=== PATIENT | male | born 1945 | race Caucasian/White ===

== ENCOUNTER 2017-03-28 08:47 | Observation (INO) | payer BC ==
[~2017-03-28] VITALS: Ht 167.6 cm; Wt 106.7 kg
[~2017-03-28 08:47] MED LIST: BUSP5TAB59 PO; CYAN3INJ IM; FURO-85 PO; IRBE-39 PO; METO25TA3 PO; PROP225T PO; WARF1TAB6 PO; WARF6TAB5 PO
--- NOTE | 2017-03-28 09:30 | EMERGENCY ROOM VISIT NOTE ---
History First contact with patient: 08:51 Chief Complaint: ILLNESS Stated Complaint: SHORTNESS OF BREATH/HEADACHE History of Present Illness The patient is a 71 year old male who presents to the Emergency Room with complaints of sudden onset of nausea, shortness of breath, and sharp headache that occurred around 6am today. Symptoms lasted for about 30 minutes and are currently resolved. Patient states he had gotten up and ate breakfast around 5: 30, shortly after that he felt the sudden nausea and headache. He did not vomit. He went to lie down and began to feel suddenly short of breath, which was only relieved by sitting straight up. He denies any chest pain, palpitations, back pain, dizziness or passing out, leg pain or swelling, abdominal pain, urinary symptoms, rash. Past medical history significant for coronary artery disease with previous stent placement, he is on Coumadin for atrial fibrillation, and had a pacemaker placed for bradycardia. Review of Systems A complete 10 point review of systems was reviewed with the patient with pertinent positives and negatives as per history of present illness. All else were negative. 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 Social History Smoking Status: Former Smoker Drug Use: none Marital Status: Housing Status: lives with significant other Occupation Status: retired Current/Historical Medications Scheduled Amlodipine (Norvasc), 5 MG PO DAILY Aspirin (Aspirin Ec), 81 MG PO DAILY Buspirone Hcl (Buspirone Hcl), 5 MG PO DAILY Cyanocobalamin (Cyanocobalamin), 1,000 MCG INJ MONTHLY Furosemide (Furosemide), 20 MG PO DAILY Irbesartan (Avapro), 300 MG PO DAILY Metoprolol Succinate (Toprol Xl), 12.5 MG PO DAILY Propafenone Hcl (Propafenone Hcl), 225 MG PO BID Tamsulosin HCl (Tamsulosin HCl), 0.4 MG PO BID Warfarin Sod (Jantoven), 7 MG PO DAILY [clonidine], 0 IT UD [hydromorphone], 0 IT UD Physical Exam Vital Signs Date Time Temp Pulse Resp B/P (MAP) Pulse Ox O2 Delivery O2 Flow Rate FiO2 03/28/17 13:02 61 147/70 100 Room Air 03/28/17 12:31 60 03/28/17 11:17 60 17 97 03/28/17 11:01 153/77 03/28/17 10:47 55 15 99 03/28/17 10:31 164/73 03/28/17 10:18 143/73 03/28/17 10:17 57 157/77 98 Room Air 03/28/17 10:17 56 4 157/77 97 03/28/17 09:17 58 14 03/28/17 08:57 36.5 69 20 178/97 97 Room Air 03/28/17 08:56 59 03/28/17 08:51 178/97 Physical Exam CONSTITUTIONAL: No acute distress. Nontoxic appearing. Well hydrated, well appearing and well nourished. Alert and oriented X 4 with normal affect. HEENT: Normocephalic, atraumatic. Pupils equal, round and reactive to light, EOMI. TMs normal. Pharynx normal. Moist membranes. NECK: Supple, full active range of motion without discomfort. RESPIRATORY: Clear to auscultation bilaterally with no wheezing, crackles, rhonchi or stridor. Diminished bases bilaterally. Equal expansion bilaterally. CARDIOVASCULAR: Regular rate and rhythm with no murmurs, rubs or gallops. Normal peripheral perfusion. No edema. GASTROINTESTINAL: Soft, nontender, nondistended. Bowel sounds present in all quadrants. MUSCULOSKELETAL: Full range of motion of all joints without discomfort. INTEGUMENTARY: No rash or other significant dermatologic conditions noted. NEUROLOGIC: Cranial nerves II-XII grossly intact. No focal neurologic deficits noted. Medical Decision & Procedures ER Provider Diagnostic Interpretation: SINGLE VIEW CHEST CLINICAL HISTORY: Dyspnea. Headache. FINDINGS: An AP, portable, upright chest radiograph is compared to study dated 01/25/2016. The examination is degraded by portable technique and patient rotation. A 2-lead cardiac pacemaker is unchanged in position. The patient is status post midline sternotomy. The heart is enlarged and there is atherosclerotic calcification of the thoracic aorta. The pulmonary vasculature is noncongested. Chronic interstitial thickening is unchanged. The lungs and pleural spaces are clear. No pneumothorax is seen. The skeletal structures are osteopenic. The bony thorax is grossly intact. IMPRESSION: 1. Cardiomegaly and cardiac pacemaker. There is no radiographic evidence of congestive failure. 2. No airspace consolidation or pleural effusion is seen. ----- HEAD CT NONCONTRAST CT DOSE: 638.56 mGycm HISTORY: Headache. TECHNIQUE: Multiaxial CT images of the head were performed without the use of intravenous contrast. Automated exposure control was utilized for this study. A dose lowering technique was utilized adhering to the principles of ALARA. Comparison: None. Findings: The paranasal sinuses and mastoid air cells are clear. The calvarium and skull base are intact. The ventricles and sulci are within normal limits. There is no mass, hematoma, midline shift, or acute infarct. Impression: No acute intracranial abnormality. Laboratory Results 03/28/17 09:30 Red Blood Count 5.13, Mean Corpuscular Volume 79.7, Mean Corpuscular Hemoglobin 25.1, Mean Corpuscular Hemoglobin Concent 31.5, Mean Platelet Volume 9.8, Neutrophils (%) (Auto) 69.6, Lymphocytes (%) (Auto) 20.2, Monocytes (%) (Auto) 8.5, Eosinophils (%) (Auto) 1.5, Basophils (%) (Auto) 0.1, Neutrophils # (Auto) 4.98, Lymphocytes # (Auto) 1.45, Monocytes # (Auto) 0.61, Eosinophils # (Auto) 0.11, Basophils # (Auto) 0.01 03/28/17 09:30 Test 03/28/17 09:30 03/28/17 11:39 White Blood Count 7.17 K/uL (4.8-10.8) Red Blood Count 5.13 M/uL (4.7-6.1) Hemoglobin 12.9 g/dL (14.0-18.0) Hematocrit 40.9 % (42-52) Mean Corpuscular Volume 79.7 fL (80-100) Mean Corpuscular Hemoglobin 25.1 pg (25-34) Mean Corpuscular Hemoglobin Concent 31.5 g/dl (32-36) Platelet Count 222 K/uL (130-400) Mean Platelet Volume 9.8 fL (7.4-10.4) Neutrophils (%) (Auto) 69.6 % Lymphocytes (%) (Auto) 20.2 % Monocytes (%) (Auto) 8.5 % Eosinophils (%) (Auto) 1.5 % Basophils (%) (Auto) 0.1 % Neutrophils # (Auto) 4.98 K/uL (1.4-6.5) Lymphocytes # (Auto) 1.45 K/uL (1.2-3.4) Monocytes # (Auto) 0.61 K/uL (0.11-0.59) Eosinophils # (Auto) 0.11 K/uL (0-0.5) Basophils # (Auto) 0.01 K/uL (0-0.2) RDW Standard Deviation 52.3 fL (36.4-46.3) RDW Coefficient of Variation 17.7 % (11.5-14.5) Immature Granulocyte % (Auto) 0.1 % Immature Granulocyte # (Auto) 0.01 K/uL (0.00-0.02) Prothrombin Time 46.8 SECONDS (9.0-12.0) Prothromb Time International Ratio 4.1 (0.9-1.1) Anion Gap 4.0 mmol/L (3-11) Est Creatinine Clear Calc Drug Dose 105.2 ml/min Estimated GFR () 106.4 Estimated GFR (Non- 91.8 BUN/Creatinine Ratio 20.6 (10-20) Calcium Level 8.1 mg/dl (8.5-10.1) Total Bilirubin 0.4 mg/dl (0.2-1) Aspartate Amino Transf (AST/SGOT) 16 U/L (15-37) Alanine Aminotransferase (ALT/SGPT) 20 U/L (12-78) Alkaline Phosphatase 62 U/L (45-117) Total Protein 7.0 gm/dl (6.4-8.2) Albumin 3.4 gm/dl (3.4-5.0) Globulin 3.6 gm/dl (2.5-4.0) Albumin/Globulin Ratio 0.9 (0.9-2) Troponin I 0.029 ng/ml (0-0.045) Pro-B-Type Natriuretic Peptide 440 pg/ml (0-900) ECG Indication: SOB/dyspnea Rate (beats per minute): 61 Rhythm: other (Ventricular-paced ) Findings: no acute ischemic change, no ectopy Change: no significant change (01/25/2016) Medical Decision CC: Patient presenting with complaint of shortness of breath with nausea Interpretation of Labs: No leukocytosis, mild anemia (at baseline), no significant electrolyte abnormalities, normal renal function, normal liver enzymes. INR supratherapeutic. UA negative. Differential Diagnosis: Includes, but not limited to ACS, CHF exacerbation, dysrhythmia, pacemaker malfunction, pneumonia, PE, among others. Medication Reconciliation: I attest that I have personally reviewed the patient' s current medication list. Vital signs review: I reviewed the patient's vital signs and interpret them as follows: T: Afebrile; BP: Hypertensive; HR: Within normal limits; RR: Normal limits; Pulse Ox: Within normal limits on room air. Summary: Patient was evaluated at bedside, history of physical exam performed. Patient is alert and oriented, in no acute distress, resting calmly in the stretcher. Patient currently denies any other symptoms which brought him to the ED. EKG reviewed at bedside, shows a ventricular paced rhythm Orders were placed at bedside for labs, UA, troponin, chest x-ray to evaluate for CHF, ACS, pneumonia. Patient discussed with Dr. Knapp, who agrees with my assessment and plan. Labs reviewed as above, unremarkable. Serial troponins are negative. Chest x-ray is clear, no signs of congestive heart failure or pneumonia. Patient reassessed multiple times throughout ED stay, he reports having another episode of feeling short of breath while lying flat here in the ED. Given his risk factors and heart score of >4, recommending admission for additional cardiac workup. I did speak, phone with Dr. Foote, patient's process design engineer, who agreed with our plans for admitting the patient. Spoke with Dr. Davila, hospitalist, who agrees to admit the patient. Patient and family updated on plan for admission, they verbalized understanding of were agreeable. Patient stable at time of admission. Head Trauma GCS Score: 15 Medication Reconcilliation Current Medication List: was personally reviewed by me Blood Pressure Screening Patient's blood pressure: Elevated blood pressure Impression Primary Impression: Orthopnea Departure Information Dispostion Admitted as an inpatient Condition FAIR Referrals Sachs,Adonay Dread D.O. (PCP) Patient Instructions [facility]
[2017-03-28 09:40] LABS: BASO % 0.1 %; BASO ABS # 0.01 K/uL (0-0.2); COMPLETE YES; EOS % 1.5 %; HEMATOCRIT 40.9 % (42-52); IG% 0.1 %; LYMPH % 20.2 %; LYMPH ABS # 1.45 K/uL (1.2-3.4); MEAN CELL VOLUME 79.7 fL (80-100); MEAN CORPUSCULAR HEMOGLOBIN 25.1 pg (25-34); MEAN CORPUSCULAR HGB CONC 31.5 g/dl (32-36); MEAN PLATELET VOLUME 9.8 fL (7.4-10.4); MONO % 8.5 %; NEUT % 69.6 %; PLATELET COUNT 222 K/uL (130-400); RED BLOOD COUNT 5.13 M/uL (4.7-6.1); WHITE BLOOD COUNT 7.17 K/uL (4.8-10.8)
--- NOTE | 2017-03-28 09:42 | EMERGENCY ROOM VISIT NOTE ---
ED Visit Note First contact with patient: 08:51 HPI: h/o afib, bradycardia, s/p ppm on coumadin c/o nausea after breakfast with JANG today. SOB when he lay down after feeling improved. Now asymptomatic. PE: AFVSS, fatigued appearing, NAD NC/AT, dry mm RRR, no murmurs Diminished at bases otherwise CTAB Abd soft NT/ND Ext: no edema, erythema Neuro: grossly intact Plan: CT head negative, EKG paced. Trop negative x 2, PPM interrogation. Patient re-evaluated and having orthopnea and persistent fatigue in ED. Given patient's episode this AM and recurrent sx in setting of Heart score 4-5, moderate risk, will admit for further cardiac r/o with likely formal echo and possible provocative testing. I reviewed the patient's past medical history, medications, and visit nursing notes. I discussed the case with the physician physician office assistant, examined the patient, and agree with the findings and plan as documented in the physician assistants note.
--- NOTE | 2017-03-28 09:44 | DIAGNOSTIC IMAGING REPORT ---
SINGLE VIEW CHEST CLINICAL HISTORY: Dyspnea. Headache. FINDINGS: An AP, portable, upright chest radiograph is compared to study dated 01/25/2016. The examination is degraded by portable technique and patient rotation. A 2-lead cardiac pacemaker is unchanged in position. The patient is status post midline sternotomy. The heart is enlarged and there is atherosclerotic calcification of the thoracic aorta. The pulmonary vasculature is noncongested. Chronic interstitial thickening is unchanged. The lungs and pleural spaces are clear. No pneumothorax is seen. The skeletal structures are osteopenic. The bony thorax is grossly intact. IMPRESSION: 1. Cardiomegaly and cardiac pacemaker. There is no radiographic evidence of congestive failure. 2. No airspace consolidation or pleural effusion is seen. Electronically signed by: Juan Dean M.D. 03/28/2017 9:43 AM Dictated Date/Time: 03/28/2017 9:42 AM
[2017-03-28 09:53] LABS: INR 4.1 (0.9-1.1); PROTHROMBIN TIME (PATIENT) 46.8 SECONDS (9.0-12.0)
[2017-03-28 10:00] LABS: BUN/CREATININE RATIO 20.6 (10-20); CALCIUM 8.1 mg/dl (8.5-10.1); CREATININE 0.76 mg/dl (0.60-1.40); POTASSIUM 4.1 mmol/L (3.5-5.1)
[2017-03-28 10:05] LABS: ALB/GLOB RATIO 0.9 (0.9-2)
--- NOTE | 2017-03-28 10:23 | DIAGNOSTIC IMAGING REPORT ---
HEAD CT NONCONTRAST CT DOSE: 638.56 mGycm HISTORY: Headache. TECHNIQUE: Multiaxial CT images of the head were performed without the use of intravenous contrast. Automated exposure control was utilized for this study. A dose lowering technique was utilized adhering to the principles of ALARA. Comparison: None. Findings: The paranasal sinuses and mastoid air cells are clear. The calvarium and skull base are intact. The ventricles and sulci are within normal limits. There is no mass, hematoma, midline shift, or acute infarct. Impression: No acute intracranial abnormality. Electronically signed by: Alf Lockwood M.D. 03/28/2017 10:22 AM Dictated Date/Time: 03/28/2017 10:02 AM
[2017-03-28] MEDS ORDERED: ACETAMINOPHEN 325 MG TAB PO PRN (14:15)
[2017-03-28] MEDS ORDERED: IV FLUIDS COMPLETED PRN (14:15)
[2017-03-28] MEDS ORDERED: NITROGLYCERIN 0.4 MG SL PER TAB CHARGE SL PRN (14:15)
--- NOTE | 2017-03-28 14:45 | History and Physical ---
History & Physical Date & Time of Service: Mar 28, 2017 at 14:45 . Chief Complaint: Shortness Of Breath/Headache . Primary Care Physician: Shoaib Foote M.D. . History of Present Illness Source: patient, family, clinic records, hospital records 71 YO male followed by Dr. Hines ([facility]) for primary care and Dr. Foote for Cardiology. History of ischemic heart disease, atrial fibrillation, diet-controlled DM, and other problems noted below. This morning he experienced a frontal headache and nausea after eating breakfast around 05:30. Symptoms only lasted for a short time. Subsequently developed dyspnea while lying in supine position. No associated chest pain, palpitations, cough. Dyspnea resolved when he sat up. Came to ED for evaluation. Had another episode of dyspnea while lying in bed in ED. Echocardiograms in past have shown normal LV systolic function. No lower extremity edema. No weight gain. . 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 Family History FATHER Heart disease Lung disease MOTHER Colon cancer Diabetes mellitus Hypertension Social History Smoking Status: Former Smoker Alcohol Use: occasionally Drug Use: none Marital Status: Housing status: lives with family Occupational Status: retired Immunizations History of Influenza Vaccine: Yes History of Tetanus Vaccine?: Yes History of Pneumococcal: No History of Hepatitis B Vaccine: No Multi-Drug Resistant Organisms History of MDRO: No Allergies Coded Allergies: Bee Venom (Verified Allergy, Severe, ANAPHYLAXIS, 03/28/17) Penicillins (Verified Allergy, Intermediate, HIVES, 03/28/17) Sulfa Antibiotics (Verified Allergy, Intermediate, HIVES, 03/28/17) Gentamicin (Verified Allergy, Unknown, UNKNOWN, 03/28/17) Home Medications Scheduled Amlodipine (Norvasc), 5 MG PO DAILY Aspirin (Aspirin Ec), 81 MG PO DAILY Buspirone Hcl (Buspirone Hcl), 5 MG PO DAILY Cyanocobalamin (Cyanocobalamin), 1,000 MCG INJ MONTHLY Furosemide (Furosemide), 20 MG PO DAILY Irbesartan (Avapro), 300 MG PO DAILY Metoprolol Succinate (Toprol Xl), 12.5 MG PO DAILY Propafenone Hcl (Propafenone Hcl), 225 MG PO BID Tamsulosin HCl (Tamsulosin HCl), 0.4 MG PO BID Warfarin Sod (Jantoven), 7 MG PO DAILY [clonidine], 0 IT UD [hydromorphone], 0 IT UD Review of Systems Constitutional: No fever, No weight loss ENT: No nasal symptoms, No sore throat Respiratory: + shortness of breath, No cough Cardiovascular: No chest pain, No edema, No palpitations Abdomen: + nausea, No pain, No vomiting, No diarrhea, No constipation, No GI bleeding Musculoskeletal: + joint pain Genitourinary - Male: No hematuria, No dysuria Neurologic: + problem reported (frontal headache) Endocrine: No excessive thirst, No excessive urination Hematologic / Lymphatic: + abnormal bleeding/bruising, No swollen lymph nodes Integumentary: No rash, No itch, No new/changing skin lesions Physical Exam Vital Signs Date Time Temp Pulse Resp B/P (MAP) Pulse Ox O2 Delivery O2 Flow Rate FiO2 03/28/17 13:02 61 147/70 100 Room Air 03/28/17 12:31 60 03/28/17 11:17 60 17 97 03/28/17 11:01 153/77 03/28/17 10:47 55 15 99 03/28/17 10:31 164/73 03/28/17 10:18 143/73 03/28/17 10:17 57 157/77 98 Room Air 03/28/17 10:17 56 4 157/77 97 03/28/17 09:17 58 14 03/28/17 08:57 36.5 69 20 178/97 97 Room Air 03/28/17 08:56 59 03/28/17 08:51 178/97 General Appearance: WD/WN, no apparent distress Head: normocephalic, atraumatic Eyes: normal inspection, PERRL, EOMI, sclerae normal (conjunctivae pink) ENT: hearing grossly normal, pharynx normal, + pertinent finding (upper dentures) Neck: supple, no adenopathy, thyroid normal, no JVD, trachea midline Respiratory/Chest: lungs clear, no respiratory distress, no accessory muscle use Cardiovascular: regular rate, rhythm, no gallop, no JVD, + systolic murmur (I/ sys murmur at base), + abnormal peripheral pulses (decreased pedal pulses) Abdomen/GI: normal bowel sounds, non tender, soft, no organomegaly, no pulsatile mass Extremities/Musculoskelatal: no calf tenderness, normal capillary refill, no pedal edema Neurologic/Psych: icing mixer II-XII nml as tested (PERRL, EOMI, no facial palsy, no dysarthria), no motor/sensory deficits (grossly intact), alert, normal mood/ affect, oriented x 3 Skin: warm/dry, no rash, + pertinent finding (mild erythema left medial distal thigh) Lymphatic: no adenopathy (cervical, axillary) Diagnostics Laboratory Results Results Past 24 Hours Test 03/28/17 09:30 03/28/17 11:39 Range/Units White Blood Count 7.17 4.8-10.8 K/uL Red Blood Count 5.13 4.7-6.1 M/uL Hemoglobin 12.9 14.0-18.0 g/dL Hematocrit 40.9 42-52 % Mean Corpuscular Volume 79.7 80-100 fL Mean Corpuscular Hemoglobin 25.1 25-34 pg Mean Corpuscular Hemoglobin Concent 31.5 32-36 g/dl Platelet Count 222 130-400 K/uL Mean Platelet Volume 9.8 7.4-10.4 fL Neutrophils (%) (Auto) 69.6 % Lymphocytes (%) (Auto) 20.2 % Monocytes (%) (Auto) 8.5 % Eosinophils (%) (Auto) 1.5 % Basophils (%) (Auto) 0.1 % Neutrophils # (Auto) 4.98 1.4-6.5 K/uL Lymphocytes # (Auto) 1.45 1.2-3.4 K/uL Monocytes # (Auto) 0.61 0.11-0.59 K/uL Eosinophils # (Auto) 0.11 0-0.5 K/uL Basophils # (Auto) 0.01 0-0.2 K/uL RDW Standard Deviation 52.3 36.4-46.3 fL RDW Coefficient of Variation 17.7 11.5-14.5 % Immature Granulocyte % (Auto) 0.1 % Immature Granulocyte # (Auto) 0.01 0.00-0.02 K/uL Prothrombin Time 46.8 9.0-12.0 SECONDS Prothromb Time International Ratio 4.1 0.9-1.1 Sodium Level 141 136-145 mmol/L Potassium Level 4.1 3.5-5.1 mmol/L Chloride Level 110 98-107 mmol/L Carbon Dioxide Level 27 21-32 mmol/L Anion Gap 4.0 3-11 mmol/L Blood Urea Nitrogen 16 7-18 mg/dl Creatinine 0.76 0.60-1.40 mg/dl Est Creatinine Clear Calc Drug Dose 105.2 ml/min Estimated GFR () 106.4 Estimated GFR (Non- 91.8 BUN/Creatinine Ratio 20.6 10-20 Random Glucose 95 70-99 mg/dl Calcium Level 8.1 8.5-10.1 mg/dl Total Bilirubin 0.4 0.2-1 mg/dl Aspartate Amino Transf (AST/SGOT) 16 15-37 U/L Alanine Aminotransferase (ALT/SGPT) 20 12-78 U/L Alkaline Phosphatase 62 45-117 U/L Troponin I 0.029 0.029 0-0.045 ng/ml Total Protein 7.0 6.4-8.2 gm/dl Albumin 3.4 3.4-5.0 gm/dl Globulin 3.6 2.5-4.0 gm/dl Albumin/Globulin Ratio 0.9 0.9-2 Pro-B-Type Natriuretic Peptide 440 0-900 pg/ml Diagnostic Radiology SINGLE VIEW CHEST IMPRESSION: 1. Cardiomegaly and cardiac pacemaker. There is no radiographic evidence of congestive failure. 2. No airspace consolidation or pleural effusion is seen. Electronically signed by: Juan Dean M.D. 03/28/2017 9:[address] NONCONTRAST Findings: The paranasal sinuses and mastoid air cells are clear. The calvarium and skull base are intact. The ventricles and sulci are within normal limits. There is no mass, hematoma, midline shift, or acute infarct. Impression: No acute intracranial abnormality. Electronically signed by: Alf Lockwood M.D. 03/28/2017 10:22 AM . EKG EKG performed at 08:53 reviewed and demonstrated ventricular paced rhythm at 60 / minute, repolarization abnormalities. . Impression Assessment and Plan DYSPNEA Dyspnea in supine position x 2 today. Etiology uncertain. Oxygenation well on room air. No apparent CHF per exam, chest x-ray, BNP. Pulmonary embolism very unlikely in light of warfarin therapy and INR of 4.1. No apparent pulmonary infection. Pacemaker interrogation in ED reportedly unremarkable. Check serial cardiac markers. Consult Cardiology. CORONARY ARTERY DISEASE No anginal symptoms. Etiology of dyspnea uncertain as discussed above. Continue aspirin, metoprolol. Check cardiac markers, lipid profile. Consult Cardiology. ATRIAL FIBRILLATION Continue metoprolol, warfarin. Propafenone to be stopped per discussion with Cardiology. SLEEP APNEA Intolerant of CPAP or BiPAP. DM TYPE 2 Diet controlled. Random blood sugar in ED 95. Check Hgb A1C. Follow. CHRONIC PAIN Well-controlled with hydromorphone / clonidine intrathecal pump. ERYTHEMA LEFT LOWER EXTREMITY Mild erythema left medial distal thigh noted. No fever or leukocytosis. Monitor for possible developing cellulitis. VTE PROPHYLAXIS Continue warfarin. RESUSCITATION STATUS Discussed with patient and his . He has a living will. He would like resuscitation attempted in the event of a cardiopulmonary arrest if there is a reasonable chance of a meaningful recovery, but does not want prolonged extraordinary measures if prognosis is poor. Therefore, code status = "Level 1" (full resuscitation). DISPOSITION Observation status on Telemetry Unit. Expected discharge to home. Medical follow-up with Dr. Hines. Cardiology follow-up with Dr. Foote. . VTE Prophylaxis VTE Risk Assessment Done? Y/N: Yes Risk Level: Moderate Given or contraindicated: Warfarin (Coumadin) Additional Copies To Adonay Hines D.O.
[2017-03-28] MEDS ORDERED: PROPAFENONE HCL 150 MG TAB PO ONE (14:58)
[2017-03-28 15:23] VITALS: BP 174/91; PULSE 62; TEMP 36.6; O2SAT 99; Ht 167.6 cm; Wt 106.7 kg
[2017-03-28] MEDS ORDERED: CLONIDINE IT SCH (16:15)
[2017-03-28] MEDS ORDERED: HYDROMORPHONE FOR PAIN PUMP ITR SCH (16:15)
[2017-03-28] MEDS ORDERED: IRBESARTAN 150 MG TAB PO ONE (16:30)
[2017-03-28] MEDS ORDERED: FUROSEMIDE 40 MG TAB PO ONE (16:30)
[2017-03-28] MEDS ORDERED: METOPROLOL SUCC 25MG EXT REL TAB PO ONE (16:30)
[2017-03-28] MEDS ORDERED: TAMSULOSIN HCL 0.4 MG CAP PO ONE (16:30)
[2017-03-28] MEDS ORDERED: ASPIRIN 81 MG ECTAB PO ONE (16:30)
[2017-03-28] MEDS ORDERED: AMLODIPINE BESYLATE 5 MG TAB PO ONE (16:30)
[2017-03-28 19:37] VITALS: BP 160/87; PULSE 56; TEMP 36.6; O2SAT 99
[2017-03-28] MEDS: TAMSULOSIN HCL 0.4 MG CAP PO SCH (20:54)
[2017-03-28] MEDS ORDERED: PROPAFENONE HCL 150 MG TAB PO SCH (22:00)
--- NOTE | 2017-03-28 23:21 | CARDIOLOGY CONSULTATION ---
DATE OF CONSULTATION: 03/28/2017 REFERRING: Dr. Davila. PRIMARY CARE PHYSICIAN: Dr. Adonay Hines. INDICATIONS: Acute dyspnea. HISTORY OF PRESENT ILLNESS: The patient is a complex 71-year-old male whose history is notable for: 1. Atherosclerotic coronary artery disease, status post coronary artery bypass grafting x4 in 2000, presenting with sign of ischemia. 2. Paroxysmal, now persistent/chronic atrial fibrillation. 3. History of tachybrady syndrome, status post dual-chamber pacemaker insertion initially in 2008 with device generator exchange in 2014. 4. History of obstructive sleep apnea. 5. History of hypertension. 6. History of hyperlipidemia. 7. History of past prior gastric bypass surgery. 8. History of chronic back pain with indwelling infusion pump. The patient presents today noting he was sitting quietly this morning with and suddenly developed a sensation of acute dyspnea and breathlessness. It was not associated with chest pain or diaphoresis. It was associated with nausea and sudden onset of acute frontal headache. Symptoms lasted nearly an hour before spontaneously resolving. He notes no sense of tachypalpitations, dizziness, lightheadedness. Notes no racing heart or palpitations. Denies orthopnea or worsening peripheral edema. Feels weight has been generally stable, slightly upward trending, but no acute fluctuations. Notes no rash or arthritic complaint. Notes no bleeding difficulties. Currently is without pain or discomfort. REVIEW OF SYSTEMS: Otherwise negative. ALLERGIES: BEE VENOM, GENTAMICIN, PENICILLIN, SULFA. MEDICATIONS: Prior to hospitalization were amlodipine 5 mg per day, aspirin 81 mg per day, buspirone 5 mg daily, vitamin B12 1000 mcg injection monthly, furosemide 20 mg per day, Avapro 300 mg p.o. daily, Toprol-XL 12.5 mg p.o. daily, propafenone 225 mg p.o. b.i.d., tamsulosin 0.4 mg p.o. b.i.d., warfarin 7 mg daily, intrathecal clonidine-hydromorphone pump. PAST SURGICAL HISTORY: Notable for as described coronary artery bypass grafting x4 in 2000, prior pacemaker insertion in 2008 with generator exchange 05/2015, past gastric bypass surgery. SOCIAL HISTORY: The patient is a nonsmoker, nondrinker. He is accompanied by his today. PHYSICAL EXAMINATION: VITAL SIGNS: Heart rate 62, blood pressure today is 174/91. HEENT: Normocephalic, atraumatic. Nares without discharge. Throat is clear. NECK: Supple without thyromegaly or lymphadenopathy. There is no jugular venous distention. There are no carotid bruits. LUNGS: Clear with mildly diminished breath sounds. CARDIOVASCULAR: Regular with distant heart sounds with less than grade 1/6 systolic murmur. No diastolic murmur. ABDOMEN: Soft, obese, nontender. No palpable hepatosplenomegaly, no hepatojugular reflux. EXTREMITIES: Reveal trivial pedal edema with intact distal pulses. DATA: White cell count 7.1, hemoglobin is 12.9. Sodium is 141, potassium is 4.1, chloride is 110, bicarbonate is 27, BUN is 16, creatinine is 0.76. Troponin I x2 is 0.029 and 0.029. BNP is 440. Chest x-ray reveals no infiltrate or edema. Head CT revealed no acute abnormalities. EKG reveals chronic atrial fibrillation with ventricular paced rhythm. Rate 61. Pacer interrogation per report revealed no abnormalities. IMPRESSION: Complex 71-year-old male with prior history of coronary artery bypass grafting remotely in 2000, history of chronic atrial fibrillation with tachybrady syndrome, pacemaker in place. The patient presents now with symptoms of acute dyspnea which was transient in nature without recurrence. Only notable finding on examination initially has been elevated blood pressures but not substantially so above usual baseline. Initial cardiac enzymes reveal no acute injury. EKG is nondiagnostic given ventricular paced rhythm. PLAN: Will be to follow serial enzymes. Check echocardiogram to assess LV function and valvular structures. Consider stress testing, the patient having undergone prior dobutamine stress testing in 07/2015, that will be tentatively scheduled for a.m. Coumadin will be held today given elevated INR of 4.0 and concerns were regarding potential need for further investigation of procedures. The patient understands the plan and recommendations, will report any symptoms in hospital. Propafenone stopped. No other adjustments in medications made initially. MTDD
[2017-03-28 23:23] VITALS: BP 138/73; PULSE 58; TEMP 37; O2SAT 96
[2017-03-29 03:51] VITALS: BP 126/69; PULSE 58; TEMP 36.6; O2SAT 97
[2017-03-29 07:13] LABS: HEMATOCRIT 41.1 % (42-52); MEAN CELL VOLUME 79.2 fL (80-100); MEAN CORPUSCULAR HEMOGLOBIN 25.4 pg (25-34); MEAN CORPUSCULAR HGB CONC 32.1 g/dl (32-36); PLATELET COUNT 214 K/uL (130-400); RED BLOOD COUNT 5.19 M/uL (4.7-6.1); WHITE BLOOD COUNT 6.48 K/uL (4.8-10.8)
[2017-03-29 07:20] LABS: PROTHROMBIN TIME (PATIENT) 33.1 SECONDS (9.0-12.0)
[2017-03-29 07:36] LABS: BUN/CREATININE RATIO 14.2 (10-20); CALCIUM 8.6 mg/dl (8.5-10.1); CREATININE 0.81 mg/dl (0.60-1.40); POTASSIUM 4.3 mmol/L (3.5-5.1)
[2017-03-29 07:38] VITALS: BP 156/82; PULSE 56; TEMP 36.5; O2SAT 97
[2017-03-29 07:42] LABS: CHOLESTEROL/HDL RATIO 3.8
[2017-03-29] MEDS ORDERED: WARFARIN SOD 1 MG TAB PO SCH (09:00)
[2017-03-29] MEDS ORDERED: METOPROLOL SUCC 25MG EXT REL TAB PO SCH ×2 (09:00)
[2017-03-29] MEDS: FUROSEMIDE 40 MG TAB PO SCH (09:00)
[2017-03-29] MEDS: ASPIRIN 81 MG ECTAB PO SCH (09:00)
[2017-03-29] MEDS: IRBESARTAN 150 MG TAB PO SCH (09:07)
[2017-03-29] MEDS: AMLODIPINE BESYLATE 5 MG TAB PO SCH (09:08)
[2017-03-29] MEDS: TAMSULOSIN HCL 0.4 MG CAP PO SCH ×2 (09:09→20:34)
--- NOTE | 2017-03-29 10:14 | Cardiology Follow-Up ---
Subjective General Date of Service: Mar 29, 2017. Chief Complaint: SOB Pt evaluation today including: conversation w/ patient, physical exam, chart review, lab review, review of studies, review of inpatient medication list History of Present Illness Patient seen and examined. Patient describes waking up ~4:30 hungry. He drank coffee and ate 1/2 of a bologna sandwich. He went back to bed and awoke around 5:45. He was sitting talking to his , watching the new. He notes having to lean against his , "seemed like all my air left." Notes sitting up straight, having to take five deep breaths, and experiencing pain between the eyes that lasted 5 minutes as well as nausea that lasted approximately 30 minutes. No vomiting. No chest pain or discomfort. No palpitations. No diaphoresis. No fevers or chills. No unilateral complaints. No speech difficulty. No dizziness, near syncope, or syncope. No recent medication changes. No recent illnesses. No rash. No tick bites. Telemetry: Atrial fibrillation. Intermittent ventricular pacing. Lower rate on pacemaker set at 55 bpm. Device interrogation on 03/28/2017 demonstrated appropriate function with adequate battery reserve. Estimated remaining longevity: 8.5 years. Mode VVIR. Lower rate 55 bpm. One ventricular high rate observed since 06/13/2015 lasting 3 seconds and occurring nearly one year ago (04/01/2016). [employer] 64.3%. Ventricular lead capture test sent to occur "daily at rest." Allergies Coded Allergies: Bee Venom (Verified Allergy, Severe, ANAPHYLAXIS, 03/28/17) Penicillins (Verified Allergy, Intermediate, HIVES, 03/28/17) Sulfa Antibiotics (Verified Allergy, Intermediate, HIVES, 03/28/17) Gentamicin (Verified Allergy, Unknown, UNKNOWN, 03/28/17) Social History Smoking Status: Former Smoker Hx Tobacco Use In Past Year?: No Hx Alcohol Use - Type And Amou: No Hx Substance Use - Type And Am: No Problem List Medical Problems: (1) Orthopnea Status: Acute (2) SBO (small bowel obstruction) Status: Acute (3) Upper abdominal pain Status: Acute Physical Exam Vital Signs Last Vital Signs Documentation Date Time Temp Pulse Resp B/P (MAP) Pulse Ox O2 Delivery O2 Flow Rate FiO2 03/29/17 07:38 36.5 56 18 156/82 (106) 97 Room Air Physical Exam Constitutional: Level of Distress: NAD Ambulation: ambulation with cane Psychiatric: Mental Status: active & alert Orientation: to time, to place, to person Memory: recent memory normal, remote memory normal Head: normocephalic, atraumatic Eyes: Pupils: PERRLA Neck: pertinent finding (Normal JVP) Lungs: Respiratory effort: no dyspnea Auscultation: no wheezing, no rales/crackles, no rhonchi, deminished air movement Cardiovascular: Heart Auscultation: no rubs, II/ EMILIO, irregular rate rhythm (56 bpm) Peripheral Pulses: Dorsalis Pedis Pulse: decreased on the left, decreased on the right Musculoskeletal: normal Extremities: no cyanosis, no clubbing, edema Neurologic: Cranial Nerves: grossly intact Assessment and Plan Assessment and Plan Complex 71-year-old male admitted with symptoms of acute dyspnea as described above. EKG ventricular paced. Cardiac enzymes negative. Dvk-T-Ooekzvppwwp peptide normal, 440 pg/mL. Chest x-ray without acute process. Head CT without acute intracranial abnormality. Dobutamine stress echocardiography ordered. [employer] contacted to assess ventricular lead settings. Further recommendations pending the above, evaluation by Dr. Foote, and the patient's ongoing hospitalization. Laboratory Results Last 24 Hours Test 03/28/17 11:39 03/29/17 06:43 Troponin I 0.029 ng/ml 0.019 ng/ml Pro-B-Type Natriuretic Peptide 440 pg/ml White Blood Count 6.48 K/uL Red Blood Count 5.19 M/uL Hemoglobin 13.2 g/dL Hematocrit 41.1 % Mean Corpuscular Volume 79.2 fL Mean Corpuscular Hemoglobin 25.4 pg Mean Corpuscular Hemoglobin Concent 32.1 g/dl RDW Standard Deviation 51.2 fL RDW Coefficient of Variation 17.6 % Platelet Count 214 K/uL Mean Platelet Volume 10.0 fL Prothrombin Time 33.1 SECONDS Prothromb Time International Ratio 3.0 Sodium Level 141 mmol/L Potassium Level 4.3 mmol/L Chloride Level 108 mmol/L Carbon Dioxide Level 26 mmol/L Anion Gap 7.0 mmol/L Blood Urea Nitrogen 12 mg/dl Creatinine 0.81 mg/dl Est Creatinine Clear Calc Drug Dose 95.9 ml/min Estimated GFR () 103.6 Estimated GFR (Non- 89.4 BUN/Creatinine Ratio 14.2 Random Glucose 110 mg/dl Estimated Average Glucose 146 mg/dl Hemoglobin A1c 6.7 % Calcium Level 8.6 mg/dl Triglycerides Level 112 mg/dl Cholesterol Level 119 mg/dl HDL Cholesterol 31 mg/dl LDL Cholesterol, Calculated 66 mg/dl VLDL Cholesterol, Calculated 22 mg/dl Cholesterol/HDL Ratio 3.8 Hepatitis C Antibody Screen NEG
[2017-03-29 12:01] VITALS: BP 125/73; PULSE 55; TEMP 36.8; O2SAT 95
--- NOTE | 2017-03-29 12:57 | Progress Note ---
Internal Med Progress Note Date of Service: Mar 29, 2017. Provider Documentation: SUBJECTIVE: The patient was seen and examined Denies any CP,Palpitation, No more SOB since admission OBJECTIVE: Vital Signs-as noted below Exam: General-No distress at rest Eyes-normal ENT-normal Neck-supple Lungs-Clear to ausucltate bilaterally Heart-Regular,no murmur appreciated Abdomen-Benign,no masses,bowel sound present Extremities-No edema Neuro-AAOx3 Lab data as noted below. ASSESSMENT & PLAN: Shortness of Breath Dyspnea in supine position x 2 today. Oxygenation well on room air. No apparent CHF per exam, chest x-ray, BNP. Pulmonary embolism very unlikely in light of warfarin therapy and INR of 4.1. Pacemaker interrogation in ED reportedly unremarkable. Check serial cardiac markers-Negative for any ACS . Consult Cardiology-appreciate Input DSE today CORONARY ARTERY DISEASE No anginal symptoms. Etiology of dyspnea uncertain as discussed above. Continue aspirin, metoprolol. Check cardiac markers-negative for any ACS ATRIAL FIBRILLATION-Rate controlled Continue metoprolol, warfarin. Propafenone to be stopped per discussion with Cardiology. INR therapeutic SLEEP APNEA Intolerant of CPAP or BiPAP. May be the cause of supine SOB DM TYPE 2 Diet controlled. Random blood sugar in ED 95. Check Hgb A1C.-6.7 Monitor BS CHRONIC PAIN Well-controlled with hydromorphone / clonidine intrathecal pump. ERYTHEMA LEFT LOWER EXTREMITY-No Cellulitis Mild erythema left medial distal thigh noted. No fever or leukocytosis. Doubt any cellulitis VTE PROPHYLAXIS Continue warfarin. RESUSCITATION STATUS:Level 1 Discussed with patient and his . He has a living will. He would like resuscitation attempted in the event of a cardiopulmonary arrest if there is a reasonable chance of a meaningful recovery, but does not want prolonged extraordinary measures if prognosis is poor. DISPOSITION Observation status on Telemetry Unit. Expected discharge to home. Medical follow-up with Dr. Hines. Cardiology follow-up with Dr. Foote. .Likely discharge in a day or two Vital Signs: Date Time Temp Pulse Resp B/P (MAP) Pulse Ox O2 Delivery O2 Flow Rate FiO2 03/29/17 12:01 36.8 55 20 125/73 (90) 95 Room Air 03/29/17 08:00 Room Air 03/29/17 07:38 36.5 56 18 156/82 (106) 97 Room Air 03/29/17 04:00 Room Air 03/29/17 03:51 36.6 58 18 126/69 (88) 97 Room Air 03/29/17 00:01 Room Air 03/28/17 23:23 37.0 58 18 138/73 (94) 96 Room Air 03/28/17 20:00 Room Air 03/28/17 19:37 36.6 56 18 160/87 (111) 99 Room Air 03/28/17 16:00 Room Air 03/28/17 15:23 36.6 62 20 174/91 99 Room Air 03/28/17 15:16 61 153/79 97 03/28/17 13:02 61 147/70 100 Room Air Lab Results: Results Past 24 Hours Test 03/29/17 06:43 Range/Units White Blood Count 6.48 4.8-10.8 K/uL Red Blood Count 5.19 4.7-6.1 M/uL Hemoglobin 13.2 14.0-18.0 g/dL Hematocrit 41.1 42-52 % Mean Corpuscular Volume 79.2 80-100 fL Mean Corpuscular Hemoglobin 25.4 25-34 pg Mean Corpuscular Hemoglobin Concent 32.1 32-36 g/dl RDW Standard Deviation 51.2 36.4-46.3 fL RDW Coefficient of Variation 17.6 11.5-14.5 % Platelet Count 214 130-400 K/uL Mean Platelet Volume 10.0 7.4-10.4 fL Prothrombin Time 33.1 9.0-12.0 SECONDS Prothromb Time International Ratio 3.0 0.9-1.1 Sodium Level 141 136-145 mmol/L Potassium Level 4.3 3.5-5.1 mmol/L Chloride Level 108 98-107 mmol/L Carbon Dioxide Level 26 21-32 mmol/L Anion Gap 7.0 3-11 mmol/L Blood Urea Nitrogen 12 7-18 mg/dl Creatinine 0.81 0.60-1.40 mg/dl Est Creatinine Clear Calc Drug Dose 95.9 ml/min Estimated GFR () 103.6 Estimated GFR (Non- 89.4 BUN/Creatinine Ratio 14.2 10-20 Random Glucose 110 70-99 mg/dl Estimated Average Glucose 146 mg/dl Hemoglobin A1c 6.7 4.5-5.6 % Calcium Level 8.6 8.5-10.1 mg/dl Troponin I 0.019 0-0.045 ng/ml Triglycerides Level 112 0-150 mg/dl Cholesterol Level 119 0-200 mg/dl HDL Cholesterol 31 mg/dl LDL Cholesterol, Calculated 66 mg/dl VLDL Cholesterol, Calculated 22 mg/dl Cholesterol/HDL Ratio 3.8 Hepatitis C Antibody Screen NEG NEG
[2017-03-29] MEDS ORDERED: ATROPINE SULFATE 0.1 MG/ML 5ML SYR ONE (13:00)
[2017-03-29] MEDS ORDERED: METOPROLOL TARTRATE 1 MG/ML VIAL ONE (13:00)
[2017-03-29] MEDS ORDERED: DOBUTamine 500MG / 250ML D5W ONE (13:01)
[2017-03-29] MEDS ORDERED: PERFLUTREN LIPID MICROSPHERE (DEFINITY) IV ONE (14:06)
[2017-03-29 15:46] VITALS: BP 102/54; PULSE 76; TEMP 36.9; O2SAT 98
[2017-03-29] MEDS ORDERED: WARFARIN TAB 5 MG, WARFARIN TAB 2 MG PO SCH ×2 (16:00)
--- NOTE | 2017-03-29 16:41 | DOBUTAMINE ECHO ---
*NOTICE TO RECEIVING CONSTITUTION PARTY AGENCY This information is strictly Confidential and protected under [place] law. [place] law prohibits you from making any further disclosure of this information unless further disclosure is expressly permitted by the written consent of the person to whom it pertains or is authorized by law. A general authorization for the release of medical or other information is not sufficient for this purpose. Hospital accepts no responsibility if the information is made available to any other person, INCLUDING THE PATIENT. Interpretation Summary * Name: KUSUM DUNCAN Study Date: 03/29/2017 12:50 PM BP: 151/86 mmHg * Patient Location: 2T\S\S239\S\1 HR: 54 * : 1945 (M/d/yyy) Gender: Male Height: 66 in * Age: 71 yrs Ethnicity: [place] Weight: 236 lb * Ordering Physician: Shoaib Foote * Referring Physician: Self, Referred * Performed By: Heaven Amor RDCS * * Reason For Study: Dyspnea * BSA: 2.1 m2 * STRESS STUDY: Normal pharmacologic stress echocardiogram. No echocardiographic or ECG evidence of myocardial ischemia having achieved heart rate adequate for diagnostic purposes. * -- Conclusions -- * Aortic valve sclerosis moderate, without significant aortic valvular stenosis. Procedure Details * DOBUTAMINE ECHO, CPT#[id number] * ECHO DOPPLER, CPT #[id number] * ECHO COLOR FLOW, CPT #[id number] * A contrast injection of Definity was performed to improve assessment of LV function. * Contrast was injected into an intravenous site in the right arm. * One vial of Definity ultrasound contrast was diluted in normal saline to a total volume of 10 ml. A total of '4' ml of solution was administered during imaging. * Lot # [id number] of Definity utilized for procedure. * Expiration date APR 13. * The attending nurse who injected the contrast agent was Colleen Sorto RN. Left Ventricle * The basal septum is thickened and angulated consistent with sigmoid septum. * There is moderate concentric left ventricular hypertrophy. * Ejection Fraction = 50-55%. * Septal motion is consistent with conduction abnormality. Right Ventricle * The right ventricular cavity size is normal (basal dimension <4.2 cm in right ventricular apical 4-chamber view). Atria * The left atrium is moderately dilated. Mitral Valve * There is mild mitral annular calcification. * There is no mitral valve stenosis. * There is trace mitral regurgitation. Aortic Valve * The aortic valve is tricuspid. The leaflet thickness if normal. There is no aortic stenosis, and no significant insufficiency. * Aortic valve sclerosis moderate, without significant aortic valvular stenosis. Pulmonic Valve * The pulmonic valve is not well visualized. Pericardium * There is no pericardial effusion. Stress Parameters * Baseline EKG Atrila fibrillation with ventricular paced rhythm. * Stress EKG was non diagnostic due to conduction changes. RBBB * The stress portion of this study was personally supervised by the undersigned interpreting physician. * Rest heart rate was '54' BPM. * Rest blood pressure was '151/86' * Maximum heart rate achieved was 144 bpm. * Maximum heart rate was 96 % of maximum age-predicted heart rate. * Maximum blood pressure was '180/62' * Maximum Dobutamine infusion rate was '30' mcg/kg/min. * A total of 0.5 mg of intravenous Atropine was used to supplement Dobutamine for heart rate response. * Dobutamine infusion was terminated due to achieving target heart rate * A total of 2.5 mg of IV Metoprolol was administered to reverse Dobutamine-induced tachycardia. * The patient did not exhibit any symptoms during drug infusion. MMode 2D Measurements and Calculations IVSd 1.1 cm LVIDd 4.3 cm LVIDs 3.2 cm LVPWd 1.3 cm IVS/LVPW 0.88 FS 24.9 % EDV(Teich) 81.2 ml ESV(Teich) 40.9 ml EF(Teich) 49.7 % EDV(cubed) 77.3 ml ESV(cubed) 32.7 ml EF(cubed) 57.7 % LV mass(C)d 187.4 grams LV mass(C)dI 87.3 grams/m\S\2 SV(Teich) 40.4 ml SI(Teich) 18.8 ml/m\S\2 SV(cubed) 44.6 ml SI(cubed) 20.8 ml/m\S\2 Ao root diam 3.1 cm Ao root area 7.5 cm\S\2 ACS 2.1 cm LA dimension 4.1 cm asc Aorta Diam 2.4 cm LA/Ao 1.3 LVOT diam 2.0 cm LVOT area 3.2 cm\S\2 LVAd ap4 32.8 cm\S\2 LVLd ap4 7.5 cm EDV(MOD-sp4) 119.3 ml EDV(sp4-el) 122.3 ml LVAs ap4 20.9 cm\S\2 LVLs ap4 6.9 cm ESV(MOD-sp4) 55.9 ml ESV(sp4-el) 54.2 ml EF(MOD-sp4) 53.2 % EF(sp4-el) 55.7 % LVAd ap2 22.0 cm\S\2 LVLd ap2 6.8 cm EDV(MOD-sp2) 59.1 ml EDV(sp2-el) 61.0 ml LVAs ap2 13.5 cm\S\2 LVLs ap2 5.8 cm ESV(MOD-sp2) 28.2 ml ESV(sp2-el) 26.7 ml EF(MOD-sp2) 52.4 % EF(sp2-el) 56.2 % LVLd %diff -10.66 % EDV(MOD-bp) 84.9 ml LVLs %diff -19.04 % ESV(MOD-bp) 42.7 ml EF(MOD-bp) 49.7 % SV(MOD-sp4) 63.4 ml SI(MOD-sp4) 29.5 ml/m\S\2 SV(MOD-sp2) 31.0 ml SI(MOD-sp2) 14.4 ml/m\S\2 SV(MOD-bp) 42.2 ml SI(MOD-bp) 19.6 ml/m\S\2 SV(sp4-el) 68.2 ml SI(sp4-el) 31.8 ml/m\S\2 SV(sp2-el) 34.3 ml SI(sp2-el) 16.0 ml/m\S\2 Doppler Measurements and Calculations MV E max gwyn 78.1 cm/sec MV dec time 0.19 sec Ao V2 max 149.7 cm/sec Ao max PG 9.0 mmHg Ao max PG (full) 7.2 mmHg NABIL(V,A) 1.4 cm\S\2 NABIL(V,D) 1.4 cm\S\2 LV V1 max PG 1.8 mmHg LV V1 max 66.9 cm/sec PA V2 max 97.7 cm/sec PA max PG 3.8 mmHg PA acc slope 422.8 cm/sec\S\2 PA acc time 0.10 sec TR max gwyn 243.2 cm/sec PA pr(Accel) 33.1 mmHg
--- NOTE | 2017-03-29 17:37 | CARDIOLOGY PROGRESS NOTE ---
DATE: 03/29/2017 The patient was seen and examined and evaluated at the time of dobutamine stress echocardiography. SUBJECTIVE: The patient feels well today. Pacemaker reprogrammed to get out of threshold timing during nonwaking hours. Symptoms were reproduced with out of threshold testing. Dobutamine stress testing today revealed no stress induced ischemia, though with moderate left ventricular hypertrophy, sigmoid septum with contraction pattern consistent with paced rhythm. RECOMMENDATIONS: The patient's medications have been adjusted, specifically antiarrhythmic therapies and discontinue propafenone. I will titrate Toprol to 25 mg twice per day. Keep on monitor overnight. Assess for further arrhythmias. Stable overnight, discharge to home in a.m. MTDD
[2017-03-29 19:34] VITALS: BP 160/72; PULSE 66; TEMP 36.8; O2SAT 98
[2017-03-29] MEDS: METOPROLOL SUCC 25MG EXT REL TAB PO SCH (20:34)
[2017-03-30] VITALS (9 sets, daily range): BP systolic 107–166; BP diastolic 62–91; PULSE 55–78; TEMP 36.5–36.9; O2SAT 96–99
[2017-03-30 07:33] LABS: HEMATOCRIT 40.7 % (42-52); MEAN CELL VOLUME 78.9 fL (80-100); MEAN CORPUSCULAR HEMOGLOBIN 25.6 pg (25-34); MEAN CORPUSCULAR HGB CONC 32.4 g/dl (32-36); MEAN PLATELET VOLUME 9.6 fL (7.4-10.4); PLATELET COUNT 209 K/uL (130-400); RED BLOOD COUNT 5.16 M/uL (4.7-6.1)
[2017-03-30 07:43] LABS: INR 1.7 (0.9-1.1); PROTHROMBIN TIME (PATIENT) 18.4 SECONDS (9.0-12.0)
[2017-03-30 08:00] LABS: BUN/CREATININE RATIO 18.6 (10-20); CALCIUM 8.8 mg/dl (8.5-10.1); CREATININE 0.78 mg/dl (0.60-1.40); POTASSIUM 4.1 mmol/L (3.5-5.1)
[2017-03-30] MEDS: FUROSEMIDE 40 MG TAB PO SCH (08:18)
[2017-03-30] MEDS: AMLODIPINE BESYLATE 5 MG TAB PO SCH (08:19)
[2017-03-30] MEDS: IRBESARTAN 150 MG TAB PO SCH (08:19)
[2017-03-30] MEDS: METOPROLOL SUCC 25MG EXT REL TAB PO SCH (08:20)
[2017-03-30] MEDS: ASPIRIN 81 MG ECTAB PO SCH (08:20)
[2017-03-30] MEDS: TAMSULOSIN HCL 0.4 MG CAP PO SCH (08:20)
--- NOTE | 2017-03-30 10:23 | Cardiology Follow-Up ---
Subjective General Date of Service: Mar 30, 2017. Chief Complaint: SOB Pt evaluation today including: conversation w/ patient, physical exam, chart review, lab review, review of studies, review of inpatient medication list History of Present Illness Patient seen and examined. No complaints. Denies chest pain, palpitations, dyspnea, or nausea. Telemetry: Atrial fibrillation with a controlled ventricular response, currently around 60 bpm. Intermittent ventricular pacing. March 29, 2017 DSE Interpretation Summary ([facility], Dr. Foote): Normal pharmacologic stress echocardiogram. No echocardiographic or ECG evidence of myocardial ischemia having achieved heart rate adequate for diagnostic purposes (96% age predicted maximum heart rate). Aortic valve sclerosis moderate, without significant aortic valvular stenosis. Allergies Coded Allergies: Bee Venom (Verified Allergy, Severe, ANAPHYLAXIS, 03/28/17) Penicillins (Verified Allergy, Intermediate, HIVES, 03/28/17) Sulfa Antibiotics (Verified Allergy, Intermediate, HIVES, 03/28/17) Gentamicin (Verified Allergy, Unknown, UNKNOWN, 03/28/17) Social History Smoking Status: Former Smoker Hx Tobacco Use In Past Year?: No Hx Alcohol Use - Type And Amou: No Hx Substance Use - Type And Am: No Problem List Medical Problems: (1) Orthopnea Status: Acute (2) SBO (small bowel obstruction) Status: Acute (3) Upper abdominal pain Status: Acute Physical Exam Vital Signs Last Vital Signs Documentation Date Time Temp Pulse Resp B/P (MAP) Pulse Ox O2 Delivery O2 Flow Rate FiO2 03/30/17 08:00 99 Room Air 03/30/17 07:58 36.5 55 22 152/82 (105) Physical Exam Constitutional: Level of Distress: NAD Ambulation: ambulation with cane Psychiatric: Mental Status: active & alert Orientation: to time, to place, to person Memory: recent memory normal, remote memory normal Head: normocephalic, atraumatic Eyes: Pupils: PERRLA Neck: pertinent finding (Normal JVP) Lungs: Respiratory effort: no dyspnea Auscultation: no wheezing, no rales/crackles, no rhonchi, deminished air movement Cardiovascular: Heart Auscultation: no rubs, II/ EMILIO, irregular rate rhythm (56 bpm) Peripheral Pulses: Dorsalis Pedis Pulse: decreased on the left, decreased on the right Musculoskeletal: normal Extremities: no cyanosis, no edema, no clubbing Neurologic: Cranial Nerves: grossly intact Assessment and Plan Assessment and Plan Complex 71-year-old male admitted with symptoms of acute dyspnea associated with nausea. Device interrogation on 03/29/2017 reproduced his presenting symptoms there were associated with automatic ventricular lead capture testing for which his device was reprogrammed by the [employer] (01:00 AM instead of 'day at rest.'). Dobutamine stress echocardiography was negative for ischemia at 96% age predicted maximum heart rate. Medication changes made this admission included discontinuation of propafenone and titration of Toprol XL. Cardiology office contacted to make arrangements for hospital follow-up; they will contact the patient post discharge. Patient personally rounded on , chart reviewed, assessment and plan as above. Shoaib Foote MD Laboratory Results Last 24 Hours Test 03/30/17 06:46 White Blood Count 6.60 K/uL Red Blood Count 5.16 M/uL Hemoglobin 13.2 g/dL Hematocrit 40.7 % Mean Corpuscular Volume 78.9 fL Mean Corpuscular Hemoglobin 25.6 pg Mean Corpuscular Hemoglobin Concent 32.4 g/dl RDW Standard Deviation 51.4 fL RDW Coefficient of Variation 17.6 % Platelet Count 209 K/uL Mean Platelet Volume 9.6 fL Prothrombin Time 18.4 SECONDS Prothromb Time International Ratio 1.7 Sodium Level 140 mmol/L Potassium Level 4.1 mmol/L Chloride Level 107 mmol/L Carbon Dioxide Level 27 mmol/L Anion Gap 6.0 mmol/L Blood Urea Nitrogen 15 mg/dl Creatinine 0.78 mg/dl Est Creatinine Clear Calc Drug Dose 99.4 ml/min Estimated GFR () 105.3 Estimated GFR (Non- 90.8 BUN/Creatinine Ratio 18.6 Random Glucose 110 mg/dl Calcium Level 8.8 mg/dl
--- NOTE | 2017-03-30 11:46 | Progress Note ---
Internal Med Progress Note Date of Service: Mar 30, 2017. Provider Documentation: SUBJECTIVE: The patient was seen and examined Denies any CP,Palpitation, No more SOB since admission Negative DSE on 03/29/17 No more symptoms PPM interrogated OBJECTIVE: Vital Signs-as noted below Exam: General-No distress at rest Eyes-normal ENT-normal Neck-supple Lungs-Clear to ausucltate bilaterally Heart-Regular,no murmur appreciated Abdomen-Benign,no masses,bowel sound present Extremities-No edema Neuro-AAOx3 Lab data as noted below. ASSESSMENT & PLAN: Shortness of Breath Dyspnea in supine position x 2 today. Oxygenation well on room air. No apparent CHF per exam, chest x-ray, BNP. Pulmonary embolism very unlikely in light of warfarin therapy and INR of 4.1. Pacemaker interrogation in ED reportedly unremarkable. Check serial cardiac markers-Negative for any ACS . Consult Cardiology-appreciate Input DSE -Negative for any ischemia 03/29/17 Denies any more symptoms PPM Interrogated CORONARY ARTERY DISEASE No anginal symptoms. Etiology of dyspnea uncertain as discussed above. Continue aspirin, metoprolol. Check cardiac markers-negative for any ACS NO more symptoms ATRIAL FIBRILLATION-Rate controlled Continue metoprolol, warfarin. Propafenone to be stopped per discussion with Cardiology. INR therapeutic BB dose adjusted Discharge home today SLEEP APNEA Intolerant of CPAP or BiPAP. May be the cause of supine SOB DM TYPE 2 Diet controlled. Random blood sugar in ED 95. Check Hgb A1C.-6.7 Monitor BS CHRONIC PAIN Well-controlled with hydromorphone / clonidine intrathecal pump. ERYTHEMA LEFT LOWER EXTREMITY-No Cellulitis Mild erythema left medial distal thigh noted. No fever or leukocytosis. Doubt any cellulitis VTE PROPHYLAXIS Continue warfarin. RESUSCITATION STATUS:Level 1 Discussed with patient and his . He has a living will. He would like resuscitation attempted in the event of a cardiopulmonary arrest if there is a reasonable chance of a meaningful recovery, but does not want prolonged extraordinary measures if prognosis is poor. DISPOSITION Observation status on Telemetry Unit. Expected discharge to home. Medical follow-up with Dr. Hines. Cardiology follow-up with Dr. Foote. Likely discharge in a day or two Discharge today -Advised to have PCP appointment in 1 week and regular Cardiology follow up Vital Signs: Date Time Temp Pulse Resp B/P (MAP) Pulse Ox O2 Delivery O2 Flow Rate FiO2 03/30/17 08:00 99 Room Air 10/4/17 07:58 36.5 55 22 152/82 (105) 99 Room Air 03/30/17 04:12 36.7 61 18 107/62 (77) 96 Room Air 03/30/17 04:00 Room Air 03/30/17 00:14 36.7 55 16 119/66 (83) 97 Room Air 03/30/17 00:00 Room Air 03/29/17 20:00 Room Air 03/29/17 19:34 36.8 66 18 160/72 (101) 98 03/29/17 16:00 Room Air 03/29/17 15:46 36.9 76 16 102/54 (70) 98 03/29/17 12:01 36.8 55 20 125/73 (90) 95 Room Air 03/29/17 12:00 Room Air Lab Results: Results Past 24 Hours Test 03/30/17 06:46 Range/Units White Blood Count 6.60 4.8-10.8 K/uL Red Blood Count 5.16 4.7-6.1 M/uL Hemoglobin 13.2 14.0-18.0 g/dL Hematocrit 40.7 42-52 % Mean Corpuscular Volume 78.9 80-100 fL Mean Corpuscular Hemoglobin 25.6 25-34 pg Mean Corpuscular Hemoglobin Concent 32.4 32-36 g/dl RDW Standard Deviation 51.4 36.4-46.3 fL RDW Coefficient of Variation 17.6 11.5-14.5 % Platelet Count 209 130-400 K/uL Mean Platelet Volume 9.6 7.4-10.4 fL Prothrombin Time 18.4 9.0-12.0 SECONDS Prothromb Time International Ratio 1.7 0.9-1.1 Sodium Level 140 136-145 mmol/L Potassium Level 4.1 3.5-5.1 mmol/L Chloride Level 107 98-107 mmol/L Carbon Dioxide Level 27 21-32 mmol/L Anion Gap 6.0 3-11 mmol/L Blood Urea Nitrogen 15 7-18 mg/dl Creatinine 0.78 0.60-1.40 mg/dl Est Creatinine Clear Calc Drug Dose 99.4 ml/min Estimated GFR () 105.3 Estimated GFR (Non- 90.8 BUN/Creatinine Ratio 18.6 10-20 Random Glucose 110 70-99 mg/dl Calcium Level 8.8 8.5-10.1 mg/dl
[2017-03-30] MEDS ORDERED: METO25TA3 PO (12:49)
--- NOTE | 2017-03-30 12:52 | Discharge Instructions ---
Discharge Instructions Date of Service Mar 30, 2017. Admission Reason for Admission: Dyspnea Discharge Discharge Diagnosis / Problem: SOB,Possibly secondary to Pacemaker issue-fixed Discharge Goals Goal(s): Prevent Disease Progression Activity Recommendations Activity Limitations: resume your previous activity . Instructions / Follow-Up Instructions / Follow-Up Please make an appointment with your PCP in 1 week.Cardiology will call for appointment Current Hospital Diet Patient's current hospital diet: AHA Diet (Heart Healthy) Discharge Diet Recommended Diet: AHA Diet (Heart Healthy) Pending Studies Studies pending at discharge: no Laboratory Results Hemoglobin A1c Test 03/29/17 06:43 Range/Units Estimated Average Glucose 146 mg/dl Hemoglobin A1c 6.7 H 4.5-5.6 % Lipid Panel Test 03/29/17 06:43 Range/Units Triglycerides Level 112 0-150 mg/dl Cholesterol Level 119 0-200 mg/dl HDL Cholesterol 31 mg/dl Cholesterol/HDL Ratio 3.8 LDL Cholesterol, Calculated 66 mg/dl Medical Emergencies . Who to Call and When: Medical Emergencies: If at any time you feel your situation is an emergency, please call 911 immediately. . Non-Emergent Contact Non-Emergency issues call your: Primary Care Provider . Past History Medical & Surgical History: (1) CAD (coronary artery disease) (2) Atrial fibrillation (3) RICHY (obstructive sleep apnea) (4) Tachy-richard syndrome (5) Pacemaker (6) Diabetes mellitus type 2, controlled (7) S/P insertion of intrathecal pump (8) S/P CABG x 4 (9) S/P cholecystectomy (10) History of appendectomy (11) History of tonsillectomy and adenoidectomy . "Provider Documentation" section prepared by Elisabeth Perez. . VTE Core Measure Inpt VTE Proph given/why not?: Warfarin (Coumadin)
--- NOTE | 2017-03-31 07:37 | Discharge Summary ---
Discharge Summary Date of Service Mar 31, 2017. Discharge Summary Admission Date: Mar 28, 2017 at 14:04 Discharge Date: Mar 30, 2017 Discharge Disposition: Home Principal Diagnosis: SOB,Possibly secondary to Pacemaker issue-fixed Consultations: Cardiology Medication Reconciliation Changed Medications: Metoprolol Succinate (Toprol Xl) 25 Mg Tabcr 25 MG PO BID, #60 TAB (Changed from: 12.5 MG; DAILY; 30) Continued Medications: Amlodipine (Norvasc) 5 Mg Tab 5 MG PO DAILY Aspirin (Aspirin Ec) 81 Mg Tab 81 MG PO DAILY Buspirone Hcl (Buspirone Hcl) 5 Mg Tab 5 MG PO DAILY, #30 Cyanocobalamin (Cyanocobalamin) 1,000 Mcg/Ml Inj 1000 MCG INJ MONTHLY Furosemide (Furosemide) 40 Mg Tab 20 MG PO DAILY Take 1/2 pill (20 mg) daily. Irbesartan (Avapro) 300 Mg Tab 300 MG PO DAILY, #30 Tamsulosin HCl (Tamsulosin HCl) 0.4 Mg Cap 0.4 MG PO BID Warfarin Sod (Jantoven) 1 Mg Tab 7 MG PO DAILY [clonidine] () 0 IT UD via intrathecal pump [hydromorphone] () 0 IT UD via intrathecal pump Discontinued Medications: Propafenone Hcl (Propafenone Hcl) 225 Mg Tab 225 MG PO BID Admission Information HPI (per Admitting provider): 71 YO male followed by Dr. Hines ([facility]) for primary care and Dr. Foote for Cardiology. History of ischemic heart disease, atrial fibrillation, diet-controlled DM, and other problems noted below. This morning he experienced a frontal headache and nausea after eating breakfast around 05:30. Symptoms only lasted for a short time. Subsequently developed dyspnea while lying in supine position. No associated chest pain, palpitations, cough. Dyspnea resolved when he sat up. Came to ED for evaluation. Had another episode of dyspnea while lying in bed in ED. Echocardiograms in past have shown normal LV systolic function. No lower extremity edema. No weight gain. . 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 Family History FATHER Heart disease Lung disease MOTHER Colon cancer Diabetes mellitus Hypertension Social History Smoking Status: Former Smoker Alcohol Use: occasionally Drug Use: none Marital Status: Housing status: lives with family Occupational Status: retired Immunizations History of Influenza Vaccine: Yes History of Tetanus Vaccine?: Yes History of Pneumococcal: No History of Hepatitis B Vaccine: No Multi-Drug Resistant Organisms History of MDRO: No Allergies Coded Allergies: Bee Venom (Verified Allergy, Severe, ANAPHYLAXIS, 03/28/17) Penicillins (Verified Allergy, Intermediate, HIVES, 03/28/17) Sulfa Antibiotics (Verified Allergy, Intermediate, HIVES, 03/28/17) Gentamicin (Verified Allergy, Unknown, UNKNOWN, 03/28/17) Home Medications Scheduled Amlodipine (Norvasc), 5 MG PO DAILY Aspirin (Aspirin Ec), 81 MG PO DAILY Buspirone Hcl (Buspirone Hcl), 5 MG PO DAILY Cyanocobalamin (Cyanocobalamin), 1,000 MCG INJ MONTHLY Furosemide (Furosemide), 20 MG PO DAILY Irbesartan (Avapro), 300 MG PO DAILY Metoprolol Succinate (Toprol Xl), 12.5 MG PO DAILY Propafenone Hcl (Propafenone Hcl), 225 MG PO BID Tamsulosin HCl (Tamsulosin HCl), 0.4 MG PO BID Warfarin Sod (Jantoven), 7 MG PO DAILY [clonidine], 0 IT UD [hydromorphone], 0 IT UD Review of Systems Constitutional: No fever, No weight loss ENT: No nasal symptoms, No sore throat Respiratory: + shortness of breath, No cough Cardiovascular: No chest pain, No edema, No palpitations Abdomen: + nausea, No pain, No vomiting, No diarrhea, No constipation, No GI bleeding Musculoskeletal: + joint pain Genitourinary - Male: No hematuria, No dysuria Neurologic: + problem reported (frontal headache) Endocrine: No excessive thirst, No excessive urination Hematologic / Lymphatic: + abnormal bleeding/bruising, No swollen lymph nodes Integumentary: No rash, No itch, No new/changing skin lesions Physical Ex - H&P Physical Exam Vital Signs Date Time Temp Pulse Resp B/P (MAP) Pulse Ox O2 Delivery O2 Flow Rate FiO2 03/28/17 13:02 61 147/70 100 Room Air 03/28/17 12:31 60 03/28/17 11:17 60 17 97 03/28/17 11:01 153/77 03/28/17 10:47 55 15 99 03/28/17 10:31 164/73 03/28/17 10:18 143/73 03/28/17 10:17 57 157/77 98 Room Air 03/28/17 10:17 56 4 157/77 97 03/28/17 09:17 58 14 03/28/17 08:57 36.5 69 20 178/97 97 Room Air 03/28/17 08:56 59 03/28/17 08:51 178/97 General Appearance: WD/WN, no apparent distress Head: normocephalic, atraumatic Eyes: normal inspection, PERRL, EOMI, sclerae normal (conjunctivae pink) ENT: hearing grossly normal, pharynx normal, + pertinent finding (upper dentures) Neck: supple, no adenopathy, thyroid normal, no JVD, trachea midline Respiratory/Chest: lungs clear, no respiratory distress, no accessory muscle use Cardiovascular: regular rate, rhythm, no gallop, no JVD, + systolic murmur (I/ sys murmur at base), + abnormal peripheral pulses (decreased pedal pulses) Abdomen/GI: normal bowel sounds, non tender, soft, no organomegaly, no pulsatile mass Extremities/Musculoskelatal: no calf tenderness, normal capillary refill, no pedal edema Neurologic/Psych: pyridine recovery operator II-XII nml as tested (PERRL, EOMI, no facial palsy, no dysarthria), no motor/sensory deficits (grossly intact), alert, normal mood/ affect, oriented x 3 Skin: warm/dry, no rash, + pertinent finding (mild erythema left medial distal thigh) Lymphatic: no adenopathy (cervical, axillary) Diagnostics - H&P Diagnostics Laboratory Results Results Past 24 Hours Test 03/28/17 09:30 03/28/17 11:39 Range/Units White Blood Count 7.17 4.8-10.8 K/uL Red Blood Count 5.13 4.7-6.1 M/uL Hemoglobin 12.9 14.0-18.0 g/dL Hematocrit 40.9 42-52 % Mean Corpuscular Volume 79.7 80-100 fL Mean Corpuscular Hemoglobin 25.1 25-34 pg Mean Corpuscular Hemoglobin Concent 31.5 32-36 g/dl Platelet Count 222 130-400 K/uL Mean Platelet Volume 9.8 7.4-10.4 fL Neutrophils (%) (Auto) 69.6 % Lymphocytes (%) (Auto) 20.2 % Monocytes (%) (Auto) 8.5 % Eosinophils (%) (Auto) 1.5 % Basophils (%) (Auto) 0.1 % Neutrophils # (Auto) 4.98 1.4-6.5 K/uL Lymphocytes # (Auto) 1.45 1.2-3.4 K/uL Monocytes # (Auto) 0.61 0.11-0.59 K/uL Eosinophils # (Auto) 0.11 0-0.5 K/uL Basophils # (Auto) 0.01 0-0.2 K/uL RDW Standard Deviation 52.3 36.4-46.3 fL RDW Coefficient of Variation 17.7 11.5-14.5 % Immature Granulocyte % (Auto) 0.1 % Immature Granulocyte # (Auto) 0.01 0.00-0.02 K/uL Prothrombin Time 46.8 9.0-12.0 SECONDS Prothromb Time International Ratio 4.1 0.9-1.1 Sodium Level 141 136-145 mmol/L Potassium Level 4.1 3.5-5.1 mmol/L Chloride Level 110 98-107 mmol/L Carbon Dioxide Level 27 21-32 mmol/L Anion Gap 4.0 3-11 mmol/L Blood Urea Nitrogen 16 7-18 mg/dl Creatinine 0.76 0.60-1.40 mg/dl Est Creatinine Clear Calc Drug Dose 105.2 ml/min Estimated GFR () 106.4 Estimated GFR (Non- 91.8 BUN/Creatinine Ratio 20.6 10-20 Random Glucose 95 70-99 mg/dl Calcium Level 8.1 8.5-10.1 mg/dl Total Bilirubin 0.4 0.2-1 mg/dl Aspartate Amino Transf (AST/SGOT) 16 15-37 U/L Alanine Aminotransferase (ALT/SGPT) 20 12-78 U/L Alkaline Phosphatase 62 45-117 U/L Troponin I 0.029 0.029 0-0.045 ng/ml Total Protein 7.0 6.4-8.2 gm/dl Albumin 3.4 3.4-5.0 gm/dl Globulin 3.6 2.5-4.0 gm/dl Albumin/Globulin Ratio 0.9 0.9-2 Pro-B-Type Natriuretic Peptide 440 0-900 pg/ml Diagnostic Radiology SINGLE VIEW CHEST IMPRESSION: 1. Cardiomegaly and cardiac pacemaker. There is no radiographic evidence of congestive failure. 2. No airspace consolidation or pleural effusion is seen. Electronically signed by: Juan Dean M.D. 03/28/2017 9:[address] NONCONTRAST Findings: The paranasal sinuses and mastoid air cells are clear. The calvarium and skull base are intact. The ventricles and sulci are within normal limits. There is no mass, hematoma, midline shift, or acute infarct. Impression: No acute intracranial abnormality. Electronically signed by: Alf Lockwood M.D. 03/28/2017 10:22 AM . EKG EKG performed at 08:53 reviewed and demonstrated ventricular paced rhythm at 60 / minute, repolarization abnormalities. . Impression - H&P Impression Assessment and Plan DYSPNEA Dyspnea in supine position x 2 today. Etiology uncertain. Oxygenation well on room air. No apparent CHF per exam, chest x-ray, BNP. Pulmonary embolism very unlikely in light of warfarin therapy and INR of 4.1. No apparent pulmonary infection. Pacemaker interrogation in ED reportedly unremarkable. Check serial cardiac markers. Consult Cardiology. CORONARY ARTERY DISEASE No anginal symptoms. Etiology of dyspnea uncertain as discussed above. Continue aspirin, metoprolol. Check cardiac markers, lipid profile. Consult Cardiology. ATRIAL FIBRILLATION Continue metoprolol, warfarin. Propafenone to be stopped per discussion with Cardiology. SLEEP APNEA Intolerant of CPAP or BiPAP. DM TYPE 2 Diet controlled. Random blood sugar in ED 95. Check Hgb A1C. Follow. CHRONIC PAIN Well-controlled with hydromorphone / clonidine intrathecal pump. ERYTHEMA LEFT LOWER EXTREMITY Mild erythema left medial distal thigh noted. No fever or leukocytosis. Monitor for possible developing cellulitis. VTE PROPHYLAXIS Continue warfarin. RESUSCITATION STATUS Discussed with patient and his . He has a living will. He would like resuscitation attempted in the event of a cardiopulmonary arrest if there is a reasonable chance of a meaningful recovery, but does not want prolonged extraordinary measures if prognosis is poor. Therefore, code status = "Level 1" (full resuscitation). DISPOSITION Observation status on Telemetry Unit. Expected discharge to home. Medical follow-up with Dr. Hines. Cardiology follow-up with Dr. Foote. . VTE Prophylaxis VTE Risk Assessment Done? Y/N: Yes Risk Level: Moderate Given or contraindicated: Warfarin (Coumadin) Additional Copies To Adonay Hines D.O. Physical Exam (per Admitting): General Appearance: WD/WN, no apparent distress Head: normocephalic, atraumatic Eyes: normal inspection, PERRL, EOMI, sclerae normal (conjunctivae pink) ENT: hearing grossly normal, pharynx normal, + pertinent finding (upper dentures) Neck: supple, no adenopathy, thyroid normal, no JVD, trachea midline Respiratory/Chest: lungs clear, no respiratory distress, no accessory muscle use Cardiovascular: regular rate, rhythm, no gallop, no JVD, + systolic murmur ( I/ sys murmur at base), + abnormal peripheral pulses (decreased pedal pulses) Abdomen/GI: normal bowel sounds, non tender, soft, no organomegaly, no pulsatile mass Extremities/Musculoskelatal: no calf tenderness, normal capillary refill, no pedal edema Neurologic/Psych: pyridine recovery operator II-XII nml as tested (PERRL, EOMI, no facial palsy, no dysarthria), no motor/sensory deficits (grossly intact), alert, normal mood/ affect, oriented x 3 Skin: warm/dry, no rash, + pertinent finding (mild erythema left medial distal thigh) Lymphatic: no adenopathy (cervical, axillary) Hospital Course Shortness of Breath Dyspnea in supine position x 2 today. Oxygenation well on room air. No apparent CHF per exam, chest x-ray, BNP. Pulmonary embolism very unlikely in light of warfarin therapy and INR of 4.1. Pacemaker interrogation in ED reportedly unremarkable. Check serial cardiac markers-Negative for any ACS . Consult Cardiology-appreciate Input DSE -Negative for any ischemia 03/29/17 Denies any more symptoms PPM Interrogated CORONARY ARTERY DISEASE No anginal symptoms. Etiology of dyspnea uncertain as discussed above. Continue aspirin, metoprolol. Check cardiac markers-negative for any ACS NO more symptoms ATRIAL FIBRILLATION-Rate controlled Continue metoprolol, warfarin. Propafenone to be stopped per discussion with Cardiology. INR therapeutic BB dose adjusted Discharge home today SLEEP APNEA Intolerant of CPAP or BiPAP. May be the cause of supine SOB DM TYPE 2 Diet controlled. Random blood sugar in ED 95. Check Hgb A1C.-6.7 Monitor BS CHRONIC PAIN Well-controlled with hydromorphone / clonidine intrathecal pump. ERYTHEMA LEFT LOWER EXTREMITY-No Cellulitis Mild erythema left medial distal thigh noted. No fever or leukocytosis. Doubt any cellulitis VTE PROPHYLAXIS Continue warfarin. RESUSCITATION STATUS:Level 1 Discussed with patient and his . He has a living will. He would like resuscitation attempted in the event of a cardiopulmonary arrest if there is a reasonable chance of a meaningful recovery, but does not want prolonged extraordinary measures if prognosis is poor. DISPOSITION Observation status on Telemetry Unit. Expected discharge to home. Medical follow-up with Dr. Hines. Cardiology follow-up with Dr. Foote. Likely discharge in a day or two Discharge today -Advised to have PCP appointment in 1 week and regular Cardiology follow up Total time spent on discharge = 35 minutes This includes examination of the patient, discharge planning, medication reconciliation, and communication with other providers. Discharge Instructions Date of Service Mar 30, 2017. Admission Reason for Admission: Dyspnea Discharge Discharge Diagnosis / Problem: SOB,Possibly secondary to Pacemaker issue-fixed Discharge Goals Goal(s): Prevent Disease Progression Activity Recommendations Activity Limitations: resume your previous activity . Instructions / Follow-Up Instructions / Follow-Up Please make an appointment with your PCP in 1 week.Cardiology will call for appointment Current Hospital Diet Patient's current hospital diet: AHA Diet (Heart Healthy) Discharge Diet Recommended Diet: AHA Diet (Heart Healthy) Pending Studies Studies pending at discharge: no Laboratory Results Hemoglobin A1c Test 03/29/17 06:43 Range/Units Estimated Average Glucose 146 mg/dl Hemoglobin A1c 6.7 H 4.5-5.6 % Lipid Panel Test 03/29/17 06:43 Range/Units Triglycerides Level 112 0-150 mg/dl Cholesterol Level 119 0-200 mg/dl HDL Cholesterol 31 mg/dl Cholesterol/HDL Ratio 3.8 LDL Cholesterol, Calculated 66 mg/dl Medical Emergencies . Who to Call and When: Medical Emergencies: If at any time you feel your situation is an emergency, please call 911 immediately. . Non-Emergent Contact Non-Emergency issues call your: Primary Care Provider . Past History Medical & Surgical History: (1) CAD (coronary artery disease) (2) Atrial fibrillation (3) RICHY (obstructive sleep apnea) (4) Tachy-richard syndrome (5) Pacemaker (6) Diabetes mellitus type 2, controlled (7) S/P insertion of intrathecal pump (8) S/P CABG x 4 (9) S/P cholecystectomy (10) History of appendectomy (11) History of tonsillectomy and adenoidectomy . "Provider Documentation" section prepared by Elisabeth Perez. . VTE Core Measure Inpt VTE Proph given/why not?: Warfarin (Coumadin) <Electronically signed by Elisabeth Perez M.D.> Signed: 03/30/17 1276 Additional Copies To Adonay Hines D.O.
[2017-04-04] MEDS ORDERED: AMLO-110 PO (06:56)
[2017-04-04] MEDS ORDERED: CYNI1000 INJ (10:05)
[2017-04-04] MEDS ORDERED: ASPI81TA28 PO (11:21)
== END 2017-03-30 17:14 | disposition home or self-care (01) ==
LOC: EDBD 08:47 → C.EDA 08:48 → C.2T 14:04 → ENRESERV 14:19
PROVIDERS: ADMIT Hospitalist; ATTEND Internal Medicine
DX: R06.02 Shortness of breath (principal); R51 Headache; I48.91 Unspecified atrial fibrillation; E11.9 Type 2 diabetes mellitus without complications; E78.5 Hyperlipidemia, unspecified; I25.10 Atherosclerotic heart disease of native coronary artery without angina pectoris; I10 Essential (primary) hypertension; Z95.0 Presence of cardiac pacemaker; Z95.1 Presence of aortocoronary bypass graft; Z90.89 Acquired absence of other organs; Z90.49 Acquired absence of other specified parts of digestive tract; Z87.891 Personal history of nicotine dependence; Z98.84 Bariatric surgery status; Z79.82 Long term (current) use of aspirin; Z79.01 Long term (current) use of anticoagulants; Z88.2 Allergy status to sulfonamides; Z88.1 Allergy status to other antibiotic agents; Z88.0 Allergy status to penicillin; Z82.49 Family history of ischemic heart disease and other diseases of the circulatory system; Z83.3 Family history of diabetes mellitus; Z80.0 Family history of malignant neoplasm of digestive organs

== ENCOUNTER 2017-04-04 11:46 | Inpatient (IN) | payer BC, OTHER ==
[2017-04-04] VITALS (7 sets, daily range): BP systolic 154–173; BP diastolic 76–96; PULSE 55–61; TEMP 36.4; O2SAT 91–97; Ht 167.6 cm; Wt 106.3 kg
[~2017-04-04] VITALS: Ht 167.6 cm; Wt 106.3 kg
[~2017-04-04 11:46] MED LIST changes: +AMLO-110 PO; +ASPI81TA28 PO; -CYAN3INJ IM; +CYNI1000 INJ; -FURO-85 PO; -PROP225T PO; -WARF6TAB5 PO
[2017-04-04] MEDS ORDERED: NITROGLYCERIN/D5W 100 MCG/ML IV PRN (12:00)
[2017-04-04 12:16] LABS: BASO % 0.4 %; BASO ABS # 0.03 K/uL (0-0.2); COMPLETE YES; EOS % 1.6 %; HEMATOCRIT 37.7 % (42-52); IG% 0.3 %; LYMPH % 18.5 %; LYMPH ABS # 1.26 K/uL (1.2-3.4); MEAN CELL VOLUME 78.7 fL (80-100); MEAN CORPUSCULAR HEMOGLOBIN 25.9 pg (25-34); MEAN CORPUSCULAR HGB CONC 32.9 g/dl (32-36); MEAN PLATELET VOLUME 9.4 fL (7.4-10.4); MONO % 5.4 %; NEUT % 73.8 %; PLATELET COUNT 212 K/uL (130-400); RED BLOOD COUNT 4.79 M/uL (4.7-6.1); WHITE BLOOD COUNT 6.81 K/uL (4.8-10.8)
--- NOTE | 2017-04-04 12:19 | DIAGNOSTIC IMAGING REPORT ---
CHEST ONE VIEW PORTABLE CLINICAL HISTORY: Fever, sepsis, atypical chest pain COMPARISON STUDY: 04-12 FINDINGS: The heart remains enlarged. There are postsurgical changes of a midline sternotomy. There is a left subclavian dual-chamber central venous pacemaker present. There is no focal pulmonary consolidation. There are no pleural effusions. There is mild central vascular prominence without evidence for overt failure.[ IMPRESSION: 1. Stable cardiomegaly 2. No evidence of acute parenchymal consolidation 3. Central vascular prominence without evidence for overt failure Electronically signed by: Thomas Padilla M.D. 04/04/2017 12:18 PM Dictated Date/Time: 04/04/2017 12:17 PM
[2017-04-04 12:25] LABS: INR 2.1 (0.9-1.1); PARTIAL THROMBOPLASTIN RATIO 1.3; PROTHROMBIN TIME (PATIENT) 23.2 SECONDS (9.0-12.0)
[2017-04-04 12:44] LABS: BUN/CREATININE RATIO 18.8 (10-20); CALCIUM 8.2 mg/dl (8.5-10.1); CREATININE 0.81 mg/dl (0.60-1.40); POTASSIUM 3.7 mmol/L (3.5-5.1)
[2017-04-04 12:49] LABS: CKMB/CK RATIO 1.7 (0-3.0)
[2017-04-04] MEDS ORDERED: ONDANSETRON INJ 2 MG/ML 2 ML VIAL IV PRN (13:00)
[2017-04-04] MEDS ORDERED: NITROGLYCERIN 0.4 MG SL PER TAB CHARGE SL PRN (13:00)
[2017-04-04] MEDS ORDERED: ACETAMINOPHEN 325 MG TAB PO PRN (13:00)
[2017-04-04] MEDS ORDERED: WARF2TAB8 PO (13:43)
[2017-04-04] MEDS ORDERED: WARF5TAB7 PO (13:43)
[2017-04-04] MEDS ORDERED: TEST1INJ2 IM (13:45)
--- NOTE | 2017-04-04 13:49 | History and Physical ---
History & Physical Date & Time of Service: Apr 04, 2017 at 13:00 . Chief Complaint: chest pain . Primary Care Physician: Shoaib Foote M.D. History of Present Illness Source: patient, family, clinic records, hospital records 71 YO male followed by Dr. Hines ([facility]) for primary care and Dr. Foote for Cardiology. History of ischemic heart disease (s/p CABG), atrial fibrillation, diet- controlled DM, and other problems noted below. Hospitalized at [facility] last week with orthopnea. No overt CHF. Acute PA ruled out. Rest echo showed moderate LVH, LVEF 50-55%. No stress-induced ischemia on dobutamine stress echo. Propafenone was discontinued and metoprolol succinate dose was increased to 25 mg BID. Discharged to home. Did well until this morning. Had coffee and a piece of toast around 05:30. Developed chest pain around 07:15 while [address] his car. Chest pain described as severe midsternal chest pressure that radiated to his left neck. It was associated with dyspnea and diaphoresis, no N/V. Did not feel any palpitations at that time (although he did later in the ED). He did not have any nitroglycerin to take. Drove to a family member's home. EMS summoned and he was transported to ED at [facility]. Aspirin 81 mg x 4 administered by EMS. Initially received SL NTG and IV morphine with only modest relief of his pain. Subsequently received IV heparin, IV NTG. Pain persisted. EKG demonstrated ventricular paced rhythm. Patient appeared to be having an acute coronary syndrome, so decision was made to give TNKase which was administered at 10:18. Chest pain began to improve about 10 minutes after TNKase administered. Arrangements made for transfer to [facility] for further cardiac evaluation and management. Chest pain essentially resolved by the time he arrived at [facility]'s ED. . 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 Family History FATHER Heart disease Lung disease MOTHER Colon cancer Diabetes mellitus Hypertension Social History Smoking Status: Former Smoker Smokeless Tobacco Use: Yes Alcohol Use: occasionally Drug Use: none Marital Status: Housing status: lives with family Occupational Status: retired Immunizations History of Influenza Vaccine: Yes History of Tetanus Vaccine?: Yes History of Pneumococcal: No History of Hepatitis B Vaccine: No Multi-Drug Resistant Organisms History of MDRO: No Allergies Coded Allergies: Bee Venom (Verified Allergy, Severe, ANAPHYLAXIS, 04/04/17) Penicillins (Verified Allergy, Intermediate, HIVES, 04/04/17) Sulfa Antibiotics (Verified Allergy, Intermediate, HIVES, 04/04/17) Gentamicin (Verified Allergy, Unknown, UNKNOWN, 04/04/17) Home Medications Scheduled Amlodipine (Norvasc), 5 MG PO DAILY Aspirin (Aspirin Ec), 81 MG PO DAILY Buspirone Hcl (Buspirone Hcl), 5 MG PO DAILY Cyanocobalamin (Cyanocobalamin), 1,000 MCG INJ every 3 months Furosemide (Furosemide), 20 MG PO DAILY Irbesartan (Avapro), 300 MG PO DAILY Metoprolol Succinate (Toprol Xl), 25 MG PO BID Tamsulosin HCl (Tamsulosin HCl), 0.4 MG PO BID Testosterone Cypionate (Testosterone Cypionate), 200 MG IM every 2 weeks Warfarin Sod (Jantoven), 5 MG PO DAILY Warfarin Sod (Jantoven), 2 MG PO DAILY [clonidine], 0 IT UD [hydromorphone], 0 IT UD Review of Systems Constitutional: No fever, No weight loss Eyes: No worsening of vision, No diplopia ENT: No nasal symptoms, No sore throat Respiratory: + shortness of breath, No cough Cardiovascular: + problem reported (as noted above in HPI) Abdomen: No pain, No nausea, No vomiting, No GI bleeding Musculoskeletal: + problem reported (chronic back pain) Genitourinary - Male: No hematuria, No dysuria Neurologic: + problem reported (no headache) Endocrine: No fatigue Hematologic / Lymphatic: + abnormal bleeding/bruising, No swollen lymph nodes Physical Exam Vital Signs Date Time Temp Pulse Resp B/P (MAP) Pulse Ox O2 Delivery O2 Flow Rate FiO2 04/04/17 13:00 55 16 122/55 98 04/04/17 12:45 54 14 123/52 97 04/04/17 12:30 62 14 106/74 04/04/17 12:27 55 04/04/17 12:15 58 14 116/62 97 04/04/17 12:00 58 14 118/64 97 04/04/17 11:55 98 Room Air 04/04/17 11:55 36.7 64 16 115/58 98 Room Air 04/04/17 11:46 98 Nasal Cannula 2.0 General Appearance: WD/WN, no apparent distress Head: normocephalic, atraumatic Eyes: normal inspection, PERRL, EOMI, sclerae normal (lids and conjunctivae normal) ENT: hearing grossly normal, pharynx normal, + pertinent finding (upper dentures) Neck: supple, no adenopathy, thyroid normal, no JVD, trachea midline Respiratory/Chest: lungs clear, no respiratory distress, no accessory muscle use Cardiovascular: regular rate, rhythm, no edema, no gallop, no JVD, no murmur, + abnormal peripheral pulses (right DP pulse diminished) Abdomen/GI: normal bowel sounds, non tender, soft, no organomegaly, no pulsatile mass Extremities/Musculoskelatal: normal inspection, no calf tenderness, normal capillary refill, no pedal edema 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 as tested (PERRL, EOMI, no facial palsy, no dysarthria), no motor/sensory deficits (grossly intact), alert, normal mood/ affect, normal reflexes (patellar DTR's 2/2), oriented x 3 Skin: normal color, warm/dry Lymphatic: no adenopathy (cervical) Diagnostics Laboratory Results Results Past 24 Hours Test 04/04/17 12:00 04/04/17 12:12 Range/Units White Blood Count 6.81 4.8-10.8 K/uL Red Blood Count 4.79 4.7-6.1 M/uL Hemoglobin 12.4 14.0-18.0 g/dL Hematocrit 37.7 42-52 % Mean Corpuscular Volume 78.7 80-100 fL Mean Corpuscular Hemoglobin 25.9 25-34 pg Mean Corpuscular Hemoglobin Concent 32.9 32-36 g/dl Platelet Count 212 130-400 K/uL Mean Platelet Volume 9.4 7.4-10.4 fL Neutrophils (%) (Auto) 73.8 % Lymphocytes (%) (Auto) 18.5 % Monocytes (%) (Auto) 5.4 % Eosinophils (%) (Auto) 1.6 % Basophils (%) (Auto) 0.4 % Neutrophils # (Auto) 5.02 1.4-6.5 K/uL Lymphocytes # (Auto) 1.26 1.2-3.4 K/uL Monocytes # (Auto) 0.37 0.11-0.59 K/uL Eosinophils # (Auto) 0.11 0-0.5 K/uL Basophils # (Auto) 0.03 0-0.2 K/uL RDW Standard Deviation 49.4 36.4-46.3 fL RDW Coefficient of Variation 17.1 11.5-14.5 % Immature Granulocyte % (Auto) 0.3 % Immature Granulocyte # (Auto) 0.02 0.00-0.02 K/uL Prothrombin Time 23.2 9.0-12.0 SECONDS Prothromb Time International Ratio 2.1 0.9-1.1 Activated Partial Thromboplast Time 34.7 21.0-31.0 SECONDS Partial Thromboplastin Ratio 1.3 Sodium Level 139 136-145 mmol/L Potassium Level 3.7 3.5-5.1 mmol/L Chloride Level 107 98-107 mmol/L Carbon Dioxide Level 26 21-32 mmol/L Anion Gap 7.0 3-11 mmol/L Blood Urea Nitrogen 15 7-18 mg/dl Creatinine 0.81 0.60-1.40 mg/dl Est Creatinine Clear Calc Drug Dose 96.4 ml/min Estimated GFR () 103.6 Estimated GFR (Non- 89.4 BUN/Creatinine Ratio 18.8 10-20 Random Glucose 116 70-99 mg/dl Calcium Level 8.2 8.5-10.1 mg/dl Total Creatine Kinase 83 39-308 U/L Creatine Kinase MB 1.4 0.5-3.6 ng/ml Creatine Kinase MB Ratio 1.7 0-3.0 Troponin I 0.019 0-0.045 ng/ml Bedside Troponin I < 0.030 0-0.045 ng/ml Diagnostic Radiology CHEST ONE VIEW PORTABLE FINDINGS: The heart remains enlarged. There are postsurgical changes of a midline sternotomy. There is a left subclavian dual-chamber central venous pacemaker present. There is no focal pulmonary consolidation. There are no pleural effusions. There is mild central vascular prominence without evidence for overt failure.[ IMPRESSION: 1. Stable cardiomegaly 2. No evidence of acute parenchymal consolidation 3. Central vascular prominence without evidence for overt failure Electronically signed by: Thomas Padilla M.D. 04/04/2017 12:18 PM Dictated Date/Time: 04/04/2017 12:17 PM EKG EKG performed at 11:55 reviewed and demonstrated ventricular paced rhythm at 76 / minute, repolarization abnormalities. . Impression Assessment and Plan CHEST PAIN / CORONARY ARTERY DISEASE History of ischemic heart disease, s/p PCI and subsequent CABG years ago. No clinical history of PA. Echo last week showed moderate LVH, LVEF 50-55%, no segmental wall motion abnormalities. Dobutamine stress echo last week did not show any evidence of stress-induced ischemia. Severe chest pain and dyspnea this morning as summarized in HPI. EKG showed ventricular paced rhythm. Patient appeared to be having an acute myocardial infarction, so TNKase was administered. Transferred to [facility]. Now hemodynamically stable and essentially pain-free. Continue aspirin, metoprolol. Anticoagulation per Cardiology (may be best to hold warfarin for anticipated cardiac cath). Check cardiac markers. Check lipid profile. Empiric statin pending results of cardiac cath. Pacemaker interrogation will be requested to rule out tachyarrhythmia as precipitating etiology of symptoms. Cardiology consulted and evaluated patient in ED. ATRIAL FIBRILLATION Rate controlled. Continue metoprolol, warfarin. SLEEP APNEA Intolerant of CPAP or BiPAP. DM TYPE 2 Diet controlled. Hgb A1C 6.7 03/29/17. Follow. CHRONIC PAIN Well-controlled with hydromorphone / clonidine intrathecal pump. VTE PROPHYLAXIS On warfarin with INR of 2.1. Warfarin may be held for cardiac cath. Add SCD's. Ambulate as able. RESUSCITATION STATUS Discussed with patient and his last week. He has a living will. He would like resuscitation attempted in the event of a cardiopulmonary arrest if there is a reasonable chance of a meaningful recovery, but does not want prolonged extraordinary measures if prognosis is poor. Therefore, code status = "Level 1" (full resuscitation). DISPOSITION Admit to ICU. Expected discharge to home. Medical follow-up with Dr. Hines. Cardiology follow-up with Dr. Foote. . VTE Prophylaxis VTE Risk Assessment Done? Y/N: Yes Risk Level: Moderate Given or contraindicated: SCD's
--- NOTE | 2017-04-04 13:54 | EMERGENCY ROOM VISIT NOTE ---
History Report prepared by Elicia: Ken Miranda Under the Supervision of: Dr. Meño Alves D.O. First contact with patient: 11:44 Chief Complaint: CHEST PAIN Stated Complaint: CHEST PAIN History of Present Illness The patient is a 71 year old male who presents to the Emergency Room with complaints of improving chest pain beginning four hours ago. The patient describes his pain as a feeling of "heaviness". He was transferred from [facility] with concerns of ND. He has a pacemaker in place. The patient states that he previously had jaw pain, but this has improved. He was previously short of breath as well. His symptoms were improved after receiving thrombolytics. EMS notes that the patient was placed on a nitroglycerin drip. Source of History: patient Onset: Four hours ago Position: chest Quality: other ("heaviness") Timing: other (improving) Modifying Factors (Relieving): other (Thrombolytics) Associated Symptoms: + SOB Note: Additional symptoms: jaw pain. Review of Systems See HPI for pertinent positives & negatives. A total of 10 systems reviewed and were otherwise negative. Past Medical & Surgical Medical Problems: (1) Atrial fibrillation (2) CAD (coronary artery disease) (3) Chest pain (4) Chronic pain (5) Diabetes mellitus type 2, controlled (6) Dyspnea (7) RICHY (obstructive sleep apnea) (8) Pacemaker (9) Seizure (10) Tachy-richard syndrome Surgical Problems: (1) History of appendectomy (2) History of tonsillectomy and adenoidectomy (3) S/P CABG x 4 (4) S/P cholecystectomy (5) S/P insertion of intrathecal pump Family History Colon cancer MOTHER Diabetes mellitus MOTHER Heart disease FATHER Hypertension MOTHER Lung disease FATHER Social History Smoking Status: Former Smoker Drug Use: none Marital Status: Housing Status: lives with significant other Occupation Status: retired Current/Historical Medications Scheduled Amlodipine (Norvasc), 5 MG PO DAILY Aspirin (Aspirin Ec), 81 MG PO DAILY Buspirone Hcl (Buspirone Hcl), 5 MG PO DAILY Cyanocobalamin (Cyanocobalamin), 1,000 MCG INJ MONTHLY Furosemide (Furosemide), 20 MG PO DAILY Irbesartan (Avapro), 300 MG PO DAILY Metoprolol Succinate (Toprol Xl), 25 MG PO BID Tamsulosin HCl (Tamsulosin HCl), 0.4 MG PO BID Warfarin Sod (Jantoven), 7 MG PO DAILY [clonidine], 0 IT UD [hydromorphone], 0 IT UD Allergies Coded Allergies: Bee Venom (Verified Allergy, Severe, ANAPHYLAXIS, 03/28/17) Penicillins (Verified Allergy, Intermediate, HIVES, 03/28/17) Sulfa Antibiotics (Verified Allergy, Intermediate, HIVES, 03/28/17) Gentamicin (Verified Allergy, Unknown, UNKNOWN, 03/28/17) Physical Exam Vital Signs Date Time Temp Pulse Resp B/P (MAP) Pulse Ox O2 Delivery O2 Flow Rate FiO2 04/04/17 13:00 55 16 122/55 98 04/04/17 12:45 54 14 123/52 97 04/04/17 12:30 62 14 106/74 04/04/17 12:27 55 04/04/17 12:15 58 14 116/62 97 04/04/17 12:00 58 14 118/64 97 04/04/17 11:55 98 Room Air 04/04/17 11:55 36.7 64 16 115/58 98 Room Air 04/04/17 11:46 98 Nasal Cannula 2.0 Physical Exam CONSTITUTIONAL/VITAL SIGNS: Reviewed / noted above. GENERAL: Non-toxic in appearance. INTEGUMENTARY: Warm, dry, and [place]. HEAD: Normocephalic. EYES: without scleral icterus or trauma. ENT/OROPHARYNX: clear and moist. LYMPHADENOPATHY/NECK: Is supple without lymphadenopathy or meningismus. RESPIRATORY: Lungs clear and equal. CARDIOVASCULAR: Regular rate and rhythm. GI/ABDOMEN: Soft and nontender. No organomegaly or pulsatile mass. No rebound or guarding. Normal bowel sounds. EXTREMITIES: Warm and well perfused. BACK: No CVA tenderness. NEUROLOGICAL: Intact without focal deficits. PSYCHIATRIC: normal affect. MUSCULOSKELETAL: Normally developed with good muscle tone. Medical Decision & Procedures ER Provider Diagnostic Interpretation: X ray results and stated below per my interpretation and radiology interpretation. CHEST ONE VIEW PORTABLE FINDINGS: The heart remains enlarged. There are postsurgical changes of a midline sternotomy. There is a left subclavian dual-chamber central venous pacemaker present. There is no focal pulmonary consolidation. There are no pleural effusions. There is mild central vascular prominence without evidence for overt failure.[ IMPRESSION: 1. Stable cardiomegaly 2. No evidence of acute parenchymal consolidation 3. Central vascular prominence without evidence for overt failure Electronically signed by: Thomas Padilla M.D. 04/04/2017 12:18 PM Laboratory Results 04/04/17 12:00 Red Blood Count 4.79, Mean Corpuscular Volume 78.7, Mean Corpuscular Hemoglobin 25.9, Mean Corpuscular Hemoglobin Concent 32.9, Mean Platelet Volume 9.4, Neutrophils (%) (Auto) 73.8, Lymphocytes (%) (Auto) 18.5, Monocytes (%) (Auto) 5.4, Eosinophils (%) (Auto) 1.6, Basophils (%) (Auto) 0.4, Neutrophils # (Auto) 5.02, Lymphocytes # (Auto) 1.26, Monocytes # (Auto) 0.37, Eosinophils # (Auto) 0.11, Basophils # (Auto) 0.03 04/04/17 12:00 Test 04/04/17 12:00 04/04/17 12:12 White Blood Count 6.81 K/uL (4.8-10.8) Red Blood Count 4.79 M/uL (4.7-6.1) Hemoglobin 12.4 g/dL (14.0-18.0) Hematocrit 37.7 % (42-52) Mean Corpuscular Volume 78.7 fL (80-100) Mean Corpuscular Hemoglobin 25.9 pg (25-34) Mean Corpuscular Hemoglobin Concent 32.9 g/dl (32-36) Platelet Count 212 K/uL (130-400) Mean Platelet Volume 9.4 fL (7.4-10.4) Neutrophils (%) (Auto) 73.8 % Lymphocytes (%) (Auto) 18.5 % Monocytes (%) (Auto) 5.4 % Eosinophils (%) (Auto) 1.6 % Basophils (%) (Auto) 0.4 % Neutrophils # (Auto) 5.02 K/uL (1.4-6.5) Lymphocytes # (Auto) 1.26 K/uL (1.2-3.4) Monocytes # (Auto) 0.37 K/uL (0.11-0.59) Eosinophils # (Auto) 0.11 K/uL (0-0.5) Basophils # (Auto) 0.03 K/uL (0-0.2) RDW Standard Deviation 49.4 fL (36.4-46.3) RDW Coefficient of Variation 17.1 % (11.5-14.5) Immature Granulocyte % (Auto) 0.3 % Immature Granulocyte # (Auto) 0.02 K/uL (0.00-0.02) Prothrombin Time 23.2 SECONDS (9.0-12.0) Prothromb Time International Ratio 2.1 (0.9-1.1) Activated Partial Thromboplast Time 34.7 SECONDS (21.0-31.0) Partial Thromboplastin Ratio 1.3 Anion Gap 7.0 mmol/L (3-11) Est Creatinine Clear Calc Drug Dose 96.4 ml/min Estimated GFR () 103.6 Estimated GFR (Non- 89.4 BUN/Creatinine Ratio 18.8 (10-20) Calcium Level 8.2 mg/dl (8.5-10.1) Total Creatine Kinase 83 U/L (39-308) Creatine Kinase MB 1.4 ng/ml (0.5-3.6) Creatine Kinase MB Ratio 1.7 (0-3.0) Troponin I 0.019 ng/ml (0-0.045) Bedside Troponin I < 0.030 ng/ml (0-0.045) Laboratory results as stated above per my review. ECG Indication: chest pain Rate (beats per minute): 76 Rhythm: other (ventricular paced rhythm) Findings: no acute ischemic change, no ectopy ED Course 1149: Previous medical records were reviewed. The patient was evaluated in room B1. A complete history and physical examination was performed. 1200: Ordered Nitroglycerin/Dextrose 250 mL IV. 1247: On reevaluation, the patient is resting. I discussed the results and findings with him. He verbalized agreement of the treatment plan. [facility] The patient will be evaluated for further management and care. Medical Decision The differential was considered includes acute myocardial infarction, acute coronary syndrome, myocarditis, pericarditis, pericardial effusions/tamponade, esophageal perforation, thoracic aortic dissection, pulmonary embolism, pneumonia, pneumothorax, pancreatitis, shingles, acute cholecystitis, perforated abdominal viscus. This is a 71-year-old male who presents to the ED with a chief complaint of concerns for acute ND. The patient was at [facility]. The patient presented there around 8 AM after onset of chest discomfort at 7 AM. The patient received IV thrombolytics as well as on IV heparin bolus and was sent here for further evaluation. The emergency doctor, Dr. Cardenas, spoke with Dr. Foote and then spoke to me prior to transfer. The patient arrived on a nitroglycerin drip by EMS. The patient is chronically on Coumadin for atrial fibrillation. The patient states that his symptoms did improve after receiving thrombolytics and he is currently asymptomatic. Nitroglycerin drip was discontinued here. The patient did not have any recurrence of pain. He is hemodynamically stable. His exam was unremarkable. Twelve-lead EKG reveals a paced ventricular rhythm with a normal rate. Chest x-ray did not show acute disease. The patient is not anemic. INR is 2.1. Cardiac enzymes are normal. The patient was seen by Dr. Vaughn here in the emergency department elevated [facility] service. Medication Reconcilliation Current Medication List: was personally reviewed by me Blood Pressure Screening Patient's blood pressure: Normal blood pressure Blood pressure disposition: Did not require urgent referral Consults Time Called: 1203 Consulting Physician: Dr. Vaughn -Cardiology Returned Call: [phone] Discussed the patient's case. Dr. Vaughn will come evaluate the patient. 1242: I spoke with Dr. Vaughn again. He plans to catheterize the patient tomorrow. Additional Consults: Time Called: 1244 Consulted Physician: Dr. Lola Cat Returned Call: [phone] Additional Comments: Discussed the patient's case. The patient will be evaluated for further treatment and disposition. Impression Primary Impression: Precordial chest pain Scribe Attestation The scribe's documentation has been prepared under my direction and personally reviewed by me in its entirety. I confirm that the note above accurately reflects all work, treatment, procedures, and medical decision making performed by me. Departure Information Dispostion Being Evaluated By Hospitalist Referrals Shoaib Foote M.D. (PCP) Patient Instructions My [facility]
[2017-04-04] MEDS ORDERED: CLONIDINE IT SCH (14:15)
[2017-04-04] MEDS ORDERED: HYDROMORPHONE IT SCH (14:15)
[2017-04-04] MEDS ORDERED: PERFLUTREN LIPID MICROSPHERE (DEFINITY) IV ONE (14:50)
[2017-04-04] MEDS ORDERED: clonidine IT (14:53)
[2017-04-04] MEDS ORDERED: hydromorphone IT (14:53)
[2017-04-04] MEDS ORDERED: LSX40 PO (14:57)
--- NOTE | 2017-04-04 15:07 | ECHOCARDIOGRAM REPORT ---
*NOTICE TO RECEIVING DEMOCRAT AGENCY This information is strictly Confidential and protected under [place] law. [place] law prohibits you from making any further disclosure of this information unless further disclosure is expressly permitted by the written consent of the person to whom it pertains or is authorized by law. A general authorization for the release of medical or other information is not sufficient for this purpose. Hospital accepts no responsibility if the information is made available to any other person, INCLUDING THE PATIENT. Interpretation Summary * Name: KUSUM DUNCAN Study Date: 04/04/2017 02:09 PM BP: 123/62 mmHg * Patient Location: HR: 64 * : 1945 (M/d/yyyy) Gender: Male Height: 66 in * Age: 71 yrs Ethnicity: CA Weight: 238 lb * Ordering Physician: Jatinder Vaughn DO * Performed By: Gale Castillo * * Reason For Study: WALL MOTION ANALYSIS, S/P LYTIC THERAPY * BSA: 2.2 m2 * -- Conclusions -- * Compared to previous study of 03/29/17: LV chamber slightly smaller to suggest volume depletion, otherwise, no new wall motion abnormalities. * Small LV chamber size with moderate concentric LVH. * Normal LV systolic function with abnormal septal wall motion consistent with RV pacing, otherwise, normal wall motion, EF 55-60%. Procedure Details * A contrast injection of Definity was performed to improve assessment of LV function. * Contrast was injected into an intravenous site in the left arm. * One vial of Definity ultrasound contrast was diluted in normal saline to a total volume of 10 ml. A total of '3.5' ml of solution was administered during imaging. * Lot # [id number] of Definity utilized for procedure. * Expiration date 04/13. * The attending nurse who injected the contrast agent was LAVELL NEWELL RN. Left Ventricle * The left ventricular cavity is small. * There is moderate concentric left ventricular hypertrophy. * Ejection Fraction = 55-60%. * Left ventricular systolic function is normal. * Septal motion is consistent with post-operative state. MMode 2D Measurements and Calculations IVSd 1.9 cm IVSs 2.3 cm LVIDd 4.9 cm LVIDs 3.3 cm LVPWd 1.6 cm LVPWs 1.9 cm IVS/LVPW 1.2 FS 32.2 % EDV(Teich) 110.3 ml ESV(Teich) 43.9 ml EF(Teich) 60.2 % EDV(cubed) 114.3 ml ESV(cubed) 35.7 ml EF(cubed) 68.8 % % IVS thick 18.8 % % LVPW thick 19.6 % LV mass(C)d 395.4 grams LV mass(C)dI 183.6 grams/m\S\2 LV mass(C)s 321.6 grams LV mass(C)sI 149.3 grams/m\S\2 SV(Teich) 66.4 ml SI(Teich) 30.8 ml/m\S\2 SV(cubed) 78.6 ml SI(cubed) 36.5 ml/m\S\2 LVAd ap4 34.3 cm\S\2 LVLd ap4 8.2 cm EDV(MOD-sp4) 115.8 ml EDV(sp4-el) 122.7 ml LVAs ap4 19.8 cm\S\2 LVLs ap4 6.6 cm ESV(MOD-sp4) 48.3 ml ESV(sp4-el) 50.4 ml EF(MOD-sp4) 58.3 % EF(sp4-el) 58.9 % LVAd ap2 39.2 cm\S\2 LVLd ap2 8.3 cm EDV(MOD-sp2) 143.3 ml EDV(sp2-el) 156.3 ml LVAs ap2 22.7 cm\S\2 LVLs ap2 7.2 cm ESV(MOD-sp2) 57.3 ml ESV(sp2-el) 60.9 ml EF(MOD-sp2) 60.0 % EF(sp2-el) 61.0 % LVLd %diff 2.2 % EDV(MOD-bp) 133.0 ml LVLs %diff 8.2 % ESV(MOD-bp) 54.8 ml EF(MOD-bp) 58.8 % SV(MOD-sp4) 67.5 ml SI(MOD-sp4) 31.3 ml/m\S\2 SV(MOD-sp2) 86.0 ml SI(MOD-sp2) 40.0 ml/m\S\2 SV(MOD-bp) 78.2 ml SI(MOD-bp) 36.3 ml/m\S\2 SV(sp4-el) 72.3 ml SI(sp4-el) 33.6 ml/m\S\2 SV(sp2-el) 95.4 ml SI(sp2-el) 44.3 ml/m\S\2
--- NOTE | 2017-04-04 16:43 | Progress Note ---
Progress Note Date of Service Apr 04, 2017. Progress Note Addendum to H/P: CABG grafts as follows: STOKES - LAD SVG - PDA Radial artery - Ramus then sequentially to OM
[2017-04-04] MEDS: NITROGLYCERIN OINT 2% 1GM PACKET EXT SCH ×2 (16:44→21:40)
--- NOTE | 2017-04-04 18:04 | CARDIOLOGY CONSULTATION ---
DATE OF CONSULTATION: 04/04/2017 CONSULTATION REQUESTED BY: Meño Alves MD REASON FOR CONSULTATION: Chest pain status post lytic therapy. HISTORY OF PRESENT ILLNESS: Mr. Malhotra is a very pleasant 71-year-old gentleman who was only just discharged from [facility] on March 30. He presented to on transfer from [facility] Emergency Department with report of chest pain. The patient was seen and examined in the [facility] Emergency Department and states that earlier this morning while driving his grandchildren at work, he suddenly developed chest discomfort. He states it started as a dull pressure sensation in his chest, but by the time he got to his daughter's house, it was rather severe and was associated with significant diaphoresis, nausea, shortness of breath and radiation of the discomfort to his jaw. At that time, the patient became very concerned and his family even more so, so he was taken to the Emergency Department. Reportedly, in the [place] ER, his EKG shows a ventricularly paced rhythm and his troponin was negative; however, the decision to give lytic therapy was made despite having an INR of 2.1. The patient states that shortly after lytic being administered his symptoms resolved and he was transferred to [facility]. Currently, he is without complaint at rest and states he feels okay. He states he does not really have any discomfort in his chest at this point and he denies any shortness of breath, diaphoresis, nausea, palpitations, lightheadedness, dizziness or syncope. The patient was recently admitted to [facility] for atypical chest discomfort and underwent a dobutamine stress echocardiogram that was unremarkable. He was also taken off his chronic Rythmol and started on a higher dose of metoprolol and he was continued on his Coumadin. He states that since discharge he has been taking all of his medications without issue and otherwise feeling well. He actually was doing significant yard work a few days ago and felt great with it. PAST SURGICAL HISTORY: 1. Coronary bypass grafting surgery x4 in 2000. 2. Gastric bypass surgery. 3. Chronic intrathecal pump placement. 4. Cholecystectomy. 5. Upper endoscopy. 6. Appendectomy. 7. Tonsillectomy. 8. Multiple back surgeries. PAST MEDICAL HISTORY: 1. Persistent atrial fibrillation on chronic Coumadin therapy. 2. Tachybrady syndrome, status post permanent pacemaker placement. 3. Coronary artery disease status post coronary bypass grafting surgery. 4. Diabetes. 5. Chronic back pain. 6. Obstructive sleep apnea. 7. History of seizure disorder. FAMILY HISTORY: Noncontributory. SOCIAL HISTORY: Denies any cigarette use; however, he does use smokeless tobacco. Denies any alcohol or recreational drug use. He is and lives at home with his . REVIEW OF SYSTEMS: As per HPI, all other review of systems reviewed and negative at this time. ALLERGIES: 1. SULFA. 2. AMINOGLYCOSIDES. 3. PENICILLIN. MEDICATIONS AN OUTPATIENT: 1. Toprol-XL 25 mg b.i.d. 2. Amlodipine 5 mg daily. 3. Aspirin 81 mg daily. 4. Lasix 20 mg daily. 5. Avapro 300 mg daily. 6. Tamsulosin b.i.d. 7. Coumadin as directed by the Coumadin clinic. 8. Intrathecal pump as directed. PHYSICAL EXAMINATION: VITAL SIGNS: Temperature 36.7, pulse 58, respiratory rate 12, blood pressure 116/62. GENERAL: Awake, alert, oriented x3, in no acute distress. HEENT: Normocephalic, atraumatic. Pupils equal, round, and reactive to light and accommodation. Extraocular muscles intact. Anicteric sclerae. Moist mucous membranes. NECK: No JVD, no bruit. CARDIOVASCULAR: Regular but distant. Unable to appreciate murmurs, rubs or gallops. PULMONARY: Clear to auscultation bilaterally. No rales, rhonchi, or wheezing. ABDOMEN: Bowel sounds x4, soft. No rebound, guarding, tenderness. No organomegaly. EXTREMITIES: No clubbing, cyanosis or edema. +2 pedal pulses bilaterally. SKIN: Warm and dry. TEST RESULTS: A 12-lead EKG upon presentation independently reviewed at this time shows a ventricularly paced rhythm at 76 beats per minute. LABORATORY STUDIES OF SIGNIFICANCE: Sodium 139, potassium 3.7, BUN 15, creatinine 0.8. Troponin of less than 0.03. CPK of 83. CK-MB of 1.4. IMPRESSION: 1. Chest pain status lytic therapy, now resolved. 2. Persistent atrial fibrillation, rate controlled on chronic Coumadin therapy. 3. History of coronary artery disease status post coronary artery bypass grafting x4 in 2000 with unknown grafts. 4. Chronic back pain with an intrathecal pump. RECOMMENDATIONS: It was my pleasure to see Mr. Malhotra in consultation today. Given the fact we are unable to interpret his EKG given his ventricularly paced rhythm, I am not quite sure what to make of the events of this morning at [place] [facility], but the fact remains that he is now symptom free, so we will admit him to the intensive care unit. Given the fact that his INR is elevated at 2.1, we will not initiate heparin drip at this point. He has already received aspirin therapy today and we will also hold off on any Plavix until after his catheterization and we will tentatively plan on cathing him in the a.m. should he remain symptom free. Otherwise, he will be admitted to the intensive care unit and will be maintained on his outpatient beta lloyd dose of Toprol-XL 25 mg b.i.d. as well as his Norvasc. He will be made n.p.o. after midnight and we will tentatively plan for cardiac catheterization in the a.m. which will be less than 24 hours since receiving lytic therapy. However, should his symptoms reoccur, then emergent catheterization may be required. Otherwise, a 2D echocardiogram will be performed at this time to evaluate for any structural abnormalities. Thank you very much for allowing me to participate in the care of your patient.
[2017-04-04 19:05] LABS: CKMB/CK RATIO 1.8 (0-3.0)
[2017-04-04] MEDS ORDERED: FLM4 PO (19:54)
--- NOTE | 2017-04-04 20:31 | Critical Care Consultation ---
Critical Care Consultation Date of Consultation: Apr 04, 2017. Attending Physician: Zahraa Duong M.D. Reason for Consultation: Chest Pain, s/p TPA History of Present Illness Michael Malhotra is a 71-year-old male who began experiencing chest tightness around 7:15 this morning while driving his car. He was able to drive approximately 2 additional Miles to his son's home where his daughter noted that he was "breathing strangely" and he states he could not feel his pulse when he checked it on his wrist. He notes the chest pain at its worst was a 5/ 10. It was associated with left side face and jaw pain. He states he was sweating hot and his daughter stated he was "ashen" colored. It is my understanding that EMS was called and pt was taken to [facility]. He received (4) 81mg ASA in route. At [facility], pt received SL NTG and IV Morphine which reduced his pain to 3/10. Per [facility] ED records, pt's first troponin was negative. Due to pacemaker, ST segments were not visible. ED there did speak with Dr. Foote. pts repairer switchgear, who suggested transfer to [facility] or [place] for cardiac surgery options. Pt preferred transfer to [facility]. Due to low ceiling, pt could not be flown here. Prior to transfer, [facility] verified with [facility] ED prior to administration of TPA for ACS. Upon arrival at [facility], patient was pain free and admitted to the ICU for close observation s/p 50mg TPA and ACS. Pt has known 4 vessel CABG as STOKES - LAD, SVG - PDA, Radial Artery - Ramus then sequentially to OM. Pt recently admission to [facility] for Orthopnea. During which he underwent dobutamine stress test without signs of ischemia. He follows with Dr. Foote for Cardiology. I did attempt to review his outpt records, but his [facility] chart is locked. Last ECHO demonstrated LVH and LVEF of 50-55%; ECHO today notated in plan. Upon visiting with the patient this evening, he states he continues to experience intermittent 2/10 chest pressure in the same location as this morning. He states if last for less than 20 seconds and comes about every 30 minutes. He denies change of vision, headache, trouble breathing, cough or dyspnea. He denies pain radiating to any other location. Denies nausea, upset stomach or recent change in bowel or bladder habits. Denies numbness or tingling. He complains of chronic back pain, which is currently under control while laying on his left side. Past Medical/Surgical History Medical Problems: Atrial fibrillation CAD (coronary artery disease) Chest pain Chronic pain Diabetes mellitus type 2, controlled Dyspnea RICHY (obstructive sleep apnea) Seizure Tachy-richard syndrome Surgical Problems: History of appendectomy History of tonsillectomy and adenoidectomy S/P CABG x 4 S/P cholecystectomy S/P insertion of intrathecal pump Hx of Gastric Bypass S/p Pacemaker Family History Colon cancer MOTHER Diabetes mellitus MOTHER Heart disease FATHER Hypertension MOTHER Lung disease FATHER Social History Smoking Status: Former Smoker Smokeless Tobacco Use: Yes Alcohol Use: occasionally Drug Use: none Marital Status: Housing Status: lives with significant other Occupation Status: retired Allergies Coded Allergies: Bee Venom (Verified Allergy, Severe, ANAPHYLAXIS, 04/04/17) Penicillins (Verified Allergy, Intermediate, HIVES, 04/04/17) Sulfa Antibiotics (Verified Allergy, Intermediate, HIVES, 04/04/17) Gentamicin (Verified Allergy, Unknown, UNKNOWN, 04/04/17) Home Medications Scheduled Amlodipine (Norvasc), 5 MG PO DAILY Aspirin (Aspirin Ec), 81 MG PO DAILY Buspirone Hcl (Buspirone Hcl), 5 MG PO DAILY Cyanocobalamin (Cyanocobalamin), 1,000 MCG INJ every 3 months Furosemide (Furosemide), 20 MG PO DAILY Irbesartan (Avapro), 300 MG PO DAILY Metoprolol Succinate (Toprol Xl), 25 MG PO BID Tamsulosin HCl (Tamsulosin HCl), 0.4 MG PO BID Testosterone Cypionate (Testosterone Cypionate), 200 MG IM every 2 weeks Warfarin Sod (Jantoven), 5 MG PO DAILY Warfarin Sod (Jantoven), 2 MG PO DAILY [clonidine], 0 IT UD [hydromorphone], 0 IT UD Current Inpatient Medications Current Inpatient Medications Medications (Trade) Dose Ordered Sig/Herson Route Start Time Stop Time Status Last Admin Dose Admin Acetaminophen (Tylenol Tab) 650 mg Q4H PRN PO 04/04/17 13:00 05/04/17 12:59 Nitroglycerin (Nitrostat Tab) 0.4 mg UD PRN SL 04/04/17 13:00 05/04/17 12:59 Aspirin (Ecotrin Tab) 81 mg QAM PO 04/05/17 09:00 05/05/17 08:59 Ondansetron HCl (Zofran Inj) 4 mg Q6H PRN IV 04/04/17 13:00 05/04/17 12:59 Morphine Sulfate (MoRPHine SULFATE INJ) 2 mg Q1H PRN IV 04/04/17 13:00 04/18/17 12:59 Amlodipine Besylate (Norvasc Tab) 5 mg DAILY PO 04/05/17 09:00 05/05/17 08:59 Buspirone HCl (Buspar Tab) 5 mg DAILY PO 04/05/17 09:00 05/05/17 08:59 Metoprolol Succinate (Toprol Xl Tab) 25 mg BID PO 04/04/17 21:00 05/04/17 20:59 Tamsulosin HCl (Flomax Cap) 0.4 mg BID PO 04/04/17 21:00 05/04/17 20:59 Irbesartan (Avapro Tab) 300 mg QAM PO 04/05/17 09:00 05/05/17 08:59 Non-Formulary Medication (Non-Formulary Patient'S Own Med) CONT. PER PUMP SETTINGS UD IT 04/04/17 14:15 05/04/17 14:14 Non-Formulary Medication (Patient'S Own Controlled Med) CONT. PER PUMP SETTINGS UD IT 04/04/17 14:15 05/04/17 14:14 Nitroglycerin (Nitroglycerin 2% Oint) 1 inch Q6H EXT 04/04/17 16:00 05/04/17 15:59 04/04/17 16:44 1 INCH Review of Systems 12 systems reviewed and negative other than previously mentioned in the HPI. Physical Exam Date Time Temp Pulse Resp B/P (MAP) Pulse Ox O2 Delivery O2 Flow Rate FiO2 04/04/17 18:00 57 16 166/82 (110) 91 Room Air 04/04/17 16:00 56 16 154/86 (108) 92 Room Air 04/04/17 16:00 Room Air 04/04/17 14:10 36.4 61 19 159/96 97 Nasal Cannula 2.0 04/04/17 14:02 124/52 04/04/17 14:00 55 14 97 04/04/17 13:46 116/54 04/04/17 13:45 56 14 98 04/04/17 13:31 123/62 04/04/17 13:30 64 16 123/62 98 04/04/17 13:30 62 11 97 04/04/17 13:16 122/58 04/04/17 13:15 58 122/55 98 04/04/17 13:15 54 18 98 04/04/17 13:03 122/55 04/04/17 13:01 92/75 04/04/17 13:00 55 16 98 04/04/17 13:00 55 16 122/55 98 04/04/17 12:45 54 14 123/52 97 04/04/17 12:30 62 14 106/74 04/04/17 12:27 55 04/04/17 12:15 58 14 116/62 97 04/04/17 12:00 58 14 118/64 97 04/04/17 11:55 98 Room Air 04/04/17 11:55 36.7 64 16 115/58 98 Room Air 04/04/17 11:46 98 Nasal Cannula 2.0 Vital Signs - as noted Laboratory Data - as noted Physical Exam: General - NAD, Resting in bed watching television Eyes - PERRL, EOMI No icterus, gaze conjugate ENT - Mucosa moist, no lesions or candidiasis Neck - Supple, trachea midline, no masses or lymphadenopathy, no JVD or bruits Lungs - No paradoxical chest wall movement, clear to auscultation bilaterally, no wheezes, rales, or rhonchi Heart - Sinus bradycardia noted at 51bpm, No murmur, rubs, clicks, or gallops appreciated Abdomen - BS present, no bruits noted, tympanic to percussion, soft, nontender, nondistended, no organomegaly Extremities - No edema, pedal pulses intact Neuro - A&O X 4 Strength extremities equal and appropriate bilaterally Reflexes: Bicep, brachioradialis, patellar, and plantar normal and equal CN:PERRL, EOMI, no facial asymmetry, uvula/tongue midline Laboratory Results Last 24 Hours Test 04/04/17 12:00 04/04/17 12:12 04/04/17 18:14 White Blood Count 6.81 K/uL Red Blood Count 4.79 M/uL Hemoglobin 12.4 g/dL Hematocrit 37.7 % Mean Corpuscular Volume 78.7 fL Mean Corpuscular Hemoglobin 25.9 pg Mean Corpuscular Hemoglobin Concent 32.9 g/dl Platelet Count 212 K/uL Mean Platelet Volume 9.4 fL Neutrophils (%) (Auto) 73.8 % Lymphocytes (%) (Auto) 18.5 % Monocytes (%) (Auto) 5.4 % Eosinophils (%) (Auto) 1.6 % Basophils (%) (Auto) 0.4 % Neutrophils # (Auto) 5.02 K/uL Lymphocytes # (Auto) 1.26 K/uL Monocytes # (Auto) 0.37 K/uL Eosinophils # (Auto) 0.11 K/uL Basophils # (Auto) 0.03 K/uL RDW Standard Deviation 49.4 fL RDW Coefficient of Variation 17.1 % Immature Granulocyte % (Auto) 0.3 % Immature Granulocyte # (Auto) 0.02 K/uL Prothrombin Time 23.2 SECONDS Prothromb Time International Ratio 2.1 Activated Partial Thromboplast Time 34.7 SECONDS Partial Thromboplastin Ratio 1.3 Sodium Level 139 mmol/L Potassium Level 3.7 mmol/L Chloride Level 107 mmol/L Carbon Dioxide Level 26 mmol/L Anion Gap 7.0 mmol/L Blood Urea Nitrogen 15 mg/dl Creatinine 0.81 mg/dl Est Creatinine Clear Calc Drug Dose 96.4 ml/min Estimated GFR () 103.6 Estimated GFR (Non- 89.4 BUN/Creatinine Ratio 18.8 Random Glucose 116 mg/dl Calcium Level 8.2 mg/dl Total Creatine Kinase 83 U/L 77 U/L Creatine Kinase MB 1.4 ng/ml 1.4 ng/ml Creatine Kinase MB Ratio 1.7 1.8 Troponin I 0.019 ng/ml 0.021 ng/ml Bedside Troponin I < 0.030 ng/ml Diagnostic Results CHEST ONE VIEW PORTABLE CLINICAL HISTORY: Fever, sepsis, atypical chest pain COMPARISON STUDY: 04-12 FINDINGS: The heart remains enlarged. There are postsurgical changes of a midline sternotomy. There is a left subclavian dual-chamber central venous pacemaker present. There is no focal pulmonary consolidation. There are no pleural effusions. There is mild central vascular prominence without evidence for overt failure.[ IMPRESSION: 1. Stable cardiomegaly 2. No evidence of acute parenchymal consolidation 3. Central vascular prominence without evidence for overt failure Electronically signed by: Thomas Padilla M.D. 04/04/2017 12:18 PM Dictated Date/Time: 04/04/2017 12:17 PM Assessment & Plan (1) Chest pain (2) CAD (coronary artery disease) (3) Diabetes mellitus type 2, controlled Reason Critically Ill: Patient is an 71-year-old male who is admitted to the ICU for Chest Pain resolved after TPA. PLAN: Neuro: * Alert & Oriented; Monitor for neurologic change * Pain currently well controlled, alert provider if pain level increases Resp: * Adequate saturations on room air; Supplemental oxygen as required * Monitor on telemetry CV: * Cardiology Following: Appreciate Dr. Vaughn input * ECHO today (Note in Draft): Compared to previous study of 03/29/17: LV chamber slightly smaller to suggest volume depletion, otherwise, no new wall motion abnormalities. Small LV chamber size with moderate concentric LVH. Normal LV systolic function with abnormal septal wall motion consistent with RV pacing, otherwise, normal wall motion, EF 55-60%. * Plan for Cardiac Cath in AM * Trend Troponin: Elevated 0.021 * EKG with repeat chest pain * INR 2.1, no current reason for treatment with heparin * Monitor on telemetry; Currently ventricularly paced with regular rhythm of 51 * Continue home cardiac meds Fluids/Renal: * Oral intake in place; no IV Fluids at this time * Positive 460mL * Using Urinal with out issue * Trend daily labs ID: * WBC: 6.81; Afebrile * No indication for infection * Monitor fever curve GI/Nutrition: * NPO after midnight for cath on 04/05 Heme: * Pt on Coumadin for persistent A. fib. * INR: 2.1 * Monitor Coags Endocrine: * Accu-Checks per protocol, started insulin infusion for 2 blood sugars greater than 180 * A1C 6.7 on 03/29/2017, No insulin use per outpt med rec * Last TSH per hospital records 01/25/16 as 0.728 CCT: 0 Minutes; Level 3 inpatient billing. This time is exclusive of all separately billable procedures. Thank you for involving us in the care of this patient. Please refer to Dr. Brent Chu's addendum for further recommendations. I have personally evaluated and examined this patient. I agree with assessment and plan of Yun Salgado PA-C. Patient transferred to [facility] for possible cardiac cath. Received TNKase at outside facility 30 mg 1. ICU observation given lytic administration. Patient was offered nitroglycerin by the time he arrived and [facility] emergency department.
[2017-04-04] MEDS: TAMSULOSIN HCL 0.4 MG CAP PO SCH (21:40)
[2017-04-04] MEDS: METOPROLOL SUCC 25MG EXT REL TAB PO SCH (21:40)
[2017-04-05] VITALS (13 sets, daily range): BP systolic 106–157; BP diastolic 46–80; PULSE 55–79; TEMP 36.5–37.5; O2SAT 92–97
[2017-04-05] MEDS: NITROGLYCERIN OINT 2% 1GM PACKET EXT SCH ×4 (04:28→21:35)
[2017-04-05 06:42] LABS: HEMATOCRIT 39.3 % (42-52); MEAN CELL VOLUME 79.1 fL (80-100); MEAN CORPUSCULAR HEMOGLOBIN 25.6 pg (25-34); MEAN CORPUSCULAR HGB CONC 32.3 g/dl (32-36); MEAN PLATELET VOLUME 9.9 fL (7.4-10.4); PLATELET COUNT 206 K/uL (130-400); RED BLOOD COUNT 4.97 M/uL (4.7-6.1); WHITE BLOOD COUNT 5.11 K/uL (4.8-10.8)
[2017-04-05 06:54] LABS: PARTIAL THROMBOPLASTIN RATIO 1.3; PROTHROMBIN TIME (PATIENT) 22.2 SECONDS (9.0-12.0)
[2017-04-05 07:54] LABS: BUN/CREATININE RATIO 15.4 (10-20); CREATININE 0.74 mg/dl (0.60-1.40); POTASSIUM 4.3 mmol/L (3.5-5.1)
[2017-04-05 07:58] LABS: CHOLESTEROL/HDL RATIO 3.5; CKMB/CK RATIO 1.8 (0-3.0)
[2017-04-05] MEDS ORDERED: ASPIRIN 81 MG ECTAB PO SCH (09:00)
[2017-04-05] MEDS: ASPIRIN 81 MG ECTAB PO SCH (10:01)
[2017-04-05] MEDS: IRBESARTAN 150 MG TAB PO SCH (10:02)
[2017-04-05] MEDS: AMLODIPINE BESYLATE 5 MG TAB PO SCH (10:02)
[2017-04-05] MEDS: TAMSULOSIN HCL 0.4 MG CAP PO SCH ×2 (10:02→21:05)
[2017-04-05] MEDS: METOPROLOL SUCC 25MG EXT REL TAB PO SCH ×2 (10:02→21:04)
--- NOTE | 2017-04-05 11:04 | Critical Care Progress Note ---
Critical Care Progress Note Date of Service Apr 05, 2017. ICU Day ICU Day Number: [address] Chu Subjective The patient was seen and examined at bedside. No acute overnight events. Tele showed paced rhythm. Pt is resting comfortably in bed. States that he is still having occasional chest pain that he rates as 1/10. Nothing precipitates the pain (not movement, not deep breaths, not eating, not coughing). The pain is in the center of his chest and feels like someone is pinching him. Pt is NPO for possible cardiology procedure today. Plan of care was described to the patient and all questions were answered. ROS: No SOB, no dyspnea on exertion, no palpitations, no fevers, no chills, no nausea, no vomiting, no diarrhea, no dysuria, no rash. Objective Gen: No acute distress. Well nourished, well developed. HEENT: Head - normocephalic and atraumatic. Pupils are equal, round, and reactive to light. Extraocular eye muscles are intact and sclera are anicteric. Ears - bilaterally patent canals with noninjected tympanic membranes and no evidence of hemotympanum. Nose - moist nasal mucosa without discharge. Mouth - moist buccal mucosa. Oropharynx is nonerythematous and there is no tonsillar exudate or edema noted. Neck: Supple; no JVD, nuchal rigidity, cervical lymphadenopathy, or auscultated bruits. Heart: Regular rate and rhythm. There is a normal S1 and S2 with no murmurs, clicks, or gallops appreciated. Lungs: Clear to auscultation bilaterally with no wheezes, rales, or rhonchi. Abdomen: Soft, completely nontender, nondistended, with good bowel sounds. There are no palpable pulsatile masses or hepatosplenomegaly. There is no guarding, rigidity, or rebound noted. Extremities: No evidence of cyanosis, clubbing, or edema. There are easily palpable peripheral pulses. Neuro:The patient is awake and alert, oriented to day, time, and place. Muscle strength is 5/5 in all 4 extremities. The patient has equal lighthouse keeper strength and equal pedal push and pull. There are no cerebellar signs. Current SOFA Score SOFA Score Response (Comments) Value Platelets (x10) > 150 0 Bilirubin (mg/dL) < 1.2 0 Harriett Coma Score 15 0 Level of Hypotension No Hypotension 0 Creatinine (mg/dL) < 1.2 0 Total 0 Assessment & Plan Reason Critically Ill: Patient is an 71-year-old male who is admitted to the ICU for Chest Pain resolved after TNKase administration at 10:18AM on 04/04/2017. Neuro: * Alert & Oriented; Monitor for neurologic change * Pt has intrathecal pain pump, his pain is currently well controlled with hydromorphone / clonidine intrathecally. * Mood: c/w Buspirone 5 MG daily Resp: * Adequate saturations on room air; Supplemental oxygen as required * Monitor on telemetry. CV: * Cardiology Following: Appreciate Dr. Vaughn input * ECHO today (Draft): Compared to previous study of 03/29/17: LV chamber slightly smaller to suggest volume depletion, otherwise, no new wall motion abnormalities. Small LV chamber size with moderate concentric LVH. Normal LV systolic function with abnormal septal wall motion consistent with RV pacing, otherwise, normal wall motion, EF 55-60%. * Defer to Cardiology regarding plans to Cath. * Trops peaked at 0.026. * EKG with repeat chest pain * INR 2.0, on home Coumadin dose, will continue. * Monitor on telemetry; Currently ventricularly paced with regular rhythm of 51 * CAD: Continue ASA 81mg daily, Metoprolol 25mg BID, holding home Lasix 20mg daily dose. * HTN: c/w Amlodipine 5mg daily and Irbesartan 300mg QAM, Renal/ : * Oral intake in place; no IV Fluids at this time * Using Urinal with out issue * Trend daily labs * c/w home med Flomax 0.4mg daily ID: * WBC 5.1; Afebrile * No indication for infection * Monitor fever curve GI/Nutrition: * Resume regular diet (per Dr. Hernández), unlikely procedure today. Heme: * Pt on Coumadin for persistent A. fib. * INR: 2.1 * Monitor Coags * Continue home Coumadin dose (5mg vs 2.5mg) Endocrine: * Accu-Checks per protocol, started insulin infusion for 2 blood sugars greater than 180 * A1C 6.7 on 03/29/2017, No insulin use per outpt med rec * Last TSH per hospital records 01/25/16 as 0.728 Dispo: Tele Code Status: FULL, although does not want long-term [facility] vent (per Dr. Davila note) .Resident Physician Supervision Note: Dr. Powell was resident physician during care of patient. I separately evaluated patient and did history and exam. I discussed the case with the resident and generally agree with the findings and plan. Stable for downgraded out of ICU to telemetry status. Documented By: Brent Chu DO Consults & Procedures Consultants: Cardiology - 04/04/2017 Short Piece Handler - 04/04/2017 Procedures: None. Data Medications: Current Inpatient Medications Medications (Trade) Dose Ordered Sig/Herson Route Start Time Stop Time Status Last Admin Dose Admin Acetaminophen (Tylenol Tab) 650 mg Q4H PRN PO 04/04/17 13:00 05/04/17 12:59 Nitroglycerin (Nitrostat Tab) 0.4 mg UD PRN SL 04/04/17 13:00 05/04/17 12:59 Aspirin (Ecotrin Tab) 81 mg QAM PO 04/05/17 09:00 05/05/17 08:59 04/05/17 10:01 81 MG Ondansetron HCl (Zofran Inj) 4 mg Q6H PRN IV 04/04/17 13:00 05/04/17 12:59 Morphine Sulfate (MoRPHine SULFATE INJ) 2 mg Q1H PRN IV 04/04/17 13:00 04/18/17 12:59 Amlodipine Besylate (Norvasc Tab) 5 mg DAILY PO 04/05/17 09:00 05/05/17 08:59 04/05/17 10:02 5 MG Buspirone HCl (Buspar Tab) 5 mg DAILY PO 04/05/17 09:00 05/05/17 08:59 04/05/17 10:02 5 MG Metoprolol Succinate (Toprol Xl Tab) 25 mg BID PO 04/04/17 21:00 05/04/17 20:59 04/05/17 10:02 25 MG Tamsulosin HCl (Flomax Cap) 0.4 mg BID PO 04/04/17 21:00 05/04/17 20:59 04/05/17 10:02 0.4 MG Irbesartan (Avapro Tab) 300 mg QAM PO 04/05/17 09:00 05/05/17 08:59 04/05/17 10:02 300 MG Non-Formulary Medication (Non-Formulary Patient'S Own Med) CONT. PER PUMP SETTINGS UD IT 04/04/17 14:15 05/04/17 14:14 Non-Formulary Medication (Patient'S Own Controlled Med) CONT. PER PUMP SETTINGS UD IT 04/04/17 14:15 05/04/17 14:14 Nitroglycerin (Nitroglycerin 2% Oint) 1 inch Q6H EXT 04/04/17 16:00 05/04/17 15:59 04/05/17 10:03 1 INCH Vital Signs: Date Time Temp Pulse Resp B/P (MAP) Pulse Ox O2 Delivery O2 Flow Rate FiO2 04/05/17 10:00 58 14 114/46 (68) 95 Room Air 04/05/17 08:00 36.8 57 14 124/65 (84) 96 Room Air 04/05/17 08:00 Room Air 04/05/17 06:02 58 15 123/60 (81) 94 Room Air 04/05/17 05:01 55 18 118/48 (71) 93 Room Air 04/05/17 04:01 37.0 55 19 113/50 (71) 93 04/05/17 04:00 Room Air 04/05/17 03:01 59 19 117/66 (83) 94 04/05/17 02:01 55 19 106/47 (66) 92 04/05/17 01:01 55 18 112/50 (70) 92 Room Air 04/05/17 00:01 37.0 55 16 118/60 (79) 96 Room Air 04/05/17 00:00 Room Air 04/04/17 22:01 55 18 166/84 (111) 96 Room Air 04/04/17 21:01 55 17 173/76 (108) 97 Room Air 04/04/17 20:01 55 18 159/90 (113) 92 Room Air 04/04/17 20:00 Room Air 04/04/17 20:00 36.4 55 19 94 Room Air 04/04/17 18:00 57 16 166/82 (110) 91 Room Air 04/04/17 16:00 56 16 154/86 (108) 92 Room Air 04/04/17 16:00 Room Air 04/04/17 14:10 36.4 61 19 159/96 97 Nasal Cannula 2.0 04/04/17 14:02 124/52 04/04/17 14:00 55 14 97 04/04/17 13:46 116/54 04/04/17 13:45 56 14 98 04/04/17 13:31 123/62 04/04/17 13:30 64 16 123/62 98 04/04/17 13:30 62 11 97 04/04/17 13:16 122/58 04/04/17 13:15 58 122/55 98 04/04/17 13:15 54 18 98 04/04/17 13:03 122/55 04/04/17 13:01 92/75 04/04/17 13:00 55 16 98 04/04/17 13:00 55 16 122/55 98 04/04/17 12:45 54 14 123/52 97 04/04/17 12:30 62 14 106/74 04/04/17 12:27 55 04/04/17 12:15 58 14 116/62 97 04/04/17 12:00 58 14 118/64 97 04/04/17 11:55 98 Room Air 04/04/17 11:55 36.7 64 16 115/58 98 Room Air 04/04/17 11:46 98 Nasal Cannula 2.0 Laboratory Results: Last 24 Hours Test 04/04/17 12:00 04/04/17 12:12 04/04/17 18:14 04/05/17 00:03 White Blood Count 6.81 K/uL Red Blood Count 4.79 M/uL Hemoglobin 12.4 g/dL Hematocrit 37.7 % Mean Corpuscular Volume 78.7 fL Mean Corpuscular Hemoglobin 25.9 pg Mean Corpuscular Hemoglobin Concent 32.9 g/dl Platelet Count 212 K/uL Mean Platelet Volume 9.4 fL Neutrophils (%) (Auto) 73.8 % Lymphocytes (%) (Auto) 18.5 % Monocytes (%) (Auto) 5.4 % Eosinophils (%) (Auto) 1.6 % Basophils (%) (Auto) 0.4 % Neutrophils # (Auto) 5.02 K/uL Lymphocytes # (Auto) 1.26 K/uL Monocytes # (Auto) 0.37 K/uL Eosinophils # (Auto) 0.11 K/uL Basophils # (Auto) 0.03 K/uL RDW Standard Deviation 49.4 fL RDW Coefficient of Variation 17.1 % Immature Granulocyte % (Auto) 0.3 % Immature Granulocyte # (Auto) 0.02 K/uL Prothrombin Time 23.2 SECONDS Prothromb Time International Ratio 2.1 Activated Partial Thromboplast Time 34.7 SECONDS Partial Thromboplastin Ratio 1.3 Sodium Level 139 mmol/L Potassium Level 3.7 mmol/L Chloride Level 107 mmol/L Carbon Dioxide Level 26 mmol/L Anion Gap 7.0 mmol/L Blood Urea Nitrogen 15 mg/dl Creatinine 0.81 mg/dl Est Creatinine Clear Calc Drug Dose 96.4 ml/min Estimated GFR () 103.6 Estimated GFR (Non- 89.4 BUN/Creatinine Ratio 18.8 Random Glucose 116 mg/dl Calcium Level 8.2 mg/dl Total Creatine Kinase 83 U/L 77 U/L 75 U/L Creatine Kinase MB 1.4 ng/ml 1.4 ng/ml 1.5 ng/ml Creatine Kinase MB Ratio 1.7 1.8 2.0 Troponin I 0.019 ng/ml 0.021 ng/ml 0.026 ng/ml Bedside Troponin I < 0.030 ng/ml Chemistry Specimen Hemolysis Test 04/05/17 05:55 04/05/17 06:01 White Blood Count 5.11 K/uL Red Blood Count 4.97 M/uL Hemoglobin 12.7 g/dL Hematocrit 39.3 % Mean Corpuscular Volume 79.1 fL Mean Corpuscular Hemoglobin 25.6 pg Mean Corpuscular Hemoglobin Concent 32.3 g/dl RDW Standard Deviation 49.7 fL RDW Coefficient of Variation 17.2 % Platelet Count 206 K/uL Mean Platelet Volume 9.9 fL Prothrombin Time 22.2 SECONDS Prothromb Time International Ratio 2.0 Activated Partial Thromboplast Time 33.4 SECONDS Partial Thromboplastin Ratio 1.3 Sodium Level 140 mmol/L Potassium Level 4.3 mmol/L Chloride Level 107 mmol/L Carbon Dioxide Level 24 mmol/L Anion Gap 9.0 mmol/L Blood Urea Nitrogen 11 mg/dl Creatinine 0.74 mg/dl Est Creatinine Clear Calc Drug Dose 104.5 ml/min Estimated GFR () 107.6 Estimated GFR (Non- 92.8 BUN/Creatinine Ratio 15.4 Random Glucose 95 mg/dl Calcium Level 8.0 mg/dl Total Creatine Kinase 61 U/L Creatine Kinase MB 1.1 ng/ml Creatine Kinase MB Ratio 1.8 Troponin I 0.019 ng/ml Triglycerides Level 131 mg/dl Cholesterol Level 118 mg/dl HDL Cholesterol 34 mg/dl LDL Cholesterol, Calculated 58 mg/dl VLDL Cholesterol, Calculated 26 mg/dl Cholesterol/HDL Ratio 3.5 Bedside Glucose 94 mg/dl Resident Involvement: Resident Care Provided Care Provided: Adult [facility] Medicine
--- NOTE | 2017-04-05 14:35 | Cardiology Follow-Up ---
Subjective Subjective Date of Service: Apr 05, 2017. Pt evaluation today including: conversation w/ patient, physical exam, chart review, lab review, review of studies, review of inpatient medication list Additional Details: Pt seen and examined, states that he feels well. Gets occasional "twing" of chest discomfort but not severe, not similar to yesterday's pain. Denies sob, palpitations, lightheadedness or dizziness. Tele reviewed: V-paced Problem List Medical Problems: (1) Precordial chest pain Status: Acute (2) SBO (small bowel obstruction) Status: Acute (3) Upper abdominal pain Status: Acute Review of Systems Respiratory: No see HPI, No cough, No sputum, No wheezing, No shortness of breath, No dyspnea on exertion, No dyspnea at rest, No hemoptysis, No problem reported Cardiac: No see HPI, No chest pain, No orthopnea, No PND, No edema, No claudication, No palpitations, No problem reported Objective Vital Signs Last Vital Signs Documentation Date Time Temp Pulse Resp B/P (MAP) Pulse Ox O2 Delivery O2 Flow Rate FiO2 04/05/17 12:00 Room Air 04/05/17 12:00 36.6 79 17 143/72 (95) 97 04/04/17 14:10 2.0 Physical Exam: General Appearance: WD/WN, no apparent distress Eyes: bilateral eyes normal inspection, bilateral eyes PERRL, bilateral eyes EOMI ENT: normal ENT inspection, pharynx normal, + pertinent finding (hard of hearing) Neck: supple, no adenopathy, thyroid normal, no JVD Respiratory/Chest: chest non-tender, lungs clear, normal breath sounds, no respiratory distress, no accessory muscle use Cardiovascular: regular rate, rhythm, no edema, no JVD, + systolic murmur, + gallop/S4 Abdomen: normal bowel sounds, non tender, soft, no organomegaly Extremities: normal range of motion, non-tender, normal inspection, no pedal edema, no calf tenderness Neurologic/Psychiatric: section weaver II-XII nml as tested, no motor/sensory deficits, alert, normal mood/affect, oriented x 3 Skin: normal color, warm/dry, no rash Lymphatic: no adenopathy Assessment and Plan 1. Chest pain s/p lytic therapy at outside ER V-paced rhythm on ekg troponin negative, CPK negative unclear of etiology causing chest pain event on 04/04 would have expected atleast minimal troponin elevation echocardiogram unchanged remains pain free now will ultimately need cath but no objective ischemic changes and symptom free no urgent need at this point will wait for INR to drift into acceptable range (hold coumadin) 2. persistent a-fib rate controlled may start heparin once INR <2 and cath completed cont metoprolol 3. hx of CAD cont aspirin 4. HTN cont avapro and amlodipine ok to transfer to tele from cardiac standpoint npo after midnight for cath once INR acceptable
--- NOTE | 2017-04-05 19:41 | Progress Note ---
Medicine Progress Note Date & Time of Visit: Apr 05, 2017 at 10:24. Subjective Pt was seen and examined Lying in bed with no distress Pt said that he feels fine he said that he is chest pain free now denies any palpitation, dizziness and sob Objective Last 8 Hrs Date Time Temp Pulse Resp B/P (MAP) Pulse Ox O2 Delivery O2 Flow Rate FiO2 04/05/17 16:00 Room Air 04/05/17 15:44 37.0 71 18 121/70 (87) 93 Room Air 04/05/17 12:00 Room Air 04/05/17 12:00 36.6 79 17 143/72 (95) 97 Room Air Physical Exam: General- No acute distress Head- atraumatic Eyes- PERRL, EOMI ENT- oropharynx clear Neck- supple, no JVD, trachea midline Lungs- clear to auscultation Heart- regular rhythm, +systolic murmur Abdomen- normal bowel sounds, soft Extremities- no calf tenderness Neuro- alert, oriented x 3; PERRL, EOMI Skin- warm & dry Laboratory Results: Last 24 Hours Test 04/05/17 00:03 04/05/17 05:55 04/05/17 06:01 Total Creatine Kinase 75 U/L 61 U/L Creatine Kinase MB 1.5 ng/ml 1.1 ng/ml Creatine Kinase MB Ratio 2.0 1.8 Troponin I 0.026 ng/ml 0.019 ng/ml Chemistry Specimen Hemolysis White Blood Count 5.11 K/uL Red Blood Count 4.97 M/uL Hemoglobin 12.7 g/dL Hematocrit 39.3 % Mean Corpuscular Volume 79.1 fL Mean Corpuscular Hemoglobin 25.6 pg Mean Corpuscular Hemoglobin Concent 32.3 g/dl RDW Standard Deviation 49.7 fL RDW Coefficient of Variation 17.2 % Platelet Count 206 K/uL Mean Platelet Volume 9.9 fL Prothrombin Time 22.2 SECONDS Prothromb Time International Ratio 2.0 Activated Partial Thromboplast Time 33.4 SECONDS Partial Thromboplastin Ratio 1.3 Sodium Level 140 mmol/L Potassium Level 4.3 mmol/L Chloride Level 107 mmol/L Carbon Dioxide Level 24 mmol/L Anion Gap 9.0 mmol/L Blood Urea Nitrogen 11 mg/dl Creatinine 0.74 mg/dl Est Creatinine Clear Calc Drug Dose 104.5 ml/min Estimated GFR () 107.6 Estimated GFR (Non- 92.8 BUN/Creatinine Ratio 15.4 Random Glucose 95 mg/dl Calcium Level 8.0 mg/dl Triglycerides Level 131 mg/dl Cholesterol Level 118 mg/dl HDL Cholesterol 34 mg/dl LDL Cholesterol, Calculated 58 mg/dl VLDL Cholesterol, Calculated 26 mg/dl Cholesterol/HDL Ratio 3.5 Bedside Glucose 94 mg/dl Assessment & Plan CHEST PAIN / CORONARY ARTERY DISEASE History of ischemic heart disease, s/p PCI and subsequent CABG years ago. No clinical history of DC. Echo last week showed moderate LVH, LVEF 50-55%, no segmental wall motion abnormalities. Dobutamine stress echo last week did not show any evidence of stress-induced ischemia. EKG showed ventricular paced rhythm on admission TNKase was administered @ [facility] Denied any chest pain Continue aspirin, metoprolol. Cholesterol at goal Plan for cardiac cath tomorrow if INR drops Will keep NPO after midnight Consider heparin drip if INR drop below 2 Cardiology on board Will transfer to telemetry Repeat echo showed * Compared to previous study of 03/29/17: LV chamber slightly smaller to suggest volume depletion, otherwise, no new wall motion abnormalities. * Small LV chamber size with moderate concentric LVH. * Normal LV systolic function with abnormal septal wall motion consistent with RV pacing, otherwise, normal wall motion, EF 55-60%. ATRIAL FIBRILLATION Rate controlled. Continue metoprolol Warfarin on hold for the cardiac cath INR 2 today Consider heparin drip once INR less than 2 SLEEP APNEA Intolerant of CPAP or BiPAP. DM TYPE 2 Diet controlled. Hgb A1C 6.7 03/29/17. continue monitor CHRONIC PAIN Well-controlled with hydromorphone / clonidine intrathecal pump. VTE PROPHYLAXIS INR 2 Warfarin may on hold for cardiac cath. SCD's. Ambulate as able. RESUSCITATION STATUS FULL CODE DISPOSITION Transfer to telemetry Medical follow-up with Dr. Hines. Cardiology follow-up with Dr. Foote. Possible cardiac cath in am . Consultants: Cardiology Critical care Current Inpatient Medications: Current Inpatient Medications Medications (Trade) Dose Ordered Sig/Herson Route Start Time Stop Time Status Last Admin Dose Admin Acetaminophen (Tylenol Tab) 650 mg Q4H PRN PO 04/04/17 13:00 05/04/17 12:59 Nitroglycerin (Nitrostat Tab) 0.4 mg UD PRN SL 04/04/17 13:00 05/04/17 12:59 Aspirin (Ecotrin Tab) 81 mg QAM PO 04/05/17 09:00 05/05/17 08:59 04/05/17 10:01 81 MG Ondansetron HCl (Zofran Inj) 4 mg Q6H PRN IV 04/04/17 13:00 05/04/17 12:59 Morphine Sulfate (MoRPHine SULFATE INJ) 2 mg Q1H PRN IV 04/04/17 13:00 04/18/17 12:59 Amlodipine Besylate (Norvasc Tab) 5 mg DAILY PO 04/05/17 09:00 05/05/17 08:59 04/05/17 10:02 5 MG Buspirone HCl (Buspar Tab) 5 mg DAILY PO 04/05/17 09:00 05/05/17 08:59 04/05/17 10:02 5 MG Metoprolol Succinate (Toprol Xl Tab) 25 mg BID PO 04/04/17 21:00 05/04/17 20:59 04/05/17 10:02 25 MG Tamsulosin HCl (Flomax Cap) 0.4 mg BID PO 04/04/17 21:00 05/04/17 20:59 04/05/17 10:02 0.4 MG Irbesartan (Avapro Tab) 300 mg QAM PO 04/05/17 09:00 05/05/17 08:59 04/05/17 10:02 300 MG Non-Formulary Medication (Non-Formulary Patient'S Own Med) CONT. PER PUMP SETTINGS UD IT 04/04/17 14:15 05/04/17 14:14 Non-Formulary Medication (Patient'S Own Controlled Med) CONT. PER PUMP SETTINGS UD IT 04/04/17 14:15 05/04/17 14:14 Nitroglycerin (Nitroglycerin 2% Oint) 1 inch Q6H EXT 04/04/17 16:00 05/04/17 15:59 04/05/17 16:33 1 INCH
[2017-04-06] VITALS (22 sets, daily range): BP systolic 101–178; BP diastolic 48–84; PULSE 55–62; TEMP 36.5–36.9; O2SAT 95–100
[2017-04-06] MEDS: NITROGLYCERIN OINT 2% 1GM PACKET EXT SCH ×4 (04:02→21:31)
[2017-04-06 07:54] LABS: HEMATOCRIT 39.4 % (42-52); MEAN CELL VOLUME 78.8 fL (80-100); MEAN CORPUSCULAR HEMOGLOBIN 25.2 pg (25-34); MEAN PLATELET VOLUME 9.5 fL (7.4-10.4); PLATELET COUNT 194 K/uL (130-400); WHITE BLOOD COUNT 4.57 K/uL (4.8-10.8)
[2017-04-06 08:00] LABS: INR 1.7 (0.9-1.1); PROTHROMBIN TIME (PATIENT) 18.7 SECONDS (9.0-12.0)
[2017-04-06 08:23] LABS: BUN/CREATININE RATIO 23.1 (10-20); CALCIUM 8.1 mg/dl (8.5-10.1); CREATININE 0.77 mg/dl (0.60-1.40); POTASSIUM 4.1 mmol/L (3.5-5.1)
[2017-04-06] MEDS: ASPIRIN 81 MG ECTAB PO SCH (09:00)
[2017-04-06] MEDS: TAMSULOSIN HCL 0.4 MG CAP PO SCH ×2 (09:00→20:34)
[2017-04-06] MEDS: IRBESARTAN 150 MG TAB PO SCH (09:00)
[2017-04-06] MEDS: AMLODIPINE BESYLATE 5 MG TAB PO SCH (09:00)
[2017-04-06] MEDS: METOPROLOL SUCC 25MG EXT REL TAB PO SCH ×2 (10:15→20:35)
--- NOTE | 2017-04-06 10:56 | PROGRESS NOTE ---
DATE: 04/06/2017 FOLLOWUP VISIT SUBJECTIVE: This is a 71-year-old male patient, who in 2000, had coronary artery bypass surgery. He also has a history of atrial fibrillation and diabetes. He also has a history of a permanent pacemaker. The patient was transferred from [facility] after developing chest pain. The patient was given thrombolytics prior to transfer. Following admission, his cardiac markers have been negative. He has a paced rhythm on EKG. This is the second hospital admission for chest pain in a few weeks. He was here at [facility] 2 weeks ago with chest pain and underwent a dobutamine stress echocardiogram that was low probability. His metoprolol was increased and he was discharged home. He then had another recurrence of chest pain, which he describes as far more severe as his previous. At this point, I do not believe an additional stress test would provide any additional information. I think, a cardiac catheterization is warranted on the need to know basis. The patient is agreeable to proceed. OBJECTIVE: VITAL SIGNS: Blood pressure is 121/67 and pulse is regular at 55 beats per minute. He is afebrile. HEENT: He is normocephalic. Pupils are equal and reactive to light. Extraocular muscles are intact bilaterally. NECK: The neck veins are flat. Carotids have good upstrokes bilaterally without bruits. Thyroid is nonpalpable. RESPIRATORY: Breath sounds equal bilaterally and clear to auscultation. CARDIOVASCULAR: Heart has a regular rhythm. Normal S1 and S2. No S3 or S4. No cardiac rubs or murmurs. GASTROINTESTINAL: Abdomen is soft and nontender without organomegaly. EXTREMITIES: Free of edema, digit clubbing, or cyanosis. NEUROLOGIC: Grossly intact. SKIN: Warm to touch. LYMPH NODES: Negative to palpation. LABORATORY DATA: INR today is 1.7. IMPRESSION: 1. Chest pain. 2. Known history of coronary artery bypass. 3. Atrial fibrillation. 4. Diabetes mellitus. 5. Chronic pain with an intrathecal pump. RECOMMENDATIONS: As outlined above, I discussed with the patient the option of proceeding with cardiac catheterization. I do not believe that a repeat stress test would be of value in this patient and we need to know would his chest pain due to. He understands the risks, benefits and intent of the procedure including the potential for catheter based intervention such as balloon angioplasty or intercoronary stenting if necessary. The patient does have chronic low back pain, which may be a problem as he will have difficulty lying flat on the x-ray table during the heart catheterization. We will provide additional medications and sedation to try and help, but the patient also understands that we will only be giving conscious sedation. I will have further recommendations following the above.
[2017-04-06] MEDS ORDERED: FENTANYL CITRATE INJ 50 MCG/1 ML 2 ML VIAL ONE (11:33)
[2017-04-06] MEDS ORDERED: MIDAZOLAM HCL 1 MG/ML 2ML VIAL ONE ×2 (11:33→12:51)
[2017-04-06] MEDS ORDERED: NiCARDipine HCL INJ 2.5 MG/ML 10 ML AMP ONE (11:33)
[2017-04-06] MEDS ORDERED: HEPARIN SOD (PORCINE) 1000 UNIT/ML 10 ML VIAL ONE (11:33)
[2017-04-06] MEDS ORDERED: NITROGLYCERIN/D5W 100MCG/ML 20ML SYR ONE (11:34)
--- NOTE | 2017-04-06 11:48 | Progress Note ---
Medicine Progress Note Date & Time of Visit: Apr 06, 2017 at 11:42. Subjective Pt was seen and examined Lying in bed with no distress Pt said that he feels fine He said that early in the morning he developed chest painx2 that last a few minutes currently is pain free denies any palpitation, dizziness and SOB Objective Last 8 Hrs Date Time Temp Pulse Resp B/P (MAP) Pulse Ox O2 Delivery O2 Flow Rate FiO2 04/06/17 08:00 Room Air 04/06/17 07:49 36.8 55 16 121/67 (85) 95 Room Air 04/06/17 06:33 36.5 58 16 141/83 (102) 99 Room Air 04/06/17 04:01 36.8 57 16 116/65 (82) 97 Room Air 04/06/17 04:00 Room Air Physical Exam: General- No acute distress Head- atraumatic Eyes- PERRL, EOMI ENT- oropharynx clear Neck- supple, no JVD, trachea midline Lungs- clear to auscultation Heart- regular rhythm, +systolic murmur Abdomen- normal bowel sounds, soft Extremities- no calf tenderness Neuro- alert, oriented x 3; PERRL, EOMI Skin- warm & dry Laboratory Results: Last 24 Hours Test 04/06/17 07:27 04/06/17 07:34 White Blood Count 4.57 K/uL Red Blood Count 5.00 M/uL Hemoglobin 12.6 g/dL Hematocrit 39.4 % Mean Corpuscular Volume 78.8 fL Mean Corpuscular Hemoglobin 25.2 pg Mean Corpuscular Hemoglobin Concent 32.0 g/dl RDW Standard Deviation 49.8 fL RDW Coefficient of Variation 17.2 % Platelet Count 194 K/uL Mean Platelet Volume 9.5 fL Prothrombin Time 18.7 SECONDS Prothromb Time International Ratio 1.7 Sodium Level 140 mmol/L Potassium Level 4.1 mmol/L Chloride Level 109 mmol/L Carbon Dioxide Level 27 mmol/L Anion Gap 4.0 mmol/L Blood Urea Nitrogen 18 mg/dl Creatinine 0.77 mg/dl Est Creatinine Clear Calc Drug Dose 100.4 ml/min Estimated GFR () 105.8 Estimated GFR (Non- 91.3 BUN/Creatinine Ratio 23.1 Random Glucose 99 mg/dl Calcium Level 8.1 mg/dl Bedside Glucose 87 mg/dl Assessment & Plan CHEST PAIN / CORONARY ARTERY DISEASE History of ischemic heart disease, s/p PCI and subsequent CABG years ago. No clinical history of MA. Echo last week showed moderate LVH, LVEF 50-55%, no segmental wall motion abnormalities. Dobutamine stress echo last week did not show any evidence of stress-induced ischemia. EKG showed ventricular paced rhythm on admission TNKase was administered @ [facility] Denied any chest pain Continue aspirin, metoprolol. Cholesterol at goal Plan for cardiac cath tomorrow if INR drops Will keep NPO after midnight Consider heparin drip if INR drop below 2 Cardiology on board Will transfer to telemetry 04/06 Keep NPO INR 1.7 case discussed with Cardio, will plan for cardiac cath today continue metoprolol continue monitor in tele Repeat echo showed * Compared to previous study of 03/29/17: LV chamber slightly smaller to suggest volume depletion, otherwise, no new wall motion abnormalities. * Small LV chamber size with moderate concentric LVH. * Normal LV systolic function with abnormal septal wall motion consistent with RV pacing, otherwise, normal wall motion, EF 55-60%. ATRIAL FIBRILLATION Rate controlled. Continue metoprolol Warfarin on hold for the cardiac cath INR 1.7 today will consider heparin drip since INR 1.7 after cardiac cath, will defer to cardiology SLEEP APNEA Intolerant of CPAP or BiPAP. DM TYPE 2 Diet controlled. Hgb A1C 6.7 03/29/17. continue monitor CHRONIC PAIN Well-controlled with hydromorphone / clonidine intrathecal pump. VTE PROPHYLAXIS INR 1.7 Warfarin on hold for cardiac cath. SCD's. Ambulate as able. RESUSCITATION STATUS FULL CODE DISPOSITION Transfer to telemetry Medical follow-up with Dr. Hines. Cardiology follow-up with Dr. Foote. . Consultants: Cardiology Critical care Current Inpatient Medications: Current Inpatient Medications Medications (Trade) Dose Ordered Sig/Herson Route Start Time Stop Time Status Last Admin Dose Admin Acetaminophen (Tylenol Tab) 650 mg Q4H PRN PO 04/04/17 13:00 05/04/17 12:59 Nitroglycerin (Nitrostat Tab) 0.4 mg UD PRN SL 04/04/17 13:00 05/04/17 12:59 Aspirin (Ecotrin Tab) 81 mg QAM PO 04/05/17 09:00 05/05/17 08:59 04/05/17 10:01 81 MG Ondansetron HCl (Zofran Inj) 4 mg Q6H PRN IV 04/04/17 13:00 05/04/17 12:59 Morphine Sulfate (MoRPHine SULFATE INJ) 2 mg Q1H PRN IV 04/04/17 13:00 04/18/17 12:59 Amlodipine Besylate (Norvasc Tab) 5 mg DAILY PO 04/05/17 09:00 05/05/17 08:59 04/05/17 10:02 5 MG Buspirone HCl (Buspar Tab) 5 mg DAILY PO 04/05/17 09:00 05/05/17 08:59 04/05/17 10:02 5 MG Metoprolol Succinate (Toprol Xl Tab) 25 mg BID PO 04/04/17 21:00 05/04/17 20:59 04/06/17 10:15 25 MG Tamsulosin HCl (Flomax Cap) 0.4 mg BID PO 04/04/17 21:00 05/04/17 20:59 04/05/17 21:05 0.4 MG Irbesartan (Avapro Tab) 300 mg QAM PO 04/05/17 09:00 05/05/17 08:59 04/05/17 10:02 300 MG Non-Formulary Medication (Non-Formulary Patient'S Own Med) CONT. PER PUMP SETTINGS UD IT 04/04/17 14:15 05/04/17 14:14 Non-Formulary Medication (Patient'S Own Controlled Med) CONT. PER PUMP SETTINGS UD IT 04/04/17 14:15 05/04/17 14:14 Nitroglycerin (Nitroglycerin 2% Oint) 1 inch Q6H EXT 04/04/17 16:00 05/04/17 15:59 04/06/17 10:16 1 INCH Sodium Chloride 1,000 ml @ 106 mls/hr Q9H27M IV 04/07/17 00:00 05/07/17 00:00 Miscellaneous (Dc All Anticoagulants) 1 ea ONE ONCE N/A 04/07/17 00:00 04/07/17 00:01
[2017-04-06] MEDS: MoRPHine SULFATE 2 MG/ML CARP IV PRN ×4 (13:28→21:33)
[2017-04-06] MEDS ORDERED: SODIUM CHLORIDE 0.9% 1000ML 1,000 ML IV SCH (13:32)
[2017-04-06] MEDS ORDERED: SODIUM CHLORIDE 0.9% 1000ML 250 ML IV PRN (13:32)
--- NOTE | 2017-04-06 13:40 | Cardiac Catheterization ---
Procedure Note Procedure Date Apr 06, 2017. Pre-Procedure Diagnosis STEMI AUC Score 9 Post-Procedure Diagnosis Severe CAD Procedure(s) Performed Coronary Angiography Failure Analysis Technician Dr. Fung Custom Protection Officer(s) None Estimated Blood Loss None Medication(s) Fentanyl, Versed, Lidocaine 1% Summary of Findings Severe 3 vessel CAD. Patent bipass grafts Hemodynamics Rest Ao: 143/71 Final Ao: 153/74 LV: Valve not crossed Recommendations Medical therapy and/or Counseling Specimens None Radiation Exposure (mGy) 2777 Contrast (mls) 163 Fluids (cc crystalloids) 85 Procedural Complication(s) None Disposition PCU ACC Data Cardiac Status Clinical evaluation leading to the procedure CAD Presntation: STEMI STEMI or Non-STEMI: Thrombolytics: Yes Anginal Classification: No symptoms Heart Failure: No Cardiogenic Shock w/in 24Hrs: No Cardiac Arrest w/in 24Hrs: No Imaging studies past 6 months: Yes Stress studies past 6 months: No Coronary Anatomy Dominant: Right LAD (% Stenosis): Ostial (100) OM1 (% Stenosis): Ostial (100) OM2 (% Stenosis): Ostial (100) L PDA (% Stenosis): Ostial (100) Grafts - LAD (%): Normal Grafts - Circumflex (%): Normal Grafts - RCA (%): Normal
[2017-04-06] MEDS ORDERED: ONDANSETRON INJ 2 MG/ML 2 ML VIAL IV PRN (13:45)
[2017-04-06] MEDS ORDERED: ACETAMINOPHEN 325 MG TAB PO PRN (13:45)
[2017-04-06] MEDS ORDERED: ATROPINE SULFATE 0.1 MG/ML 5ML SYR IV PRN (13:45)
[2017-04-06] MEDS ORDERED: NURSING VERBAL MED ORDER ONE ×2 (14:00→21:00)
[2017-04-06] MEDS ORDERED: HYDROmorphone INJ 1 MG/ML SYR ONE (14:00)
[2017-04-06] MEDS ORDERED: GI COCKTAIL PO PRN (18:45)
[2017-04-06] MEDS ORDERED: ALUMINUM/MAGNESIUM SUSP 18 ML, LIDOCAINE HCL 2% VISCOUS SOLN 6 ML, BARCODE IDENTIFIER 1 EA PO PRN ×2 (19:00)
[2017-04-06] MEDS ORDERED: MoRPHine SULFATE 2 MG/ML CARP IV PRN (19:00)
[2017-04-07] MEDS ORDERED: DC ALL ANTICOAGULANTS ONE
[2017-04-07 00:23] VITALS: BP 126/58; PULSE 60; TEMP 36.9; O2SAT 96
[2017-04-07 03:36] VITALS: BP 103/42; PULSE 55; TEMP 36.7; O2SAT 95
[2017-04-07] MEDS: NITROGLYCERIN OINT 2% 1GM PACKET EXT SCH ×2 (04:30→10:07)
[2017-04-07] MEDS: AMLODIPINE BESYLATE 5 MG TAB PO SCH (07:44)
[2017-04-07] MEDS: ASPIRIN 81 MG ECTAB PO SCH (07:44)
[2017-04-07] MEDS: METOPROLOL SUCC 25MG EXT REL TAB PO SCH (07:45)
[2017-04-07] MEDS: IRBESARTAN 150 MG TAB PO SCH (07:45)
[2017-04-07] MEDS: TAMSULOSIN HCL 0.4 MG CAP PO SCH (07:47)
[2017-04-07 08:00] VITALS: BP 108/48; PULSE 55; TEMP 36.7; O2SAT 95
[2017-04-07 09:05] LABS: INR 1.4 (0.9-1.1); PROTHROMBIN TIME (PATIENT) 14.7 SECONDS (9.0-12.0)
[2017-04-07] MEDS: SODIUM CHLORIDE 0.9% 1000ML 1,000 ML IV SCH ×2 (09:27)
[2017-04-07 11:07] VITALS: BP 134/68; PULSE 67; TEMP 36.4; O2SAT 97
--- NOTE | 2017-04-07 13:24 | Progress Note ---
Medicine Progress Note Date & Time of Visit: Apr 07, 2017 at 13:08. Subjective Pt was seen and examined Lying in bed with no distress Pt said that his back pain seem to improve he said that he has not ask for any morphine today denies any chest pain, palpitation, dizziness and SOB Objective Last 8 Hrs Date Time Temp Pulse Resp B/P (MAP) Pulse Ox O2 Delivery O2 Flow Rate FiO2 04/07/17 12:00 Room Air 04/07/17 11:07 36.4 67 18 134/68 (90) 97 Room Air 04/07/17 08:00 Room Air 04/07/17 08:00 36.7 55 16 108/48 (68) 95 Room Air Physical Exam: General- No acute distress Head- atraumatic Eyes- PERRL, EOMI ENT- oropharynx clear Neck- supple, no JVD, trachea midline Lungs- clear to auscultation Heart- regular rhythm, +systolic murmur Abdomen- normal bowel sounds, soft Extremities- no calf tenderness Neuro- alert, oriented x 3; PERRL, EOMI Skin- warm & dry Laboratory Results: Last 24 Hours Test 04/07/17 08:26 Prothrombin Time 14.7 SECONDS Prothromb Time International Ratio 1.4 Assessment & Plan CHEST PAIN / CORONARY ARTERY DISEASE History of ischemic heart disease, s/p PCI and subsequent CABG years ago. No clinical history of GA. Echo last week showed moderate LVH, LVEF 50-55%, no segmental wall motion abnormalities. Dobutamine stress echo last week did not show any evidence of stress-induced ischemia. EKG showed ventricular paced rhythm on admission TNKase was administered @ [facility] Denied any chest pain Continue aspirin, metoprolol. Cholesterol at goal Plan for cardiac cath tomorrow if INR drops Will keep NPO after midnight Consider heparin drip if INR drop below 2 Cardiology on board Will transfer to telemetry 04/07 S/P cardiac cath Severe 3 vessel CAD with Patent bypass grafts continue metoprolol, ARB, Metoprolol and aspirin He needs to follow up at [facility] for his gastric bypass if continue to have epigastric/chest discomfort Case discussed with cardiology, OK to discharge home from cardiac standpoint continue monitor in tele Repeat echo showed * Compared to previous study of 03/29/17: LV chamber slightly smaller to suggest volume depletion, otherwise, no new wall motion abnormalities. * Small LV chamber size with moderate concentric LVH. * Normal LV systolic function with abnormal septal wall motion consistent with RV pacing, otherwise, normal wall motion, EF 55-60%. ATRIAL FIBRILLATION Rate controlled. Continue metoprolol Warfarin was on hold for the cardiac cath INR 1.4 Coumadin resume Case discussed with cardiology Dr. Fung that pt is stable to discharge home from cardiac standpoint SLEEP APNEA Intolerant of CPAP or BiPAP. DM TYPE 2 Diet controlled. Hgb A1C 6.7 03/29/17. continue monitor CHRONIC PAIN Well-controlled with hydromorphone / clonidine intrathecal pump. VTE PROPHYLAXIS INR 1.4 Warfarin on hold for cardiac cath. SCD's. Ambulate as able. RESUSCITATION STATUS FULL CODE DISPOSITION Transfer to telemetry Medical follow-up with Dr. Hines. Cardiology follow-up with Dr. Foote. . Consultants: Cardiology Critical care Procedures: Cardiac cath Current Inpatient Medications: Current Inpatient Medications Medications (Trade) Dose Ordered Sig/Herson Route Start Time Stop Time Status Last Admin Dose Admin Nitroglycerin (Nitrostat Tab) 0.4 mg UD PRN SL 04/04/17 13:00 05/04/17 12:59 Aspirin (Ecotrin Tab) 81 mg QAM PO 04/05/17 09:00 05/05/17 08:59 04/07/17 07:44 81 MG Morphine Sulfate (MoRPHine SULFATE INJ) 2 mg Q1H PRN IV 04/04/17 13:00 04/18/17 12:59 04/06/17 21:33 2 MG Amlodipine Besylate (Norvasc Tab) 5 mg DAILY PO 04/05/17 09:00 05/05/17 08:59 04/07/17 07:44 5 MG Buspirone HCl (Buspar Tab) 5 mg DAILY PO 04/05/17 09:00 05/05/17 08:59 04/07/17 07:44 5 MG Metoprolol Succinate (Toprol Xl Tab) 25 mg BID PO 04/04/17 21:00 05/04/17 20:59 04/07/17 07:45 25 MG Tamsulosin HCl (Flomax Cap) 0.4 mg BID PO 04/04/17 21:00 05/04/17 20:59 04/07/17 07:47 0.4 MG Irbesartan (Avapro Tab) 300 mg QAM PO 04/05/17 09:00 05/05/17 08:59 04/07/17 07:45 300 MG Non-Formulary Medication (Non-Formulary Patient'S Own Med) CONT. PER PUMP SETTINGS UD IT 04/04/17 14:15 05/04/17 14:14 Non-Formulary Medication (Patient'S Own Controlled Med) CONT. PER PUMP SETTINGS UD IT 04/04/17 14:15 05/04/17 14:14 Nitroglycerin (Nitroglycerin 2% Oint) 1 inch Q6H EXT 04/04/17 16:00 05/04/17 15:59 04/07/17 10:07 1 INCH Sodium Chloride 1,000 ml @ 106 mls/hr Q9H27M IV 04/07/17 00:00 05/07/17 00:00 Acetaminophen (Tylenol Tab) 650 mg Q4H PRN PO 04/06/17 13:45 05/06/17 13:44 Sodium Chloride 250 ml @ 999 mls/hr Q16M PRN IV 04/06/17 13:32 05/06/17 13:31 Atropine Sulfate (Atropine Sulfate 0.1MG/Ml Inj) 0.6 mg PRN PRN IV 04/06/17 13:45 05/06/17 13:44 Ondansetron HCl (Zofran Inj) 4 mg Q6H PRN IV 04/06/17 13:45 05/06/17 13:44 Morphine Sulfate (MoRPHine SULFATE INJ) 2 mg Q3HWA PRN IV 04/06/17 19:00 04/20/17 18:59 04/07/17 01:44 2 MG Warfarin Sodium (Coumadin Tab) 5 mg DAILY@16 PO 04/07/17 16:00 05/07/17 15:59
--- NOTE | 2017-04-07 13:38 | CARDIOLOGY PROGRESS NOTE ---
DATE: 04/07/2017 FOLLOW-UP VISIT DATE: 04/07/2017 SUBJECTIVE: The patient is a 71-year-old who received thrombolytics at [facility] due to chest pain but had negative cardiac markers after arrival here at [facility]. His pacemaker makes his EKG uninterpretable. He went on to have a cardiac catheterization yesterday that showed all his bypass grafts to be patent. Although he does have some gakona coronary artery disease, I do not believe that it is the reason for his chest pain. The patient had gastric bypass surgery several years ago and I think it would be prudent for him to have an evaluation as an etiology of his chest pain. Arrangements can be made for him to be seen at the bariatric clinic after discharge. OBJECTIVE: VITAL SIGNS: Blood pressure is 130/70, pulse is regular at 70. He is afebrile. HEAD, EYES, EARS, NOSE, AND THROAT: He is normocephalic. Pupils are equal and reactive to light. Extraocular muscles are intact bilaterally. NECK: The neck veins are flat. Carotids have good upstrokes bilaterally without bruits. Thyroid is nonpalpable. RESPIRATORY: Breath sounds equal bilaterally and clear to auscultation. CARDIOVASCULAR: Heart has a regular rhythm. Normal S1, S2. No S3, S4. No cardiac rubs or murmurs. GASTROINTESTINAL: Abdomen is soft, nontender without organomegaly. EXTREMITIES: Free of edema, digit clubbing, or cyanosis. NEUROLOGIC: Grossly intact. SKIN: Warm to touch. LYMPH NODES: Negative to palpation. IMPRESSION: 1. Probable noncardiac chest pain. 2. Previous bariatric surgery. 3. Patent coronary bypass grafts by cardiac catheterization. 4. Atrial fibrillation. 5. Diabetes mellitus. 6. Chronic pain with an intrathecal pump. RECOMMENDATIONS: The patient can be discharged from a cardiac standpoint. As outlined above, he may benefit from evaluation from the bariatric clinic.
--- NOTE | 2017-04-07 15:04 | Discharge Instructions ---
Discharge Instructions Date of Service Apr 07, 2017. Admission Reason for Admission: Chest Pain Discharge Discharge Diagnosis / Problem: Chest Pain, Atrial fibrillation, Chronic pain, DM TYPE 2 Discharge Goals Goal(s): Decrease discomfort, Improve function, Improve disease control Activity Recommendations Activity Limitations: resume your previous activity (as tolerated) . Instructions / Follow-Up Instructions / Follow-Up Call to schedule follow up appointment with your primary care provider Continue your coumadin and check INR Current Hospital Diet Patient's current hospital diet: AHA Diet (Heart Healthy) Discharge Diet Recommended Diet: AHA Diet (Heart Healthy), Diabetes Type 2 Diet Pending Studies Studies pending at discharge: no Laboratory Results Hemoglobin A1c Test 03/29/17 06:43 Range/Units Estimated Average Glucose 146 mg/dl Hemoglobin A1c 6.7 H 4.5-5.6 % Lipid Panel Test 04/05/17 05:55 Range/Units Triglycerides Level 131 0-150 mg/dl Cholesterol Level 118 0-200 mg/dl HDL Cholesterol 34 mg/dl Cholesterol/HDL Ratio 3.5 LDL Cholesterol, Calculated 58 mg/dl Medical Emergencies . Who to Call and When: Medical Emergencies: If at any time you feel your situation is an emergency, please call 911 immediately. . Non-Emergent Contact Non-Emergency issues call your: Primary Care Provider Call Non-Emergent contact if: you have any medication questions . . "Provider Documentation" section prepared by Zahraa Duong. . VTE Core Measure Inpt VTE Proph given/why not?: Warfarin (Coumadin), SCD's
[2017-04-07] MEDS ORDERED: WARFARIN SOD 5 MG TAB PO SCH ×2 (16:00)
[2017-04-07] MEDS ORDERED: WARFARIN SOD 2 MG TAB PO SCH (16:00)
[2017-04-07 16:37] VITALS: BP 124/58; PULSE 55; TEMP 36.4; O2SAT 99
[2017-04-07] MEDS ORDERED: NTRSLP4 SL (17:22)
--- NOTE | 2017-04-09 19:03 | Discharge Summary ---
Discharge Summary Date of Service Apr 09, 2017. Discharge Summary Admission Date: Apr 04, 2017 at 12:58 Discharge Date: Apr 07, 2017 Discharge Disposition: Home Principal Diagnosis: Chest pain Secondary Diagnoses/Problems: Atrial fibrillation Chronic pain DM TYPE 2 Sleep Apnea Procedures: Cardiac cath CHEST ONE VIEW PORTABLE CLINICAL HISTORY: Fever, sepsis, atypical chest pain COMPARISON STUDY: 04-12 FINDINGS: The heart remains enlarged. There are postsurgical changes of a midline sternotomy. There is a left subclavian dual-chamber central venous pacemaker present. There is no focal pulmonary consolidation. There are no pleural effusions. There is mild central vascular prominence without evidence for overt failure.[ IMPRESSION: 1. Stable cardiomegaly 2. No evidence of acute parenchymal consolidation 3. Central vascular prominence without evidence for overt failure Electronically signed by: Thomas Padilla M.D. 04/04/2017 12:18 PM Dictated Date/Time: 04/04/2017 12:17 PM Interpretation Summary * Name: KUSUM DUNCAN Study Date: 04/04/2017 02:09 PM BP: 123/62 mmHg * Patient Location: HR: 64 * : 1945 (M/d/yyyy) Gender: Male Height: 66 in * Age: 71 yrs Ethnicity: [place] Weight: 238 lb * Ordering Physician: Jatinder Vaughn DO * Performed By: Gale Castillo * * Reason For Study: WALL MOTION ANALYSIS, S/P LYTIC THERAPY * BSA: 2.2 m2 * -- Conclusions -- * Compared to previous study of 03/29/17: LV chamber slightly smaller to suggest volume depletion, otherwise, no new wall motion abnormalities. * Small LV chamber size with moderate concentric LVH. * Normal LV systolic function with abnormal septal wall motion consistent with RV pacing, otherwise, normal wall motion, EF 55-60%. Procedure Details * A contrast injection of Definity was performed to improve assessment of LV function. * Contrast was injected into an intravenous site in the left arm. * One vial of Definity ultrasound contrast was diluted in normal saline to a total volume of 10 ml. A total of '3.5' ml of solution was administered during imaging. * Lot # [id number] of Definity utilized for procedure. * Expiration date 10/18. * The attending nurse who injected the contrast agent was LAVELL NEWELL RN. Left Ventricle * The left ventricular cavity is small. * There is moderate concentric left ventricular hypertrophy. * Ejection Fraction = 55-60%. * Left ventricular systolic function is normal. * Septal motion is consistent with post-operative state. Consultations: Cardiology Critical care Medication Reconciliation New Medications: Nitroglycerin (Nitrostat) 0.4 Mg/1 Tab Subl 0.4 MG SL UD PRN for Chest Pain, #30 Continued Medications: Amlodipine (Norvasc) 5 Mg Tab 5 MG PO DAILY Aspirin (Aspirin Ec) 81 Mg Tab 81 MG PO DAILY Buspirone Hcl (Buspirone Hcl) 5 Mg Tab 5 MG PO DAILY, #30 Cyanocobalamin (Cyanocobalamin) 1,000 Mcg/Ml Inj 1000 MCG INJ every 3 months Furosemide (Furosemide) 40 Mg Tab 20 MG PO DAILY Take 1/2 pill (20 mg) daily. Irbesartan (Avapro) 300 Mg Tab 300 MG PO DAILY, #30 Metoprolol Succinate (Toprol Xl) 25 Mg Tabcr 25 MG PO BID, #60 TAB Tamsulosin HCl (Tamsulosin HCl) 0.4 Mg Cap 0.4 MG PO BID Testosterone Cypionate (Testosterone Cypionate) 200 Mg/Ml Inj 200 MG IM every 2 weeks Warfarin Sod (Jantoven) 5 Mg Tab 5 MG PO DAILY, TAB Warfarin Sod (Jantoven) 2 Mg Tab 2 MG PO DAILY, TAB [clonidine] () 0 IT UD via intrathecal pump [hydromorphone] () 0 IT UD via intrathecal pump Admission Information HPI (per Admitting provider): 71 YO male followed by Dr. Hines ([facility]) for primary care and Dr. Foote for Cardiology. History of ischemic heart disease (s/p CABG), atrial fibrillation, diet- controlled DM, and other problems noted below. Hospitalized at [facility] last week with orthopnea. No overt CHF. Acute IL ruled out. Rest echo showed moderate LVH, LVEF 50-55%. No stress-induced ischemia on dobutamine stress echo. Propafenone was discontinued and metoprolol succinate dose was increased to 25 mg BID. Discharged to home. Did well until this morning. Had coffee and a piece of toast around 05:30. Developed chest pain around 07:15 [address] car. Chest pain described as severe midsternal chest pressure that radiated to his left neck. It was associated with dyspnea and diaphoresis, no N/V. Did not feel any palpitations at that time (although he did later in the ED). He did not have any nitroglycerin to take. Drove to a family member's home. EMS summoned and he was transported to ED at [facility]. Aspirin 81 mg x 4 administered by EMS. Initially received SL NTG and IV morphine with only modest relief of his pain. Subsequently received IV heparin, IV NTG. Pain persisted. EKG demonstrated ventricular paced rhythm. Patient appeared to be having an acute coronary syndrome, so decision was made to give TNKase which was administered at 10:18. Chest pain began to improve about 10 minutes after TNKase administered. Arrangements made for transfer to [facility] for further cardiac evaluation and management. Chest pain essentially resolved by the time he arrived at [facility]'s ED. . Physical Exam (per Admitting): General Appearance: WD/WN, no apparent distress Head: normocephalic, atraumatic Eyes: normal inspection, PERRL, EOMI, sclerae normal (lids and conjunctivae normal) ENT: hearing grossly normal, pharynx normal, + pertinent finding (upper dentures) Neck: supple, no adenopathy, thyroid normal, no JVD, trachea midline Respiratory/Chest: lungs clear, no respiratory distress, no accessory muscle use Cardiovascular: regular rate, rhythm, no edema, no gallop, no JVD, no murmur , + abnormal peripheral pulses (right DP pulse diminished) Abdomen/GI: normal bowel sounds, non tender, soft, no organomegaly, no pulsatile mass Extremities/Musculoskelatal: normal inspection, no calf tenderness, normal capillary refill, no pedal edema Neurologic/Psych: can solderer II-XII nml as tested (PERRL, EOMI, no facial palsy, no dysarthria), no motor/sensory deficits (grossly intact), alert, normal mood/ affect, normal reflexes (patellar DTR's 2/2), oriented x 3 Skin: normal color, warm/dry Lymphatic: no adenopathy (cervical) Hospital Course CHEST PAIN History of ischemic heart disease, s/p PCI and subsequent CABG years ago. No clinical history of IL. Echo last week showed moderate LVH, LVEF 50-55%, no segmental wall motion abnormalities. Dobutamine stress echo last week did not show any evidence of stress-induced ischemia. EKG showed ventricular paced rhythm on admission TNKase was administered @ [facility] Denied any chest pain Continue aspirin, metoprolol. 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 * Small LV chamber size with moderate concentric LVH. * Normal LV systolic function with abnormal septal wall motion consistent with RV pacing, otherwise, normal wall motion, EF 55-60%. ATRIAL FIBRILLATION Rate controlled. Continue metoprolol Warfarin was on hold for the cardiac cath INR 1.4 Coumadin resume Case discussed with cardiology Dr. Fung that pt is stable to discharge home from cardiac standpoint SLEEP APNEA Intolerant of CPAP or BiPAP. DM TYPE 2 Diet controlled. Hgb A1C 6.7 03/29/17. continue monitor CHRONIC PAIN Well-controlled with hydromorphone / clonidine intrathecal pump. VTE PROPHYLAXIS INR 1.4 Warfarin on hold for cardiac cath. SCD's. Ambulate as able. RESUSCITATION STATUS FULL CODE DISPOSITION Transfer to telemetry Medical follow-up with Dr. Hines. Cardiology follow-up with Dr. Foote. . Total time spent on discharge = 35 minutes This includes examination of the patient, discharge planning, medication reconciliation, and communication with other providers. Discharge Instructions Discharge Instructions Date of Service Apr 07, 2017. Admission Reason for Admission: Chest Pain Discharge Discharge Diagnosis / Problem: Chest Pain, Atrial fibrillation, Chronic pain, DM TYPE 2 Discharge Goals Goal(s): Decrease discomfort, Improve function, Improve disease control Activity Recommendations Activity Limitations: resume your previous activity (as tolerated) . Instructions / Follow-Up Instructions / Follow-Up Call to schedule follow up appointment with your primary care provider Continue your coumadin and check INR Current Hospital Diet Patient's current hospital diet: AHA Diet (Heart Healthy) Discharge Diet Recommended Diet: AHA Diet (Heart Healthy), Diabetes Type 2 Diet Pending Studies Studies pending at discharge: no Laboratory Results Hemoglobin A1c Test 03/29/17 06:43 Range/Units Estimated Average Glucose 146 mg/dl Hemoglobin A1c 6.7 H 4.5-5.6 % Lipid Panel Test 04/05/17 05:55 Range/Units Triglycerides Level 131 0-150 mg/dl Cholesterol Level 118 0-200 mg/dl HDL Cholesterol 34 mg/dl Cholesterol/HDL Ratio 3.5 LDL Cholesterol, Calculated 58 mg/dl Medical Emergencies . Who to Call and When: Medical Emergencies: If at any time you feel your situation is an emergency, please call 911 immediately. . Non-Emergent Contact Non-Emergency issues call your: Primary Care Provider Call Non-Emergent contact if: you have any medication questions . . "Provider Documentation" section prepared by Zahraa Duong. . VTE Core Measure Inpt VTE Proph given/why not?: Warfarin (Coumadin), SCD's Additional Copies To Adonay Hines D.O.
== END 2017-04-07 18:30 | disposition home or self-care (01) | DRG 287 ==
LOC: C.EDB 11:46 → C.MSICU 12:58 → ENRESERV 14:06 → C.MED 04-05 15:15 → C.2E 04-06 12:47 → ENRESERV 04-06 12:49
PROVIDERS: ADMIT Hospitalist; ATTEND Internal Medicine
PROC: B211YZZ Fluoroscopy of Multiple Coronary Arteries using Other Contrast (ICD-10-PCS; principal; 2017-04-06 12:13)
PROC: 4A023N7 Measurement of Cardiac Sampling and Pressure, Left Heart, Percutaneous Approach (ICD-10-PCS; principal; 2017-04-06 12:13)
DX: R07.2 Precordial pain (principal); I48.1 Persistent atrial fibrillation; E11.9 Type 2 diabetes mellitus without complications; I25.10 Atherosclerotic heart disease of native coronary artery without angina pectoris; G47.33 Obstructive sleep apnea (adult) (pediatric); G89.29 Other chronic pain; M54.9 Dorsalgia, unspecified; Z79.01 Long term (current) use of anticoagulants; Z79.82 Long term (current) use of aspirin; Z79.899 Other long term (current) drug therapy; Z95.1 Presence of aortocoronary bypass graft; Z87.891 Personal history of nicotine dependence; Z98.84 Bariatric surgery status; Z83.3 Family history of diabetes mellitus

== ENCOUNTER 2019-01-28 17:21 | Inpatient (IN) ==
[2019-01-28] MEDS ORDERED: NITROGLYCERIN 2% OINTMENT 30GM TUBE EXT STA (17:31)
[2019-01-28] MEDS: MoRPHine SULFATE 4 MG/ML 1 ML CARP\\VIAL IV SCH ×4 (17:44→23:54)
[2019-01-28 17:45] LABS: Basophils # (auto) 0.01 K/uL (0-0.2); Basophils % (auto) 0.1 %; Eosinophils # (auto) 0.09 K/uL (0-0.5); Eosinophils % (auto) 0.8 %; Hematocrit (blood only) 45.9 % (42-52); Hemoglobin 15.1 g/dL (14.0-18.0); Immature Granulocytes # (auto) 0.04 K/uL (0.00-0.02); Immature Granulocytes % (auto) 0.3 %; Lymphocytes # (auto) 1.96 K/uL (1.2-3.4); Mean Corpuscular Hgb Conc 32.9 g/dL (32-36); Mean Corpuscular Volume 85.6 fL (80-100); Monocytes # (auto) 0.81 K/uL (0.11-0.59); Neutrophils # (auto) 8.64 K/uL (1.4-6.5); Neutrophils % (auto) 74.8 %; Nucleated RBC # (auto) 0.07 K/uL (0-0); Nucleated RBC % (auto) 0.6 %; Platelet Count 264 K/uL (130-400); RDW Coefficient of Variation 15.8 % (11.5-14.5); RDW Standard Deviation 49.8 fL (36.4-46.3); Red Blood Count 5.36 M/uL (4.7-6.1); White Blood Count 11.55 K/uL (4.8-10.8)
[2019-01-28 17:59] LABS: Partial Thromboplastin Ratio 1.4; Partial Thromboplastin Time 36.9 Seconds (21.0-31.0); Prothrombin Time 28.5 Seconds (9.0-12.0)
[2019-01-28 18:03] LABS: Albumin Level 3.7 gm/dl (3.4-5.0); BUN Creatinine Ratio 13.3 (10-20); Calcium 8.1 mg/dl (8.5-10.1); Creatinine Clr Calc Pharmacy 57.5 ml/min; Est GFR (African American) 60.5; Est GFR (Non-African American) 52.2; Magnesium 2.1 mg/dl (1.8-2.4); Potassium 4.2 mmol/L (3.5-5.1)
[2019-01-28 18:07] LABS: Bilirubin,Total 0.6 mg/dl (0.2-1); Globulin 3.8 gm/dl (2.5-4.0); Total Protein 7.5 gm/dl (6.4-8.2); Troponin I 0.05 ng/ml (0-0.045)
[2019-01-28] MEDS ORDERED: NITROGLYCERIN/D5W 100MCG/ML 250 ML IV SCH ×2 (18:45→23:20)
--- NOTE | 2019-01-28 18:53 | XRay Report ---
XR chest 1V portable HISTORY: Atypical Chest Pain COMPARISON: Chest 04/04/2017. FINDINGS: No pneumothorax. No pleural effusions. The heart remains mildly enlarged. No focal lung con solidations to suggest pneumonia. No evidence for pulmonary edema. There are poststernotomy changes. Left-sided dual-chamber pacemaker. IMPRESSION: No significant change compared to the prior study. No acute process. Electronically signed by: Alf Lockwood M.D. 01/28/2019 6:52 PM
[2019-01-28] MEDS ORDERED: SODIUM CHLORIDE 0.9% 1000ML 500 ML IV ONE (19:46)
--- NOTE | 2019-01-28 20:26 | Emergency Department Note ---
Entered by Preston Cool acting as a scribe for Juan Luna MD History of Present Illness General Chief complaint: Chest Pain Time Seen by Provider: 01/28/19 17:22 Source: family and EMS History of Present Illness Onset (ago): hour(s) (couple) Location: chest (left-sided chest pain) Pain Consistency: + other (worsening) Maximum Pain Intensity: 6 Associated symptoms: + diaphoresis, + nausea/vomiting (positive nausea, negative vomiting) and + other (skin discoloration) Treatments prior to arrival: aspirin and other (nitroglycerine, Zofran, morphine) The patient is a 73 year old M who presents to the Emergency Room with compl aints of worsening chest pain that started a couple of hours ago. He states that he went to visit his son-in-law. He notes that he drove to his son-in-laws house, walked up the steps, drank some coffee and was sitting in a recliner when his symptoms started. He states that he was experiencing left-sided chest pain, nausea, sweating, and skin discoloration. He notes that he took 3 baby aspirin and called EMS. EMS reports that they provided the patient with 4 baby aspirin, nitroglycerine, morphine, and Zofran. EMS adds that the patient had an improvement of his skin coloration on the way to the ED. The patient states that he has had no problems the last two weeks. He notes that his local flatbed driver is Dr. Foote. He adds that he has had 4 bypasses so far, with stenting performed prior to the bypass surgery. He notes that his last heart cath needed no intervention. He denies taking any pain medications at home for his chest pain. A review of the patients records shows that the patient had open grafts on cath in March 2017. Home Medications Home Medications Medication Instructions Recorded Confirmed Type amlodipine 5 mg PO DAILY 01/28/19 01/28/19 History aspirin [Aspirin Low Dose] 81 mg PO DAILY 01/28/19 01/28/19 History buspirone 0 mg PO UNKNOWN 01/28/19 01/28/19 History cyanocobalamin (vitamin B-12) 1,000 mcg SUBCUT DIRECTED 01/28/19 01/28/19 History furosemide 40 mg PO DAILY PRN 01/28/19 01/28/19 History irbesartan 300 mg PO DAILY 01/28/19 01/28/19 History metoprolol succinate 12.5 mg PO DAILY 01/28/19 01/28/19 History tamsulosin 0.4 mg PO BID 01/28/19 01/28/19 History testosterone cypionate 0 mg SUBCUT DIRECTED 01/28/19 01/28/19 History warfarin 0 mg PO DAILY 01/28/19 01/28/19 History Allergies Allergy/AdvReac Type Severity Reaction Status Date / Time bee venom protein (honey bee) Allergy Severe ANAPHYLAXIS Verified 01/28/19 18:00 Penicillins Allergy Intermediate HIVES Verified 01/28/19 18:00 Sulfa (Sulfonamide Allergy Intermediate HIVES Verified 01/28/19 18:00 Antibiotics) gentamicin Allergy Unknown UNKNOWN Verified 01/28/19 18:00 Past Med/Surg History Medical History CAD (coronary artery disease) (Chronic) Atrial fibrillation (Chronic) RICHY (obstructive sleep apnea) (Chronic) Seizure (Chronic) Tachy-richard syndrome (Chronic) Pacemaker (Chronic) Chronic pain (Chronic) Diabetes mellitus type 2, controlled (Chronic) "diet-controlled after gastric bypass" Surgical History S/P insertion of intrathecal pump (Chronic) S/P CABG x 4 (Chronic) S/P cholecystectomy (Chronic) History of appendectomy (Chronic) History of tonsillectomy and adenoidectomy (Chronic) Family History Other Cancer Diabetes Heart disease Hypertension Kidney disease Social History Preferred Language: Argentine Feels Safe at Home: Yes Smoking Status: Former smoker Review of Systems See HPI for pertinent positives & negatives. and A total of 10 systems reviewed and were otherwise negative Physical Exam Vital Signs Vital Signs - 24 hr 01/28/19 17:31 01/28/19 18:22 01/28/19 18:42 Sepsis Recent Fever Within 48 Hours No Sepsis New/Unexplained Change in Mental Status No Sepsis Action Taken by Nursing No Action Required Pulse Rate 60 56 L Pulse Rate [Apical] 60 Pulse Rate from SpO2 Sensor 56 L Pulse Rhythm Regular Pulse Rhythm [Apical] Pulse Strength [Apical] Respiratory Rate 22 22 14 Respiratory Effort / Characteristics Non-Labored Spontaneous Short of Breath Respiratory Depth Normal Respiratory Pattern Regular Blood Pressure 136/76 134/78 Blood Pressure [Right Arm] 134/77 Blood Pressure Mean 96 96 Blood Pressure Mean [Right Arm] 96 Blood Pressure Position Lying Pulse Oximetry 99 97 99 Oxygen Delivery Method Room Air Room Air Oxygen Flow Rate 2 01/28/19 18:45 01/28/19 19:00 01/28/19 19:03 Sepsis Recent Fever Within 48 Hours Sepsis New/Unexplained Change in Mental Status Sepsis Action Taken by Nursing Pulse Rate 55 L 55 L Pulse Rate [Apical] 55 L Pulse Rate from SpO2 Sensor 55 L 55 L Pulse Rhythm Pulse Rhythm [Apical] Pulse Strength [Apical] Respiratory Rate 22 14 15 Respiratory Effort / Characteristics Non-Labored Respiratory Depth Respiratory Pattern Blood Pressure 124/63 120/67 Blood Pressure [Right Arm] 134/78 Blood Pressure Mean 83 84 Blood Pressure Mean [Right Arm] 96 Blood Pressure Position Pulse Oximetry 98 99 99 Oxygen Delivery Method Nasal Cannula Oxygen Flow Rate 4 01/28/19 19:05 01/28/19 19:08 01/28/19 19:10 Sepsis Recent Fever Within 48 Hours Sepsis New/Unexplained Change in Mental Status Sepsis Action Taken by Nursing Pulse Rate 55 L 55 L 55 L Pulse Rate [Apical] Pulse Rate from SpO2 Sensor 55 L 55 L 55 L Pulse Rhythm Pulse Rhythm [Apical] Pulse Strength [Apical] Respiratory Rate 18 15 13 Respiratory Effort / Characteristics Respiratory Depth Respiratory Pattern Blood Pressure 132/72 130/80 133/71 Blood Pressure [Right Arm] Blood Pressure Mean 92 96 91 Blood Pressure Mean [Right Arm] Blood Pressure Position Pulse Oximetry 99 99 99 Oxygen Delivery Method Oxygen Flow Rate 01/28/19 19:13 01/28/19 19:28 01/28/19 19:44 Sepsis Recent Fever Within 48 Hours Sepsis New/Unexplained Change in Mental Status Sepsis Action Taken by Nursing Pulse Rate 55 L Pulse Rate [Apical] 55 L 56 L Pulse Rate from SpO2 Sensor 55 L Pulse Rhythm Pulse Rhythm [Apical] Regular Regular Pulse Strength [Apical] Normal Normal Respiratory Rate 12 18 18 Respiratory Effort / Characteristics Non-Labored Spontaneous Non-Labored Spontaneous Respiratory Depth Normal Normal Respiratory Pattern Regular Blood Pressure 130/72 Blood Pressure [Right Arm] 114/61 115/56 L Blood Pressure Mean 91 Blood Pressure Mean [Right Arm] 78 75 Blood Pressure Position Pulse Oximetry 99 97 97 Oxygen Delivery Method Room Air Nasal Cannula Oxygen Flow Rate 3 01/28/19 20:15 01/28/19 21:20 01/28/19 22:26 Sepsis Recent Fever Within 48 Hours Sepsis New/Unexplained Change in Mental Status Sepsis Action Taken by Nursing Pulse Rate Pulse Rate [Apical] 56 L 59 L 64 Pulse Rate from SpO2 Sensor Pulse Rhythm Pulse Rhythm [Apical] Regular Regular Regular Pulse Strength [Apical] Normal Normal Normal Respiratory Rate 20 20 20 Respiratory Effort / Characteristics Non-Labored Spontaneous Non-Labored Spontaneous Non-Labored Spontaneous Respiratory Depth Normal Normal Normal Respiratory Pattern Regular Regular Blood Pressure Blood Pressure [Right Arm] 126/75 131/70 154/77 H Blood Pressure Mean Blood Pressure Mean [Right Arm] 92 90 102 Blood Pressure Position Pulse Oximetry 99 97 98 Oxygen Delivery Method Room Air Room Air Room Air Oxygen Flow Rate GENERAL: Patient is having moderate distress due to pain. HEENT: No acute trauma, normocephalic atraumatic, mucous membranes moist, no nasal congestion, no scleral icterus. NECK: No stridor, no adenopathy, no meningismus, trachea is midline. LUNGS: Clear to auscultation bilaterally, no wheeze, no rhonchi, breath sounds equal. HEART: Without murmurs gallops or rubs, regular rate and rhythm. CHEST: non-tender chest wall ABDOMEN: Soft, nontender, bowel sounds positive, no hernias, no peritonitis. Pain pump to left lateral abdomen. EXTREMITIES: No cyanosis, mild bilateral pedal edema, full range of motion of all the joints without pain or difficulty, no signs for acute trauma. NEUROLOGIC: Oriented x 3, no acute motor or sensory deficits, no focal weakness. SKIN: No rash, no jaundice, no diaphoresis. Course 1723: The patient was evaluated in room C1A. A complete history and physical exam was performed. 183: I re-checked the patient and talked with the patient and his family. The patient states that he still has pain. I am putting the patient on a nitroglycerine drip. I paged the [facility] local flatbed driver on-call. 1840: I reviewed the patient's case with Dr. Mckeon, cardiac catheterization [place], [place]. 1849: I talked with the patient and updated him on his status. 1901: I reviewed the patient's case with [facility] Jethro Hamilton, [facility] [place] He states that he thinks that the patient should go to the pie bakery laborer. 1920: I re-checked the patient. The patient states that he is feeling better. 1928: I reviewed the patient's case with Dr. Hamilton. He states that he is coming in to see the patient. He adds that he wants to the patient to get a cardiac echocardiogram done. 1949: I reviewed the patient's case with Dr. Mckeon. He wants me to tell Dr. Hamilton to give him a call when he comes into the ED to evaluate the patient. 2035: [facility] He will evaluate the patient for further management. 2156: I reviewed the patient's case with Dr. Hamilton. He states that the p atient's echo looks good. 2158: I re-checked the patient and let him know about the plan. He states that he is doing well. Consultations Consultation #1: I reviewed the patient's case with Dr. Mckeon, cardiac cathete [facility], [place]. Time: 18:41 Consultation #2: I reviewed the patient's [facility] [place] He states that he thinks that the patient should go to the pie bakery laborer. Time: 19:02 Consultation #3: I reviewed the patient's case with Dr. Hamilton. He states that he is coming in to see the patient. He adds that he wants to the patient to get a cardiac echocardiogram done. Time: 19:29 Additional Consultation(s): 1949: I reviewed the patient's case with Dr. Mckeon. He wants me to tell Dr. Hamilton to give him a call when he comes into the ED to evaluate the patient. 2035: I reviewed the [facility] He will evaluate the patient for further management. 2156: I reviewed the patient's case with Dr. Hamilton. He states that the patient's echo looks good. Administered Medications Nitroglycerin/Dextrose (Nitroglycerin/D5w 100 Mcg/Ml) 250 mls @ 0 mls/hr IV .Q0M [facility]; Protocol Stop: 02/27/19 18:44 Last Titration: 01/28/19 19:15 Dose: 41.67 mcg/min, 25 mls/hr Documented by: [id number] Titration: 01/28/19 19:10 Dose: 33.33 mcg/min, 20 mls/hr Documented by: [id number] Titration: 01/28/19 19:06 Dose: 15 mcg/min, 9 mls/hr Documented by: [id number] Admin: 01/28/19 18:59 Dose: 10 mcg/min, 6 mls/hr Documented by: [id number] Cosigned by: [id number] Morphine Sulfate (Morphine Sulfate) 4 mg IV Q30M [facility] Stop: 02/11/19 17:44 Last Admin: 01/28/19 18:25 Dose: 4 mg Documented by: [id number] Admin: 01/28/19 17:44 Dose: 4 mg Documented by: [id number] Discontinued Medications Sodium Chloride (Nss 1000ml) 500 mls @ 999 mls/hr IV .Q31M ONE Stop: 01/28/19 20:16 Last Infusion: 01/28/19 20:22 Dose: 0 mls/hr Documented by: [id number] Admin: 01/28/19 19:50 Dose: 999 mls/hr Documented by: [id number] Calcium Gluconate 1,000 mg/ (Sodium Chloride) 60 mls @ 240 mls/hr IV NOW STA Stop: 01/28/19 22:13 Last Admin: 01/28/19 22:16 Dose: 240 mls/hr Documented by: [id number] Nitroglycerin (Nitro-Bid 2%) 2 inch EXT NOW STA Stop: 01/28/19 17:32 Last Admin: 01/28/19 17:43 Dose: 2 inch Documented by: [id number] Medical Decision Making Differential Diagnosis Differential diagnosis includes: OH, pneumonia, aortic dissection, PE, anemia, acute coronary syndrome, hypoxia, musculoskeletal pain, dysthymia Medical Records Attestation: I reviewed the patient's medical records. Home Medications Current Medication List: was personally reviewed by me Laboratory Data Attestation: I reviewed the patient's lab results. Result diagrams: 01/28/19 16:43 01/28/19 16:43 Lab Results 0801/28/19 01/28/19 Range/Units 16:43 16:43 16:43 WBC 11.55 H (4.8-10.8) K/uL RBC 5.36 (4.7-6.1) M/uL Hgb 15.1 (14.0-18.0) g/dL Hct 45.9 (42-52) % MCV 85.6 (80-100) fL MCH 28.2 (25-34) pg MCHC 32.9 (32-36) g/dL RDW Std Deviation 49.8 H (36.4-46.3) fL RDW Coeff of Anine 15.8 H (11.5-14.5) % Plt Count 264 (130-400) K/uL MPV 10.0 (7.4-10.4) fL Immature Gran % (Auto) 0.3 % Neut % (Auto) 74.8 % Lymph % (Auto) 17.0 % Barry % (Auto) 7.0 % Eos % (Auto) 0.8 % Baso % (Auto) 0.1 % Immature Gran # (Auto) 0.04 H (0.00-0.02) K/uL Neut # (Auto) 8.64 H (1.4-6.5) K/uL Lymph # (Auto) 1.96 (1.2-3.4) K/uL Barry # (Auto) 0.81 H (0.11-0.59) K/uL Eos # (Auto) 0.09 (0-0.5) K/uL Baso # (Auto) 0.01 (0-0.2) K/uL Absolute Nucleated RBC 0.07 H (0-0) K/uL Nucleated RBC % (auto) 0.6 % PT 28.5 H (9.0-12.0) Seconds INR 3.0 H (0.9-1.1) APTT 36.9 H (21.0-31.0) Seconds PTT Ratio 1.4 Sodium 138 (136-145) mmol/L Potassium 4.2 (3.5-5.1) mmol/L Chloride 103 (98-107) mmol/L Carbon Dioxide 28 (21-32) mmol/L Anion Gap 7.0 (3-11) BUN 18 (7-18) mg/dl Creatinine 1.34 (0.6-1.4) mg/dl Est Cr Clr Drug Dosing 57.5 ml/min Est GFR ( Amer) 60.5 Est GFR (Non-Af Amer) 52.2 BUN/Creatinine Ratio 13.3 (10-20) Glucose 98 (70-99) mg/dl Calcium 8.1 L (8.5-10.1) mg/dl Magnesium 2.1 (1.8-2.4) mg/dl Total Bilirubin 0.6 (0.2-1) mg/dl AST 22 (15-37) U/L ALT 29 (12-78) U/L Alkaline Phosphatase 73 (45-117) U/L Troponin I 0.050 H* (0-0.045) ng/ml Total Protein 7.5 (6.4-8.2) gm/dl Albumin 3.7 (3.4-5.0) gm/dl Globulin 3.8 (2.5-4.0) gm/dl Albumin/Globulin Ratio 1.0 (0.9-2) Lipase 122 (73-393) U/L Specimen Hemolysis 01/28/19 Range/Units 19:08 WBC (4.8-10.8) K/uL RBC (4.7-6.1) M/uL Hgb (14.0-18.0) g/dL Hct (42-52) % MCV (80-100) fL MCH (25-34) pg MCHC (32-36) g/dL RDW Std Deviation (36.4-46.3) fL RDW Coeff of Annie (11.5-14.5) % Plt Count (130-400) K/uL MPV (7.4-10.4) fL Immature Gran % (Auto) % Neut % (Auto) % Lymph % (Auto) % Barry % (Auto) % Eos % (Auto) % Baso % (Auto) % Immature Gran # (Auto) (0.00-0.02) K/uL Neut # (Auto) (1.4-6.5) K/uL Lymph # (Auto) (1.2-3.4) K/uL Barry # (Auto) (0.11-0.59) K/uL Eos # (Auto) (0-0.5) K/uL Baso # (Auto) (0-0.2) K/uL Absolute Nucleated RBC (0-0) K/uL Nucleated RBC % (auto) % PT (9.0-12.0) Seconds INR (0.9-1.1) APTT (21.0-31.0) Seconds PTT Ratio Sodium (136-145) mmol/L Potassium (3.5-5.1) mmol/L Chloride (98-107) mmol/L Carbon Dioxide (21-32) mmol/L Anion Gap (3-11) BUN (7-18) mg/dl Creatinine (0.6-1.4) mg/dl Est Cr Clr Drug Dosing ml/min Est GFR ( Amer) Est GFR (Non-Af Amer) BUN/Creatinine Ratio (10-20) Glucose (70-99) mg/dl Calcium (8.5-10.1) mg/dl Magnesium (1.8-2.4) mg/dl Total Bilirubin (0.2-1) mg/dl AST (15-37) U/L ALT (12-78) U/L Alkaline Phosphatase (45-117) U/L Troponin I 0.046 H* (0-0.045) ng/ml Total Protein (6.4-8.2) gm/dl Albumin (3.4-5.0) gm/dl Globulin (2.5-4.0) gm/dl Albumin/Globulin Ratio (0.9-2) Lipase (73-393) U/L Specimen Hemolysis Imaging Data Radiologist's Impression: Radiology results as stated below per my review and the radiologist's interpretation: XR chest 1V portable HISTORY: Atypical Chest Pain COMPARISON: Chest 04/04/2017. FINDINGS: No pneumothorax. No pleural effusions. The heart remains mildly enlarged. No focal lung consolidations to suggest pneumonia. No evidence for pulmonary edema. There are poststernotomy changes. Left-sided dual-chamber pacemaker. IMPRESSION: No significant change compared to the prior study. No acute process. Electronically signed by: Alf Lockwood M.D. 01/28/2019 6:52 PM ECG Data Attestation: I personally reviewed and interpreted this ECG as follows: Indication: chest pain Rate (beats per minute): 75 Rhythm: other (ventricular paced) Findings: no PVC and no ST elevation Additional Comments: Second EKG: ventricular-paced rhythm, rate of 59 BPM, no ST elevation, no PVCs. Blood Pressure Blood Pressure Findings: Elevated blood pressure Blood Pressure Disposition: further management by hospitalist TRESA Sanches There is a slight leukocytosis at 11,000, this could be consistent with infection or just his pain. No concerning anemia. INR is elevated at 3, this is consistent with his Coumadin use. No kidney failure or significant electrolyte abnormality. No evidence for pancreatitis. No liver enzyme elevation. EKG showed a functioning ventricular pacemaker, second EKG showed the same findings. No ischemia by EKG. Cardiac enzyme testing x2 does show a slight troponin elevation however, the troponin does not currently appear to be rising. Chest film does not show CHF or mediastinal widening. There was no pneumonia. The patient was aggressively managed here in the ED. He looked quite uncomfortable and seemed to be in some distress. He was ordered for some additional morphine IV for pain. He was placed on nitroglycerin paste, 2 inches however, he was eventually transitioned to a nitroglycerin drip. He received a 500 cc saline bolus. He was not placed on heparin as he already was anticoagulated. The patient was still having discomfort but he felt it was improving on the nitro drip. I did speak to the local flatbed driver who was on-call for intervention. He did not feel the patient needed emergent cardiac intervention as he was improving on the nitro drip. I then spoke to the on-call local flatbed driver from [facility]. Patient will be seen by the [facility] local flatbed driver. A cardiac echo was performed and looked similar to previous echoes, no acute finding. The patient does seem to be improving. His blood pressure is currently adequate. His pain is lessening. He looks much more comfortable and is in no current distress. He is asking for a cup of coffee. I spoke to the patient at length about his findings and my concerns, I spoke to the family as well. The on-call hospitalist was consulted. Case management has been involved. The patient requires further cardiac work-up. I am concerned about an acute coronary syndrome. The patient does seem to be doing well on his nitroglycerin drip. Impression & Plan ACS (acute coronary syndrome), Chest pain, precordial, Elevated troponin Critical Care Time Critical Care Time: Yes I have personally spent 65 minutes of critical care time in the direct management of this patient. This includes bedside care, interpretation of diagnostic studies, and testing, discussion with consultants, patient, and family members, and other required patient management activities. This 65 minutes is in excess of all separately billable procedures. Discharge Plan Visit Data Chief Complaint: Chest Pain ED Provider: Juan Luna Discharge Problem: ACS (acute coronary syndrome), Chest pain, precordial, Elevated troponin Patient Disposition: Admitted As Inpatient Forms Stand Alone Forms: Call Back Authorization, My [facility] Prescriptions Prescriptions: No Action furosemide 40 mg tablet 40 mg PO DAILY PRN (Reason: Fluid Retention) RF: 0 buspirone 5 mg tablet PO UNKNOWN RF: 0 amlodipine 5 mg tablet 5 mg PO DAILY RF: 0 aspirin [Aspirin Low Dose] 81 mg Tablet,Delayed Release (Dr/Ec) 81 mg PO DAILY RF: 0 tamsulosin 0.4 mg capsule 0.4 mg PO BID RF: 0 cyanocobalamin (vitamin B-12) 1,000 mcg/mL Solution 1,000 mcg SUBCUT DIRECTED RF: 0 warfarin 5 mg tablet PO DAILY RF: 0 metoprolol succinate 25 mg tablet extended release 24 hr 12.5 mg PO DAILY RF: 0 testosterone cypionate 200 mg/mL oil subcut DIRECTED RF: 0 irbesartan 300 mg tablet 300 mg PO DAILY RF: 0 Referrals Referrals: Shoaib Foote MD [Primary Care Provider] - The scribe's documentation has been prepared under my direction and personally reviewed by me in its entirety. I confirm that the note above accurately reflects all work, treatment, procedures, and medical decision making performed by me.
--- NOTE | 2019-01-28 21:15 | Cardiology Consultation ---
Date of Consultation January 28, 2019 Assessment & Plan (1) ACS (acute coronary syndrome): (2) S/P CABG x 4: (3) Atrial fibrillation: (4) Tachy-wang syndrome: (5) Pacemaker: (6) Chronic pain: Complex 73-year-old patient presents with severe chest discomfort. ECG nondiagnostic due to ventricular paced rhythm. Initial troponin minimally elevated however repeat troponin trending downward. Discomfort significantly improved after medical therapies with mild residual discomfort at this time. Continue IV nitroglycerin infusion. Stat bedside 2D transthoracic echocardiogram ordered with results pending at this time. No dysrhythmias on telemetry. INR is supratherapeutic at 3.0. No role for intravenous heparin currently. Vital signs otherwise stable. No evidence of acute decompensated heart failure on exam or chest x-ray. Patient has improved with medical therapies. Will review resting 2D transthoracic echocardiogram. If there are any new regional wall motion abnormalities consider referral to interventional cardiology for urgent coronary angiography and possible revascularization if indicated. Addendum: Resting 2D transthoracic echocardiogram reviewed. Study unchanged when compared to March 2017. Continue medical management at this time. Patient will be admitted to the intensive care unit on IV nitroglycerin infusion. Trend cardiac enzymes x3 sets. Plan for cardiac catheterization during hospitalization as clinical course unfolds. 50 minutes critical care time spent evaluating patient, reviewing data/studies, formulating plan of care, and discussing plan of care with consulting physicians and family members. History of Present Illness Reason for Consultation: Chest pain, elevated troponin, history of CAD with prior coronary artery bypass grafting. Requesting Physician: Dr. Juan Luna Attending Physician: Dr. Micah Chaudhry History of Present Illness 73-year-old patient presented to the emergency department with left-sided chest pain. Chest pain began abruptly and described as a sharp and stabbing. Rated as severe, greater than 10 out of 10. Patient took aspirin and sublingual nitroglycerin at home. EMS was summoned who treated the patient with sublingual nitroglycerin and morphine. Upon arrival to the ED patient describing severe chest discomfort. Notes sharp pain as well as pressure describes as "horse sitting on my chest". No radiation of the pain. + Associated shortness of breath. + Nausea. Denies vomiting. Reports associated lightheadedness without syncope. Initial troponin mildly elevated 0.05. Repeat troponin performed approximately 2 hours later 0.046. Nitropaste applied without significant im provement of discomfort in ED. Intravenous heparin was not initiated due to supratherapeutic INR of 3.0. IV nitroglycerin infusion was added. Pain is significantly improved currently 3-4/10. Patient appears comfortable. Requesting a meal if possible. Denies dyspnea, orthopnea, or PND currently. Previously reported nausea and lightheadedness has resolved. ECG nondiagnostic due to ventricular paced rhythm. Family present at bedside. Similar presentation noted in March 2017 when patient presented to [facility]. Treated with intravenous thrombolytic therapy and transferred to [facility]. Cardiac catheterization performed by Dr. Fung demonstrated severe three- vessel CAD with patent bypass graft to the LAD, left circumflex, and RCA. No significant troponin elevation during that hospitalization. Most recent resting 2D transthoracic echocardiogram performed June 2018: The examination is limited quality but adequate for evaluation of the referral indication. The qualitative LV ejection fraction is 55-59% (normal). The LV wall thickness is mildly increased (concentric).The septal motion is abnormal consistent with right ventricular pacemaker. The right ventricular cavity size is enlarged (basal dimension > 4.2 cm RV apical 4 chamber view). The right ventricular systolic function is reduced as assessed by tricuspid annular plane systolic excursion (TAPSE< 1.7 cm). The left atrium is severely enlarged (>48 ml/m^2,). There is aortic valve sclerosis without stenosis. Mild mitral regurgitation is present. Mild tricuspid regurgitation is present. The estimated pulmonary artery systolic pressure is 51mm Hg. Problem list as copied from the [facility] medical record: Problem List: 1. Atherosclerotic coronary disease status post coronary bypass grafting x4 in 2000. 2. Presentation to [facility] in March 2017 with chest discomfort, receiving thrombolytics a [facility] with transfer to [facility] where cardiac enzymes were negative and coronary angiography by Dr. Fung on April 06, 2017 revealed severe three vessel coronary artery disease with patent grafts to the LAD, LCX, and RCA. 3. Past paroxysmal and now chronic atrial fibrillation. 4. 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 5. Obstructive sleep apnea. 6. Hypertension. 7. Hyperlipidemia. 8. Type II diabetes mellitus 9. History of past gastric bypass surgery. 10. Iron deficiency anemia. 11. Chronic lower back pain. 12. Seizure disorder Allergies Allergy/AdvReac Type Severity Reaction Status Date / Time bee venom protein (honey bee) Allergy Severe ANAPHYLAXIS Verified 01/28/19 18:00 Penicillins Allergy Intermediate HIVES Verified 01/28/19 18:00 Sulfa (Sulfonamide Allergy Intermediate HIVES Verified 01/28/19 18:00 Antibiotics) gentamicin Allergy Unknown UNKNOWN Verified 01/28/19 18:00 Home Medications Home Medications Medication Instructions Recorded Confirmed Type amlodipine 5 mg PO DAILY 01/28/19 01/28/19 History aspirin [Aspirin Low Dose] 81 mg PO DAILY 01/28/19 01/28/19 History buspirone 0 mg PO UNKNOWN 01/28/19 01/28/19 History cyanocobalamin (vitamin B-12) 1,000 mcg SUBCUT DIRECTED 01/28/19 01/28/19 His tory furosemide 40 mg PO DAILY PRN 01/28/19 01/28/19 History irbesartan 300 mg PO DAILY 01/28/19 01/28/19 History metoprolol succinate 12.5 mg PO DAILY 01/28/19 01/28/19 History tamsulosin 0.4 mg PO BID 01/28/19 01/28/19 History testosterone cypionate 0 mg SUBCUT DIRECTED 01/28/19 01/28/19 History warfarin 0 mg PO DAILY 01/28/19 01/28/19 History Patient History Medical History CAD (coronary artery disease) (Chronic) Atrial fibrillation (Chronic) RICHY (obstructive sleep apnea) (Chronic) Seizure (Chronic) Tachy-wang syndrome (Chronic) Pacemaker (Chronic) Chronic pain (Chronic) Diabetes mellitus type 2, controlled (Chronic) "diet-controlled after gastric bypass" Surgical History S/P insertion of intrathecal pump (Chronic) S/P CABG x 4 (Chronic) S/P cholecystectomy (Chronic) History of appendectomy (Chronic) History of tonsillectomy and adenoidectomy (Chronic) Family History Other Cancer Diabetes Heart disease Hypertension Kidney disease Social History Preferred Language: Frisian Feels Safe at Home: Yes Smoking Status: Former smoker Review of Systems Review of Systems: All systems reviewed & are unremarkable except as noted in HPI & below Physical Exam Physical Exam: General: NAD, AAO x3, well nourished. Overweight. HEENT: Normocephalic. Atraumatic. Conjunctiva pink, no scleral icterus. Neck: No carotid bruits, the carotid upstrokes are brisk. No JVD. No HJR Heart: Regular, bradycardic, normal S-1 and S-2 no S-3 or S-4 gallop. No murmurs or rub appreciated. PMI is not displaced. No RV heave. Lungs: Clear bilateral without rales , rhonchi, or wheeze. Abdomen: Normal bowel sounds. Soft. Nontender. No masses or organomegaly. No abdominal bruits. Extremities: No clubbing, or cyanosis. Trace bilateral pedal and ankle edema. Pulses: radial=2/4, Dorsalis pedis =2/4. Neuro: Cranial nerves grossly intact. No focal motor deficit. Results & Data Vital Signs (Past 12 Hours) Vital Signs Pulse Pulse Resp BP BP Pulse Ox 01/28/19 20:15 56 L 20 126/75 99 01/28/19 19:44 56 L 18 115/56 L 97 01/28/19 19:28 55 L 18 114/61 97 01/28/19 19:13 55 L 12 130/72 99 01/28/19 19:10 55 L 13 133/71 99 01/28/19 19:08 55 L 15 130/80 99 01/28/19 19:05 55 L 18 132/72 99 01/28/19 19:03 55 L 15 120/67 99 01/28/19 19:00 55 L 14 124/63 99 01/28/19 18:45 55 L 22 134/78 98 01/28/19 18:42 56 L 14 134/78 99 01/28/19 18:22 60 22 134/77 97 01/28/19 17:31 60 22 136/76 99 Laboratory Results Laboratory Results - last 24 hr 01/28/19 01/28/19 01/28/19 16:43 16:43 16:43 WBC 11.55 H RBC 5.36 Hgb 15.1 Hct 45.9 MCV 85.6 MCH 28.2 MCHC 32.9 RDW Std Deviation 49.8 H RDW Coeff of Annie 15.8 H Plt Count 264 MPV 10.0 Immature Gran % (Auto) 0.3 Neut % (Auto) 74.8 Lymph % (Auto) 17.0 [place] % (Auto) 7.0 Eos % (Auto) 0.8 Baso % (Auto) 0.1 Immature Gran # (Auto) 0.04 H Neut # (Auto) 8.64 H Lymph # (Auto) 1.96 [place] # (Auto) 0.81 H Eos # (Auto) 0.09 Baso # (Auto) 0.01 Absolute Nucleated RBC 0.07 H Nucleated RBC % (auto) 0.6 PT 28.5 H INR 3.0 H APTT 36.9 H PTT Ratio 1.4 Sodium 138 Potassium 4.2 Chloride 103 Carbon Dioxide 28 Anion Gap 7.0 BUN 18 Creatinine 1.34 Est Cr Clr Drug Dosing 57.5 Est GFR ( Amer) 60.5 Est GFR (Non-Af Amer) 52.2 BUN/Creatinine Ratio 13.3 Glucose 98 Calcium 8.1 L Magnesium 2.1 Total Bilirubin 0.6 AST 22 ALT 29 Alkaline Phosphatase 73 Troponin I 0.050 H* Total Protein 7.5 Albumin 3.7 Globulin 3.8 Albumin/Globulin Ratio 1.0 Lipase 122 Specimen Hemolysis 01/28/19 19:08 WBC RBC Hgb Hct MCV MCH MCHC RDW Std Deviation RDW Coeff of Annie Plt Count MPV Immature Gran % (Auto) Neut % (Auto) Lymph % (Auto) [place] % (Auto) Eos % (Auto) Baso % (Auto) Immature Gran # (Auto) Neut # (Auto) Lymph # (Auto) [place] # (Auto) Eos # (Auto) Baso # (Auto) Absolute Nucleated RBC Nucleated RBC % (auto) PT INR APTT PTT Ratio Sodium Potassium Chloride Carbon Dioxide Anion Gap BUN Creatinine Est Cr Clr Drug Dosing Est GFR ( Amer) Est GFR (Non-Af Amer) BUN/Creatinine Ratio Glucose Calcium Magnesium Total Bilirubin AST ALT Alkaline Phosphatase Troponin I 0.046 H* Total Protein Albumin Globulin Albumin/Globulin Ratio Lipase Specimen Hemolysis ECG Additional Comments: Ventricular paced rhythm. (1) Chronic pain Chronic pain type: chronic pain syndrome Qualified Code(s): G89.4 - Chronic pain syndrome
[2019-01-28] MEDS ORDERED: CALCIUM GLUCONATE 10% 1,000 MG in SODIUM CHLORIDE 0.9% 50 ML IV STA (21:59)
--- NOTE | 2019-01-28 22:28 | History & Physical Report ---
Date of Service January 28, 2019 Assessment & Plan (1) ACS (acute coronary syndrome): hx CAD status post CABG Patient currently comfortable on nitro drip. SSS sp PPM on Coumadin, paced rhythm, INR therapeutic hypertension, stable hyperlipidemia on statin Rx DM 2 as per records, diet controlled, well controlled as of hemoglobin A1c of 6.7, March 2017 chronic back pain with intrathecal pain pump RICHY as per records history tobacco chewing ICU monitoring given nitro drip Continue home aspirin, beta-lloyd, statin Rx Hold Coumadin for now for diagnostic cardiac catheterization in a.m. IV heparin if INR less than 2 while Coumadin on hold Cardiology consult RE ACS (Patient already seen at the emergency room by Dr. Hamilton.) Update lipid profile, hemoglobin A1c ISS, BG goal 140-180 nicotine patch DVT prophylaxis. IV heparin if INR less than 2 while Coumadin on hold Full code History of Present Illness Chief Complaint: Chest pain Primary Care Provider: Adonay Hines MD History obtained from patient and records. Medical history significant for CAD status post CABG, SSS sp PPM on Coumadin, hypertension, hyperlipidemia, DM 2 as per records, diet controlled, chronic back pain with intrathecal pain pump, RICHY as per records, history tobacco chewing, BPH as per records. hx gastric bypass. Recent confinement November 2017 for ambulatory dysfunction secondary to left lower extremity hematoma. Patient was at his daughter's home hours ago when he experience substernal discomfort described as tightness associated with diaphoreses. Some relief with nitroglycerin given by EMS. Patient compliant with home meds. Nitro drip initiated at the ER. 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 Allergies Allergy/AdvReac Type Severity Reaction Status Date / Time bee venom protein (honey bee) Allergy Severe ANAPHYLAXIS Verified 01/28/19 18:00 Penicillins Allergy Intermediate HIVES Verified 01/28/19 18:00 Sulfa (Sulfonamide Allergy Intermediate HIVES Verified 01/28/19 18:00 Antibiotics) gentamicin Allergy Unknown UNKNOWN Verified 01/28/19 18:00 Home Medications Home Medications Medication Instructions Recorded Confirmed Type amlodipine 5 mg PO DAILY 01/28/19 01/28/19 History aspirin [Aspirin Low Dose] 81 mg PO DAILY 01/28/19 01/28/19 History buspirone 5 mg PO BID 01/28/19 01/28/19 History cyanocobalamin (vitamin B-12) 1,000 mcg SUBCUT DIRECTED 01/28/19 01/28/19 History furosemide 40 mg PO DAILY PRN 01/28/19 01/28/19 History irbesartan 300 mg PO DAILY 01/28/19 01/28/19 History metoprolol succinate 12.5 mg PO DAILY 01/28/19 01/28/19 History tamsulosin 0.4 mg PO BID 01/28/19 01/28/19 History testosterone cypionate 0 mg SUBCUT DIRECTED 01/28/19 01/28/19 History warfarin 0 mg PO DAILY 01/28/19 01/28/19 History Past Med/Surg History Medical History CAD (coronary artery disease) (Chronic) Atrial fibrillation (Chronic) RICHY (obstructive sleep apnea) (Chronic) Seizure (Chronic) Tachy-richard syndrome (Chronic) Pacemaker (Chronic) Chronic pain (Chronic) Diabetes mellitus type 2, controlled (Chronic) "diet-controlled after gastric bypass" Surgical History S/P insertion of intrathecal pump (Chronic) S/P CABG x 4 (Chronic) S/P cholecystectomy (Chronic) History of appendectomy (Chronic) History of tonsillectomy and adenoidectomy (Chronic) Family History Other Cancer Diabetes Heart disease Hypertension Kidney disease Social History Preferred Language: Tajik Communication Ability: Effective Beliefs That Will Affect Care: None Current Living Situation: Spouse Other Information That Helps Us Care for You: No Feels Safe at Home: Yes Safety Concerns: Feels Safe At This Time Smoking Status: Former smoker Tobacco Type: smokeless tobacco ; Do You Dip or Chew Tobacco: Yes ; Tobacco Cessation Education Requested by Patient: No Hx Alcohol Use: No Hx Substance Use: No Review of Systems Review of Systems: As per HPI, all 10 systems reviewed, all other ROS negative Physical Exam Physical Exam: GENERAL: Comfortable, obese, no respiratory distress SKIN: Normal color, warm HEENT: Alopecia, [place] palpebral conjunctivae, no ptosis, dry buccal mucosa NECK : Supple, short neck, no tenderness CHEST : CTA, no tenderness HEART : RRR, no obvious murmurs ABDOMEN: Some distention, nontender EXTREMITIES : No LE swelling, no LE tenderness, no other conspicuous deformities noted NEUROLOGIC : Coherent, no facial asymmetry, no other gross focality Results & Data Vital Signs (Past 12 Hours) Vital Signs Pulse Pulse Resp BP BP Pulse Ox 01/28/19 22:26 64 20 154/77 H 98 01/28/19 21:20 59 L 20 131/70 97 01/28/19 20:15 56 L 20 126/75 99 01/28/19 19:44 56 L 18 115/56 L 97 01/28/19 19:28 55 L 18 114/61 97 01/28/19 19:13 55 L 12 130/72 99 01/28/19 19:10 55 L 13 133/71 99 01/28/19 19:08 55 L 15 130/80 99 01/28/19 19:05 55 L 18 132/72 99 01/28/19 19:03 55 L 15 120/67 99 01/28/19 19:00 55 L 14 124/63 99 01/28/19 18:45 55 L 22 134/78 98 01/28/19 18:42 56 L 14 134/78 99 01/28/19 18:22 60 22 134/77 97 01/28/19 17:31 60 22 136/76 99 Laboratory Results Laboratory Results WBC 11.55 K/uL (4.8-10.8) H 01/28/19 16:43 RBC 5.36 M/uL (4.7-6.1) 01/28/19 16:43 Hgb 15.1 g/dL (14.0-18.0) 01/28/19 16:43 Hct 45.9 % (42-52) 01/28/19 16:43 MCV 85.6 fL (80-100) 01/28/19 16:43 MCH 28.2 pg (25-34) 01/28/19 16:43 MCHC 32.9 g/dL (32-36) 01/28/19 16:43 RDW Std Deviation 49.8 fL (36.4-46.3) H 01/28/19 16:43 RDW Coeff of Annie 15.8 % (11.5-14.5) H 01/28/19 16:43 Plt Count 264 K/uL (130-400) 01/28/19 16:43 MPV 10.0 fL (7.4-10.4) 01/28/19 16:43 Immature Gran % (Auto) 0.3 % 01/28/19 16:43 Neut % (Auto) 74.8 % 01/28/19 16:43 Lymph % (Auto) 17.0 % 01/28/19 16:43 [place] % (Auto) 7.0 % 01/28/19 16:43 Eos % (Auto) 0.8 % 01/28/19 16:43 Baso % (Auto) 0.1 % 01/28/19 16:43 Immature Gran # (Auto) 0.04 K/uL (0.00-0.02) H 01/28/19 16:43 Neut # (Auto) 8.64 K/uL (1.4-6.5) H 01/28/19 16:43 Lymph # (Auto) 1.96 K/uL (1.2-3.4) 01/28/19 16:43 [place] # (Auto) 0.81 K/uL (0.11-0.59) H 01/28/19 16:43 Eos # (Auto) 0.09 K/uL (0-0.5) 01/28/19 16:43 Baso # (Auto) 0.01 K/uL (0-0.2) 01/28/19 16:43 Absolute Nucleated RBC 0.07 K/uL (0-0) H 01/28/19 16:43 Nucleated RBC % (auto) 0.6 % 01/28/19 16:43 PT 28.5 Seconds (9.0-12.0) H 01/28/19 16:43 INR 3.0 (0.9-1.1) H 01/28/19 16:43 APTT 36.9 Seconds (21.0-31.0) H 01/28/19 16:43 PTT Ratio 1.4 01/28/19 16:43 Sodium 138 mmol/L (136-145) 01/28/19 16:43 Potassium 4.2 mmol/L (3.5-5.1) 01/28/19 16:43 Chloride 103 mmol/L (98-107) 01/28/19 16:43 Carbon Dioxide 28 mmol/L (21-32) 01/28/19 16:43 Anion Gap 7.0 (3-11) 01/28/19 16:43 BUN 18 mg/dl (7-18) 01/28/19 16:43 Creatinine 1.34 mg/dl (0.6-1.4) 01/28/19 16:43 Est Cr Clr Drug Dosing 57.5 ml/min 01/28/19 16:43 Est GFR ( Amer) 60.5 01/28/19 16:43 Est GFR (Non-Af Amer) 52.2 01/28/19 16:43 BUN/Creatinine Ratio 13.3 (10-20) 01/28/19 16:43 Glucose 98 mg/dl (70-99) 01/28/19 16:43 Calcium 8.1 mg/dl (8.5-10.1) L 01/28/19 16:43 Magnesium 2.1 mg/dl (1.8-2.4) 01/28/19 16:43 Total Bilirubin 0.6 mg/dl (0.2-1) 01/28/19 16:43 AST 22 U/L (15-37) 01/28/19 16:43 ALT 29 U/L (12-78) 01/28/19 16:43 Alkaline Phosphatase 73 U/L (45-117) 01/28/19 16:43 Troponin I 0.046 ng/ml (0-0.045) H* 01/28/19 19:08 Total Protein 7.5 gm/dl (6.4-8.2) 01/28/19 16:43 Albumin 3.7 gm/dl (3.4-5.0) 01/28/19 16:43 Globulin 3.8 gm/dl (2.5-4.0) 01/28/19 16:43 Albumin/Globulin Ratio 1.0 (0.9-2) 01/28/19 16:43 Lipase 122 U/L (73-393) 01/28/19 16:43 Specimen Hemolysis 01/28/19 16:43 Diagnostic Findings Chest x-ray showed No pneumothorax. No pleural effusions. The heart remains mildly enlarged. No focal lung consolidations to suggest pneumonia. No evidence for pulmonary edema. There are poststernotomy changes. Left-sided dual-chamber pacemaker. EKG as per my interpretation : Paced rhythm
[2019-01-28] MEDS ORDERED: PROMETHAZINE HCL 12.5 MG in SODIUM CHLORIDE 0.9% 50 ML IV PRN (23:20)
[2019-01-28] MEDS ORDERED: ICU PROTOCOL FOR HYPERGLYCEMIA PRN (23:20)
[2019-01-29] MEDS ORDERED: SODIUM CHLORIDE 0.9% 1000ML 1,000 ML IV SCH
[2019-01-29] MEDS: TAMSULOSIN HCL 0.4 MG CAP PO SCH ×3 (00:15→21:02)
[2019-01-29] MEDS: NICOTINE 7 MG/24 HR TDSY TD SCH ×2 (00:17→08:46)
[2019-01-29] MEDS ORDERED: CARBOHYDRATES FOR HYPOGLYCEMIA PO PRN (01:04)
[2019-01-29] MEDS ORDERED: GLUCOSE 40% GEL 15 GM TUBE PO PRN (01:04)
[2019-01-29] MEDS ORDERED: GLUCAGON FOR INJ 1 MG VIAL SQ PRN (01:04)
[2019-01-29] MEDS ORDERED: GLUCOSE 10 TABS/TUBE PO PRN (01:04)
[2019-01-29] MEDS ORDERED: DEXTROSE 50% 50 ML SYRINGE IV PRN (01:04)
[2019-01-29] MEDS: INSULIN ASPART 100 UNITS/ML 3 ML PEN SC SCH ×5 (01:31→21:03)
[2019-01-29 04:11] LABS: Basophils # (auto) 0.01 K/uL (0-0.2); Basophils % (auto) 0.1 %; Eosinophils # (auto) 0.11 K/uL (0-0.5); Eosinophils % (auto) 1.3 %; Hematocrit (blood only) 40.3 % (42-52); Hemoglobin 12.8 g/dL (14.0-18.0); Immature Granulocytes # (auto) 0.03 K/uL (0.00-0.02); Immature Granulocytes % (auto) 0.3 %; Lymphocytes # (auto) 1.62 K/uL (1.2-3.4); Lymphocytes % (auto) 18.9 %; Mean Corpuscular Hgb Conc 31.8 g/dL (32-36); Mean Corpuscular Volume 85.4 fL (80-100); Mean Platelet Volume 9.5 fL (7.4-10.4); Monocytes # (auto) 0.65 K/uL (0.11-0.59); Monocytes % (auto) 7.6 %; Neutrophils # (auto) 6.17 K/uL (1.4-6.5); Neutrophils % (auto) 71.8 %; Platelet Count 207 K/uL (130-400); RDW Coefficient of Variation 15.7 % (11.5-14.5); RDW Standard Deviation 49.6 fL (36.4-46.3); Red Blood Count 4.72 M/uL (4.7-6.1); White Blood Count 8.59 K/uL (4.8-10.8)
[2019-01-29 04:23] LABS: INR 3.2 (0.9-1.1); Prothrombin Time 30.2 Seconds (9.0-12.0)
[2019-01-29 04:39] LABS: BUN Creatinine Ratio 17.1 (10-20); Calcium 7.7 mg/dl (8.5-10.1); Creatinine Clr Calc Pharmacy 87.9 ml/min; Est GFR (African American) 99.2; Est GFR (Non-African American) 85.6; Potassium 4.1 mmol/L (3.5-5.1)
[2019-01-29 04:48] LABS: Troponin I 0.035 ng/ml (0-0.045)
[2019-01-29] MEDS ORDERED: CALCIUM GLUCONATE 10% 1,000 MG in SODIUM CHLORIDE 0.9% 50 ML IV STA (06:21)
[2019-01-29] MEDS: METOPROLOL SUCC 25MG EXT REL TAB PO SCH (06:42)
--- NOTE | 2019-01-29 07:56 | Critical Care Consultation ---
Date of Consultation January 29, 2019 Assessment & Plan (1) Admitted to intensive care unit: Mr. Michael Malhotra is a 73 y/o male w/past medical hx of CABG in early 1999s, CAD, Afib, RICHY, seizure disorder, tachy-richard syndrome requiring pacemaker, chronic pain, DM2 who was admitted for acute coronary syndrome admitted to ICU for nitro drip and monitoring prior to cardiology treatment recs/intervention. Neuro: No current concerns No current complaints of pain Cardiac/Vascular PMHx: CAD, CABG, Afib EKG: ventricular paced and non-diagnostic Echo performed: compared to prior study no significant change * EF 55-60% * severe concentric LVH * apical wall motion abnormality may reflect pacemaker activation * Mild hypokinesis of anterior apical wall which is unchanged compared to prior resting 2D TTE on 04/03/2017 * RV moderately dilated * TAPSE<1.6cm * Mild tricuspid regurgitation * Doppler findings do not suggest pulmonary HTN * Aortic valve sclerosis mild without significant aortic valvular stenosis Afib rate controlled Hemodynamics stable Currently on nitro drip requiring ICU monitoring No current chest pain this AM. Initial trop 01/28 0.05 @ 16:43; --> 0.046 @ 19:08; --> 01/29 03:54 was 0.035, downtrended. Defer treatment plan to cardiology team PCI intervention vs. monitoring vs. other recs. Pulm: Not currently requiring supplmental O2 GI: Currently NPO Renal/Lytes No electrolyte abnormalities this AM Creatinine 0.87 this AM, down from 1.34 currently on NSS IVF 40ml/hr - okay to DC once NPO removed : no current concerns Heme WBC WNL Hgb nml from ED inital presentation, then slightly decreased this AM to 12.8, probably dilutional from IVF ID: No current concners Lines: PVI: 20G right upper extremity 18G left AC DVT ppx: Currently on Heparin Drip no bolus Resuscitation status: Full Code (2) ACS (acute coronary syndrome): (3) Chronic pain: (4) Chest pain, precordial: (5) CAD (coronary artery disease): (6) RICHY (obstructive sleep apnea): (7) Tachy-richard syndrome: (8) Pacemaker: (9) Chronic pain: (10) Diabetes mellitus type 2, controlled: (11) S/P insertion of intrathecal pump: (12) S/P CABG x 4: (13) S/P cholecystectomy: (14) History of appendectomy: (15) History of tonsillectomy and adenoidectomy: Supervising Physician Co-Signing Physician Notes Dr. Padgett was resident physician during care of patient. I separately evaluated patient for finn portions of the history and the exam. I was present during the critical portion of medical decision making, and I discussed the case with the resident. I generally agree with the findings and plan. Requiring nitroglycerin infusion. Pain improved with nitro. History of Present Illness Reason for Consultation: Cardiac monitoring prior to possible PCI Attending Physician: Zahraa Duong MD History of Present Illness Mr. Michael Malhotra is a 73 y/o male w/past medical hx of CABG in early , CAD, Afib, RICHY, seizure disorder, tachy-richard syndrome requiring pacemaker, chronic pain, DM2 who was admitted for acute coronary syndrome. Michael states that he had onset of left sided chest pain at 4:30pm yesterday while sitting in recliner watching TV. He described pain as stabbing that radiated to back. He notes becoming short of breath secondary to pain with diaphoresis, no nausea or dizziness. He took ASA at that time as daughter was a nurse and EMS was called. He is in ICU pending cardiology plan for treatment. He is in ICU for monitoring given nitro drip. Allergies Allergy/AdvReac Type Severity Reaction Status Date / Time bee venom protein (honey bee) Allergy Severe ANAPHYLAXIS Verified 01/28/19 18:00 Penicillins Allergy Intermediate HIVES Verified 01/28/19 18:00 Sulfa (Sulfonamide Allergy Intermediate HIVES Verified 01/28/19 18:00 Antibiotics) gentamicin Allergy Unknown UNKNOWN Verified 01/28/19 18:00 Home Medications Home Medications Medication Instructions Recorded Confirmed Type amlodipine 5 mg PO DAILY 01/28/19 01/28/19 History aspirin [Aspirin Low Dose] 81 mg PO DAILY 01/28/19 01/28/19 History buspirone 5 mg PO BID 01/28/19 01/28/19 History cyanocobalamin (vitamin B-12) 1,000 mcg SUBCUT DIRECTED 01/28/19 01/28/19 History furosemide 40 mg PO DAILY PRN 01/28/19 01/28/19 History irbesartan 300 mg PO DAILY 01/28/19 01/28/19 History metoprolol succinate 12.5 mg PO DAILY 01/28/19 01/28/19 History tamsulosin 0.4 mg PO BID 01/28/19 01/28/19 History testosterone cypionate 0 mg SUBCUT DIRECTED 01/28/19 01/28/19 History warfarin 0 mg PO DAILY 01/28/19 01/28/19 History isosorbide mononitrate 30 mg PO QAM 30 Days #30 tab 01/31/19 Rx nicotine 7 mg TRANSDERMAL QAM 30 Days #30 ea 01/31/19 Rx pantoprazole 40 mg PO QAM 30 Days #30 tab 01/31/19 Rx Patient History Medical History CAD (coronary artery disease) (Chronic) Atrial fibrillation (Chronic) RICHY (obstructive sleep apnea) (Chronic) Seizure (Chronic) Tachy-richard syndrome (Chronic) Pacemaker (Chronic) Chronic pain (Chronic) Diabetes mellitus type 2, controlled (Chronic) "diet-controlled after gastric bypass" Surgical History S/P insertion of intrathecal pump (Chronic) S/P CABG x 4 (Chronic) S/P cholecystectomy (Chronic) History of appendectomy (Chronic) History of tonsillectomy and adenoidectomy (Chronic) Family History Other Cancer Diabetes Heart disease Hypertension Kidney disease Social History Preferred Language: Slovenian Communication Ability: Effective Beliefs That Will Affect Care: None Current Living Situation: Spouse Other Information That Helps Us Care for You: No Feels Safe at Home: Yes Safety Concerns: Feels Safe At This Time Smoking Status: Former smoker Tobacco Type: smokeless tobacco ; Do You Dip or Chew Tobacco: Yes ; Tobacco Cessation Education Requested by Patient: No Hx Alcohol Use: No Hx Substance Use: No Review of Systems 2 Review of Systems: All systems reviewed & are unremarkable except as noted in HPI & below Constitutional: no fever and no chills Eyes: no diplopia and no loss of peripheral vision Ear, Nose, Mouth, Throat: no ear pain and no nasal discharge Respiratory: + dyspnea (during onset of initial chest pain secondary to pain patient states); no cough Cardiovascular: + chest pain (currently resolved); no palpitations Gastrointestinal: no abdominal pain, no nausea and no vomiting Genitourinary: no dysuria and no testicle pain Musculoskeletal: + back pain (chronic with intrathecal pain pump); no neck pain Integumentary: no rash and no lesions Neurologic: no generalized weakness, no numbness and no abnormal speech Endocrine: no polydipsia and no polyphagia Hematologic / Lymphatic: no easy bleeding and no easy bruising Physical Exam Constitutional: WD/WN, vitals as above cooperative and comfortable Eyes: + anicteric sclerae and EOM intact bilaterally Neck: normal visual inspection and trachea midline Respiratory: no respiratory distress and does not use accessory muscles Auscultation: lungs clear to auscultation bilaterally Cardiovascular: Rate/Rhythm: regular rate and regular rhythm Heart Sounds: + murmur (systolic best heard) Results & Data Vital Signs (Past 12 Hours) Vital Signs Temp Pulse Pulse Resp BP BP Pulse Ox 01/29/19 07:25 55 L 13 96 01/29/19 07:20 56 L 12 95 01/29/19 07:15 67 19 95 01/29/19 07:10 57 L 15 96 01/29/19 07:05 55 L 15 93 01/29/19 07:00 36.5 C 55 L 16 145/83 H 95 01/29/19 06:00 57 L 18 119/51 L 94 01/29/19 05:00 57 L 18 110/47 L 94 01/29/19 04:00 36.7 C 56 L 16 116/62 94 01/29/19 03:00 59 L 16 119/66 96 01/29/19 02:00 55 L 16 110/55 L 96 01/29/19 01:00 57 L 16 115/57 L 95 01/29/19 00:00 59 L 16 126/75 96 01/28/19 23:20 36.6 C 56 L 16 139/63 98 01/28/19 22:52 56 L 20 144/58 H 97 01/28/19 22:26 64 20 154/77 H 98 01/28/19 21:20 59 L 20 131/70 97 01/28/19 20:15 56 L 20 126/75 99 Resident Activity Tracking Resident Involvement: Resident Care Provided Care Provided: Adult Hospital Medicine (ICU) (1) Chronic pain Chronic pain type: chronic pain syndrome Qualified Code(s): G89.4 - Chronic pain syndrome
[2019-01-29 08:37] LABS: Estimated Average Glucose 166 mg/dl; Hemoglobin A1C 7.4 % (4.5-5.6)
[2019-01-29] MEDS: IRBESARTAN 150 MG TAB PO SCH (08:45)
[2019-01-29] MEDS: AMLODIPINE BESYLATE 5 MG TAB PO SCH (08:46)
[2019-01-29] MEDS: ASPIRIN 81 MG ECTAB PO SCH (08:46)
[2019-01-29] MEDS ORDERED: METOPROLOL SUCC 25MG EXT REL TAB PO SCH (09:00)
[2019-01-29] MEDS ORDERED: PHYTONADIONE 5 MG TAB PO STA (09:37)
[2019-01-29] MEDS ORDERED: Heparin IV Standard *NO* Bolus IV SCH (09:39)
[2019-01-29] MEDS ORDERED: NITROGLYCERIN 2% OINTMENT 30GM TUBE EXT SCH (09:45)
[2019-01-29] MEDS: NITROGLYCERIN 2% OINTMENT 30GM TUBE EXT SCH ×3 (09:55→21:07)
[2019-01-29] MEDS: HEPARIN SODIUM/DEXTROSE 25,000 UNITS/500 ML BAG IV SCH (10:06)
--- NOTE | 2019-01-29 10:07 | Cardiology Progress Note ---
Date of Service January 29, 2019 Assessment & Plan (1) ACS (acute coronary syndrome): The patient's cardiac markers were minimally elevated if not normal. I reviewed his previous cardiac catheterization in 2017. Although he had patent bypass grafts at that time he did have severe council vessel coronary artery disease and is not surprising that he would have occasional angina. He has not had any chest pain since admission. I think we can discontinue the IV nitro. Unfortunately, his INR is 3.2 today. I will give him some oral vitamin K and start him on IV heparin without a bolus. No heart cath today. I will reassess him tomorrow, including his INR, and most likely proceed to cardiac catheterization tomorrow. I have explained the risk benefit and intent the cardiac catheterization to the patient. He is willing to proceed. He does have low back pain which may make it difficult for him to lay flat on the x-ray table. We will try analgesia but if he still cannot tolerate laying flat then we will have to postpone the cardiac catheterization and make other arrangements. (2) S/P CABG x 4: (3) Atrial fibrillation: (4) Tachy-richard syndrome: (5) Pacemaker: (6) Chronic pain: Subjective The patient has had no additional chest pain. His troponins are essentially normal. I reviewed his cardiac catheterization from 2017. He has severe council vessel coronary artery disease. All 4 bypass grafts were open at that time. Review of Systems Review of Systems: All systems reviewed & are unremarkable except as noted in HPI & below Nothing additional Physical Exam Physical Exam: General: no acute distress and stated age Head: normocephalic, no masses, lesions, tenderness or abnormalities Eyes: conjunctiva are pink and non-injected, sclera clear Neck: supple, no adenopathy, no bruits, normal jugular venous pulse, no hepatojugular reflux Chest: normal shape and normal respiratory effort Lungs: clear to auscultation and percussion Cardiac Exam: - regular rate & rhythm, no murmurs gallops or rubs - normal S1, normal S2 Pulses: 2(+) throughout Abdomen: abdomen soft, non-tender, no abnormal masses and no hepatosplenomegaly Musculoskeletal: no gait disturbance, no joint inflammation, no deforming arthritis Extremities: no edema and no cyanosis Neuro: grossly normal exam Results & Data Vital Signs (Past 12 Hours) Vital Signs Temp Pulse Pulse Resp BP BP Pulse Ox 01/29/19 09:03 55 L 21 135/65 97 01/29/19 08:33 55 L 12 136/80 97 01/29/19 08:01 55 L 14 169/86 H 95 01/29/19 07:25 55 L 13 96 01/29/19 07:20 56 L 12 95 01/29/19 07:15 67 19 95 01/29/19 07:10 57 L 15 96 01/29/19 07:05 55 L 15 93 01/29/19 07:00 36.5 C 55 L 16 145/83 H 95 01/29/19 06:00 57 L 18 119/51 L 94 01/29/19 05:00 57 L 18 110/47 L 94 01/29/19 04:00 36.7 C 56 L 16 116/62 94 01/29/19 03:00 59 L 16 119/66 96 01/29/19 02:00 55 L 16 110/55 L 96 01/29/19 01:00 57 L 16 115/57 L 95 01/29/19 00:00 59 L 16 126/75 96 01/28/19 23:20 36.6 C 56 L 16 139/63 98 01/28/19 22:52 56 L 20 144/58 H 97 01/28/19 22:26 64 20 154/77 H 98 Laboratory Results Laboratory Results - last 24 hr 01/28/19 01/28/19 01/28/19 16:43 16:43 16:43 WBC 11.55 H RBC 5.36 Hgb 15.1 Hct 45.9 MCV 85.6 MCH 28.2 MCHC 32.9 RDW Std Deviation 49.8 H RDW Coeff of Annie 15.8 H Plt Count 264 MPV 10.0 Immature Gran % (Auto) 0.3 Neut % (Auto) 74.8 Lymph % (Auto) 17.0 Horry % (Auto) 7.0 Eos % (Auto) 0.8 Baso % (Auto) 0.1 Immature Gran # (Auto) 0.04 H Neut # (Auto) 8.64 H Lymph # (Auto) 1.96 [place] # (Auto) 0.81 H Eos # (Auto) 0.09 Baso # (Auto) 0.01 Absolute Nucleated RBC 0.07 H Nucleated RBC % (auto) 0.6 PT 28.5 H INR 3.0 H APTT 36.9 H PTT Ratio 1.4 Sodium 138 Potassium 4.2 Chloride 103 Carbon Dioxide 28 Anion Gap 7.0 BUN 18 Creatinine 1.34 Est Cr Clr Drug Dosing 57.5 Est GFR ( Amer) 60.5 Est GFR (Non-Af Amer) 52.2 BUN/Creatinine Ratio 13.3 Glucose 98 POC Glucose Estimat Average Glucose Hemoglobin A1c Calcium 8.1 L Magnesium 2.1 Total Bilirubin 0.6 AST 22 ALT 29 Alkaline Phosphatase 73 Troponin I 0.050 H* Total Protein 7.5 Albumin 3.7 Globulin 3.8 Albumin/Globulin Ratio 1.0 Triglycerides Cholesterol LDL Cholesterol, Calc VLDL Cholesterol, Calc HDL Cholesterol Cholesterol/HDL Ratio Lipase 122 Specimen Hemolysis Nasal Screen MRSA (PCR) 01/28/19 01/28/19 01/29/19 19:08 23:30 00:34 WBC RBC Hgb Hct MCV MCH MCHC RDW Std Deviation RDW Coeff of Annie Plt Count MPV Immature Gran % (Auto) Neut % (Auto) Lymph % (Auto) [place] % (Auto) Eos % (Auto) Baso % (Auto) Immature Gran # (Auto) Neut # (Auto) Lymph # (Auto) [place] # (Auto) Eos # (Auto) Baso # (Auto) Absolute Nucleated RBC Nucleated RBC % (auto) PT INR APTT PTT Ratio Sodium Potassium Chloride Carbon Dioxide Anion Gap BUN Creatinine Est Cr Clr Drug Dosing Est GFR ( Amer) Est GFR (Non-Af Amer) BUN/Creatinine Ratio Glucose POC Glucose 191 H Estimat Average Glucose Hemoglobin A1c Calcium Magnesium Total Bilirubin AST ALT Alkaline Phosphatase Troponin I 0.046 H* Total Protein Albumin Globulin Albumin/Globulin Ratio Triglycerides Cholesterol LDL Cholesterol, Calc VLDL Cholesterol, Calc HDL Cholesterol Cholesterol/HDL Ratio Lipase Specimen Hemolysis Nasal Screen MRSA (PCR) Negative 01/29/19 01/29/19 01/29/19 03:54 03:54 03:54 WBC 8.59 RBC 4.72 Hgb 12.8 L Hct 40.3 L MCV 85.4 MCH 27.1 MCHC 31.8 L RDW Std Deviation 49.6 H RDW Coeff of Annie 15.7 H Plt Count 207 MPV 9.5 Immature Gran % (Auto) 0.3 Neut % (Auto) 71.8 Lymph % (Auto) 18.9 [place] % (Auto) 7.6 Eos % (Auto) 1.3 Baso % (Auto) 0.1 Immature Gran # (Auto) 0.03 H Neut # (Auto) 6.17 Lymph # (Auto) 1.62 [place] # (Auto) 0.65 H Eos # (Auto) 0.11 Baso # (Auto) 0.01 Absolute Nucleated RBC Nucleated RBC % (auto) PT 30.2 H INR 3.2 H APTT PTT Ratio Sodium 140 Potassium 4.1 Chloride 106 Carbon Dioxide 30 Anion Gap 4.0 BUN 15 Creatinine 0.87 D Est Cr Clr Drug Dosing 87.9 Est GFR ( Amer) 99.2 Est GFR (Non-Af Amer) 85.6 BUN/Creatinine Ratio 17.1 Glucose 140 H POC Glucose Estimat Average Glucose Hemoglobin A1c Calcium 7.7 L Magnesium Total Bilirubin AST ALT Alkaline Phosphatase Troponin I 0.035 Total Protein Albumin Globulin Albumin/Globulin Ratio Triglycerides 86 Cholesterol 118 LDL Cholesterol, Calc 58 VLDL Cholesterol, Calc 17 HDL Cholesterol 43 Cholesterol/HDL Ratio 3 Lipase Specimen Hemolysis Nasal Screen MRSA (PCR) 01/29/19 01/29/19 01/29/19 03:54 03:54 03:54 WBC RBC Hgb Hct MCV MCH MCHC RDW Std Deviation RDW Coeff of Annie Plt Count MPV Immature Gran % (Auto) Neut % (Auto) Lymph % (Auto) [place] % (Auto) Eos % (Auto) Baso % (Auto) Immature Gran # (Auto) Neut # (Auto) Lymph # (Auto) [place] # (Auto) Eos # (Auto) Baso # (Auto) Absolute Nucleated RBC Nucleated RBC % (auto) PT INR APTT PTT Ratio Sodium Potassium Chloride Carbon Dioxide Anion Gap BUN Creatinine Est Cr Clr Drug Dosing Est GFR ( Amer) Est GFR (Non-Af Amer) BUN/Creatinine Ratio Glucose POC Glucose Estimat Average Glucose 166 Hemoglobin A1c 7.4 H Calcium Magnesium 2.2 Total Bilirubin AST ALT Alkaline Phosphatase Troponin I Total Protein Albumin 3.1 L Globulin Albumin/Globulin Ratio Triglycerides Cholesterol LDL Cholesterol, Calc VLDL Cholesterol, Calc HDL Cholesterol Cholesterol/HDL Ratio Lipase Specimen Hemolysis Nasal Screen MRSA (PCR) 01/29/19 05:25 WBC RBC Hgb Hct MCV MCH MCHC RDW Std Deviation RDW Coeff of Nanie Plt Count MPV Immature Gran % (Auto) Neut % (Auto) Lymph % (Auto) [place] % (Auto) Eos % (Auto) Baso % (Auto) Immature Gran # (Auto) Neut # (Auto) Lymph # (Auto) [place] # (Auto) Eos # (Auto) Baso # (Auto) Absolute Nucleated RBC Nucleated RBC % (auto) PT INR APTT PTT Ratio Sodium Potassium Chloride Carbon Dioxide Anion Gap BUN Creatinine Est Cr Clr Drug Dosing Est GFR ( Amer) Est GFR (Non-Af Amer) BUN/Creatinine Ratio Glucose POC Glucose 117 H Estimat Average Glucose Hemoglobin A1c Calcium Magnesium Total Bilirubin AST ALT Alkaline Phosphatase Troponin I Total Protein Albumin Globulin Albumin/Globulin Ratio Triglycerides Cholesterol LDL Cholesterol, Calc VLDL Cholesterol, Calc HDL Cholesterol Cholesterol/HDL Ratio Lipase Specimen Hemolysis Nasal Screen MRSA (PCR) Medications Administered Current Inpatient Medications Amlodipine Besylate (Norvasc) 5 mg PO DAILY ASAEL Stop: 02/28/19 08:59 Last Admin: 01/29/19 08:46 Dose: 5 mg Documented by: Aspirin (Ecotrin Ectab) 81 mg PO DAILY ASAEL Stop: 02/28/19 08:59 Last Admin: 01/29/19 08:46 Dose: 81 mg Documented by: Buspirone HCl (Buspar) 5 mg PO BID ASAEL Stop: 02/28/19 08:59 Last Admin: 01/29/19 08:46 Dose: 5 mg Documented by: Dextrose (Dextrose 50%) 25 - 50 ml IV UD PRN; Protocol PRN Reason: Hypoglycemia Protocol Stop: 02/28/19 01:03 Glucagon (Glucagen) 1 mg SQ UD PRN; Protocol PRN Reason: Hypoglycemia Protocol Stop: 02/28/19 01:03 Glucose (Glucose 40%) 15 - 30 gm PO UD PRN; Protocol PRN Reason: Hypoglycemia Protocol Stop: 02/28/19 01:03 Glucose (Dex4 Glucose) 4 - 8 tabs PO UD PRN; Protocol PRN Reason: Hypoglycemia Protocol Stop: 02/28/19 01:03 Sodium Chloride (Nss 1000ml) 1,000 mls @ 40 mls/hr IV .Q24H ASAEL Stop: 02/28/19 00:00 Last Admin: 01/29/19 00:15 Dose: 40 mls/hr Documented by: Promethazine HCl 12.5 mg/ (Sodium Chloride) 50.5 mls @ 202 mls/hr IV Q6H PRN PRN Reason: Nausea And Vomiting Stop: 02/27/19 23:19 Heparin Sodium/Dextrose (Heparin Sodium/Dextrose) 25,000 units in 500 mls @ 30 mls/hr IV .[id number] [facility]; Protocol Stop: 02/28/19 09:44 Insulin Aspart (Novolog Flexpen) 0 units SC Q6 ASALE Stop: 02/28/19 01:04 Last Admin: 01/29/19 05:29 Dose: Not Given Documented by: Irbesartan (Avapro) 300 mg PO DAILY [facility] Stop: 02/28/19 08:59 Last Admin: 01/29/19 08:45 Dose: 300 mg Documented by: Metoprolol Succinate (Toprol Xl) 12.5 mg PO DAILY ASAEL Stop: 02/28/19 06:29 Last Admin: 01/29/19 06:42 Dose: 12.5 mg Documented by: Miscellaneous (Icu Protocol For Hyperglycemia) 1 ea N/A PRN PRN; Protocol PRN Reason: Hyperglycemia Protocol Stop: 01/30/19 23:19 Miscellaneous (Remove Nicoderm Patch) 1 ea N/A HS [facility] Stop: 02/28/19 20:59 Miscellaneous (Carbohydrates For Hypoglycemia) 15 - 30 gm PO UD PRN PRN Reason: Hypoglycemia Treatment Stop: 02/28/19 01:03 Morphine Sulfate (Morphine Sulfate) 4 mg IV Q4H PRN PRN Reason: Pain Stop: 02/11/19 23:19 Nicotine (Nicoderm Cq) 7 mg TD QAM [facility] Stop: 02/28/19 00:14 Last Admin: 01/29/19 08:46 Dose: 7 mg Documented by: Nitroglycerin (Nitro-Bid 2%) 0.5 inch EXT Q6H [facility] Stop: 02/28/19 09:44 Last Admin: 01/29/19 09:55 Dose: 0.5 inch Documented by: Tamsulosin HCl (Flomax) 0.4 mg PO BID [facility] Stop: 02/27/19 23:19 Last Admin: 01/29/19 08:46 Dose: 0.4 mg Documented by: Tramadol HCl (Ultram) 25 - 50 mg PO Q4H PRN PRN Reason: Pain Stop: 02/27/19 23:19 (1) Chronic pain Chronic pain type: chronic pain syndrome Qualified Code(s): G89.4 - Chronic pain syndrome
--- NOTE | 2019-01-29 12:41 | Hospitalist Progress Note ---
Date of Service January 29, 2019 Assessment & Plan (1) ACS (acute coronary syndrome): Present on admission with worsening Chest pain Troponin on admission mildly elevated 0.050, then trending down to normal ECG on admission nondiagnostic due to ventricular paced rhythm. Did not start on heparin drip since INR 3.2 today Cardiology on board Case discussed with Dr. Fung plan to start on heparin drip today Since INR is 3.2, will give VIt K then start on heparin drip No cardiac cath today since INR is 3.2 IV nitro drip changed to topical nitro Continue aspirin and metoprolol ECHO showed no significant change compared to previous echo. Severe concentric LVH with EF between 55 to 60%. Mild hypokinesis of the anterior apical wall Plan for cardiac cath possible tomorrow Will make NPO after midnight OK from cardio to transfer to tele Atrial fibrillation Rate control with metoprolol On coumadin with INR 3.2 today Will give vit K, then hold coumadin for cardiac cath tomorrow Will start on heparin drip Tachy-richard syndrome S/P Pacemaker Stable MILAGROS Creatinine on admission 1.3, improved to 0.8 today Continue monitor BMP DVT px on heparin drip CODE STATUS FULL CODE Dispostion Transfer to Tele Subjective Pt was seen and examined Lying in bed with no distress Pt said that chest pain resolved after starting the nitro drip He said that he feels much better now Currently denies any chest pain, palpitation, dizziness and SOB Physical Exam Physical Exam: General- No acute distress Head- atraumatic Eyes- PERRL, EOMI, ENT- oropharynx clear Neck- supple, no JVD Lungs- clear to auscultation Heart- regular rhythm; no murmur Abdomen- normal bowel sounds, soft, nontender Extremities- no calf tenderness Neuro- alert, oriented x 3; PERRL, EOMI; no facial palsy; no dysarthria Skin- warm & dry Results & Data Vital Signs (Past 12 Hours) Vital Signs Temp Pulse Pulse Resp BP BP Pulse Ox 01/29/19 11:14 55 L 19 137/63 95 01/29/19 10:01 36.5 C 59 L 12 147/69 H 96 01/29/19 09:31 56 L 5 L 141/67 H 93 01/29/19 09:03 55 L 21 135/65 97 01/29/19 08:33 55 L 12 136/80 97 01/29/19 08:01 55 L 14 169/86 H 95 01/29/19 07:25 55 L 13 96 01/29/19 07:20 56 L 12 95 01/29/19 07:15 67 19 95 01/29/19 07:10 57 L 15 96 01/29/19 07:05 55 L 15 93 01/29/19 07:00 36.5 C 55 L 16 145/83 H 95 01/29/19 06:00 57 L 18 119/51 L 94 01/29/19 05:00 57 L 18 110/47 L 94 01/29/19 04:00 36.7 C 56 L 16 116/62 94 01/29/19 03:00 59 L 16 119/66 96 01/29/19 02:00 55 L 16 110/55 L 96 01/29/19 01:00 57 L 16 115/57 L 95
[2019-01-29 16:28] LABS: Partial Thromboplastin Ratio 1.9
[2019-01-29 16:30] LABS: Partial Thromboplastin Time 51.7 Seconds (21.0-31.0)
[2019-01-30] MEDS: HEPARIN SODIUM/DEXTROSE 25,000 UNITS/500 ML BAG IV SCH (02:51)
[2019-01-30] MEDS: NITROGLYCERIN 2% OINTMENT 30GM TUBE EXT SCH ×4 (03:24→20:34)
[2019-01-30 07:19] LABS: Partial Thromboplastin Ratio 1.9
[2019-01-30] MEDS: INSULIN ASPART 100 UNITS/ML 3 ML PEN SC SCH ×4 (07:22→20:33)
[2019-01-30 07:29] LABS: Partial Thromboplastin Time 52.1 Seconds (21.0-31.0)
[2019-01-30 08:13] LABS: INR 1.5 (0.9-1.1); Prothrombin Time 14.7 Seconds (9.0-12.0)
[2019-01-30 08:49] LABS: Basophils # (auto) 0.02 K/uL (0-0.2); Basophils % (auto) 0.2 %; Eosinophils # (auto) 0.11 K/uL (0-0.5); Eosinophils % (auto) 1.2 %; Hematocrit (blood only) 41.7 % (42-52); Hemoglobin 13.4 g/dL (14.0-18.0); Immature Granulocytes # (auto) 0.03 K/uL (0.00-0.02); Immature Granulocytes % (auto) 0.3 %; Lymphocytes # (auto) 1.43 K/uL (1.2-3.4); Lymphocytes % (auto) 15.9 %; Mean Corpuscular Hgb Conc 32.1 g/dL (32-36); Mean Corpuscular Volume 84.9 fL (80-100); Mean Platelet Volume 9.8 fL (7.4-10.4); Monocytes # (auto) 0.84 K/uL (0.11-0.59); Monocytes % (auto) 9.3 %; Neutrophils # (auto) 6.59 K/uL (1.4-6.5); Neutrophils % (auto) 73.1 %; Platelet Count 190 K/uL (130-400); RDW Coefficient of Variation 15.7 % (11.5-14.5); Red Blood Count 4.91 M/uL (4.7-6.1); White Blood Count 9.02 K/uL (4.8-10.8)
[2019-01-30 08:57] LABS: Albumin Level 3.1 gm/dl (3.4-5.0); BUN Creatinine Ratio 15.8 (10-20); Calcium 8.3 mg/dl (8.5-10.1); Creatinine Clr Calc Pharmacy 100.9 ml/min; Est GFR (African American) 104.9; Est GFR (Non-African American) 90.5; Potassium 4.1 mmol/L (3.5-5.1)
[2019-01-30] MEDS: IRBESARTAN 150 MG TAB PO SCH ×2 (09:03→10:45)
[2019-01-30] MEDS: AMLODIPINE BESYLATE 5 MG TAB PO SCH ×2 (09:03→10:46)
[2019-01-30] MEDS: ASPIRIN 81 MG ECTAB PO SCH ×2 (09:03→10:46)
[2019-01-30] MEDS: NICOTINE 7 MG/24 HR TDSY TD SCH ×2 (09:03→10:46)
[2019-01-30] MEDS: TAMSULOSIN HCL 0.4 MG CAP PO SCH ×3 (09:03→20:30)
[2019-01-30 09:04] LABS: Bilirubin,Total 0.7 mg/dl (0.2-1); Globulin 3.1 gm/dl (2.5-4.0); Total Protein 6.2 gm/dl (6.4-8.2)
[2019-01-30] MEDS: METOPROLOL SUCC 25MG EXT REL TAB PO SCH (09:04)
[2019-01-30] MEDS ORDERED: MIDAZOLAM HCL 1 MG/ML 2ML VIAL ONE ×2 (09:05→09:48)
[2019-01-30] MEDS ORDERED: fentaNYL citrate 100 MCG/2 ML VIAL ONE ×2 (09:31→09:38)
--- NOTE | 2019-01-30 10:36 | Cardiac Catheterization ---
Date of Service January 30, 2019 Cardiac Cath Report Cardiac Cath Report Procedure: 1. Coronary angiography including bypass grafts History: This is a 73-year-old male patient who has a history of gastric bypass surgery and chronic pain due to multiple back surgeries and osteoarthritis. Approximately 2 years ago he presented with chest pain at an outside hospital and received thrombolytics before being transferred to this hospital. At that time he underwent a cardiac catheterization that revealed all his previous bypass grafts to be open and he was treated medically. He presented again with severe crushing chest discomfort and was admitted to this hospital where he has had a very slight elevation in his cardiac troponins. Procedure summary: After informed consent was obtained the patient was taken to cardiac catheterization lab where he was prepped and draped for a right transfemoral approach. The patient has chronic low back pain and the procedure was limited by his pain. He was given analgesia during the procedure which only helped minimally. Preformed 5 Upper [place] diagnostic catheters were utilized for the coronary angiograms including the bypass grafts and STOKES. Following the procedure the patient had the arterial site closed with a minx device and then was returned to his room in stable condition. ACC data: AUC score 8 Start time 9:47 AM End time 10:18 AM Opening aortic pressure 159/63 Left ventricular pressurevalve not crossed Closing aortic pressure 148/71 Sedation 2 mg Versed and 100 mcg of fentanyl intravenously IV fluid 72 cc normal saline Contrast 130 cc Optiray Fluoroscopy time 11 minutes and 6 seconds Radiation 3001 mGy DAP 21,767/m Right dominant system Coronary angiography: Selective injections in the [place] left coronary artery reveals the left main trunk to be patent. The LAD is occluded in its proximal segment. The left circumflex artery is diffusely diseased. There is a high ramus branch from the left circumflex artery which is functionally occluded. Selective injections of the right coronary artery revealed to be diffusely diseased with the PDA being occluded. Selective injections of the saphenous vein graft to the PDA revealed to be patent with diffuse disease of the [place] PDA itself. Selective injections of the saphenous vein graft sequentially to the 2 marginal branches is patent. Selective injections to the ANITA graft to the LAD revealed to be patent. The procedure was technically limited due the patient's ongoing severe back discomfort. Summary: The patient's coronary anatomy is unchanged from the previous study 2 years ago. Although the coronary angiography was limited because the patient's ongoing back discomfort, all his bypass grafts were patent as they were previously. He has diffuse [place] coronary disease which is unchanged. LV gram was not performed. Recommendations: Continued medical treatment for the patient's coronary artery disease.
[2019-01-30] MEDS: MoRPHine SULFATE 4 MG/ML 1 ML CARP\\VIAL IV PRN ×4 (10:39→22:44)
[2019-01-30] MEDS: SODIUM CHLORIDE 0.9% 1000ML 1,000 ML IV SCH ×2 (10:57→22:44)
[2019-01-30] MEDS ORDERED: HYDROmorphone INJ 0.5 MG/0.5 ML SYR IV STA (11:38)
--- NOTE | 2019-01-30 13:29 | Gastrointestinal Consultation ---
Date of Consultation January 30, 2019 Assessment & Plan (1) Gastric bypass status for obesity: (2) Chest pain, precordial: Pt is a 73 y/o male currently evaluated for non cardiac cause of chest pain. Hx of CAD s/p CABG x 4, Afib on Coumadin & hx of pacemaker placement. He had mild Troponin elevation and PVCs on EKG during admission, repeat cardiac cath essentially unchanged from 2 yrs ago, grafts patent. He had also hx of gastric bypass in 2005, chronic gastritis and GJ anastomosis stenosis related to suture but resolved once suture removed. Denies NSAIDs, ETOH but chews tobacco. Not on PPI - Discussed w pt about possible ongoing gastritis, or PUD which may cause CP symptoms. Offered EGD eval which he is agreeable to. Will discuss w Dr. Obando on timing of EGD - Start Protonix 40mg daily - Advised him to quit tobacco uses. Attg add: I ninterviewed and examined pt, reviewed chart and labs. Pt with chest pain s/p neg cards eval. Plan for outpt EGD. History of Present Illness Reason for Consultation: Chest pain, hx of gastric bypass Requesting Physician: Dr. Sea Fung Attending Physician: Dr. Holly Obando History of Present Illness Pt is a 73 y/o male w PMHx of CAD s/p CABG x 4, Afib on Coumadin, RICHY hx of seizure, DM II, s/p pacemaker placement, cholecystectomy, appendectomy, tonsillectomy & adenoidectomy, gastric bypass in 2005. He was admitted 2 days ago w c/o L sided chest pain. Reported that he was sitting, talking w family when he suddenly felt L sided chest pain that's sharp and almost have difficulty breathing. Denies radiation of pain. Did have associated mild nausea but no vomiting. He went to ED as he's worried he may be having an SC. Upon evaluation, did have mild Troponin elevation, EKG initially w PVCs. He had repeat cardiac cath today which showed unchanged coronary anatomy compared to 2 yrs ago, grafts are patent. GI consulted to evaluate pt for non cardiac cause of chest pain Pt reports chest pain has now resolved. He is seen laying down, eating a burger. He has hx of gastric bypass in 2005. Noted to have chronic gastritis on EGD evals in 2014, 2016. Found to have GJ anastomotic stenosis due to a suture in place, once removed stenosis resolved. No Hpylori. He denies using PPI at home. Denies ETOH, but chews tobacco. Denies any NSAIDs. He denies any symptoms of GI upset, dysphagia, odynophagia, bowel habit changes. Allergies Allergy/AdvReac Type Severity Reaction Status Date / Time bee venom protein (honey bee) Allergy Severe ANAPHYLAXIS Verified 01/28/19 18:00 Penicillins Allergy Intermediate HIVES Verified 01/28/19 18:00 Sulfa (Sulfonamide Allergy Intermediate HIVES Verified 01/28/19 18:00 Antibiotics) gentamicin Allergy Unknown UNKNOWN Verified 01/28/19 18:00 Home Medications Home Medications Medication Instructions Recorded Confirmed Type amlodipine 5 mg PO DAILY 01/28/19 01/28/19 History aspirin [Aspirin Low Dose] 81 mg PO DAILY 01/28/19 01/28/19 History buspirone 5 mg PO BID 01/28/19 01/28/19 History cyanocobalamin (vitamin B-12) 1,000 mcg SUBCUT DIRECTED 01/28/19 01/28/19 History furosemide 40 mg PO DAILY PRN 01/28/19 01/28/19 History irbesartan 300 mg PO DAILY 01/28/19 01/28/19 History metoprolol succinate 12.5 mg PO DAILY 01/28/19 01/28/19 History tamsulosin 0.4 mg PO BID 01/28/19 01/28/19 History testosterone cypionate 0 mg SUBCUT DIRECTED 01/28/19 01/28/19 History warfarin 0 mg PO DAILY 01/28/19 01/28/19 History Patient History Medical History CAD (coronary artery disease) (Chronic) Atrial fibrillation (Chronic) RICHY (obstructive sleep apnea) (Chronic) Seizure (Chronic) Tachy-richard syndrome (Chronic) Pacemaker (Chronic) Chronic pain (Chronic) Diabetes mellitus type 2, controlled (Chronic) "diet-controlled after gastric bypass" Surgical History S/P insertion of intrathecal pump (Chronic) S/P CABG x 4 (Chronic) S/P cholecystectomy (Chronic) History of appendectomy (Chronic) History of tonsillectomy and adenoidectomy (Chronic) Family History Other Cancer Diabetes Heart disease Hypertension Kidney disease Social History Preferred Language: Khmer Communication Ability: Effective Beliefs That Will Affect Care: None Current Living Situation: Spouse Other Information That Helps Us Care for You: No Feels Safe at Home: Yes Safety Concerns: Feels Safe At This Time Smoking Status: Former smoker Tobacco Type: smokeless tobacco ; Do You Dip or Chew Tobacco: Yes ; Tobacco Cessation Education Requested by Patient: No Hx Alcohol Use: No Hx Substance Use: No Review of Systems Review of Systems: All systems reviewed & are unremarkable except as noted in HPI & below Back pain due to laying for long time during cardiac cath Physical Exam Constitutional: WD/WN, vitals as above well groomed, cooperative and comfortable Eyes: PERRL, conjunctivae normal, anicteric sclerae ENMT: external ear and nose normal, oropharynx normal Respiratory: normal respiratory effort, lungs clear to auscultation Cardiovascular: RRR, no murmur, no edema Gastrointestinal (Abdomen): normal bowel sounds, soft, nontender, no hepatosplenomegaly Skin: no rashes, warm and dry no jaundice Neurologic: Motor/Sensory: no asterixis Psychiatric: A+Ox3, euthymic affect Lymphatic: no lymphedema Results & Data Vital Signs (Past 12 Hours) Vital Signs Temp Pulse Resp BP Pulse Ox 01/30/19 12:30 63 17 137/70 97 01/30/19 12:00 63 18 138/79 100 01/30/19 11:45 61 17 145/78 H 99 01/30/19 11:30 55 L 18 160/76 H 94 01/30/19 11:15 57 L 16 150/83 H 96 01/30/19 11:00 57 L 18 180/89 H 99 01/30/19 10:45 37.1 C 61 20 167/81 H 100 01/30/19 06:49 36.9 C 58 L 17 145/77 H 96 01/30/19 03:16 36.8 C 54 L 19 123/68 96
[2019-01-30] MEDS: PANTOprazole 40 MG TAB PO SCH (14:21)
--- NOTE | 2019-01-30 19:24 | Hospitalist Progress Note ---
Date of Service January 30, 2019 Assessment & Plan (1) ACS (acute coronary syndrome): Present on admission with worsening Chest pain Troponin on admission mildly elevated 0.050, then trending down to normal ECG on admission nondiagnostic due to ventricular paced rhythm. Did not start on heparin drip since INR 3.2 today Cardiology on board S/p cardiac cath today showed diffuse [place] coronary disease which is unchanged when compared to cardiac cath back in 2017 Heparin drip was d/c by acrdiology INR 1.5 today Continue topical nitro Continue aspirin and metoprolol ECHO showed no significant change compared to previous echo. Severe concentric LVH with EF between 55 to 60%. Mild hypokinesis of the anterior apical wall GI consulted for non GI related chest pain Starting on protonix 40mg Plan for outpatient EGD Continue monitor in tele Atrial fibrillation Rate control with metoprolol On coumadin with INR 1.5 (received Vit K yesterday for the cardiac cath Heparin drip discontinued will resumed coumadin Tachy-richard syndrome S/P Pacemaker Stable MILAGROS Creatinine on admission 1.3, improved to 0.7 today Continue monitor BMP DVT px D/c heparin drip Coumadin Will start on subq heparin CODE STATUS FULL CODE Disposition Continue monitor in Tele Subjective Pt was seen and examined Lying in bed complaint of pain Pt said that he lied down for too long during the cardiac cath He said that he does not have any chest pain, currently . Physical Exam Physical Exam: General- No acute distress Head- atraumatic Eyes- PERRL, EOMI, ENT- oropharynx clear Neck- supple, no JVD Lungs- clear to auscultation Heart- regular rhythm; no murmur Abdomen- normal bowel sounds, soft, nontender Extremities- no calf tenderness, no hematoma right groin, +tenderness in right groin Neuro- alert, oriented x 3; PERRL, EOMI; no facial palsy; no dysarthria Skin- warm & dry Results & Data Vital Signs (Past 12 Hours) Vital Signs Temp Pulse Resp BP Pulse Ox 01/30/19 18:59 36.9 C 69 18 146/72 H 96 01/30/19 16:00 37 C 57 L 20 110/66 96 01/30/19 14:30 54 L 17 123/53 L 96 01/30/19 13:30 54 L 19 122/53 L 94 01/30/19 12:30 63 17 137/70 97 01/30/19 12:00 63 18 138/79 100 01/30/19 11:45 61 17 145/78 H 99 01/30/19 11:30 55 L 18 160/76 H 94 01/30/19 11:15 57 L 16 150/83 H 96 01/30/19 11:00 57 L 18 180/89 H 99 01/30/19 10:45 37.1 C 61 20 167/81 H 100
[2019-01-30] MEDS ORDERED: WARFARIN SOD 5 MG TAB PO SCH (19:55)
[2019-01-30] MEDS: HEPARIN SOD 5,000 UNIT/0.5 ML VIAL SQ SCH (20:31)
[2019-01-31] MEDS ORDERED: Nursing to Pharmacy Communication ONE (00:06)
[2019-01-31] MEDS: MoRPHine SULFATE 4 MG/ML 1 ML CARP\\VIAL IV PRN (04:07)
[2019-01-31] MEDS: NITROGLYCERIN 2% OINTMENT 30GM TUBE EXT SCH (04:17)
[2019-01-31] MEDS ORDERED: INSULIN ASPART 100 UNITS/ML 3 ML PEN SC SCH (06:00)
[2019-01-31] MEDS: HEPARIN SOD 5,000 UNIT/0.5 ML VIAL SQ SCH (06:50)
[2019-01-31] MEDS: NICOTINE 7 MG/24 HR TDSY TD SCH (08:26)
[2019-01-31] MEDS: IRBESARTAN 150 MG TAB PO SCH (08:27)
[2019-01-31] MEDS: AMLODIPINE BESYLATE 5 MG TAB PO SCH (08:27)
[2019-01-31] MEDS: ASPIRIN 81 MG ECTAB PO SCH (08:27)
[2019-01-31] MEDS: TRAMADOL HCL 50 MG TABLET PO PRN ×2 (08:27→17:26)
[2019-01-31] MEDS: METOPROLOL SUCC 25MG EXT REL TAB PO SCH (08:28)
[2019-01-31] MEDS: PANTOprazole 40 MG TAB PO SCH (08:28)
[2019-01-31 09:09] LABS: INR 1.2 (0.9-1.1); Prothrombin Time 11.9 Seconds (9.0-12.0)
[2019-01-31] MEDS ORDERED: POLYETHYLENE (MIRALAX) 17 GM PACK PO PRN (09:11)
[2019-01-31 09:29] LABS: BUN Creatinine Ratio 16.6 (10-20); Calcium 7.7 mg/dl (8.5-10.1); Creatinine Clr Calc Pharmacy 96.9 ml/min; Est GFR (African American) 103.2; Est GFR (Non-African American) 89.1
--- NOTE | 2019-01-31 09:58 | Cardiology Progress Note ---
Date of Service January 31, 2019 Assessment & Plan (1) CAD (coronary artery disease): cardiac cath demonstrated patent bypass grafts chest pain secondary to chronic stable angina already on metoprolol and amlodipine will add imdur pathophysiology of chronic stable angina reviewed, pt verbalizes understanding would like to ambulate patient and if remains pain free would d/c home on current medical regimen, pt in agreement with this plan (2) Atrial fibrillation: rates controlled INR at 1.6 today, did receive vitamin k prior to cath would recommend Lovenox bridge with discharge if patient agreeable otherwise, f/u with [facility] clinic as outpatient cont metoprolol (3) Chronic pain: Subjective Pt seen and examined, states that he feels well except for chronic back pain. No recurrence of chest pain. Denies sob, palpitations, lightheadedness or dizziness. tele reviewed: v-paced rhythm Review of Systems Review of Systems: All systems reviewed & are unremarkable except as noted in HPI & below Physical Exam Physical Exam: General: Awake, alert and oriented x 3. No acute distress. HEENT: Normocephalic, atraumatic. Pupils equal, round and reactive to light and accommodation. Extraocular muscles are intact. Anicteric sclera. Moist mucous membranes. Neck: No JVD. No bruit. Cardiovascular: Regular. Positive S-4. Normal S-1 and S-2. No S-3. 3/6 mid to late systolic ejection murmur, greatest at the right sternal border, second intercostal space with radiation to the bilateral carotids. No rubs. Pulmonary: Clear to auscultation bilaterally. No rales, rhonchi, or wheezing. Abdomen: Bowel sounds x 4, soft. No rebound, guarding or tenderness. No organomegaly. Extremities: No clubbing, cyanosis or edema. +2 pedal pulses bilaterally. Skin: Warm and dry. Results & Data Vital Signs (Past 12 Hours) Vital Signs Temp Pulse Pulse Resp BP BP Pulse Ox 01/31/19 08:00 55 L 01/31/19 07:43 36.7 C 55 L 17 159/60 H 96 01/31/19 04:19 36.9 C 58 L 18 134/75 96 01/30/19 22:52 36.7 C 58 L 21 122/64 94 (1) Chronic pain Chronic pain type: chronic pain syndrome Qualified Code(s): G89.4 - Chronic pain syndrome
[2019-01-31] MEDS ORDERED: BISACODYL 10 MG SUPP PR STA (10:00)
[2019-01-31] MEDS ORDERED: HYDROmorphone INJ 0.5 MG/0.5 ML SYR IV SCH (10:00)
[2019-01-31] MEDS: TAMSULOSIN HCL 0.4 MG CAP PO SCH (10:09)
[2019-01-31] MEDS ORDERED: ISOSORBIDE MONO EXTENDED REL 30 MG TABCR PO SCH (10:30)
[2019-01-31] MEDS ORDERED: SOD PHOSPHATE/SOD BIPHOSPHATE ENEMA 132 ML BTL PR STA (11:55)
[2019-01-31] MEDS: INSULIN ASPART 100 UNITS/ML 3 ML PEN SC SCH ×2 (12:28→17:04)
[2019-01-31] MEDS ORDERED: ENOXAPARIN 100 MG/1ML SYR SQ ONE (13:00)
--- NOTE | 2019-01-31 14:04 | Hospitalist Progress Note ---
Date of Service January 31, 2019 Assessment & Plan (1) ACS (acute coronary syndrome): Present on admission with worsening Chest pain Troponin on admission mildly elevated 0.050, then trending down to normal ECG on admission nondiagnostic due to ventricular paced rhythm. Cardiology on board -appreciate input and recommendation S/p cardiac cath today showed diffuse [place] coronary disease which is unchanged when compared to cardiac cath back in 2017 Continue topical nitro Continue aspirin and metoprolol ECHO showed no significant change compared to previous echo. Severe concentric LVH with EF between 55 to 60%. Mild hypokinesis of the anterior apical wall GI consulted for non GI related chest pain-appreciate input and recommendation Starting on protonix 40mg Plan for outpatient EGD Remains free of any chest pain Likely be discharged today if the back pain is controlled Atrial fibrillation Rate control with metoprolol On coumadin with INR 1.5 (received Vit K yesterday for the cardiac cath Heparin drip discontinued INR is 1.2 today Lovenox subcu started as the patient likely be discharged this afternoon Tachy-richard syndrome S/P Pacemaker Stable MILAGROS Creatinine on admission 1.3, improved to 0.7 today Continue monitor BMP No increasing creatinine remains stable and normal DVT px D/c heparin drip Coumadin Lovenox subcu started from 01/31 CODE STATUS FULL CODE Disposition Likely to be discharged this afternoon provided PT is completed Subjective 01/31 The patient was seen and examined in telemetry unit He is a status post cardiac cath on 01/30 which showed patent bypass grafts Denies any more chest pain but complains to have back pain with radiation to left leg Likely secondary to positioning that required during cardiac cath He was reassured and was given some intravenous pain medications He will get PT and OT evaluation before discharge home today if possible Review of Systems Review of Systems: All systems reviewed and are unremarkable except as noted below Constitutional: + weakness Respiratory: no cough and no dyspnea Cardiovascular: no chest pain Musculoskeletal: Complains back pain with radiation to left leg Physical Exam Constitutional: WD/WN, vitals as above well groomed, cooperative and comfo rtable Eyes: PERRL, conjunctivae normal, anicteric sclerae + anicteric sclerae and EOM intact bilaterally ENMT: external ear and nose normal, oropharynx normal Neck: normal visual inspection and trachea midline Respiratory: normal respiratory effort, lungs clear to auscultation no respiratory distress and does not use accessory muscles Auscultation: lungs clear to auscultation bilaterally Cardiovascular: RRR, no murmur, no edema Rate/Rhythm: regular rate and regular rhythm Heart Sounds: + murmur (systolic best heard) Gastrointestinal (Abdomen): normal bowel sounds, soft, nontender, no hepatosplenomegaly Skin: no rashes, warm and dry no jaundice Neurologic: Motor/Sensory: no asterixis Psychiatric: A+Ox3, euthymic affect Lymphatic: no lymphedema Results & Data Vital Signs (Past 12 Hours) Vital Signs Temp Pulse Pulse Resp BP BP Pulse Ox 01/31/19 11:07 36.8 C 58 L 18 134/71 96 01/31/19 08:00 55 L 01/31/19 07:43 36.7 C 55 L 17 159/60 H 96 01/31/19 04:19 36.9 C 58 L 18 134/75 96 Laboratory Results BMP 01/31/19 08:38 Sodium 141 Potassium 4.0 Chloride 109 H Carbon Dioxide 31 BUN 13 Creatinine 0.79 Glucose 105 H Calcium 7.7 L Medications Administered Current Inpatient Medications Amlodipine Besylate (Norvasc) 5 mg PO DAILY ASAEL Stop: 02/28/19 08:59 Last Admin: 01/31/19 08:27 Dose: 5 mg Documented by: Aspirin (Ecotrin Ectab) 81 mg PO DAILY ASAEL Stop: 02/28/19 08:59 Last Admin: 01/31/19 08:27 Dose: 81 mg Documented by: Buspirone HCl (Buspar) 5 mg PO BID ASAEL Stop: 02/28/19 08:59 Last Admin: 01/31/19 08:28 Dose: 5 mg Documented by: Dextrose (Dextrose 50%) 25 - 50 ml IV UD PRN; Protocol PRN Reason: Hypoglycemia Protocol Stop: 02/28/19 01:03 Enoxaparin Sodium (Lovenox) 100 mg SQ Q12H ASAEL Stop: 03/02/19 21:59 Glucagon (Glucagen) 1 mg SQ UD PRN; Protocol PRN Reason: Hypoglycemia Protocol Stop: 02/28/19 01:03 Glucose (Glucose 40%) 15 - 30 gm PO UD PRN; Protocol PRN Reason: Hypoglycemia Protocol Stop: 02/28/19 01:03 Glucose (Dex4 Glucose) 4 - 8 tabs PO UD PRN; Protocol PRN Reason: Hypoglycemia Protocol Stop: 02/28/19 01:03 Hydromorphone HCl (Dilaudid) 0.5 mg IV 1000 [facility] Stop: 01/31/19 16:00 Last Admin: 01/31/19 10:22 Dose: 0.5 mg Documented by: Promethazine HCl 12.5 mg/ (Sodium Chloride) 50.5 mls @ 202 mls/hr IV Q6H PRN PRN Reason: Nausea And Vomiting Stop: 02/27/19 23:19 Insulin Aspart (Novolog Flexpen) 0 units SC [facility] Stop: 03/02/19 11:29 Last Admin: 01/31/19 12:28 Dose: 3 units Documented by: Irbesartan (Avapro) 300 mg PO DAILY [facility] Stop: 02/28/19 08:59 Last Admin: 01/31/19 08:27 Dose: 300 mg Documented by: Isosorbide Mononitrate ([facility]ur Extended Rel) [facility]: 03/02/19 10:29 Last Admin: 01/31/19 10:41 Dose: 30 mg Documented by: Metoprolol Succinate (Toprol Xl) 12.5 mg PO DAILY [facility] Stop: 02/28/19 06:29 Last Admin: 01/31/19 08:28 Dose: 12.5 mg Documented by: Miscellaneous (Remove Nicoderm Patch) 1 ea N/A HS [facility] Stop: 02/28/19 20:59 Last Admin: 01/30/19 20:30 Dose: 1 ea Documented by: Miscellaneous (Carbohydrates For Hypoglycemia) 15 - 30 gm PO UD PRN PRN Reason: Hypoglycemia Treatment Stop: 02/28/19 01:03 Morphine Sulfate (Morphine Sulfate) 4 mg IV Q4H PRN PRN Reason: Pain Stop: 02/11/19 23:19 Last Admin: 01/31/19 04:07 Dose: 4 mg Documented by: Nicotine ([facility]oderm Cq) [facility] [place]: 02/28/19 00:14 Last Admin: 01/31/19 08:26 Dose: 7 mg Documented by: Pantoprazole Sodium (Protonix) 40 mg PO QAM [facility] Stop: 03/01/19 13:59 Last Admin: 01/31/19 08:28 Dose: 40 mg Documented by: Polyethylene Glycol (Miralax Powder Packet) 17 gm PO DAILY PRN PRN Reason: Constipation Stop: 03/02/19 09:10 Last Admin: 01/31/19 10:11 Dose: 17 gm Documented by: Tamsulosin HCl (Flomax) 0.4 mg PO BID [facility] Stop: 02/27/19 23:19 Last Admin: 01/31/19 10:09 Dose: 0.4 mg Documented by: Tramadol HCl (Ultram) 25 - 50 mg PO Q4H PRN PRN Reason: Pain Stop: 02/27/19 23:19 Last Admin: 01/31/19 08:27 Dose: 50 mg Documented by: Warfarin Sodium (Coumadin) 5 mg PO DAILY@1600 [facility] Stop: 03/02/19 15:59 Warfarin Sodium (Coumadin) 2 mg PO DAILY@1600 [facility] Stop: 03/02/19 15:59
[2019-01-31] MEDS ORDERED: WARFARIN SOD 2 MG TAB PO SCH (16:00)
[2019-01-31] MEDS ORDERED: WARFARIN SOD 5 MG TAB PO SCH (16:00)
--- NOTE | 2019-01-31 16:51 | Discharge Summary ---
Date of Service January 31, 2019 Admission HPI Per Admitting Provider History obtained from patient and records. Medical history significant for CAD status post CABG, SSS sp PPM on Coumadin, hypertension, hyperlipidemia, DM 2 as per records, diet controlled, chronic back pain with intrathecal pain pump, RICHY as per records, history tobacco chewing, BPH as per records. hx gastric bypass. Recent confinement November 2017 for ambulatory dysfunction secondary to left lower extremity hematoma. Patient was at his daughter's home hours ago when he experience substernal discomfort described as tightness associated with diaphoreses. Some relief with nitroglycerin given by EMS. Patient compliant with home meds. Nitro drip initiated at the ER. 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 Admission Exam Per Admitting Provider Physical Exam: GENERAL: Comfortable, obese, no respiratory distress SKIN: Normal color, warm HEENT: Alopecia, [place] palpebral conjunctivae, no ptosis, dry buccal mucosa NECK : Supple, short neck, no tenderness CHEST : CTA, no tenderness HEART : RRR, no obvious murmurs ABDOMEN: Some distention, nontender EXTREMITIES : No LE swelling, no LE tenderness, no other conspicuous deformities noted NEUROLOGIC : Coherent, no facial asymmetry, no other gross focality Principal Diagnosis Acute coronary syndrome, chronic stable angina, atrial fibrillation and chronic back pain Discharge Exam Constitutional WD/WN, vitals as above well groomed, cooperative and comfortable Eyes PERRL, conjunctivae normal, anicteric sclerae + anicteric sclerae and EOM intact bilaterally ENMT external ear and nose normal, oropharynx normal Neck normal visual inspection and trachea midline Respiratory normal respiratory effort, lungs clear to auscultation no respiratory distress and does not use accessory muscles Auscultation: lungs clear to auscultation bilaterally Cardiovascular RRR, no murmur, no edema Rate/Rhythm: regular rate and regular rhythm Heart Sounds: + murmur (systolic best heard) Gastrointestinal (Abdomen) normal bowel sounds, soft, nontender, no hepatosplenomegaly Skin no rashes, warm and dry no jaundice Neurologic Motor/Sensory: no asterixis Psychiatric A+Ox3, euthymic affect Lymphatic no lymphedema Discharge Data Allergies Allergy/AdvReac Type Severity Reaction Status Date / Time bee venom protein (honey bee) Allergy Severe ANAPHYLAXIS Verified 01/28/19 18:00 Penicillins Allergy Intermediate HIVES Verified 01/28/19 18:00 Sulfa (Sulfonamide Allergy Intermediate HIVES Verified 01/28/19 18:00 Antibiotics) gentamicin Allergy Unknown UNKNOWN Verified 01/28/19 18:00 Consultations 01/28/19 21:29 ED Decision to Admit Stat 01/28/19 23:20 Consult Title Clerk Routine 01/30/19 10:46 Consult Gastroenterology Routine Procedures Performed Operation Date: 01/30/19 12:00 Actual Procedures p Cath, Cors with Grafts (no LV) - Sea Fung, DO s Cineradiography w/Routine Exam - Sea Fung, Ordered Studies 01/30/19 09:15 CL Cath Imgs for PACS use only Routine Hospital Course (1) ACS (acute coronary syndrome): Present on admission with worsening Chest pain Troponin on admission mildly elevated 0.050, then trending down to normal ECG on admission nondiagnostic due to ventricular paced rhythm. Cardiology on board -appreciate input and recommendation S/p cardiac cath today showed diffuse wiyot coronary disease which is unchanged when compared to cardiac cath back in 2017 Continue topical nitro Continue aspirin and metoprolol ECHO showed no significant change compared to previous echo. Severe concentric LVH with EF between 55 to 60%. Mild hypokinesis of the anterior apical wall GI consulted for non GI related chest pain-appreciate input and recommendation Starting on protonix 40mg Plan for outpatient EGD Remains free of any chest pain Likely be discharged today if the back pain is controlled Atrial fibrillation Rate control with metoprolol On coumadin with INR 1.5 (received Vit K yesterday for the cardiac cath Heparin drip discontinued INR is 1.2 today Lovenox subcu started as the patient likely be discharged this afternoon Tachy-richard syndrome S/P Pacemaker Stable MILAGROS Creatinine on admission 1.3, improved to 0.7 today Continue monitor BMP No increasing creatinine remains stable and normal DVT px D/c heparin drip Coumadin Lovenox subcu started from 01/31 CODE STATUS FULL CODE Disposition Likely to be discharged this afternoon provided PT is completed Total Time Total Time Spent Total Time Spent (In Minutes): 35 minutes Total Time Includes: Examination of the Patient, Discharge Planning, Medication Reconciliation and Communication With Other Providers Discharge Plan Discharge Items Patient Disposition: Home - Self-Care Reason For Visit: ACS Discharge Diagnosis: Acute coronary syndrome, chronic stable angina, atrial fibrillation and chronic back pain Condition: Good Discharge Goals: Decrease discomfort, Increase independence and Improve nutritional status Activity: Resume your previous activity Non-emergency contact: Primary Care Provider Call non-emergency contact if: you have any medication questions and your symptoms worsen Follow-up/Referrals: Shoaib Foote MD [Primary Care Provider] - (Please keep regular follow-up with your soil science professor and as per recommendation from your primary care provider) Diet: Heart Healthy Addtl Provider Instructions: New medications: M. Dur 30 mg once daily, nicotine patch 7 mg daily and Protonix 40 mg daily. Special medications: Lovenox 100 mg subcu twice daily with Coumadin as directed. INR has to be checked tomorrow and discontinue Lovenox when the INR is therapeutic. Tramadol was given for increasing pain at the back Tuesday for short-term. Please check INR tomorrow and make an appointment with your primary care provider within 1 week Prescriptions: New isosorbide mononitrate 30 mg Tablet Extended Release 24 Hr 30 mg PO QAM 30 Days Qty: 30 RF: 0 tramadol 50 mg Tablet 50 mg PO Q4H PRN (Reason: pain) 3 Days Qty: 10 RF: 0 pantoprazole 40 mg Tablet,Delayed Release (Dr/Ec) 40 mg PO QAM 30 Days Qty: 30 RF: 0 nicotine 7 mg/24 hr Patch 24 Hour 7 mg transdermal QAM 30 Days Qty: 30 RF: 0 enoxaparin 100 mg/mL Syringe 100 mg subcut Q12H 2 Days Qty: 4 RF: 0 Continued furosemide 40 mg tablet 40 mg PO DAILY PRN (Reason: Fluid Retention) RF: 0 buspirone 5 mg tablet 5 mg PO BID RF: 0 amlodipine 5 mg tablet 5 mg PO DAILY RF: 0 aspirin [Aspirin Low Dose] 81 mg Tablet,Delayed Release (Dr/Ec) 81 mg PO DAILY RF: 0 tamsulosin 0.4 mg capsule 0.4 mg PO BID RF: 0 cyanocobalamin (vitamin B-12) 1,000 mcg/mL Solution 1,000 mcg SUBCUT DIRECTED RF: 0 warfarin 5 mg tablet PO DAILY RF: 0 metoprolol succinate 25 mg tablet extended release 24 hr 12.5 mg PO DAILY RF: 0 testosterone cypionate 200 mg/mL oil subcut DIRECTED RF: 0 irbesartan 300 mg tablet 300 mg PO DAILY RF: 0 Stand-Alone Forms: Call Back Authorization, [facility]/Other Patient Handouts: Diabetes Type 2 Coping, Diabetes Meal Planning Discharge Orders: Discharge Order (Routine); Ordered 01/31/19 Ordered By: Elisabeth Perez Admission Data Admit Date/Time: 01/28/19 22:34 Attending Provider: Elisabeth Perez Admit Provider: Robbi Walton Primary Care Provider: Shoaib Foote Other Providers: Robbi Walton ; Brent Chu ; Paulo Mathew ; Zahraa Duong Service: Telemetry Other Interventions: Discharge Summary Assessment (RN) Last Done: 01/31/19 15:45
[2019-01-31] MEDS ORDERED: ENOXAPARIN 100 MG/1ML SYR SQ SCH (22:00)
== END 2019-01-31 17:49 | disposition home or self-care (01) | DRG 287 ==
LOC: ED 17:21 → SUATTDRO 22:34 → 1E 22:34 → 2S 01-29 13:18
PROC: CLB.CCG (2019-01-30 12:00)
DX: G47.33 Obstructive sleep apnea (adult) (pediatric); I10 Essential (primary) hypertension; Z79.899 Other long term (current) drug therapy; K29.70 Gastritis, unspecified, without bleeding; Z79.01 Long term (current) use of anticoagulants; N40.0 Benign prostatic hyperplasia without lower urinary tract symptoms; Z83.3 Family history of diabetes mellitus; Z91.030 Bee allergy status; Z98.84 Bariatric surgery status; I24.9 Acute ischemic heart disease, unspecified; I25.118 Atherosclerotic heart disease of native coronary artery with other forms of angina pectoris; I48.91 Unspecified atrial fibrillation; I49.5 Sick sinus syndrome; E11.9 Type 2 diabetes mellitus without complications; Z88.0 Allergy status to penicillin; M54.5 Low back pain; E78.5 Hyperlipidemia, unspecified; Z95.0 Presence of cardiac pacemaker; Z79.82 Long term (current) use of aspirin; F17.220 Nicotine dependence, chewing tobacco, uncomplicated; G89.29 Other chronic pain; Z88.1 Allergy status to other antibiotic agents; Z95.1 Presence of aortocoronary bypass graft; Z82.49 Family history of ischemic heart disease and other diseases of the circulatory system; Z88.2 Allergy status to sulfonamides

== ENCOUNTER 2019-04-25 07:43 | Inpatient (IN) ==
--- NOTE | 2019-03-23 08:28 | History & Physical Report ---
Date of Service March 23, 2019 Date of Surgery: 04-11-19 Assessment & Plan (1) Tricompartment osteoarthritis of right knee: Risks and benefits of procedure discussed in detail today, patient would like to proceed with a Right total knee replacement at [facility] as scheduled. will obtain Cardiac and Medical clearance prior to surgery as well as obtain PATs at [facility]. Will resume his home Coumadin dose post-op, will await recommendations re: Lovenox bridging from his PCP. He will f/u 2 weeks post op for routine post-operative care and x-ray, sooner if having any problems. will make arrangements for HHPT at the time of discharge. At this point in time, has failed conservative measures and would like to proceed with surgical intervention. History of Present Illness Chief Complaint: Right knee pain Primary Care Provider: Shoaib Foote MD Mr Malhotra is a 73 year old male who complains of right knee pain, presents for pre-op evaluation prior to a right total knee replacement at [facility]. He presents with pain and stiffness on the right side. He states that the symptoms have been chronic non-traumatic, and it occurs constantly with intermittent worsening. Currently the patient states that the symptoms are moderate-severe. The pain is described as aching, sharp and throbbing. The symptoms are aggravated by asc ending stairs, daily activities, descending stairs, first steps while awake and walking. Michael states that the symptoms are relieved by no specific activity. In addition to right knee pain the patient is also experiencing cracking, crepitus, decreased mobility, joint pain, instability, limping, loss of motion, pain after activity and stiffness. Pt. is on Coumadin therapy which limits his NSAID use. He has had Pt and ambulates with rolling walker. has had prior cortisone injection with no relief. Allergies Allergy/AdvReac Type Severity Reaction Status Date / Time bee venom protein (honey bee) Allergy Severe ANAPHYLAXIS Verified 03/14/19 14:09 gentamicin Allergy Unknown PT NOT Verified 03/14/19 14:09 SURE, REPORTS ? HIVES Penicillins Allergy Unknown HIVES Verified 03/14/19 14:09 Sulfa (Sulfonamide Allergy Unknown HIVES Verified 03/14/19 14:09 Antibiotics) Home Medications Home Medications Medication Instructions Recorded Confirmed Type amlodipine 5 mg PO QAM 01/28/19 03/14/19 History aspirin [Aspirin Low Dose] 81 mg PO DAILY 01/28/19 03/14/19 History buspirone 5 mg PO QAM 01/28/19 03/14/19 History cyanocobalamin (vitamin B-12) 1,000 mcg SUBCUT DIRECTED 01/28/19 03/14/19 History furosemide 40 mg PO QAM 01/28/19 03/14/19 History irbesartan 300 mg PO QAM 01/28/19 03/14/19 History metoprolol succinate 12.5 mg PO QAM 01/28/19 03/14/19 History tamsulosin 0.4 mg PO BID 01/28/19 03/14/19 History testosterone cypionate 0 mg SUBCUT DIRECTED 01/28/19 03/14/19 History All Natural Deeep Penetrating Cream 1 dose TOPICAL UD PRN 03/14/19 03/14/19 History Intrathecal Pain Pump 1 dose UD 03/14/19 03/14/19 History morphine 15 mg PO UD PRN 03/14/19 03/14/19 History warfarin 6 mg PO 3XWK 03/14/19 03/14/19 History warfarin 7 mg PO 4XWK 03/14/19 03/14/19 History Past Med/Surg History Medical History Atrial fibrillation (Chronic) ? DATE DX, CARDIOVERSION X 1 CAD (coronary artery disease) (Chronic) Chronic pain (Chronic) Diabetes mellitus type 2, controlled (Chronic) "diet-controlled after gastric bypass" RICHY (obstructive sleep apnea) (Chronic) TOLD HAD SLEEP APNEA BEFORE GASTRIC BYPASS SURGERY, DENIES CURRENT PROBLEMS WITH, NO CURRENT MACHINE Pacemaker (Chronic) LAST CHECK 1-2 WEEKS AGO Seizure (Chronic) HX OF A KID, NONE SINCE CHILDHOOD History of angina MOST RECENT 60 DAYS AGO...CATH History of kidney stones X1 Osteoarthritis Surgical History History of appendectomy (Chronic) History of tonsillectomy and adenoidectomy (Chronic) S/P insertion of intrathecal pump (Chronic) History of back surgery X8 HARDWARE IN History of cardiac cath X3 TOTAL FOR ANGINA ([facility]) - MOST RECENT 60 DAYS AGO - NO STENTS History of cholecystectomy History of colonoscopy History of gastric bypass History of quadruple bypass 1999 History of urologic surgery REMOVAL OF KIDNEY STONE Family History Mother Diabetes Grandmother Diabetes Other Cancer Family history of colon cancer in mother Heart disease Hypertension Kidney disease Social History Preferred Language: French Communication Ability: Effective 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 Required: No Beliefs That Will Affect Care: None Current Living Situation: Spouse Other Information That Helps Us Care for You: No Feels Safe at Home: Yes Smoking Status: Former smoker Tobacco Type: smokeless tobacco ; Do You Dip or Chew Tobacco: Yes (1 CAN PER DAY/ADVISED NPO) ; Smoking End Date: AGE 11- ; Tobacco Cessation Education Requested by Patient: No Hx Alcohol Use: No Hx Substance Use: No Review of Systems Review of Systems: All systems reviewed & are unremarkable except as noted in HPI & below Constitutional: no fever, no chills and no sweats Respiratory: no cough and no dyspnea Cardiovascular: no chest pain, no dyspnea and no orthopnea Gastrointestinal: no abdominal pain, no nausea and no vomiting Musculoskeletal: as per Subjective / HPI Physical Exam Physical Exam: Ht: 5ft 6in Wt: 110 kg BP: 150/80 Pulse: 72 Constitutional: WD/WN, vitals as above no acute distress Respiratory: normal respiratory effort, lungs clear to auscultation no respiratory distress, no labored breathing and does not use accessory muscles Cardiovascular: RRR, no murmur, no edema Gastrointestinal (Abdomen): normal bowel sounds, soft, nontender, no hepatosplenomegaly Musculoskeletal: Right Knee Physical Exam he is ambulating with a limp, there is no erythema, warmth, ecchymosis or atrophy noted, no signs of infection. +1 effusion, greatest tenderness over the medial joint line and anterior knee joint. negative patellar apprehension , mild crepitation with motion, jania's negative, posterior drawer negative. positive mcmurrays medially, negative anterior drawer, knee stable with valgus/varus stress. no extensor lag. pain with active range of motion, AROM 0/3/110, Passive ROM 0/3/115. No pain with active/passive ROM of ankle. Lower Extremity Strength normal. Lower Extremity Neuro-vascular is normal Results & Data Diagnostic Findings right knee x-ray from 02/16/19 showing tricompartmental degenerative changes, showing osteophyte formation and joint space narrowing, subchondral sclerosis. there are no loose bodies, no acute bony pathology. overall impression tricompartmental degenerative changes to the right knee.
--- NOTE | 2019-03-23 13:05 | Anesthesiology Consultation ---
Date of Service March 23, 2019 Assessment & Plan (1) Encounter for pre-operative examination: Chart Review Chart Review: Pending: Refer to Additional Notes / Consult section (awaiting preop testing results) "Patient has no absolute contraindications to surgery, though surgical procedure would be at high risk given underlying multiple morbidities all currently managed. Discussed this in detail with patient and patient's son. No additional testing or change in medical therapies warranted to change operative risk." per cardiology 03/08/19 Pt advised to be in telemetry postop per cardiology. History Surgery Operation Date: 04/11/19 07:00 Proposed Procedures p Right Total Knee Arthroplasty - Jethro Olson DO Height/Weight Height: 5 ft 6.5 in Weight: 114.8 kg Allergies Allergy/AdvReac Type Severity Reaction Status Date / Time bee venom protein (honey bee) Allergy Severe ANAPHYLAXIS Verified 03/14/19 14:09 gentamicin Allergy Unknown PT NOT Verified 03/14/19 14:09 SURE, REPORTS ? HIVES Penicillins Allergy Unknown HIVES Verified 03/14/19 14:09 Sulfa (Sulfonamide Allergy Unknown HIVES Verified 03/14/19 14:09 Antibiotics) Medications Home Medications Medication Instructions Recorded Confirmed Last Taken amlodipine 5 mg PO QAM 01/28/19 03/14/19 03/14/19 aspirin [Aspirin Low Dose] 81 mg PO DAILY 01/28/19 03/14/19 Unknown buspirone 5 mg PO QAM 01/28/19 03/14/19 03/14/19 cyanocobalamin (vitamin B-12) 1,000 mcg SUBCUT DIRECTED 01/28/19 03/14/19 Unknown furosemide 40 mg PO QAM 01/28/19 03/14/19 03/14/19 irbesartan 300 mg PO QAM 01/28/19 03/14/19 03/14/19 metoprolol succinate 12.5 mg PO QAM 01/28/19 03/14/19 03/14/19 tamsulosin 0.4 mg PO BID 01/28/19 03/14/19 03/14/19 testosterone cypionate 0 mg SUBCUT DIRECTED 01/28/19 03/14/19 Unknown All Natural Deeep Penetrating Cream 1 dose TOPICAL UD PRN 03/14/19 03/14/19 Unknown Intrathecal Pain Pump 1 dose UD 03/14/19 03/14/19 Unknown morphine 15 mg PO UD PRN 03/14/19 03/14/19 Unknown warfarin 6 mg PO 3XWK 03/14/19 03/14/19 Unknown warfarin 7 mg PO 4XWK 03/14/19 03/14/19 Unknown Past Medical History Medical History Atrial fibrillation (Chronic) ? DATE DX, CARDIOVERSION X 1 CAD (coronary artery disease) (Chronic) Chronic pain (Chronic) Diabetes mellitus type 2, controlled (Chronic) "diet-controlled after gastric bypass" RICHY (obstructive sleep apnea) (Chronic) TOLD HAD SLEEP APNEA BEFORE GASTRIC BYPASS SURGERY, DENIES CURRENT PROBLEMS WITH, NO CURRENT MACHINE Pacemaker (Chronic) LAST CHECK 1-2 WEEKS AGO Seizure (Chronic) HX OF A KID, NONE SINCE CHILDHOOD History of angina MOST RECENT 60 DAYS AGO...CATH History of kidney stones X1 Osteoarthritis Exercise / Class Metabolic Activity II 4-5 Yardwork/Stairs/Walk up hill Past Family History Family History Mother Diabetes Grandmother Diabetes Other Cancer Family history of colon cancer in mother Heart disease Hypertension Kidney disease Past Surgical History Surgical History History of appendectomy (Chronic) History of tonsillectomy and adenoidectomy (Chronic) S/P insertion of intrathecal pump (Chronic) History of back surgery X8 HARDWARE IN History of cardiac cath X3 TOTAL FOR ANGINA ([facility]) - MOST RECENT 60 DAYS AGO - NO STENTS History of cholecystectomy History of colonoscopy History of gastric bypass History of quadruple bypass 1999 History of urologic surgery REMOVAL OF KIDNEY STONE Social History Smoking Status: Former smoker tobacco type: smokeless tobacco Do You Dip or Chew Tobacco: Yes (1 CAN PER DAY/ADVISED NPO) Smoking End Date: AGE 11- Hx Alcohol Use: No Hx Substance Use: No substance use type: prescription drug Substance Use Type Other:: PAIN PUMP - [facility] Q6 WEEKS MON FOR MAINTENANCE/LEFT ABDOMEN Physical Exam Vital Signs Last Vital Signs Temp 97.8 F 03/23/19 12:29 Pulse 66 03/23/19 12:29 Resp 18 03/23/19 12:29 BP 155/76 H 03/23/19 12:29 Pulse Ox 97 03/23/19 12:29 ENMT Mouth: + dentures (Upper) Thyromental Distance: > or= 3.5 Finger Breadths Mallampati Class: I Neck normal visual inspection Respiratory normal respiratory effort Auscultation: lungs clear to auscultation bilaterally Cardiovascular Rate/Rhythm: regular rate and regular rhythm Testing Electrocardiogram Date: 03/16/19 Electronic ventricular pacing is still present, rate 58 bpm Chest X-Ray Date: 03/16/19 Findings: + NAD Echocardiogram Date: 01/28/19 EF: 55-60% Severe LVH Apical wall motion abnormality may reflect pacemaker activity Mild hypokinesis of anterior apical wall which is unchanged compared to 04/04/17 RV is mod dilated RV systolic function is reduced Mild TR Mild AV sclerosis Cardiac Catheterization Date: 01/30/19 Summary: The patient's coronary anatomy is unchanged from the previous study 2 years ago. Although the coronary angiography was limited because the patient's ongoing back discomfort, all his bypass grafts were patent as they were previously. He has diffuse [place] coronary disease which is unchanged. LV gram was not performed. Recommendations: Continued medical treatment for the patient's coronary artery disease.
[2019-03-23 14:09] LABS: Partial Thromboplastin Ratio 1.3; Partial Thromboplastin Time 35.6 Seconds (21.0-31.0); Prothrombin Time 19.4 Seconds (9.0-12.0)
[2019-03-23 14:25] LABS: Estimated Average Glucose 177 mg/dl; Hemoglobin A1C 7.8 % (4.5-5.6)
--- NOTE | 2019-04-18 10:58 | History & Physical Report ---
Date of Service April 18, 2019 Date of Surgery: 04-25-19 Assessment & Plan (1) Tricompartment osteoarthritis of right knee: Risks and benefits of procedure discussed in detail today, patient would like to proceed with a Right total knee replacement at [facility] as scheduled. will obtain Cardiac and Medical clearance prior to surgery as well as obtain PATs at [facility]. Will resume his home Coumadin dose post-op, will await recommendations re: Lovenox bridging from his PCP. He will f/u 2 weeks post op for routine post-operative care and x-ray, sooner if having any problems. will make arrangements for HHPT at the time of discharge. At this point in time, has failed conservative measures and would like to proceed with surgical intervention. History of Present Illness Chief Complaint: right knee pain Primary Care Provider: Shoaib Foote MD Mr Malhotra is a 73 year old male who complains of right knee pain, presents for pre-op evaluation prior to a right total knee replacement at [facility] on 04-25-19. He presents with pain and stiffness on the right side. He states that the symptoms have been chronic non-traumatic, and it occurs constantly with intermittent worsening. Currently the patient states that the symptoms are moderate-severe. The pain is described as aching, sharp and throbbing. The symptoms are aggravated by ascending stairs, daily activities, descending stairs, first steps while awake and walking. Michael states that the symptoms are relieved by no specific activity. In addition to right knee pain the patient is also experiencing cracking, crepitus, decreased mobility, joint pain, instability, limping, loss of motion, pain after activity and stiffness. Pt. is on Coumadin therapy which limits his NSAID use. He has had Pt and ambulates with rolling walker. has had prior cortisone injection with no relief. Allergies Allergy/AdvReac Type Severity Reaction Status Date / Time bee venom protein (honey bee) Allergy Severe ANAPHYLAXIS Verified 03/14/19 14:09 gentamicin Allergy Intermediate HIVES/SHORTNESS Verified 03/23/19 16:30 OF BREATH Penicillins Allergy Intermediate HIVES/SHORTNESS Verified 03/23/19 16:31 OF BREATH Sulfa (Sulfonamide Allergy Intermediate HIVES/SHORTNESS Verified 03/23/19 16:31 Antibiotics) OF BREATH Home Medications Home Medications Medication Instructions Recorded Confirmed Type amlodipine 5 mg PO QAM 01/28/19 04/02/19 History aspirin [Aspirin Low Dose] 81 mg PO DAILY 01/28/19 04/02/19 History buspirone 5 mg PO QAM 01/28/19 04/02/19 History cyanocobalamin (vitamin B-12) 1,000 mcg SUBCUT MONTHLY 01/28/19 04/02/19 History furosemide 40 mg PO QAM 01/28/19 04/02/19 History irbesartan 300 mg PO QAM 01/28/19 04/02/19 History metoprolol succinate 12.5 mg PO QAM 01/28/19 04/02/19 History tamsulosin 0.4 mg PO BID 01/28/19 04/02/19 History testosterone cypionate 0 mg SUBCUT DIRECTED 01/28/19 04/02/19 History All Natural Deeep Penetrating Cream 1 dose TOPICAL UD PRN 03/14/19 04/02/19 History Intrathecal Pain Pump 0 mg CONTINUOUS INTRATHECAL 03/14/19 04/02/19 History INFUSION CONT morphine 15 mg PO TID PRN 03/14/19 04/02/19 History benzonatate [Tessalon Perles] 100 mg PO TID PRN #30 cap 04/02/19 Rx doxycycline hyclate 100 mg PO BID 04/02/19 04/02/19 History isosorbide mononitrate 30 mg PO QAM 04/02/19 04/02/19 History warfarin 1 mg PO 4XWK 04/02/19 04/02/19 History warfarin 2 mg PO 3XWK 04/02/19 04/02/19 History warfarin 5 mg PO 3XWK 04/02/19 04/02/19 History warfarin 5 mg PO 4XWK 04/02/19 04/02/19 History Past Med/Surg History Medical History Atrial fibrillation (Chronic) ? DATE DX, CARDIOVERSION X 1 CAD (coronary artery disease) (Chronic) Chronic pain (Chronic) Diabetes mellitus type 2, controlled (Chronic) "diet-controlled after gastric bypass" RICHY (obstructive sleep apnea) (Chronic) TOLD HAD SLEEP APNEA BEFORE GASTRIC BYPASS SURGERY, DENIES CURRENT PROBLEMS WITH, NO CURRENT MACHINE Pacemaker (Chronic) LAST CHECK 1-2 WEEKS AGO Seizure (Chronic) HX OF A KID, NONE SINCE CHILDHOOD History of angina MOST RECENT 60 DAYS AGO...CATH History of kidney stones X1 Osteoarthritis Surgical History History of appendectomy (Chronic) History of tonsillectomy and adenoidectomy (Chronic) S/P insertion of intrathecal pump (Chronic) History of back surgery X8 HARDWARE IN History of cardiac cath X3 TOTAL FOR ANGINA ([facility]) - MOST RECENT 60 DAYS AGO - NO STENTS History of cholecystectomy History of colonoscopy History of gastric bypass History of quadruple bypass 1999 History of urologic surgery REMOVAL OF KIDNEY STONE Family History Mother Diabetes Grandmother Diabetes Other Cancer Family history of colon cancer in mother Heart disease Hypertension Kidney disease Social History Preferred Language: Pashto Communication Ability: Effective Anvil Worker Required: No Beliefs That Will Affect Care: None Current Living Situation: Spouse Other Information That Helps Us Care for You: No Feels Safe at Home: Yes Smoking Status: Former smoker Tobacco Type: smokeless tobacco ; Do You Dip or Chew Tobacco: Yes (1 CAN PER DAY/ADVISED NPO) ; Smoking End Date: AGE 11- ; Tobacco Cessation Education Requested by Patient: No Hx Alcohol Use: No Hx Substance Use: No Review of Systems Review of Systems: All systems reviewed & are unremarkable except as noted in HPI & below Constitutional: no fever, no chills and no sweats Respiratory: no cough and no dyspnea Cardiovascular: no chest pain, no dyspnea and no orthopnea Gastrointestinal: no abdominal pain, no nausea and no vomiting Musculoskeletal: as per Subjective / HPI Physical Exam Physical Exam: Ht: 5ft 6in Wt: 114.8kg BP: 150/80 Pulse: 78 Constitutional: WD/WN, vitals as above no acute distress Respiratory: normal respiratory effort, lungs clear to auscultation no respiratory distress, no labored breathing and does not use accessory muscles Cardiovascular: RRR, no murmur, no edema Gastrointestinal (Abdomen): normal bowel sounds, soft, nontender, no hepatosplenomegaly Musculoskeletal: Right Knee Physical Exam he is ambulating with a limp, there is no erythema, warmth, ecchymosis or atrophy noted, no signs of infection. +1 effusion, greatest tenderness over the medial joint line and anterior knee joint. negative patellar apprehension , mild crepitation with motion, jania's negative, posterior drawer negative. positive mcmurrays medially, negative anterior drawer, knee stable with valgus/varus stress. no extensor lag. pain with active range of motion, AROM 0/3/110, Passive ROM 0/3/115. No pain with active/passive ROM of ankle. Lower Extremity Strength normal. Lower Extremity Neuro-vascular is normal Results & Data Laboratory Results Laboratory Results PT 19.4 Seconds (9.0-12.0) H 03/23/19 12:45 INR 2.0 (0.9-1.1) H 03/23/19 12:45 APTT 35.6 Seconds (21.0-31.0) H 03/23/19 12:45 PTT Ratio 1.3 03/23/19 12:45 Estimat Average Glucose 177 mg/dl 03/23/19 12:45 Hemoglobin A1c 7.8 % (4.5-5.6) H 03/23/19 12:45 Albumin 3.4 gm/dl (3.4-5.0) 03/23/19 12:43 Blood Type A Positive 03/23/19 12:45 Antibody Screen NEGATIVE 03/23/19 12:45 Diagnostic Findings right knee x-ray from 02/16/19 showing tricompartmental degenerative changes, showing osteophyte formation and joint space narrowing, subchondral sclerosis. there are no loose bodies, no acute bony pathology. overall impression tricompartmental degenerative changes to the right knee.
--- NOTE | 2019-04-23 13:15 | Anesthesiology Consultation ---
Date of Service April 23, 2019 Assessment & Plan (1) Encounter for pre-operative examination: Chart Review Chart Review: Acceptable Risk for Surgery and Patient NOT seen in Pre Admission Testing Case originally canceled as patient had URI. Went to ER, told to complete his abx, given a nebulizer which resolved his wheezing and CXR failed to show any pneumonia. Will need to assess respiratory status AM of surgery. Consults Requested none "Patient has no absolute contraindications to surgery, though surgical procedure would be at high risk given underlying multiple morbidities all currently managed. Discussed this in detail with patient and patient's son. No additional testing or change in medical therapies warranted to change operative risk." per cardiology 03/08/19 As per cardiology and the PCP, the patient will not be bridged on Lovenox. History Surgery Operation Date: 04/10/19 11:00 Proposed Procedures p Right Total Knee Arthroplasty - Jethro Olson DO Operation Date: 04/25/19 10:20 Proposed Procedures p Right Total Knee Arthroplasty - Jethro Olson DO Height/Weight Height: 5 ft 6.5 in Weight: 114.8 kg Allergies Allergy/AdvReac Type Severity Reaction Status Date / Time bee venom protein (honey bee) Allergy Severe ANAPHYLAXIS Verified 03/14/19 14:09 gentamicin Allergy Intermediate HIVES/SHORTNESS Verified 03/23/19 16:30 OF BREATH Penicillins Allergy Intermediate HIVES/SHORTNESS Verified 03/23/19 16:31 OF BREATH Sulfa (Sulfonamide Allergy Intermediate HIVES/SHORTNESS Verified 03/23/19 16:31 Antibiotics) OF BREATH Medications Home Medications Medication Instructions Recorded Confirmed Last Taken amlodipine 5 mg PO QAM 01/28/19 04/02/19 03/14/19 aspirin [Aspirin Low Dose] 81 mg PO DAILY 01/28/19 04/02/19 Unknown buspirone 5 mg PO QAM 01/28/19 04/02/19 03/14/19 cyanocobalamin (vitamin B-12) 1,000 mcg SUBCUT MONTHLY 01/28/19 04/02/19 Unknown furosemide 40 mg PO QAM 01/28/19 04/02/19 03/14/19 irbesartan 300 mg PO QAM 01/28/19 04/02/19 03/14/19 metoprolol succinate 12.5 mg PO QAM 01/28/19 04/02/19 03/14/19 tamsulosin 0.4 mg PO BID 01/28/19 04/02/19 03/14/19 testosterone cypionate 0 mg SUBCUT DIRECTED 01/28/19 04/02/19 Unknown All Natural Deeep Penetrating Cream 1 dose TOPICAL UD PRN 03/14/19 04/02/19 Unknown Intrathecal Pain Pump 0 mg CONTINUOUS INTRATHECAL 03/14/19 04/02/19 04/02/19 INFUSION CONT morphine 15 mg PO TID PRN 03/14/19 04/02/19 Unknown benzonatate [Tessalon Perles] 100 mg PO TID PRN #30 cap 04/02/19 Unknown doxycycline hyclate 100 mg PO BID 04/02/19 04/02/19 Unknown isosorbide mononitrate 30 mg PO QAM 04/02/19 04/02/19 Unknown warfarin 1 mg PO 4XWK 04/02/19 04/02/19 Unknown warfarin 2 mg PO 3XWK 04/02/19 04/02/19 Unknown warfarin 5 mg PO 3XWK 04/02/19 04/02/19 Unknown warfarin 5 mg PO 4XWK 04/02/19 04/02/19 Unknown Past Medical History Medical History Atrial fibrillation (Chronic) ? DATE DX, CARDIOVERSION X 1 CAD (coronary artery disease) (Chronic) Chronic pain (Chronic) Diabetes mellitus type 2, controlled (Chronic) "diet-controlled after gastric bypass" RICHY (obstructive sleep apnea) (Chronic) TOLD HAD SLEEP APNEA BEFORE GASTRIC BYPASS SURGERY, DENIES CURRENT PROBLEMS WITH, NO CURRENT MACHINE Pacemaker (Chronic) LAST CHECK 1-2 WEEKS AGO Seizure (Chronic) HX OF A KID, NONE SINCE CHILDHOOD History of angina MOST RECENT 60 DAYS AGO...CATH History of kidney stones X1 Osteoarthritis Past Family History Family History Mother Diabetes Grandmother Diabetes Other Cancer Family history of colon cancer in mother Heart disease Hypertension Kidney disease Past Surgical History Surgical History History of appendectomy (Chronic) History of tonsillectomy and adenoidectomy (Chronic) S/P insertion of intrathecal pump (Chronic) History of back surgery X8 HARDWARE IN History of cardiac cath X3 TOTAL FOR ANGINA ([facility]) - MOST RECENT 60 DAYS AGO - NO STENTS History of cholecystectomy History of colonoscopy History of gastric bypass History of quadruple bypass 1999 History of urologic surgery REMOVAL OF KIDNEY STONE Social History Smoking Status: Former smoker tobacco type: smokeless tobacco Do You Dip or Chew Tobacco: Yes (1 CAN PER DAY/ADVISED NPO) Smoking End Date: AGE 11- Hx Alcohol Use: No Hx Substance Use: No substance use type: prescription drug Substance Use Type Other:: PAIN PUMP - [facility] Q6 WEEKS MON FOR MAINTENANCE/LEFT ABDOMEN Physical Exam Vital Signs Last Vital Signs Temp 36.6 C 03/23/19 12:29 Pulse 66 03/23/19 12:29 Resp 18 03/23/19 12:29 BP 155/76 H 03/23/19 12:29 Pulse Ox 97 03/23/19 12:29 Testing Laboratory Results PT 19.4 Seconds (9.0-12.0) H 03/23/19 12:45 INR 2.0 (0.9-1.1) H 03/23/19 12:45 APTT 35.6 Seconds (21.0-31.0) H 03/23/19 12:45 Hemoglobin A1c 7.8 % (4.5-5.6) H 03/23/19 12:45 Blood Type A Positive 03/23/19 12:45 Antibody Screen NEGATIVE 03/23/19 12:45 Laboratory Tests 04/02/19 04/02/19 04/02/19 20:44 20:44 20:44 WBC 8.73 Hgb 14.0 Hct 41.8 L Plt Count 227 PT 25.2 H INR 2.6 H APTT 35.9 H Sodium 137 Potassium 4.2 Chloride 104 Carbon Dioxide 28 BUN 12 Creatinine 0.91 Glucose 189 H Electrocardiogram Date: 03/16/19 Electronic ventricular pacing is still present, rate 58 bpm 04/02/2019: HR 65 Ventricular-paced rhythm Abnormal ECG When compared with ECG of 29-JAN-2019 07:39, Vent. rate has increased BY 5 BPM Confirmed by Saleem Russo ([id number]) on 04/03/2019 11:42:15 AM Chest X-Ray Date: 03/16/19 Findings: + NAD 04/02/2019 CXR SINGLE VIEW CHEST CLINICAL HISTORY: Dyspnea. FINDINGS: 2 AP, portable, upright chest radiographs are compared to study dated 01/28/2019. The examination is degraded by portable technique and patient rotation. The patient is status post midline sternotomy. A 2-lead cardiac pacemaker is unchanged in position. The heart is enlarged noting atherosclerotic calcification of the thoracic aorta. There is pulmonary vascular congestion. Bibasilar atelectasis is noted. No airspace consolidation or large pleural effusion is identified. No pneumothorax is seen. The skeletal structures are osteopenic. The bony thorax is grossly intact. Arthritic change is seen in the shoulders. IMPRESSION: 1. Cardiomegaly and cardiac pacemaker with evidence of congestive failure. 2. No airspace consolidation or large pleural effusion is identified. Echocardiogram Date: 01/28/19 EF: 55-60% Severe LVH Apical wall motion abnormality may reflect pacemaker activity Mild hypokinesis of anterior apical wall which is unchanged compared to 04/04/17 RV is mod dilated RV systolic function is reduced Mild TR Mild AV sclerosis Cardiac Catheterization Date: 01/30/19 Summary: The patient's coronary anatomy is unchanged from the previous study 2 years ago. Although the coronary angiography was limited because the patient's ongoing back discomfort, all his bypass grafts were patent as they were previously. He has diffuse holy cross coronary disease which is unchanged. LV gram was not performed. Recommendations: Continued medical treatment for the patient's coronary artery disease.
[~2019-04-25 07:43] MED LIST changes: +ACETAMINOPHEN 500 MG TAB PO SCH; -AMLO-110 PO; -ASPI81TA28 PO; +BUPIVACAINE 0.25% 30 ML VIAL ONE; +BUPIVACAINE 0.5 % 5 MG/1 ML PF 10ML VIAL ONE; -BUSP5TAB59 PO; +CLINDAMYCIN 600 MG/54 ML BAG IV SCH; -CYNI1000 INJ; +EPINEPHrine INJ 1 MG/ML AMP ONE; +FAMOTIDINE 20 MG TAB PO SCH; +GABAPENTIN 300 MG CAP PO SCH; -IRBE-39 PO; +LIDOCAINE HCL 2% 2 ML VIAL/AMP(20MG/ML) INFIL ONE; +LR 500ML BOLUS, THEN 15ML/HR IV SCH; -METO25TA3 PO; +METOCLOPRAMIDE HCL 10 MG TABLET PO SCH; +MIDAZOLAM HCL 1 MG/ML 2ML VIAL ONE; +ONDANSETRON INJ 2 MG/ML 2 ML VIAL ONE; +PROPOFOL IV EMULSION 10 MG/ML 20 ML VIAL IV ONE; +ROPIVACAINE 0.5% HCL/PF 150 MG, BUPIVACAINE 0.5% MPF 30 ML, EPINEPHrine 30MG/30ML (OR U... INSTIL SCH; +TRANEXAMIC ACID 1,000 MG **IV Intra-op IV SCH; +TRANEXAMIC ACID 1,000 MG **IV Pre-op IV SCH; -WARF1TAB6 PO; +dexAMETHasone 4 MG TAB PO SCH; +fentaNYL citrate 100 MCG/2 ML VIAL ONE
--- NOTE | 2019-04-25 08:31 | History & Physical Bridge Note ---
Date of Service April 25, 2019 History & Physical Bridge Note I have examined the patient, reviewed the History & Physical and in the interval since the performance of the History & Physical I have noted the following changes of clinical significance: no changes noted
[2019-04-25 08:51] LABS: INR 1.1 (0.9-1.1); Partial Thromboplastin Time 27.4 Seconds (21.0-31.0); Prothrombin Time 11.3 Seconds (9.0-12.0)
[2019-04-25] MEDS ORDERED: BACITRACIN INJ 50,000 UNIT VIAL ONE (09:00)
[2019-04-25] MEDS ORDERED: ORTHO JOINT ANESTHETIC ONE (09:00)
[2019-04-25] MEDS ORDERED: ONDANSETRON INJ 2 MG/ML 2 ML VIAL IV PRN ×2 (09:30→13:35)
[2019-04-25] MEDS ORDERED: HYDROmorphone INJ 1 MG/ML SYRINGE IV PRN (09:30)
[2019-04-25] MEDS ORDERED: ePHEDrine sulfate 50 MG/ML AMP IV PRN (09:30)
[2019-04-25] MEDS ORDERED: ATROPINE SULFATE 0.1 MG/ML 10ML SYR IV PRN (09:30)
[2019-04-25] MEDS ORDERED: BUPIVACAINE/EPINEPHRINE 0.25% 1:200,000 30 ML VIAL ONE (10:12)
[2019-04-25] MEDS ORDERED: ROCURONIUM BROMIDE 10 MG/ML 5 ML VIAL ONE (10:52)
[2019-04-25] MEDS ORDERED: ePHEDrine sulfate 50 MG/ML SYR ONE (10:52)
[2019-04-25] MEDS ORDERED: PHENYLEPHRINE 100MCG/ML 5ML SYR ONE (10:52)
--- NOTE | 2019-04-25 11:33 | Operative Report ---
Post Operative Report Pre & Post Diagnosis Operation Date: 04/10/19 11:00 <No data on this case meets the specified criteria> Operation Date: 04/25/19 10:20 Pre-Op Diagnosis: Unilateral Primary Osteoarthritis of Right Knee Post-Op Diagnosis: Unilateral Primary Osteoarthritis of Right Knee I identified the patient and participated in the time-out.: Yes Procedure Operation Date: 04/10/19 11:00 <No data on this case meets the specified criteria> Operation Date: 04/25/19 10:20 Actual Procedures p Right Total Knee Arthroplasty(Right) journey to non-block right total knee arthroplasty size 7 femur 6 tibia 11 polyethylene 35 oval patella- Jethro Olson DO Surgeon Jethro Olson DO Grain Combiner Anthony NIELSEN Estimated Blood Loss 5 Findings Consistent with Post-Op Diagnosis Patient presents with severe end-stage tricompartmental degenerative joint disease right knee varus alignment subchondral sclerosis subchondral cystic changes eburnated bone marginal osteophytes moderate to large effusion no response to conservative management. Specimens Bone cartilage Drains Medium bore Hemovac Complications none Disposition Accompanied Patient To Recovery: No Disposition: Recovery Room Indications Patient presents with severe end-stage tricompartmental degenerative joint disease no response to conservative management including physical therapy anti- inflammatories relative rest activity modification cortical steroid injections Visco supplementation patient had the above intraoperative findings at times surgery. Description of Procedure Patient is properly identifiedAfter proper prepping and draping of the Right lower extremity anterior midline incision was made over the region of the extensor extensor mechanism after meticulous hemostasis was obtained and maintained in subcutaneous tissues a medial parapatellar incision was made The patella was subluxed lateralward the medial lateral gutter were cleaned from any hypertrophic synovitis and scar tissue of the distal femoral block was placed and the distal femoral osteotomy cut was made subsequently the chamfers anterior and posterior osteotomy cuts were made utilizing the 4-in-1 block the tibia was subsequently subluxed anteriorward medial and ateral meniscal remnants were exc ised in their entirety remnants of the anterior and posterior cruciate ligaments were excised in their entirety excellent exposure of the proximal tibia was obtained the tibial osteotomy guide was placed on the proximal tibial osteotomy cut was made once again the knee was irrigated with copious amounts of sterile saline solution the patella was subsequently everted lateralward thickened scar tissue around the patella was removed the patella was subsequently cut utilizing a freehand technique and was drilled prepared for final preparation and placement of patella socially flexion-extension gaps were checked and the equal and symmetric trials were placed to the appropriate femoral and tibial trials with poly-spacer being placed for equal flexion and extension gaps and full range of motion including extension to 0 and flexion to 140 the trial components after having been taken to recovery range of motion was subsequently removed meticulous hemostasis was obtained and maintained subsequently a knee block injection of joint cocktail including ropivacaine 0.5% 150 mg. Bupivacaine 0.5% epinephrine 1-200,030 mL's toradol 30 mg dexamethasone 4 mg ketamine 10 mg clonidine 100 micrograms normal saline solution 30 mg was infiltrated into the soft tissues of the posterior knee medial lateral gutters and periosteal synovium special attention was paid to protect neurovascular structures at all times subsequently trial components having been removed the knee was irrigated with sterile saline solution. debris was removed the proximal tibia was subsequently prepared and was made ready for the placement of the tibial component tibial component was also cemented and tamped into position the femoral component was subsequently placed and cemented in the position the patellar component was subsequently cemented in position because hemostasis once again obtained and maintained wound having been thoroughly irrigated with debridement and debridement lavage was performed as well as a medial parapatellar incision closed with #1 Vicryl in interrupted fashion subcutaneous was closed with #2 Vicryl skin was closed with skin clips. PA-C was necessary for prepping and drapping as well as wound closure of deep fascia Sub cutaneous tissue and skin and was necessary for the case. A sterile compressive dressing was placed patient was taken to recovery in stable condition of report dictated by Wesley I attest to the content of the Intraoperative Record and any orders documented therein. Any exceptions are noted below. I attest to the content of the Intraoperative Record and any orders documented therein. Any exceptions are noted below.
[2019-04-25] MEDS: fentaNYL citrate 100 MCG/2 ML VIAL IV PRN ×2 (12:36→12:41)
--- NOTE | 2019-04-25 12:42 | XRay Report ---
XR knee RT 1 or 2V routine CLINICAL HISTORY: Surgical Post Op COMPARISON: None. DISCUSSION: There are postsurgical changes of a total right knee arthroplasty and patellar resurfacin g. The femoral tibial components appear well seated. There are overlying skin china and surgical dr gilda. There is a small amount of air and fluid within the soft tissues consistent with recent surgery . IMPRESSION: Postsurgical changes of a total right knee arthroplasty. Electronically signed by: Thomas Padilla M.D. 04/25/2019 12:41 PM
[2019-04-25] MEDS ORDERED: NovoLIN-R INSULIN PER UNIT CHARGE ONE (12:49)
[2019-04-25] MEDS ORDERED: INSULIN HUMAN REGULAR SC STA (13:09)
--- NOTE | 2019-04-25 13:13 | Anesthesiology Progress Note ---
Date of Service April 25, 2019 Anesthesia Post Procedure Vital Signs Vital Signs: Temp Pulse Pulse Resp BP BP Pulse Ox 04/25/19 12:55 36.6 C 55 L 17 127/67 98 04/25/19 12:45 58 L 15 137/69 97 04/25/19 12:35 55 L 15 131/64 100 04/25/19 12:25 55 L 15 130/60 100 04/25/19 12:19 36.3 C L 63 12 118/51 L 96 04/25/19 08:28 36.6 C 65 18 141/75 H 98 Pain Intensity Back: Pain Intensity: 3 Transfer of Care Handoff Completed per policy Notes Mental Status: alert / awake / arousable and participated in evaluation Patient Amnestic to Procedure: Yes Nausea / Vomiting: adequately controlled Pain: adequately controlled Airway Patency, RR, SpO2: stable & adequate BP & HR: stable & adequate Hydration State: stable & adequate Anesthetic Complications: no major complications apparent and Pt Satisfied with anesthetic care
[2019-04-25] MEDS ORDERED: NEOSTIGMINE METHYLSULFATE 5 MG/5 ML SYR ONE (13:22)
[2019-04-25] MEDS ORDERED: GLYCOPYRROLATE 0.2 MG/ML VIAL ONE (13:22)
[2019-04-25] MEDS ORDERED: BISACODYL 10 MG SUPP PR PRN (13:35)
[2019-04-25] MEDS ORDERED: BENZONATATE 100 MG CAPSULE PO PRN (13:35)
[2019-04-25] MEDS ORDERED: HYDROmorphone INJ 0.5 MG/0.5 ML SYR IV PRN (13:35)
[2019-04-25] MEDS ORDERED: NALOXONE HCL 0.4 MG/1 ML VIAL/CARP IV PRN (13:35)
[2019-04-25] MEDS ORDERED: METOCLOPRAMIDE HCL INJ 5 MG/ML 2 ML VIAL IV PRN (13:35)
[2019-04-25] MEDS ORDERED: [UNRECOGNIZED DRUG - OTHER] TOP PRN (13:35)
[2019-04-25] MEDS ORDERED: MAGNESIUM HYDROXIDE SUSP 30 ML UDC PO PRN (13:35)
[2019-04-25] MEDS: SODIUM CHLORIDE 0.9% 1000ML 1,000 ML IV SCH (14:04)
[2019-04-25] MEDS ORDERED: INTRATHECAL PAIN PUMP IT SCH (14:15)
[2019-04-25] MEDS: MoRPHine SULFATE IR 15 MG TAB (IMMEDIATE RELEASE) PO PRN (15:37)
--- NOTE | 2019-04-25 16:26 | Cardiology Consultation ---
Date of Consultation April 25, 2019 Assessment & Plan (1) Chronic coronary artery disease: (2) Tricompartment osteoarthritis of right knee: Postoperative day 0 status post total right knee replacement. Patient with history of chronic coronary heart disease, remote CABG, had recent cardiac catheterization 2 months ago revealing severe cabazon vessel CAD and patent grafts. Chronic underlying atrial fibrillation also noted. It appears that the primary service is already ordered his cardiac medications for tomorrow. We will check a hemoglobin level to assess for postoperative anemia. Agree with resuming his Coumadin for both stroke prophylaxis as well as DVT prophylaxis without bridge therapy in order to minimize risk of postoperative bleeding. Per review of his outpatient chart, he iss not on statin therapy on a chronic basis due to intolerance. History of Present Illness Attending Physician: Jethro Olson, History of Present Illness Michael Malhotra is a 73 year old male seen in cardiology consultation per the request of Jaspreet Sahni PA-C and Dr Olson for managment of chronic coronary heart disease. The patient's primary process control manager is Dr. Foote of our practice with seen the patient in preoperative consultation on 03/08/2019. The patient underwent right total knee arthroplasty today for diagnosis of severe osteoarthritis. He tolerated the procedure well from a hemodynamic standpoint. I had seen him in room 258, at which time he had no cardiac complaint, he was having some postoperative knee pain but overall this appeared to be controlled. Telemetry revealed underlying atrial fibrillation with ventricular pacing in the range of 55 bpm. Cardiology Problem List: 1. Atherosclerotic coronary disease status post coronary bypass grafting x4, June 2000 --STOKES graft to LAD, saphenous vein graft to the posterior descending artery, sequential left radial artery graft to the ramus intermedius and obtuse marginal 2. Chronic angina pectoris as well as noncardiac chest pain 3. Treatment with thrombolytics therapy for chest pain March 2017 without evidence of myocardial infarction and subsequent cardiac catheterization with patent grafts and severe cabazon vessel coronary disease 4. Chest pain January 2019 with repeat cardiac catheterization once again demonstrating patent grafts and proximal occlusion all cabazon vessels unchanged from prior studies 5. Past paroxysmal now chronic atrial fibrillation 6. 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 Device [employer] Sensia SES R 0 1 7. Obstructive sleep apnea , untreated with moderate pulmonary hypertension 8. Hypertension 9. Hyperlipidemia 10. Chronic back pain with indwelling spinal infusion pump 11. Type 2 diabetes mellitus 12. Prior seizure disorder , complex partial 13. Prior gastric bypass surgery Allergies Allergy/AdvReac Type Severity Reaction Status Date / Time bee venom protein (honey bee) Allergy Severe ANAPHYLAXIS Verified 04/25/19 08:20 gentamicin Allergy Intermediate HIVES/SHORTNESS Verified 04/25/19 08:20 OF BREATH Penicillins Allergy Intermediate HIVES/SHORTNESS Verified 04/25/19 08:20 OF BREATH Sulfa (Sulfonamide Allergy Intermediate HIVES/SHORTNESS Verified 04/25/19 08:20 Antibiotics) OF BREATH Home Medications Home Medications Medication Instructions Recorded Confirmed Type amlodipine 5 mg PO QAM 01/28/19 04/25/19 History aspirin [Aspirin Low Dose] 81 mg PO DAILY 01/28/19 04/25/19 History buspirone 5 mg PO QAM 01/28/19 04/25/19 History cyanocobalamin (vitamin B-12) 1,000 mcg SUBCUT MONTHLY 01/28/19 04/25/19 History furosemide 40 mg PO QAM 01/28/19 04/25/19 History irbesartan 300 mg PO QAM 01/28/19 04/25/19 History metoprolol succinate 12.5 mg PO QAM 01/28/19 04/25/19 History tamsulosin 0.4 mg PO BID 01/28/19 04/25/19 History testosterone cypionate 0 mg SUBCUT DIRECTED 01/28/19 04/25/19 History All Natural Deeep Penetrating Cream 1 dose TOPICAL UD PRN 03/14/19 04/25/19 History Intrathecal Pain Pump 0 mg CONTINUOUS INTRATHECAL 03/14/19 04/25/19 History INFUSION CONT morphine 15 mg PO TID PRN 03/14/19 04/25/19 History benzonatate [Tessalon Perles] 100 mg PO TID PRN #30 cap 04/02/19 04/25/19 Rx isosorbide mononitrate 30 mg PO QAM 04/02/19 04/25/19 History warfarin 1 mg PO 4XWK 04/02/19 04/25/19 History warfarin 2 mg PO 3XWK 04/02/19 04/25/19 History warfarin 5 mg PO 3XWK 04/02/19 04/25/19 History warfarin 5 mg PO 4XWK 04/02/19 04/25/19 History Patient History Medical History Atrial fibrillation (Chronic) ? DATE DX, CARDIOVERSION X 1 CAD (coronary artery disease) (Chronic) Chronic pain (Chronic) Diabetes mellitus type 2, controlled (Chronic) "diet-controlled after gastric bypass" RICHY (obstructive sleep apnea) (Chronic) TOLD HAD SLEEP APNEA BEFORE GASTRIC BYPASS SURGERY, DENIES CURRENT PROBLEMS WITH, NO CURRENT MACHINE Pacemaker (Chronic) LAST CHECK 1-2 WEEKS AGO Seizure (Chronic) HX OF A KID, NONE SINCE CHILDHOOD History of angina MOST RECENT 60 DAYS AGO...CATH History of kidney stones X1 Osteoarthritis Surgical History History of appendectomy (Chronic) History of tonsillectomy and adenoidectomy (Chronic) S/P insertion of intrathecal pump (Chronic) History of back surgery X8 HARDWARE IN History of cardiac cath X3 TOTAL FOR ANGINA ([facility]) - MOST RECENT 60 DAYS AGO - NO STENTS History of cholecystectomy History of colonoscopy History of gastric bypass History of quadruple bypass 1999 History of urologic surgery REMOVAL OF KIDNEY STONE Family History Mother Diabetes Grandmother Diabetes Other Cancer Family history of colon cancer in mother Heart disease Hypertension Kidney disease Social History Preferred Language: Tanzanian Communication Ability: Effective [place] Regulator Required: No Beliefs That Will Affect Care: None Current Living Situation: Spouse Other Information That Helps Us Care for You: No Feels Safe at Home: Yes Smoking Status: Former smoker Tobacco Type: smokeless tobacco ; Do You Dip or Chew Tobacco: Yes (1 CAN PER DAY/ADVISED NPO) ; Smoking End Date: AGE 11- ; Tobacco Cessation Education Requested by Patient: No Hx Alcohol Use: No Hx Substance Use: No Review of Systems Review of Systems: All systems reviewed & are unremarkable except as noted in HPI & below Physical Exam Physical Exam: Temp Pulse Resp BP Pulse Ox 36.2 C L 55 L 18 147/75 H 98 04/25/19 14:45 04/25/19 14:45 04/25/19 14:45 04/25/19 14:45 04/25/19 14:45 Constitutional: WD/WN, vitals as above Respiratory: normal respiratory effort, lungs clear to auscultation Cardiovascular: Rate/Rhythm: + irregularly irregular Heart Sounds: no murmur Vessels: no JVD Gastrointestinal (Abdomen): normal bowel sounds, soft, nontender, no hepatosplenomegaly Musculoskeletal: Able to move toes bilaterally post surgery today, right knee wrapped. Neurologic: PERRL, EOMI, accommodation nl, no face palsy, no dysarthria Results & Data Vital Signs (Past 12 Hours) Vital Signs Temp Pulse Pulse Resp BP BP Pulse Ox 04/25/19 14:45 36.2 C L 55 L 18 147/75 H 98 04/25/19 14:15 36.4 C L 55 L 18 138/78 96 04/25/19 14:06 36.7 C 56 L 18 134/65 97 04/25/19 13:48 36.7 C 56 L 18 138/74 99 04/25/19 13:30 36.5 C 61 20 128/73 97 04/25/19 13:05 55 L 13 139/77 97 04/25/19 12:55 36.6 C 55 L 17 127/67 98 04/25/19 12:45 58 L 15 137/69 97 04/25/19 12:35 55 L 15 131/64 100 04/25/19 12:25 55 L 15 130/60 100 04/25/19 12:19 36.3 C L 63 12 118/51 L 96 04/25/19 08:28 36.6 C 65 18 141/75 H 98 Laboratory Results Coagulation INR today 04/25/light chain was 1.1 04/25/19 Range/Units 08:26 PT 11.3 (9.0-12.0) Seconds APTT 27.4 (21.0-31.0) Seconds Intake and Output 04/25/19 04/25/19 04/25/19 06:59 14:59 22:59 Intake Total 1424 / 1424 Output Total 55 / 55 Balance 1369 / 1369 Intake: IV 774 / 774 CLEOCIN 600 mg In 54 ml @ 100 54 / 54 mls/hr IV PREOP [facility] Rx#: [id number] Lr 1,000 ml @ 15 mls/hr IV . 500 / 500 Q24H [facility] Rx#:[id number] Cyklokapron 1,000 mg In Sodium 220 / 220 Chloride 100 ml @ 660 mls/hr IV 0630 [facility] Rx#:[id number] IV Perioperative 650 / 650 Output: Estimated Blood Loss 5 / 5 Drain Output 50 / 50 Right Knee Hemovac 50 / 50 Other: Weight 113.988 kg Patient Weight 04/26/19 06:59 Weight 113.988 kg Medications Administered Current Inpatient Medications Acetaminophen (Tylenol) 1,000 mg PO Q8 [facility] Stop: 05/25/19 16:59 Amlodipine Besylate (Norvasc) 5 mg PO QAM [facility] Stop: 05/26/19 08:59 Aspirin (Ecotrin Ectab) 81 mg PO DAILY [facility] Stop: 05/26/19 08:59 Benzonatate (Tessalon Perle) 100 mg PO TID PRN PRN Reason: cough Stop: 05/25/19 13:34 Bisacodyl (Dulcolax) 10 mg LA DAILY PRN PRN Reason: Constipation Stop: 05/25/19 13:34 Buspirone HCl (Buspar) 5 mg PO QAM [facility] Stop: 05/26/19 08:59 Diphenhydramine HCl (Benadryl Capsule) 25 mg PO Q8H PRN PRN Reason: Itching Stop: 05/25/19 13:34 Docusate Sodium (Colace) 100 mg PO BID [facility] Stop: 05/25/19 20:59 Sodium Chloride (Nss 1000ml) 1,000 mls @ 100 mls/hr IV .Q10H [facility] Stop: 04/26/19 13:59 Last Admin: 04/25/19 14:04 Dose: 100 mls/hr Documented by: Clindamycin Phosphate 600 mg/ (Dextrose) 54 mls @ 100 mls/hr IV Q8H [facility] Stop: 04/26/19 02:33 Irbesartan (Avapro) [facility] Stop: 05/26/19 08:59 Isosorbide Mononitrate (Imdur Extended Rel) 30 mg PO QAM [facility] Stop: 05/26/19 08:59 Magnesium Hydroxide (Milk Of Magnesia) 30 ml PO Q6H PRN PRN Reason: Constipation Stop: 05/25/19 13:34 Metoclopramide HCl (Reglan) 10 mg IV Q6H PRN PRN Reason: Nausea And Vomiting Stop: 05/25/19 13:34 Metoprolol Succinate (Toprol Xl) 12.5 mg PO QAM [facility] Stop: 05/26/19 08:59 Miscellaneous Information (Orthopaedic Warfarin Sliding Scale) 1 ea N/A DAILY@1400 [facility]; Protocol Stop: 05/25/19 13:59 Morphine Sulfate (Morphine Sulfate Ir) 15 mg PO TID PRN PRN Reason: Pain Stop: 05/09/19 13:34 Last Admin: 04/25/19 15:37 Dose: 15 mg Documented by: Multivitamins (Multivitamin Tab) 1 [facility] Stop: 05/26/19 08:59 Naloxone HCl (Narcan) 0.1 mg IV Q5M PRN PRN Reason: Oversedation/Resp Depression Stop: 05/25/19 13:34 Intrathecal Pain Pump: Non-Formulary Patient's Own Med 1 ea IT UD [facility] Stop: 05/25/19 14:14 Ondansetron HCl (Zofran) 4 mg IV Q6H PRN PRN Reason: Nausea And Vomiting Stop: 05/25/19 13:34 Sennosides (Senokot) 17.2 mg PO HS [facility] Stop: 05/25/19 20:59 Tamsulosin HCl (Flomax) 0.4 mg PO BID [facility] Stop: 05/25/19 20:59
[2019-04-25] MEDS: ACETAMINOPHEN 500 MG TAB PO SCH (17:16)
[2019-04-25] MEDS: CLINDAMYCIN 600 MG in DEXTROSE 5% 50 ML IV SCH (18:10)
[2019-04-25] MEDS ORDERED: WARFARIN SOD 5 MG TAB PO ONE (19:30)
[2019-04-25] MEDS: MoRPHine SULFATE 4 MG/ML 1 ML CARP\\VIAL IV PRN ×2 (20:25→22:43)
[2019-04-25] MEDS: DOCUSATE SODIUM 100 MG CAP PO SCH (20:32)
[2019-04-25] MEDS: TAMSULOSIN HCL 0.4 MG CAP PO SCH (20:33)
[2019-04-25] MEDS: SENNA 8.6 MG TAB PO SCH (20:36)
[2019-04-25] MEDS: ORTHO WARFARIN NOMOGRAM SCH (21:06)
[2019-04-26] MEDS: SODIUM CHLORIDE 0.9% 1000ML 1,000 ML IV SCH ×2 (00:15→15:16)
[2019-04-26] MEDS: MoRPHine SULFATE IR 15 MG TAB (IMMEDIATE RELEASE) PO PRN (01:01)
[2019-04-26] MEDS: CLINDAMYCIN 600 MG in DEXTROSE 5% 50 ML IV SCH (01:30)
[2019-04-26] MEDS: ACETAMINOPHEN 500 MG TAB PO SCH ×3 (06:03→21:47)
[2019-04-26] MEDS: MoRPHine SULFATE 4 MG/ML 1 ML CARP\\VIAL IV PRN ×4 (06:07→21:04)
[2019-04-26 07:24] LABS: Hematocrit (blood only) 36.5 % (42-52); Hemoglobin 11.6 g/dL (14.0-18.0); Mean Corpuscular Hemoglobin 25.3 pg (25-34); Mean Corpuscular Hgb Conc 31.8 g/dL (32-36); Mean Corpuscular Volume 79.7 fL (80-100); Platelet Count 239 K/uL (130-400); RDW Coefficient of Variation 16.8 % (11.5-14.5); RDW Standard Deviation 48.5 fL (36.4-46.3); Red Blood Count 4.58 M/uL (4.7-6.1); White Blood Count 14.84 K/uL (4.8-10.8)
--- NOTE | 2019-04-26 07:45 | Orthopedic Progress Note ---
Date of Service April 26, 2019 Assessment & Plan (1) Status post total right knee replacement: POD #1 s/p Right TKA pt/ot dvt proph with JORGE/SCD/Resume Coumadin, daily INR plan for d/c home with HHPT when stable will consult Pain management, current home regimen includes Morphine 15mg tid and intrathecal pain pump Cardiology Consult- appreciate input Past Medical History includes: Atrial fibrillation (Chronic) ? DATE DX, CARDIOVERSION X 1 CAD (coronary artery disease) (Chronic) Chronic pain (Chronic) Diabetes mellitus type 2, controlled (Chronic) "diet-controlled after gastric bypass" RICHY (obstructive sleep apnea) (Chronic) TOLD HAD SLEEP APNEA BEFORE GASTRIC BYPASS SURGERY, DENIES CURRENT PROBLEMS WITH, NO CURRENT MACHINE Pacemaker (Chronic) LAST CHECK 1-2 WEEKS AGO Seizure (Chronic) HX OF A KID, NONE SINCE CHILDHOOD History of angina MOST RECENT 60 DAYS AGO...CATH Subjective POD #1 s/p Right TKA rates his current pain as 3/10 Review of Systems Constitutional: no fever, no chills and no sweats Respiratory: no cough and no dyspnea Cardiovascular: no chest pain and no dyspnea Gastrointestinal: no abdominal pain, no nausea and no vomiting Physical Exam Physical Exam: Vital Signs Temp 36.8 C 04/26/19 07:01 Pulse 55 L 04/26/19 07:01 Resp 19 04/26/19 07:01 BP 106/56 L 04/26/19 07:01 Pulse Ox 94 04/26/19 07:01 Intake & Output 04/25/19 04/26/19 04/26/19 18:59 06:59 18:59 Intake Total 1478 / 3127 1649 / 3127 Output Total 555 / 1955 1400 / 1955 Balance 923 / 1172 249 / 1172 Weight 113.988 kg Intake: IV 828 / 1882 1054 / 1882 Cleocin 600 mg In D5w 50 ml @ 54 / 108 54 / 108 100 mls/hr IV Q8H [facility] Rx#: [id number] CLEOCIN 600 mg In 54 ml @ 100 54 / 54 mls/hr IV PREO P [facility] Rx#: [id number] Lr 1,000 ml @ 15 mls/hr IV . 500 / 500 Q24H [facility] Rx#:[id number] Nss 1000ML 1,0 00 ml @ 100 mls/ 1000 / 1000 hr IV .Q10H [facility] Rx#:[id number] Cyklokapron 1, 000 mg In Sodium 220 / 220 Chloride 100 m l @ 660 mls/hr IV 0630 [facility] Rx#:[id number] IV Perioperative 650 / 650 Oral 595 / 595 Output: Urine 500 / 1650 1150 / 1650 Estimated Blood Loss 5 / 5 Drain Output 50 / 300 250 / 300 Right Knee Hem ovac 50 / 300 250 / 300 Other: # Unmeasured Voi ds 3 Constitutional: WD/WN, vitals as above no acute distress Musculoskeletal: Right Leg: NVDI, calf SNT, negative nevaeh sign. DP palpable, able to wiggle toes/ankle movement without difficulty. dressing clean dry and intact. Results & Data Vital Signs (Past 12 Hours) Vital Signs Temp Pulse Pulse Pulse Resp BP BP 04/26/19 07:01 36.8 C 55 L 19 106/56 L 04/26/19 04:00 36.8 C 56 L 20 96/44 L 04/25/19 22:52 36.6 C 56 L 148/62 H 04/25/19 22:20 55 L 04/25/19 19:45 36.4 C L 56 L 18 116/58 L Pulse Ox 04/26/19 07:01 94 04/26/19 04:00 95 04/25/19 22:52 97 04/25/19 22:20 04/25/19 19:45 96 Laboratory Results Laboratory Results WBC 14.84 K/uL (4.8-10.8) H 04/26/19 06:47 RBC 4.58 M/uL (4.7-6.1) L 04/26/19 06:47 Hgb 11.6 g/dL (14.0-18.0) L 04/26/19 06:47 Hct 36.5 % (42-52) L 04/26/19 06:47 MCV 79.7 fL (80-100) L 04/26/19 06:47 MCH 25.3 pg (25-34) 04/26/19 06:47 MCHC 31.8 g/dL (32-36) L 04/26/19 06:47 RDW Std Deviation 48.5 fL (36.4-46.3) H 04/26/19 06:47 RDW Coeff of Annie 16.8 % (11.5-14.5) H 04/26/19 06:47 Plt Count 239 K/uL (130-400) 04/26/19 06:47 MPV 10.0 fL (7.4-10.4) 04/26/19 06:47 PT 11.3 Seconds (9.0-12.0) 04/25/19 08:26 INR 1.1 (0.9-1.1) 04/25/19 08:26 APTT 27.4 Seconds (21.0-31.0) 04/25/19 08:26 PTT Ratio 1.0 04/25/19 08:26 POC Glucose 275 (70-99) H 04/25/19 17:05 Estimat Average Glucose 177 mg/dl 03/23/19 12:45 Hemoglobin A1c 7.8 % (4.5-5.6) H 03/23/19 12:45 Albumin 3.4 gm/dl (3.4-5.0) 03/23/19 12:43 Blood Type A Positive 03/23/19 12:45 Antibody Screen NEGATIVE 03/23/19 12:45 Diagnostic Findings XR knee RT 1 or 2V routine CLINICAL HISTORY: Surgical Post Op COMPARISON: None. DISCUSSION: There are postsurgical changes of a total right knee arthroplasty and patellar resurfacing. The femoral tibial components appear well seated. There are overlying skin china and surgical drains. There is a small amount of air and fluid within the soft tissues consistent with recent surgery. IMPRESSION: Postsurgical changes of a total right knee arthroplasty.
[2019-04-26 07:50] LABS: Calcium 7.7 mg/dl (8.5-10.1); Creatinine Clr Calc Pharmacy 74.3 ml/min; Est GFR (African American) 81.2; Est GFR (Non-African American) 70.1; Potassium 4.3 mmol/L (3.5-5.1)
[2019-04-26] MEDS: IRBESARTAN 150 MG TAB PO SCH (08:40)
[2019-04-26] MEDS: DOCUSATE SODIUM 100 MG CAP PO SCH ×2 (08:42→21:08)
[2019-04-26] MEDS: MULTIVITAMIN TAB PO SCH (08:44)
[2019-04-26] MEDS: ASPIRIN 81 MG ECTAB PO SCH (08:44)
[2019-04-26] MEDS: ISOSORBIDE MONO EXTENDED REL 30 MG TABCR PO SCH (08:44)
[2019-04-26] MEDS: TAMSULOSIN HCL 0.4 MG CAP PO SCH ×2 (08:44→21:09)
[2019-04-26] MEDS: AMLODIPINE BESYLATE 5 MG TAB PO SCH (08:45)
[2019-04-26] MEDS: METOPROLOL SUCC 25MG EXT REL TAB PO SCH (08:45)
--- NOTE | 2019-04-26 09:39 | Pain Management Consultation ---
Date of Consultation April 26, 2019 Assessment & Plan (1) Status post total right knee replacement: For postoperative pain he does not find Morphine IR 15mg effective so it was discontinued. I have initiated the patient on Percocet 10/325mg 1-2 tablets x 4 hours PRN for postoperative pain. Continue to work on ambulation and with physical therapy. Continue IV Morphine for PRN breakthrough pain that is not adequately controlled with intrathecal pump and oral Percocet. Will follow up with the patient tomorrow to ensure improvement in postoperative pain with medication change. Thank you for the consultation. (2) Presence of intrathecal pump: Continue current dosage of Dilaudid 1.697mg/day and Clonidine 22.816mcg/day Continue to follow up with [place] pain management for care of the intrathecal pump. History of Present Illness Attending Physician: Jethro Olson, DO History of Present Illness Mr. Malhotra is a 73 year old white male that has a significant history of #8 back surgeries that has resulted in chronic back pain. He does have an intrathecal pump and catheter delivery system implanted which contains Hydromorphone and Clonidine. The intrathecal pump does provide adequate pain control of his back pain. He did receive a left knee arthroplasty by Dr. Olson yesterday without any complication. Currently he is receiving MS IR 15mg TID for pain relief and IV Morphine for breakthrough pain. He states that the Morphine is only providing mild pain relief and is only effective for a short amount of time. He rated his pain 7/10 currently. The pain is described as a sharp throbbing sensation. He was able to ambulate a short distance last night. He denies any drowsiness, constipation, or confusion. Case discussed with Dr. Miriam Kumar Pain Assessment Full Body Front + Back: 1. [facility] Combined Pain Scale: 7-Severe - Pain prevents productive activity. Impossible to tolerate. Allergies Allergy/AdvReac Type Severity Reaction Status Date / Time bee venom protein (honey bee) Allergy Severe ANAPHYLAXIS Verified 04/25/19 08:20 gentamicin Allergy Intermediate HIVES/SHORTNESS Verified 04/25/19 08:20 OF BREATH Penicillins Allergy Intermediate HIVES/SHORTNESS Verified 04/25/19 08:20 OF BREATH Sulfa (Sulfonamide Allergy Intermediate HIVES/SHORTNESS Verified 04/25/19 08:20 Antibiotics) OF BREATH Home Medications Home Medications Medication Instructions Recorded Confirmed Type amlodipine 5 mg PO QAM 08/04/19 10/30/19 History aspirin [Aspirin Low Dose] 81 mg PO DAILY 01/28/19 04/25/19 History buspirone 5 mg PO QAM 01/28/19 04/25/19 History cyanocobalamin (vitamin B-12) 1,000 mcg SUBCUT MONTHLY 01/28/19 04/25/19 History furosemide 40 mg PO QAM 01/28/19 04/25/19 History irbesartan 300 mg PO QAM 01/28/19 04/25/19 History metoprolol succinate 12.5 mg PO QAM 01/28/19 04/25/19 History tamsulosin 0.4 mg PO BID 01/28/19 04/25/19 History testosterone cypionate 0 mg SUBCUT DIRECTED 01/28/19 04/25/19 History All Natural Deeep Penetrating Cream 1 dose TOPICAL UD PRN 03/14/19 04/25/19 History Intrathecal Pain Pump 0 mg CONTINUOUS INTRATHECAL 03/14/19 04/25/19 History INFUSION CONT morphine 15 mg PO TID PRN 03/14/19 04/25/19 History benzonatate [Tessalon Perles] 100 mg PO TID PRN #30 cap 04/02/19 04/25/19 Rx isosorbide mononitrate 30 mg PO QAM 04/02/19 04/25/19 History warfarin 1 mg PO 4XWK 04/02/19 04/25/19 History warfarin 2 mg PO 3XWK 04/02/19 04/25/19 History warfarin 5 mg PO 3XWK 04/02/19 04/25/19 History warfarin 5 mg PO 4XWK 04/02/19 04/25/19 History Patient History Medical History History of angina MOST RECENT 60 DAYS AGO...CATH History of kidney stones X1 Osteoarthritis Atrial fibrillation (Chronic) ? DATE DX, CARDIOVERSION X 1 CAD (coronary artery disease) (Chronic) Chronic pain (Chronic) Diabetes mellitus type 2, controlled (Chronic) "diet-controlled after gastric bypass" RICHY (obstructive sleep apnea) (Chronic) TOLD HAD SLEEP APNEA BEFORE GASTRIC BYPASS SURGERY, DENIES CURRENT PROBLEMS WITH, NO CURRENT MACHINE Pacemaker (Chronic) LAST CHECK 1-2 WEEKS AGO Seizure (Chronic) HX OF A KID, NONE SINCE CHILDHOOD Surgical History History of back surgery X8 HARDWARE IN History of cardiac cath X3 TOTAL FOR ANGINA ([facility]) - MOST RECENT 60 DAYS AGO - NO STENTS History of cholecystectomy History of colonoscopy History of gastric bypass History of quadruple bypass 1999 History of urologic surgery REMOVAL OF KIDNEY STONE History of appendectomy (Chronic) History of tonsillectomy and adenoidectomy (Chronic) S/P insertion of intrathecal pump (Chronic) Family History Mother Diabetes Grandmother Diabetes Other Cancer Family history of colon cancer in mother Heart disease Hypertension Kidney disease Social History Preferred Language: Macedonian Communication Ability: Effective Rn Discharge Required: No Beliefs That Will Affect Care: None Current Living Situation: Spouse Other Information That Helps Us Care for You: No Feels Safe at Home: Yes Smoking Status: Former smoker Tobacco Type: smokeless tobacco ; Do You Dip or Chew Tobacco: Yes (1 CAN PER DAY/ADVISED NPO) ; Smoking End Date: AGE 11- ; Tobacco Cessation Education Requested by Patient: No Hx Alcohol Use: No Hx Substance Use: No Physical Exam Physical Exam: GENERAL: Mr. Malhotra is a 73 year old white male. Speech and cognition is intact. Mood and affect is appropriate. In no acute distress. HEAD: Normocephalic; atraumatic. EYES: Pupils are round, equal, and reactive to light; EOM intact. CHEST: Regular chest respiration and excursion. ABDOMEN: Intrathecal pump is located at the left lower abdomen. EXTREMITIES: Right knee is wrapped - not evaluated. NEURO: CN II-XII grossly intact with no focal deficits noted. SKIN: No lesions, erythema, or rashes noted.
[2019-04-26] MEDS: OXYCODONE/ACETAMINOPHEN 10-325 TAB PO PRN ×3 (10:19→22:44)
[2019-04-26] MEDS: ORTHO WARFARIN NOMOGRAM SCH (15:16)
--- NOTE | 2019-04-26 15:40 | Cardiology Progress Note ---
Date of Service April 26, 2019 Assessment & Plan (1) Status post total right knee replacement: Continue rehab, analgesics. Pain management input noted and appreciated. (2) Tachy-richard syndrome: Telemetry reveals underlying atrial fibrillation with ventricular paced QRS complexes in the range of 55 bpm at rest. (3) Chronic coronary artery disease: Continue prior to hospital regimen of aspirin 81 mg daily, amlodipine, Avapro, isosorbide mononitrate, metoprolol succinate. Patient was not on a statin prior to this admission, presumably due to past intolerance (4) Chronic atrial fibrillation: Coumadin reinitiated for both stroke prophylaxis and DVT prophylaxis . INR ordered for tomorrow. Subjective Chief complaint: Follow-up chronic coronary heart disease Subjective: Patient feeling well from a cardiac perspective denies chest discomfort or shortness of breath. He states his right knee pain is a 5/10 intensity at present but he is comfortable. He is looking forward to his occupational therapy session. Review of Systems Review of Systems: All systems reviewed & are unremarkable except as noted in HPI & below Physical Exam Physical Exam: Temp Pulse Resp BP Pulse Ox 36.9 C 64 15 107/65 95 04/26/19 11:47 04/26/19 11:47 04/26/19 11:47 04/26/19 11:47 04/26/19 11:47 Constitutional: WD/WN, vitals as above Respiratory: normal respiratory effort, lungs clear to auscultation Cardiovascular: RRR, no murmur, no edema Heart Sounds: no murmur Vessels: no JVD Extremities: no edema Musculoskeletal: Right lower leg wrapped with compression bandage, drain in place Neurologic: PERRL, EOMI, accommodation nl, no face palsy, no dysarthria Results & Data Vital Signs (Past 12 Hours) Vital Signs Temp Pulse Pulse Resp BP Pulse Ox 04/26/19 11:47 36.9 C 64 15 107/65 95 04/26/19 07:01 36.8 C 55 L 19 106/56 L 94 04/26/19 04:00 36.8 C 56 L 20 96/44 L 95 Laboratory Results Hemoglobin 11.6, down from his preoperative level of 14 Platelet count 239 INR 1.1 on 04/25/2019, no level drawn today 04/26/2019. Creatinine 1.05, sodium and other electro lites within normal limits.
[2019-04-26] MEDS ORDERED: WARFARIN SOD 2 MG TAB PO SCH (16:00)
[2019-04-26] MEDS: WARFARIN SOD 5 MG TAB PO SCH (16:31)
[2019-04-26] MEDS: SENNA 8.6 MG TAB PO SCH (21:08)
[2019-04-27] MEDS: MoRPHine SULFATE 4 MG/ML 1 ML CARP\\VIAL IV PRN ×2 (02:04→14:16)
[2019-04-27] MEDS: ACETAMINOPHEN 500 MG TAB PO SCH ×3 (05:31→20:41)
[2019-04-27] MEDS: OXYCODONE/ACETAMINOPHEN 10-325 TAB PO PRN (06:08)
[2019-04-27 07:47] LABS: INR 1.3 (0.9-1.1); Prothrombin Time 13.2 Seconds (9.0-12.0)
--- NOTE | 2019-04-27 08:28 | Orthopedic Progress Note ---
Date of Service April 27, 2019 Assessment & Plan (1) Status post total right knee replacement: POD #2 s/p Right TKA pt/ot dvt proph with JORGE/SCD/resume Coumadin home dose plan for d/c home with HHPT when stable Subjective POD #2 s/p Right TKA Review of Systems Review of Systems: All systems reviewed & are unremarkable except as noted in HPI & below Constitutional: no fever and no chills Respiratory: no cough and no dyspnea Cardiovascular: no chest pain, no dyspnea and no orthopnea Gastrointestinal: no abdominal pain, no nausea and no vomiting Physical Exam Physical Exam: Vital Signs Temp Pulse Pulse Pulse Resp BP Pulse Ox 04/27/19 07:02 36.6 C 56 L 19 127/74 97 04/27/19 02:26 36.3 C L 55 L 19 125/57 L 96 04/27/19 00:33 56 L 04/26/19 23:00 36.7 C 55 L 20 126/74 97 04/26/19 11:47 36.9 C 64 15 107/65 95 Intake and Output 04/26/19 04/27/19 04/27/19 22:59 06:59 14:59 Intake Total 550 / 3380 200 / 3380 Output Total 800 / 2125 1325 / 2125 Balance -250 / 1255 -1125 / 1255 Intake: Oral 550 / 1405 200 / 1405 Output: Urine 800 / 1875 1075 / 1875 Drain Output 250 / 250 Right Knee Hem ovac 250 / 250 Other: Weight 115.6 kg Constitutional: WD/WN, vitals as above no acute distress Musculoskeletal: Right leg: NVDI, calf SNT, negative nevaeh sign. DP palpable, able to wiggle toes/ankle movement without difficulty. dressing clean dry and intact. Results & Data Vital Signs (Past 12 Hours) Vital Signs Temp Pulse Pulse Resp BP Pulse Ox 04/27/19 07:02 36.6 C 56 L 19 127/74 97 04/27/19 02:26 36.3 C L 55 L 19 125/57 L 96 04/27/19 00:33 56 L 04/26/19 23:00 36.7 C 55 L 20 126/74 97 Laboratory Results Laboratory Results WBC 14.84 K/uL (4.8-10.8) H 04/26/19 06:47 RBC 4.58 M/uL (4.7-6.1) L 04/26/19 06:47 Hgb 11.6 g/dL (14.0-18.0) L 04/26/19 06:47 Hct 36.5 % (42-52) L 04/26/19 06:47 MCV 79.7 fL (80-100) L 04/26/19 06:47 MCH 25.3 pg (25-34) 04/26/19 06:47 MCHC 31.8 g/dL (32-36) L 04/26/19 06:47 RDW Std Deviation 48.5 fL (36.4-46.3) H 04/26/19 06:47 RDW Coeff of Annie 16.8 % (11.5-14.5) H 04/26/19 06:47 Plt Count 239 K/uL (130-400) 04/26/19 06:47 MPV 10.0 fL (7.4-10.4) 04/26/19 06:47 PT 13.2 Seconds (9.0-12.0) H 04/27/19 07:14 INR 1.3 (0.9-1.1) H 04/27/19 07:14 APTT 27.4 Seconds (21.0-31.0) 04/25/19 08:26 PTT Ratio 1.0 04/25/19 08:26 Sodium 137 mmol/L (136-145) 04/26/19 06:47 Potassium 4.3 mmol/L (3.5-5.1) 04/26/19 06:47 Chloride 105 mmol/L (98-107) 04/26/19 06:47 Carbon Dioxide 25 mmol/L (21-32) 04/26/19 06:47 Anion Gap 7.0 (3-11) 04/26/19 06:47 BUN 22 mg/dl (7-18) H 04/26/19 06:47 Creatinine 1.05 mg/dl (0.6-1.4) 04/26/19 06:47 Est Cr Clr Drug Dosing 74.3 ml/min 04/26/19 06:47 Est GFR ( Amer) 81.2 04/26/19 06:47 Est GFR (Non-Af Amer) 70.1 04/26/19 06:47 BUN/Creatinine Ratio 21.0 (10-20) H 04/26/19 06:47 Glucose 220 mg/dl (70-99) H 04/26/19 06:47 POC Glucose 190 (70-99) H 04/26/19 11:43 Estimat Average Glucose 177 mg/dl 03/23/19 12:45 Hemoglobin A1c 7.8 % (4.5-5.6) H 03/23/19 12:45 Calcium 7.7 mg/dl (8.5-10.1) L 04/26/19 06:47 Albumin 3.4 gm/dl (3.4-5.0) 03/23/19 12:43 Blood Type A Positive 03/23/19 12:45 Antibody Screen NEGATIVE 03/23/19 12:45
--- NOTE | 2019-04-27 08:34 | Pain Management Progress Note ---
Date of Service April 27, 2019 Assessment & Plan (1) Status post total right knee replacement: * Discontinue oxycodone due to lack of significant efficacy. * Recommend hydromorphone 2 mg every 3 hours as needed. 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 (2) Presence of intrathecal pump: * For discharge recommend patient be maintained on either oral morphine (may need dose adjusted) that he was on previously OR oral hydromorphone for supplemental postop analgesia but not both. * Recommend co-prescribing Narcan and educating family members reckoning signs of history of depression and use of Narcan. Subjective Mr. Malhotra was seen for follow-up this morning on rounds. He reports experiencing improved analgesia at rest but continues to experience pain with physical therapy and movement of the right knee as well as with weightbearing on the right lower extremity. Reports persistent pain with ambulation. Denies any side effects from the oxycodone. He has been using a as needed basis but requests that it be dispensed on a scheduled basis. He offers no new complaints today. Pain Assessment Pain Assessment Full Body Front + Back: 1. [facility] Combined Pain Scale: 5-Moderate - Cannot perform normal tasks without increase in pain (Ambulation weightbearing) Pain scale - at its best (0-10): 3 Pain scale - at its worst (0-10): 7 Physical Exam Constitutional: WD/WN, vitals as above no acute distress Musculoskeletal: Extremities: + limited ROM of extremities (Right knee) and strength 5/5 throughout Ankle: no surgical incision
[2019-04-27] MEDS ORDERED: SODIUM CHLORIDE 0.9% IV PRN (08:42)
[2019-04-27] MEDS ORDERED: NALOXONE HCL IV PRN (08:42)
[2019-04-27] MEDS: DOCUSATE SODIUM 100 MG CAP PO SCH ×2 (08:57→20:47)
[2019-04-27] MEDS: IRBESARTAN 150 MG TAB PO SCH (08:57)
[2019-04-27] MEDS: ISOSORBIDE MONO EXTENDED REL 30 MG TABCR PO SCH (08:58)
[2019-04-27] MEDS: ASPIRIN 81 MG ECTAB PO SCH (08:58)
[2019-04-27] MEDS: TAMSULOSIN HCL 0.4 MG CAP PO SCH ×2 (08:58→20:46)
[2019-04-27] MEDS: MULTIVITAMIN TAB PO SCH (08:58)
[2019-04-27] MEDS: AMLODIPINE BESYLATE 5 MG TAB PO SCH (08:59)
[2019-04-27] MEDS: METOPROLOL SUCC 25MG EXT REL TAB PO SCH (08:59)
[2019-04-27] MEDS: HYDROmorphone HCL 2 MG TAB PO PRN ×3 (10:50→19:25)
--- NOTE | 2019-04-27 14:27 | Cardiology Progress Note ---
Date of Service April 27, 2019 Assessment & Plan (1) Status post total right knee replacement: (2) Chronic coronary artery disease: (3) Chronic atrial fibrillation: (4) Tachy-richard syndrome: Patient described stable cardiac signs and symptoms. Telemetry reveals demand ventricular pacing in the range of 55 to 60 bpm. He has a history of chronic atrial fibrillation. Continue outpatient cardiac medications including amlodipine 5 mg daily, aspirin 81 mg daily, irbesartan 300 mg daily, isosorbide mononitrate extended release 30 mg daily, Toprol succinate 12.5 mg daily in the morning. We will add back his furosemide tomorrow. Continue Coumadin loading, goal INR 2-3 for both stroke prophylaxis in the setting of atrial fibrillation and DVT prophylaxis. Disposition: Anticipate discharge to home perhaps tomorrow. Dr Brielle Hamilton to assume rounding for our service on 04/28/19, please call with questions or concerns. Subjective Mr Malhotra is a 73-year-old male seen in routine cardiology follow-up having undergone right total knee replacement earlier this hospital stay. He feels well. Denies chest discomfort or shortness of breath. The pain management team has been seeing him to help optimize his pain relief. Review of Systems Review of Systems: All systems reviewed & are unremarkable except as noted in HPI & below Physical Exam Physical Exam: Temp Pulse Resp BP Pulse Ox 36.7 C 58 L 18 151/68 H 99 04/27/19 11:00 04/27/19 11:00 04/27/19 11:00 04/27/19 11:00 04/27/19 11:00 Constitutional: WD/WN, vitals as above Cardiovascular: RRR, no murmur, no edema Gastrointestinal (Abdomen): normal bowel sounds, soft, nontender, no hepatosplenomegaly Musculoskeletal: Left lower leg, no edema, knee-high sequential pneumatic compression device in place The operative leg which is his right lower leg is wrapped with an Tripp bandage, his drain has been removed by the orthopedic service. Neurologic: PERRL, EOMI, accommodation nl, no face palsy, no dysarthria Results & Data Vital Signs (Past 12 Hours) Vital Signs Temp Pulse Pulse Resp BP Pulse Ox 04/27/19 11:00 36.7 C 58 L 18 151/68 H 99 04/27/19 07:02 36.6 C 56 L 19 127/74 97 04/27/19 02:26 36.3 C L 55 L 19 125/57 L 96 Laboratory Results INR today 04/27/2019 at 1.3 up from 1.1
[2019-04-27] MEDS: WARFARIN SOD 5 MG TAB PO SCH (15:52)
[2019-04-27] MEDS ORDERED: WARFARIN SOD 1 MG TAB PO SCH (16:00)
[2019-04-27] MEDS: SENNA 8.6 MG TAB PO SCH (20:46)
[2019-04-28] MEDS: HYDROmorphone HCL 2 MG TAB PO PRN ×4 (01:31→11:46)
[2019-04-28] MEDS: ACETAMINOPHEN 500 MG TAB PO SCH ×2 (05:00→13:56)
[2019-04-28 06:37] LABS: INR 1.5 (0.9-1.1); Prothrombin Time 14.9 Seconds (9.0-12.0)
--- NOTE | 2019-04-28 07:55 | Orthopedic Progress Note ---
Date of Service April 28, 2019 Assessment & Plan (1) Status post total right knee replacement: 73 yo male stable POD #3 s/p right TKA, chronic pain issues 1. Med management- appreciate pain management input 2. DVT prophylaxis- resume Coumadin, SCDs 3. PT/OT 4. D/C planning- home w/ HH Subjective Pt resting in bed, still c/o moderate pain Physical Exam Physical Exam: Silverlon dressing in place, toes mobile, NVI, calf soft, NT Results & Data Vital Signs (Past 12 Hours) Vital Signs Temp Pulse Pulse Resp BP BP Pulse Ox 04/28/19 07:15 36.9 C 56 L 16 171/68 H 98 04/28/19 04:52 150/73 H 04/28/19 04:34 37.2 C 61 18 170/69 H 94 04/27/19 23:59 56 L 04/27/19 23:21 36.7 C 61 18 155/77 H 95 Laboratory Results 04/28/19 Range/Units 05:46 PT 14.9 H (9.0-12.0) Seconds INR 1.5 H (0.9-1.1)
[2019-04-28] MEDS: IRBESARTAN 150 MG TAB PO SCH (08:24)
[2019-04-28] MEDS: ISOSORBIDE MONO EXTENDED REL 30 MG TABCR PO SCH (08:25)
[2019-04-28] MEDS: DOCUSATE SODIUM 100 MG CAP PO SCH (08:25)
[2019-04-28] MEDS: ASPIRIN 81 MG ECTAB PO SCH (08:25)
[2019-04-28] MEDS: TAMSULOSIN HCL 0.4 MG CAP PO SCH (08:25)
[2019-04-28] MEDS: METOPROLOL SUCC 25MG EXT REL TAB PO SCH (08:26)
[2019-04-28] MEDS: AMLODIPINE BESYLATE 5 MG TAB PO SCH (08:26)
[2019-04-28] MEDS: MULTIVITAMIN TAB PO SCH (08:26)
[2019-04-28] MEDS ORDERED: FUROSEMIDE 40 MG TAB PO SCH (09:00)
--- NOTE | 2019-04-28 13:11 | Cardiology Progress Note ---
Date of Service April 28, 2019 Assessment & Plan (1) Status post total right knee replacement: (2) Chronic coronary artery disease: (3) Chronic atrial fibrillation: (4) Tachy-richard syndrome: Patient appears stable and compensated from a cardiovascular perspective. Continue Coumadin for goal INR of 2.0-3.0. Repeat INR early next week. Continue outpatient cardiovascular medications including amlodipine, aspirin, irbesartan, isosorbide monohydrate, and low-dose Toprol-XL. Routine outpatient cardiology follow-up as previously scheduled. Subjective Patient seen and examined at the bedside. Denies chest pain or shortness of b reath. Reports hip discomfort at this time. No signs/symptoms of blood loss. Denies lightheadedness, dizziness, or palpitations. Requesting discharge. Review of Systems Review of Systems: All systems reviewed & are unremarkable except as noted in HPI & below Physical Exam 2 Constitutional: well developed and + obese Neck: normal visual inspection and trachea midline Respiratory: normal respiratory effort, lungs clear to auscultation Cardiovascular: Rate/Rhythm: + irregularly irregular Heart Sounds: normal S1 and normal S2 Gastrointestinal (Abdomen): Inspection/Auscultation: normal bowel sounds Percussion/Palpation: abdomen soft; abdomen nontender Musculoskeletal: Right lower extremity with Tripp wrap. No edema. Neurologic: CN's II-XI intact bilaterally and moves all extremities; no focal motor deficits Results & Data Vital Signs (Past 12 Hours) Vital Signs Temp Pulse Pulse Resp BP BP Pulse Ox 04/28/19 11:35 37.0 C 65 20 122/49 L 95 04/28/19 07:15 36.9 C 56 L 16 171/68 H 98 04/28/19 04:52 150/73 H 04/28/19 04:34 37.2 C 61 18 170/69 H 94
--- NOTE | 2019-04-30 08:24 | Discharge Summary ---
Date of Service Date of Discharge: April 28, 2019 Date of Admission: 04/25/19 Admission HPI Per Admitting Provider Mr Malhotra is a 73 year old male who complains of right knee pain, presents for pre-op evaluation prior to a right total knee replacement at [facility] on 04-25-19. He presents with pain and stiffness on the right side. He states that the symptoms have been chronic non-traumatic, and it occurs constantly with intermittent worsening. Currently the patient states that the symptoms are moderate-severe. The pain is described as aching, sharp and throbbing. The symptoms are aggravated by ascending stairs, daily activities, descending stairs, first steps while awake and walking. Michael states that the symptoms are relieved by no specific activity. In addition to right knee pain the patient is also experiencing cracking, crepitus, decreased mobility, joint pain, instability, limping, loss of motion, pain after activity and stiffness. Pt. is on Coumadin therapy which limits his NSAID use. He has had Pt and ambulates with rolling walker. has had prior cortisone injection with no relief. Principal Diagnosis right knee osteoarthritis Discharge Exam Vital Signs Temp 37.0 C 04/28/19 13:30 Pulse 65 04/28/19 13:30 Resp 20 04/28/19 13:30 BP 122/49 L 04/28/19 13:30 Pulse Ox 95 04/28/19 13:30 Constitutional WD/WN, vitals as above no acute distress Musculoskeletal Right knee: NVDI, calf SNT, negative nevaeh sign. DP palpable, able to wiggle toes/ankle movement without difficulty. Silverlon dressing clean dry and intact. expected post-operative bruising noted. Discharge Data Allergies Allergy/AdvReac Type Severity Reaction Status Date / Time bee venom protein (honey bee) Allergy Severe ANAPHYLAXIS Verified 04/25/19 08:20 gentamicin Allergy Intermediate HIVES/SHORTNESS Verified 04/25/19 08:20 OF BREATH Penicillins Allergy Intermediate HIVES/SHORTNESS Verified 04/25/19 08:20 OF BREATH Sulfa (Sulfonamide Allergy Intermediate HIVES/SHORTNESS Verified 04/25/19 08:20 Antibiotics) OF BREATH Consultations 04/25/19 13:35 Consult Case Management - Discharge Planning Routine Consult Hospitalist Routine Consult Pain Management Routine Procedures Performed Operation Date: 04/10/19 11:00 <No data on this case meets the specified criteria> Operation Date: 04/25/19 10:20 Actual Procedures p Right Total Knee Arthroplasty(Right) - Jethro Olson, Ordered Studies 04/10/19 05:00 US - OR guided needle placemen Stat 04/25/19 05:00 US - OR guided needle placemen Stat Hospital Course (1) Status post total right knee replacement: 73 yo male stable POD #3 s/p right TKA, chronic pain issues 1. Med management- appreciate pain management input 2. DVT prophylaxis- resume Coumadin, SCDs 3. PT/OT 4. D/C planning- home w/ HH Total Time Total Time Spent Total Time Spent (In Minutes): 20 Total Time Includes: Examination of the Patient, Discharge Planning and Medication Reconciliation Discharge Plan Discharge Items Patient Disposition: Home - Home Health Services Reason For Visit: Unilateral Primary Osteoarthritis of Right Knee Discharge Diagnosis: right total knee replacement Activity: Per Instructions section Lifting: Wait until after follow-up appointment Weightbearing: Full weightbearing and Right weightbearing Non-emergency contact: Primary Care Provider and Surgeon Call non-emergency contact if: you have any medication questions, your temperature is above 101, your wound has increased redness, your wound has increased drainage and your wound pain has increased Follow-up/Referrals: Shoaib Foote MD [Primary Care Provider] - Diet: Regular Addtl Attending Provider Instructions: ACTIVITY RECOMMENDATIONS: SELF CARE INSTRUCTIONS AFTER TOTAL KNEE REPLACEMENT A. You may need to continue a physical therapy program after discharge from the hospital. There are several options available to you. Your doctor will assist you in selecting the best one for you. 1. An out-patient facility 2 to 3 times a week for therapy or home therapy. 2. Continue working on all exercises taught to you in the hospital. Your goals should be to increase bending of your knee to 90 degrees and beyond and to fully straighten your knee. B. You may progress at your own pace from walking with a walker or crutches to a cane; then to no assistive devices. C. Make walking a part of your daily routine. Be up as much as comfortable with rest periods throughout the day. Rest with leg elevation is very important. Use the ice wrap frequently for the first 3-4 weeks. D. There are no restrictions on activities. You may ride in a car, shop, participate in asparagus buncher and all social activities. E. Wear the long elastic stockings (JORGE hose) 20 hours a day for 2 weeks after surgery. They can be removed several times a day for laundering and for a bath. F. You may shower, no tub baths until cleared by your doctor. SPECIAL CARE INSTRUCTIONS: VERY IMPORTANT TO READ AND REVIEW A. There are a few signs you need to watch for after you are home. Call [facility] if you notice any of the followin. Increased severe knee pain. Some pain is expected especially when you exercise. 2. Increased swelling in your leg or knee; pain or swelling of the calf muscle in either lower leg. 3. Any fluid drainage from the incision. 4. Shortness of breath or chest pain. B. Please call [facility] at if you have any concerns or questions about your operation or recovery. The doctor or his nurse will return your call promptly. C. You must take antibiotics before dental work, bladder, bowel or other surgery. Your doctor will provide you with a permanent care to carry describing this precaution. IMPORTANT: * REMEMBER TO TAKE ASPIRIN, 81 MG, TWICE DAILY FOR 4 WEEKS UNLESS OTHERWISE DIRECTED. THIS IS YOUR BLOOD THINNER. * HIGH RISK PATIENTS MAY BE PRESCRIBED A STRONGER BLOOD THINNER. THIS WILL BE PROVIDED AT DISCHARGE. * CALL IF INCREASED PAIN, REDNESS, DRAINAGE OR FEVER GREATER THAT 101. * WEAR JORGE HOSE 20 HOURS PER DAY FOR 2 WEEKS. * YOU MAY HAVE A LARGE BAND-AID LIKE DRESSING (SILVERON). THIS WILL REMAIN ON YOUR INCISION FOR 7 DAYS, THEN CAN BE REMOVED. IF INCISION IS LEAKING THROUGH DRESSING, CALL THE OFFICE . FOLLOW UP VISIT: If appointment is not already scheduled: Please call [facility] to make a follow-up appointment for 2 weeks after your surgery at . Pending Studies at Discharge: No Stand-Alone Forms: My [facility] [employer], Smoking Cessation Medications and DC Order Prescriptions: New acetaminophen [Tylenol Extra Strength] 500 mg Tablet 1,000 mg PO Q8 Qty: 0 RF: 0 naloxone 0.4 mg/mL solution 0.4 mg intranasal ONCE PRN (Reason: opioid reversal) Qty: 1 RF: 0 hydromorphone 2 mg tablet 2 mg PO Q3H PRN (Reason: pain) Qty: 18 RF: 0 Continued furosemide 40 mg tablet 40 mg PO QAM RF: 0 buspirone 5 mg tablet 5 mg PO QAM RF: 0 amlodipine 5 mg tablet 5 mg PO QAM RF: 0 aspirin [Aspirin Low Dose] 81 mg Tablet,Delayed Release (Dr/Ec) 81 mg PO DAILY RF: 0 tamsulosin 0.4 mg capsule 0.4 mg PO BID RF: 0 cyanocobalamin (vitamin B-12) 1,000 mcg/mL Solution 1,000 mcg SUBCUT MONTHLY RF: 0 metoprolol succinate 25 mg tablet extended release 24 hr 12.5 mg PO QAM RF: 0 testosterone cypionate 200 mg/mL oil subcut DIRECTED RF: 0 irbesartan 300 mg tablet 300 mg PO QAM RF: 0 All Natural Deeep Penetrating Cream 1 dose topical UD PRN (Reason: JOINT PAIN) RF: 0 Intrathecal Pain Pump continuous intrathecal infusion CONT RF: 0 benzonatate [Tessalon Perles] 100 mg capsule 100 mg PO TID PRN (Reason: cough) Qty: 30 RF: 0 isosorbide mononitrate 30 mg tablet extended release 24 hr 30 mg PO QAM RF: 0 warfarin 1 mg Tablet 2 mg PO 3XWK RF: 0 warfarin 5 mg Tablet 5 mg PO 3XWK RF: 0 warfarin 5 mg Tablet 5 mg PO 4XWK RF: 0 warfarin 1 mg Tablet 1 mg PO 4XWK RF: 0 Discontinued morphine 15 mg Tablet 15 mg PO TID PRN (Reason: Pain) RF: 0 Discharge Orders: Discharge Order (Routine); Ordered 04/28/19 Ordered By: Roge Mack Admission Data Admit Date/Time: 04/25/19 12:22 Attending Provider: Jethro Olson Admit Provider: Jethro Olson Primary Care Provider: Shoaib Foote Other Providers: Todd Byrd ; Shoaib Foote Other Interventions: Discharge Summary Assessment (RN) Last Done: 04/28/19 13:30 DC Date/Time DO NOT enter until pt leaves facility: 04/28/19 14:00
== END 2019-04-28 14:00 | disposition home health service (06) | DRG 470 ==
LOC: ASU 07:43 → 2W 12:22

== ENCOUNTER 2021-12-19 12:33 | Observation (INO) ==
[2021-12-19] MEDS ORDERED: NITROGLYCERIN 2% OINTMENT 30GM TUBE EXT STA (12:37)
[2021-12-19] MEDS ORDERED: NITROGLYCERIN 2% OINTMENT 30GM TUBE ONE (12:37)
[2021-12-19] MEDS ORDERED: MoRPHine SULFATE 4 MG/ML 1 ML CARP\\VIAL IV PRN (12:37)
[2021-12-19] MEDS ORDERED: MoRPHine SULFATE 2 MG/ML CARP ONE (12:43)
[2021-12-19] MEDS ORDERED: MoRPHine SULFATE 2 MG/ML CARP IV PRN (12:50)
--- NOTE | 2021-12-19 12:50 | Emergency Department Note ---
Impression & Plan Precordial chest pain, SOB (shortness of breath), Diaphoresis, CAD (coronary atherosclerotic disease) ED Provider Note NAME: KUSUM DUNCAN AGE: 76 SEX: M : 1945 ARRIVES VIA: Ambulance INFORMANT: [Patient] ED PROVIDER(S): [Juan Luna MD] CHIEF COMPLAINT: Cardiac assessment HISTORY OF PRESENT ILLNESS: The patient is a 76-year-old male with a history of coronary disease. He has had bypass surgery x4. The patient states that about an hour and a half ago he was walking from his house to another structure when he developed some pressure in his chest and pain in his jaw. He was sweaty and short of breath. The pain was a 6 on a scale of 1 out of 10. He took 2 nitroglycerin which helped a little bit. EMS was summoned. The patient was given 4 baby aspirin and 2 nitroglycerin sprays. This helped his pain. He stopped sweating. He felt less short of breath. He received a total of 8 mg of morphine IV via medical command. He was given 4 mg at a time. The patient arrives stating that he feels markedly better. He still has some discomfort in the jaw and chest but things are markedly better. The patient has been in baseline health. No exertional dyspnea or chest pain. He has not had cough, cold or congestion. The patient does have a pacemaker making his ECG interpretation difficult. I did speak with the doctor on-call for heart alert. For now, a heart alert is not to be initiated. REVIEW OF SYSTEMS: See HPI for pertinent positives and negatives. A total of ten systems were reviewed and were otherwise negative. PMHx/PSHx: See Below SOCIAL HISTORY: See Below. PHYSICAL EXAM: GENERAL: Patient is in no acute distress. HEENT: No acute trauma, normocephalic atraumatic, mucous membranes moist, no nasal congestion, no scleral icterus. NECK: No stridor, no adenopathy, no meningismus, trachea is midline. LUNGS: Clear to auscultation bilaterally, no wheeze, no rhonchi, breath sounds equal. HEART: Without murmurs gallops or rubs, regular rate and rhythm. ABDOMEN: Soft, nontender, bowel sounds positive, no peritonitis. EXTREMITIES: No cyanosis, mild bilateral pedal edema, full range of motion of all the joints without pain or difficulty, no signs for acute trauma. NEUROLOGIC: Oriented x 3, no acute motor or sensory deficits, no focal weakness. SKIN: No rash, no jaundice, no diaphoresis. DIFFERENTIAL DIAGNOSIS: Cardiac ischemia, aortic dissection, pulmonary embolism, pneumothorax, pneu monia, pericarditis, myocarditis, esophageal rupture, GERD, cholecystitis, pancreatitis, musculoskeletal, as well as other pathologies. EMERGENCY DEPARTMENT COURSE/PROCEDURES: ECG: Indication was chest pain. The ECG shows a ventricular pacemaker with a rate of 80. No concerning ST elevation. No PVCs. The QTc is 553. Continuous Cardiac Monitoring: An order was placed for continuous cardiac monitoring. The monitor shows a rate of 62 with a ventricular pacemaker. Critical Care Note: I have personally spent 42 minutes of critical care time in the direct management of this patient. This includes bedside care, interpretation of diagnostic studies, and testing, discussion with consultants, patient, and family members, and other required patient management activities. This 42 minutes is in excess of all separately billable procedures. MEDICAL DECISION MAKING: There is no leukocytosis or concerning anemia. There is a normal platelet count. INR is 1.8, consistent with his Coumadin use. No electrolyte abnormality in need of emergent correction. No renal failure. No concerning liver enzyme elevation. No pancreatitis. ECG showed a ventricular pacemaker without obvious concerning ST elevation. Cardiac troponin testing x1 did return normal. Chest film did not show CHF or pneumothorax. There was no pneumonia. The patient was gradually managed as there was concern for the possibility of acute DC. I did speak with the cardiac interventionalist on-call, the patient was not to go directly to the cardiac catheterization laboratory. The situation was quite complicated by his pacemaker and Coumadin use. I did speak with the patient's small products i assembler, Dr. Foote. The patient does not need emergent cardiac intervention. He will need symptom control and troponin trending. The patient received 2 inches of nitroglycerin paste. He was given IV morphine, 2 mg at a time. He received a 500 cc saline bolus. The patient feels markedly better. His pain is nearly gone. He is resting comfortably. I did speak with the patient and his family, I talked to the case management coordinator. The on-call hospitalist has been consulted. Past Med/Surg History Medical History (Updated 12/19/21 @ 20:02 by Juan Luna MD) Atrial fibrillation ? DATE DX, CARDIOVERSION X 1 CAD (coronary artery disease) Chronic pain Diabetes mellitus type 2, controlled "diet-controlled after gastric bypass" History of angina MOST RECENT 60 DAYS AGO...CATH History of kidney stones X1 RICHY (obstructive sleep apnea) TOLD HAD SLEEP APNEA BEFORE GASTRIC BYPASS SURGERY, DENIES CURRENT PROBLEMS WITH, NO CURRENT MACHINE Osteoarthritis Pacemaker LAST CHECK 1-2 WEEKS AGO Seizure HX OF A KID, NONE SINCE CHILDHOOD Surgical History (Updated 10/05/20 @ 00:08 by Background Dacristobal) History of appendectomy History of back surgery X8 HARDWARE IN History of cardiac cath X3 TOTAL FOR ANGINA ([facility]) - MOST RECENT 60 DAYS AGO - NO STENTS History of cholecystectomy History of colonoscopy History of gastric bypass History of quadruple bypass 1999 History of tonsillectomy and adenoidectomy History of urologic surgery REMOVAL OF KIDNEY STONE S/P insertion of intrathecal pump Family History Mother Diabetes Grandmother Diabetes Other Cancer Family history of colon cancer in mother Heart disease Hypertension Kidney disease Social History Smoking Status: Former smoker Tobacco Type: Cigarettes Hx Alcohol Use: No Hx Substance Use: Yes Substance Use Type Other:: Pain Pump Preferred Language: Venezuelan Communication Ability: Effective Signal Person Required: No Beliefs That Will Affect Care: None marital status: Current Living Situation: Spouse Other Information That Helps Us Care for You: No Feels Safe at Home: Yes Safety Concerns: Feels Safe At This Time Assistive Devices: Glasses and Walker Allergies Allergies Allergy/AdvReac Type Severity Reaction Status Date / Time bee venom protein (honey bee) Allergy Severe ANAPHYLAXIS Verified 09/19/20 22:36 gentamicin Allergy Intermediate HIVES/SHORTNESS Verified 09/19/20 22:45 OF BREATH Penicillins Allergy Intermediate HIVES/SHORTNESS Verified 09/19/20 22:36 OF BREATH Sulfa (Sulfonamide Allergy Intermediate HIVES/SHORTNESS Verified 09/19/20 22:36 Antibiotics) OF BREATH Home Meds Home Medications Medication Instructions Recorded Confirmed amlodipine 5 mg tablet 5 mg PO QAM 01/28/19 12/19/21 buspirone 5 mg tablet 5 mg PO HS 01/28/19 12/19/21 furosemide 40 mg tablet 40 mg PO QAM 01/28/19 12/19/21 irbesartan 300 mg tablet 300 mg PO QAM 01/28/19 12/19/21 metoprolol succinate 25 mg 12.5 mg PO QAM 01/28/19 12/19/21 tablet,extended release 24 hr tamsulosin 0.4 mg capsule 0.4 mg PO BID 01/28/19 12/19/21 Intrathecal Pain Pump 0 mg CONTINUOUS INTRATHECAL 03/14/19 12/19/21 INFUSION CONT isosorbide mononitrate 30 mg 30 mg PO QAM 04/02/19 12/19/21 tablet,extended release 24 hr warfarin 5 mg tablet 7 mg PO HS 04/02/19 12/19/21 multivitamin 1 tab PO BID 09/14/20 12/19/21 metformin 500 mg tablet 500 mg PO BID 12/19/21 12/19/21 Results & Data (ED) Vital Signs Vital Signs - 24 hr 12/19/21 12:38 12/19/21 12:39 12/19/21 12:45 Temperature Temperature Source Pulse Rate 60 65 Pulse Rate [Apical] Pulse Rate from SpO2 Sensor 60 66 Pulse Rhythm Pulse Strength Respiratory Rate 23 20 Respiratory Effort / Characteristics Respiratory Depth Respiratory Pattern Blood Pressure 129/79 117/73 Blood Pressure [Right Arm] Blood Pressure Mean 95 87 Blood Pressure Mean [Right Arm] Blood Pressure Position [Right Arm] Pulse Oximetry 99 97 Oxygen Delivery Method Sepsis Recent Fever Within 48 Hours Sepsis New/Unexplained Change in Mental Status Sepsis Action Taken by Nursing 12/19/21 12:48 12/19/21 12:49 12/19/21 12:50 Temperature 36.4 C L Temperature Source Temporal Artery Scan Pulse Rate 56 L 61 Pulse Rate [Apical] 55 L Pulse Rate from SpO2 Sensor 61 Pulse Rhythm Regular Pulse Strength Normal Respiratory Rate 20 20 16 Respiratory Effort / Characteristics Non-Labored Spontaneous Respiratory Depth Normal Respiratory Pattern Regular Blood Pressure 119/78 Blood Pressure [Right Arm] 128/70 Blood Pressure Mean 91 Blood Pressure Mean [Right Arm] 89 Blood Pressure Position [Right Arm] Sitting Pulse Oximetry 98 100 97 Oxygen Delivery Method Room Air Sepsis Recent Fever Within 48 Hours No Sepsis New/Unexplained Change in Mental Status N/A Sepsis Action Taken by Nursing No Action Required 12/19/21 12:58 12/19/21 13:00 12/19/21 13:01 Temperature Temperature Source Pulse Rate 56 L 55 L 56 L Pulse Rate [Apical] Pulse Rate from SpO2 Sensor 56 L 56 L 55 L Pulse Rhythm Pulse Strength Respiratory Rate 18 14 19 Respiratory Effort / Characteristics Respiratory Depth Respiratory Pattern Blood Pressure 130/76 115/79 Blood Pressure [Right Arm] Blood Pressure Mean 94 91 Blood Pressure Mean [Right Arm] Blood Pressure Position [Right Arm] Pulse Oximetry 97 97 94 Oxygen Delivery Method Sepsis Recent Fever Within 48 Hours Sepsis New/Unexplained Change in Mental Status Sepsis Action Taken by Nursing 12/19/21 13:16 12/19/21 13:30 Temperature Temperature Source Pulse Rate 55 L 55 L Pulse Rate [Apical] Pulse Rate from SpO2 Sensor Pulse Rhythm Pulse Strength Respiratory Rate 20 16 Respiratory Effort / Characteristics Respiratory Depth Respiratory Pattern Blood Pressure 133/74 118/60 Blood Pressure [Right Arm] Blood Pressure Mean 93 79 Blood Pressure Mean [Right Arm] Blood Pressure Position [Right Arm] Pulse Oximetry Oxygen Delivery Method Sepsis Recent Fever Within 48 Hours Sepsis New/Unexplained Change in Mental Status Sepsis Action Taken by Custodial Medications Current Medication List: was personally reviewed by me Laboratory Data Attestation: I reviewed the patient's lab results. Result diagrams: 12/19/21 12:40 12/19/21 12:40 Lab Results 12/19/21 12/19/21 12/19/21 Range/Units 12:40 12:40 12:40 WBC 7.40 (4.8-10.8) K/uL RBC 5.43 (4.7-6.1) M/uL Hgb 15.7 (14.0-18.0) g/dL Hct 46.2 (42-52) % MCV 85.1 (80-100) fL MCH 28.9 (25-34) pg MCHC 34.0 (32-36) g/dL RDW Std Deviation 45.3 (36.4-46.3) fL RDW Coeff of Annie 14.7 H (11.5-14.5) % Plt Count 217 (130-400) K/uL MPV 11.2 H (7.4-10.4) fL Immature Gran % (Auto) 0.3 % Neut % (Auto) 70.5 % Lymph % (Auto) 21.9 % [place] % (Auto) 6.4 % Eos % (Auto) 0.8 % Baso % (Auto) 0.1 % Neut # (Auto) 5.22 (1.4-6.5) K/uL Lymph # (Auto) 1.62 (1.2-3.4) K/uL [place] # (Auto) 0.47 (0.11-0.59) K/uL Eos # (Auto) 0.06 (0-0.5) K/uL Baso # (Auto) 0.01 (0-0.2) K/uL Immature Gran # (Auto) 0.02 (0.00-0.02) K/uL PT 18.8 H (9.0-12.0) Seconds INR 1.8 H (0.9-1.1) APTT 34.5 H (21.0-31.0) Seconds PTT Ratio 1.3 Sodium 134 L (136-145) mmol/L Potassium 4.3 (3.5-5.1) mmol/L Chloride 101 (98-107) mmol/L Carbon Dioxide 23 (21-32) mmol/L Anion Gap 10 (3-11) BUN 24 H (6-23) mg/dl Creatinine 0.91 (0.6-1.4) mg/dl Est Cr Clr Drug Dosing 79.6 ml/min Est GFR ( Amer) 94.5 ml/min Est GFR (Non-Af Amer) 81.6 ml/min BUN/Creatinine Ratio 26.4 H (10-20) Glucose 155 H (70-99(Fasting)) mg/dl Calcium 8.5 (8.5-10.1) mg/dl Magnesium 1.8 (1.7-2.4) mg/dl Total Bilirubin 1.1 H (0.2-1.0) mg/dl AST 20 (13-39) U/L ALT 26 (7-52) U/L Alkaline Phosphatase 73 (34-104) U/L Troponin I High Sens 15.9 (0-20) pg/ml Total Protein 7.0 (6.0-8.3) gm/dl Albumin 3.9 (3.4-5.0) gm/dl Globulin 3.1 (2.5-4.0) gm/dl Albumin/Globulin Ratio 1.3 (0.9-2) Lipase 41 (11-82) U/L SARS-CoV-2, RNA, NAAT (NEGATIVE) 12/19/21 Range/Units 13:02 WBC (4.8-10.8) K/uL RBC (4.7-6.1) M/uL Hgb (14.0-18.0) g/dL Hct (42-52) % MCV (80-100) fL MCH (25-34) pg MCHC (32-36) g/dL RDW Std Deviation (36.4-46.3) fL RDW Coeff of Annie (11.5-14.5) % Plt Count (130-400) K/uL MPV (7.4-10.4) fL Immature Gran % (Auto) % Neut % (Auto) % Lymph % (Auto) % [place] % (Auto) % Eos % (Auto) % Baso % (Auto) % Neut # (Auto) (1.4-6.5) K/uL Lymph # (Auto) (1.2-3.4) K/uL [place] # (Auto) (0.11-0.59) K/uL Eos # (Auto) (0-0.5) K/uL Baso # (Auto) (0-0.2) K/uL Immature Gran # (Auto) (0.00-0.02) K/uL PT (9.0-12.0) Seconds INR (0.9-1.1) APTT (21.0-31.0) Seconds PTT Ratio Sodium (136-145) mmol/L Potassium (3.5-5.1) mmol/L Chloride (98-107) mmol/L Carbon Dioxide (21-32) mmol/L Anion Gap (3-11) BUN (6-23) mg/dl Creatinine (0.6-1.4) mg/dl Est Cr Clr Drug Dosing ml/min Est GFR ( Amer) ml/min Est GFR (Non-Af Amer) ml/min BUN/Creatinine Ratio (10-20) Glucose (70-99(Fasting)) mg/dl Calcium (8.5-10.1) mg/dl Magnesium (1.7-2.4) mg/dl Total Bilirubin (0.2-1.0) mg/dl AST (13-39) U/L ALT (7-52) U/L Alkaline Phosphatase (34-104) U/L Troponin I High Sens (0-20) pg/ml Total Protein (6.0-8.3) gm/dl Albumin (3.4-5.0) gm/dl Globulin (2.5-4.0) gm/dl Albumin/Globulin Ratio (0.9-2) Lipase (11-82) U/L SARS-CoV-2, RNA, NAAT NEGATIVE (NEGATIVE) Administered Medications Hydromorphone HCl (Hydromorphone Pain Pump) 1 pump IT CONT ASAEL Stop: 01/18/22 16:59 Last Admin: 12/19/21 17:07 Dose: Not Given Documented by: [id number] Insulin Aspart (Insulin Aspart Per Unit) 0 units SC ACHS ASAEL Stop: 01/18/22 16:56 Last Admin: 12/19/21 17:42 Dose: 16 units Documented by: [id number] Cosigned by: [id number] Discontinued Medications Sodium Chloride (Nss 1000ml) 500 mls @ 999 mls/hr IV .Q31M ONE Stop: 12/19/21 13:30 Last Infusion: 12/19/21 14:26 Dose: 0 mls/hr Documented by: [id number] Admin: 12/19/21 13:09 Dose: 999 mls/hr Documented by: [id number] Morphine Sulfate (Morphine Sulfate 2 Mg/Ml Carp) Confirm Administered Dose 2 mg .ROUTE .STK-MED ONE Stop: 12/19/21 12:44 Last Admin: 12/19/21 12:48 Dose: 2 mg Documented by: [id number] Nitroglycerin (Nitroglycerin 2% Ointment 30gm Tube) Confirm Administered Dose 18 inch .ROUTE .STK-MED ONE Stop: 12/19/21 12:38 Last Admin: 12/19/21 12:49 Dose: Not Given Documented by: [id number] Nitroglycerin (Nitroglycerin 2% Ointment 30gm Tube) 2 inch EXT NOW STA Stop: 12/19/21 12:38 Last Admin: 12/19/21 12:49 Dose: 2 inch Documented by: [id number] Imaging Data Radiologist's Impression: Chest X-Ray 12/19/21 12:38 XR chest 1V portable HISTORY: 76 years-old Male Chest Pain acute atypical chest pain COMPARISON: Chest radiograph and CTA chest 09/19/2020 TECHNIQUE: Portable AP view of the chest FINDINGS: The cardiac silhouette is enlarged. Left subclavian pacer. Prior median sternotomy. No pneumothorax, pleural effusion, airspace consolidation or overt pulmonary edema. Degenerative changes of the shoulders and spine. IMPRESSION: No acute process. ACT 112: Negative or not required by law. The above report was generated using voice recognition software. It may contain grammatical, syntax or spelling errors. Electronically signed by: Trae Ferro M.D. 12/19/2021 1:06 PM Discharge Plan Visit Data Chief Complaint: Cardiac Assessment Stated Complaint: CHEST PAIN ED Provider: Juan Luna Discharge Problem: Precordial chest pain, SOB (shortness of breath), Diaphoresis, CAD (coronary atherosclerotic disease) Patient Disposition: Admitted As Inpatient Condition: Fair Discharge Instructions Interventions: ED Discharge Assessment Last Done: 12/19/21 16:11
[2021-12-19 13:00] LABS: Basophils # (auto) 0.01 K/uL (0-0.2); Basophils % (auto) 0.1 %; Eosinophils # (auto) 0.06 K/uL (0-0.5); Eosinophils % (auto) 0.8 %; Hematocrit (blood only) 46.2 % (42-52); Hemoglobin 15.7 g/dL (14.0-18.0); Immature Granulocytes # (auto) 0.02 K/uL (0.00-0.02); Immature Granulocytes % (auto) 0.3 %; Lymphocytes # (auto) 1.62 K/uL (1.2-3.4); Lymphocytes % (auto) 21.9 %; Mean Corpuscular Hemoglobin 28.9 pg (25-34); Mean Corpuscular Volume 85.1 fL (80-100); Mean Platelet Volume 11.2 fL (7.4-10.4); Monocytes # (auto) 0.47 K/uL (0.11-0.59); Monocytes % (auto) 6.4 %; Neutrophils # (auto) 5.22 K/uL (1.4-6.5); Neutrophils % (auto) 70.5 %; Platelet Count 217 K/uL (130-400); RDW Coefficient of Variation 14.7 % (11.5-14.5); RDW Standard Deviation 45.3 fL (36.4-46.3); Red Blood Count 5.43 M/uL (4.7-6.1)
[2021-12-19] MEDS ORDERED: SODIUM CHLORIDE 0.9% 1000ML 500 ML IV ONE (13:00)
--- NOTE | 2021-12-19 13:07 | XRay Report ---
XR chest 1V portable HISTORY: 76 years-old Male Chest Pain acute atypical chest pain COMPARISON: Chest radiograph and CTA chest 09/19/2020 TECHNIQUE: Portable AP view of the chest FINDINGS: The cardiac silhouette is enlarged. Left subclavian pacer. Prior median sternotomy. No pneumothorax, pleural effusion, airspace consolidation or overt pulmonary edema. Degenerative changes of the should ers and spine. IMPRESSION: No acute process. ACT 112: Negative or not required by law. The above report was generated using voice recognition software. It may contain grammatical, syntax o r spelling errors. Electronically signed by: Trae Ferro M.D. 12/19/2021 1:06 PM
[2021-12-19 13:20] LABS: INR 1.8 (0.9-1.1); Partial Thromboplastin Ratio 1.3; Partial Thromboplastin Time 34.5 Seconds (21.0-31.0); Prothrombin Time 18.8 Seconds (9.0-12.0)
[2021-12-19 13:22] LABS: Albumin Globulin Ratio 1.3 (0.9-2); Albumin Level 3.9 gm/dl (3.4-5.0); BUN Creatinine Ratio 26.4 (10-20); Bilirubin,Total 1.1 mg/dl (0.2-1.0); Calcium 8.5 mg/dl (8.5-10.1); Creatinine Clr Calc Pharmacy 79.6 ml/min; Est GFR (African American) 94.5 ml/min; Est GFR (Non-African American) 81.6 ml/min; Globulin 3.1 gm/dl (2.5-4.0); Magnesium 1.8 mg/dl (1.7-2.4); Potassium 4.3 mmol/L (3.5-5.1)
[2021-12-19 13:23] LABS: Troponin I High Sensitivity 15.9 pg/ml (0-20)
[2021-12-19] MEDS ORDERED: GLUCAGON FOR INJ 1 MG VIAL SQ PRN (16:57)
[2021-12-19] MEDS ORDERED: DEXTROSE 50% 50 ML SYRINGE IV PRN (16:57)
[2021-12-19] MEDS ORDERED: GLUCOSE 40% GEL 15 GM TUBE PO PRN (16:57)
[2021-12-19] MEDS ORDERED: NITROGLYCERIN SL 0.4 MG/TAB TAB SL PRN (16:57)
[2021-12-19] MEDS ORDERED: CARBOHYDRATES FOR HYPOGLYCEMIA PO PRN (16:57)
[2021-12-19] MEDS ORDERED: GLUCOSE 10 TABS/TUBE PO PRN (16:57)
[2021-12-19] MEDS: HYDROmorphone PAIN PUMP IT SCH (17:07)
[2021-12-19] MEDS: INSULIN ASPART PER UNIT SC SCH ×2 (17:42→21:01)
[2021-12-19] MEDS: WARFARIN SOD 5 MG TAB PO SCH (20:29)
[2021-12-19] MEDS: WARFARIN SOD 2 MG TAB PO SCH (20:30)
[2021-12-19] MEDS: TAMSULOSIN HCL 0.4 MG CAP PO SCH (20:31)
[2021-12-19] MEDS: busPIRone 5 MG TAB PO SCH (20:31)
--- NOTE | 2021-12-19 21:01 | History & Physical Report ---
Date of Service December 19, 2021 Assessment & Plan (1) Precordial chest pain: (2) Chronic coronary artery disease: (3) S/P CABG x 4: (4) Chronic atrial fibrillation: (5) Chronic pain: (6) DMII (diabetes mellitus, type 2): Plan: Substernal Chest pain and L jaw pain with hx of CAD s/p CABG: -EKG showed paced rhythm -trop neg x2: will trend -VSS -will admit pt to tele -cardiology consult Afib on Coumadin: -continue home coumadin dose and medication DMII: -hold metformin -ISS HTN/HLD/BPH: -continue home medications Chronic pain on spinal infusion pump: -continue home regimen Diet: cardiac and DMII DVT PPx: Coumadin Code Status:FULL CODE Emergency Contact: Nadya [phone], daughter-rajeev [phone] Admission and Anticipated Discharge Date Admission Date: December 19, 2021 History of Present Illness Chief Complaint: CP Primary Care Provider: Adonay Hines Pt is a 76 y/o M with hx of CAD s/p CABG, DMII, Gastric bypass surgery, chronic lower back pain on spinal infusion pump, Chronic chest pain, tachy-richard syndrome s/p dual chamber pacemaker, Afib on Coumadin, HTN, HLD, BPH came into ER from home after pt experience diffuse tingling sensation then substernal chest pain and L jaw pain. In the ER pt received nitroglycerin and morphine and symptoms improved. At bedside: per pt tingling resolved but still having very mild 1/10 substernal CP and L jaw pain. Denied any SOB, abd pain, N/V Allergies Allergy/AdvReac Type Severity Reaction Status Date / Time bee venom protein (honey bee) Allergy Severe ANAPHYLAXIS Verified 09/19/20 22:36 gentamicin Allergy Intermediate HIVES/SHORTNESS Verified 09/19/20 22:45 OF BREATH Penicillins Allergy Intermediate HIVES/SHORTNESS Verified 09/19/20 22:36 OF BREATH Sulfa (Sulfonamide Allergy Intermediate HIVES/SHORTNESS Verified 09/19/20 22:36 Antibiotics) OF BREATH Home Medications Medication Instructions Recorded Confirmed Type amlodipine 5 mg tablet 5 mg PO QAM 01/28/19 12/19/21 History buspirone 5 mg tablet 5 mg PO HS 01/28/19 12/19/21 History furosemide 40 mg tablet 40 mg PO QAM 01/28/19 12/19/21 History irbesartan 300 mg tablet 300 mg PO QAM 01/28/19 12/19/21 History metoprolol succinate 25 mg 12.5 mg PO QAM 01/28/19 12/19/21 History tablet,extended release 24 hr tamsulosin 0.4 mg capsule 0.4 mg PO BID 01/28/19 12/19/21 History Intrathecal Pain Pump 0 mg CONTINUOUS INTRATHECAL 03/14/19 12/19/21 History INFUSION CONT isosorbide mononitrate 30 mg 30 mg PO QAM 04/02/19 12/19/21 History tablet,extended release 24 hr warfarin 5 mg tablet 7 mg PO HS 04/02/19 12/19/21 History multivitamin 1 tab PO BID 09/14/20 12/19/21 History metformin 500 mg tablet 500 mg PO BID 12/19/21 12/19/21 History Past Med/Surg History Medical History (Updated 12/19/21 @ 21:00 by Fernando Francis MD) Atrial fibrillation ? DATE DX, CARDIOVERSION X 1 CAD (coronary artery disease) Chronic pain Diabetes mellitus type 2, controlled "diet-controlled after gastric bypass" History of angina MOST RECENT 60 DAYS AGO...CATH History of kidney stones X1 RICHY (obstructive sleep apnea) TOLD HAD SLEEP APNEA BEFORE GASTRIC BYPASS SURGERY, DENIES CURRENT PROBLEMS WITH, NO CURRENT MACHINE Osteoarthritis Pacemaker LAST CHECK 1-2 WEEKS AGO Seizure HX OF A KID, NONE SINCE CHILDHOOD Surgical History (Updated 10/05/20 @ 00:08 by Background Daemon) History of appendectomy History of back surgery X8 HARDWARE IN History of cardiac cath X3 TOTAL FOR ANGINA ([facility]) - MOST RECENT 60 DAYS AGO - NO STENTS History of cholecystectomy History of colonoscopy History of gastric bypass History of quadruple bypass 1999 History of tonsillectomy and adenoidectomy History of urologic surgery REMOVAL OF KIDNEY STONE S/P insertion of intrathecal pump Family History Mother Diabetes Grandmother Diabetes Other Cancer Family history of colon cancer in mother Heart disease Hypertension Kidney disease Social History Smoking Status: Former smoker Tobacco Type: Cigarettes Hx Alcohol Use: No Hx Substance Use: Yes Substance Use Type Other:: Pain Pump Preferred Language: Upper Sorbian Communication Ability: Effective Trainman Required: No Beliefs That Will Affect Care: None marital status: Current Living Situation: Spouse Other Information That Helps Us Care for You: No Feels Safe at Home: Yes Safety Concerns: Feels Safe At This Time Assistive Devices: Glasses and Walker Review of Systems Review of Systems: At least 10 Review of systems were reviewed and all negative except as indicated in HPI Physical Exam Physical Exam: General:. NAD, well developed, well nourished, average body habitus HEENT:. Normocephalic and atraumatic, Normal Conjunctiva, EOMI, Sclera is non- icteric Lungs:. No signs of respiratory distress, CTA, no wheezing or crackles Heart:. Normal S1, S2, no murmur Abdominal:. ND, Soft, NT MSK:b/l mild pitting edema of LE Psych:. AAOx3, normal affect Results & Data Results & Data ([facility]) Vital Signs (Past 12 Hours) Vital Signs Temp Pulse Pulse Pulse Resp BP BP 12/19/21 19:35 36.4 C L 59 L 20 140/79 12/19/21 17:08 36.4 C L 59 L 20 12/19/21 16:35 71 12/19/21 15:04 55 L 18 12/19/21 13:30 55 L 16 118/60 12/19/21 13:16 55 L 20 133/74 12/19/21 13:01 56 L 19 115/79 12/19/21 13:00 55 L 14 12/19/21 12:58 56 L 18 130/76 12/19/21 12:50 61 16 119/78 12/19/21 12:49 36.4 C L 56 L 20 12/19/21 12:48 55 L 20 12/19/21 12:45 65 20 117/73 12/19/21 12:39 60 23 12/19/21 12:38 129/79 BP Pulse Ox 12/19/21 19:35 96 12/19/21 17:08 134/71 99 12/19/21 16:35 12/19/21 15:04 97 12/19/21 13:30 12/19/21 13:16 12/19/21 13:01 94 12/19/21 13:00 97 06/25/22 12:58 97 12/19/21 12:50 97 12/19/21 12:49 100 12/19/21 12:48 128/70 98 12/19/21 12:45 97 12/19/21 12:39 99 12/19/21 12:38 Laboratory Results Short CBC 12/19/21 Range/Units 12:40 WBC 7.40 (4.8-10.8) K/uL Hgb 15.7 (14.0-18.0) g/dL Hct 46.2 (42-52) % Plt Count 217 (130-400) K/uL BMP 12/19/21 12:40 Sodium 134 L Potassium 4.3 Chloride 101 Carbon Dioxide 23 BUN 24 H Creatinine 0.91 Glucose 155 H Calcium 8.5 Liver Function 12/19/21 Range/Units 12:40 Total Bilirubin 1.1 H (0.2-1.0) mg/dl AST 20 (13-39) U/L ALT 26 (7-52) U/L Alkaline Phosphatase 73 (34-104) U/L Albumin 3.9 (3.4-5.0) gm/dl Diagnostic Findings Chest X-Ray 12/19/21 12:38 XR chest 1V portable HISTORY: 76 years-old Male Chest Pain acute atypical chest pain COMPARISON: Chest radiograph and CTA chest 09/19/2020 TECHNIQUE: Portable AP view of the chest FINDINGS: The cardiac silhouette is enlarged. Left subclavian pacer. Prior median sternotomy. No pneumothorax, pleural effusion, airspace consolidation or overt pulmonary edema. Degenerative changes of the shoulders and spine. IMPRESSION: No acute process. ACT 112: Negative or not required by law. The above report was generated using voice recognition software. It may contain grammatical, syntax or spelling errors. Electronically signed by: Trea Ferro M.D. 12/19/2021 1:06 PM Code Status & VTE Plan VTE Prophylaxis Plan VTE Prophylaxis will be ordered: Yes
[2021-12-20 06:24] LABS: Basophils # (auto) 0.01 K/uL (0-0.2); Basophils % (auto) 0.2 %; Eosinophils # (auto) 0.11 K/uL (0-0.5); Eosinophils % (auto) 1.9 %; Hematocrit (blood only) 45.8 % (42-52); Hemoglobin 15.3 g/dL (14.0-18.0); Immature Granulocytes # (auto) 0.01 K/uL (0.00-0.02); Immature Granulocytes % (auto) 0.2 %; Lymphocytes # (auto) 1.53 K/uL (1.2-3.4); Lymphocytes % (auto) 26.2 %; Mean Corpuscular Hemoglobin 28.4 pg (25-34); Mean Corpuscular Hgb Conc 33.4 g/dL (32-36); Mean Corpuscular Volume 85.1 fL (80-100); Mean Platelet Volume 10.4 fL (7.4-10.4); Monocytes # (auto) 0.25 K/uL (0.11-0.59); Monocytes % (auto) 4.3 %; Neutrophils # (auto) 3.92 K/uL (1.4-6.5); Neutrophils % (auto) 67.2 %; Platelet Count 193 K/uL (130-400); RDW Coefficient of Variation 14.7 % (11.5-14.5); RDW Standard Deviation 45.6 fL (36.4-46.3); Red Blood Count 5.38 M/uL (4.7-6.1); White Blood Count 5.83 K/uL (4.8-10.8)
[2021-12-20 06:51] LABS: Albumin Globulin Ratio 1.3 (0.9-2); Albumin Level 3.9 gm/dl (3.4-5.0); BUN Creatinine Ratio 30.3 (10-20); Bilirubin,Total 0.6 mg/dl (0.2-1.0); Calcium 8.3 mg/dl (8.5-10.1); Creatinine Clr Calc Pharmacy 95.5 ml/min; Est GFR (African American) 102.7 ml/min; Est GFR (Non-African American) 88.6 ml/min; Globulin 2.9 gm/dl (2.5-4.0); Magnesium 1.9 mg/dl (1.7-2.4); Potassium 4.1 mmol/L (3.5-5.1); Total Protein 6.8 gm/dl (6.0-8.3)
[2021-12-20 07:11] LABS: Vitamin B12 464 pg/ml (180-914)
[2021-12-20 07:12] LABS: Folate (Folic Acid) > 22.30 ng/ml (>5.38)
[2021-12-20 07:40] LABS: INR 1.9 (0.9-1.1); Prothrombin Time 19.7 Seconds (9.0-12.0)
[2021-12-20] MEDS: IRBESARTAN 150 MG TAB PO SCH (08:27)
[2021-12-20] MEDS: FUROSEMIDE 40 MG TAB PO SCH (08:27)
[2021-12-20] MEDS: amLODIPine BESYLATE 5 MG TAB PO SCH (08:28)
[2021-12-20] MEDS: MULTIVITAMIN TAB PO SCH (08:28)
[2021-12-20] MEDS: TAMSULOSIN HCL 0.4 MG CAP PO SCH ×2 (08:28→20:23)
[2021-12-20] MEDS: METOPROLOL SUCC 25MG EXT REL TAB PO SCH (08:28)
[2021-12-20] MEDS: INSULIN ASPART PER UNIT SC SCH ×4 (08:29→20:34)
[2021-12-20] MEDS ORDERED: ISOSORBIDE MONO EXTENDED REL 30 MG TABCR PO SCH (09:00)
--- NOTE | 2021-12-20 11:40 | Hospitalist Progress Note ---
Date of Service December 20, 2021 Assessment & Plan (1) Precordial chest pain: (2) Chronic coronary artery disease: (3) S/P CABG x 4: (4) Chronic atrial fibrillation: (5) Chronic pain: (6) DMII (diabetes mellitus, type 2): Plan: Substernal Chest pain and L jaw pain with hx of CAD s/p CABG: - EKG nondiagnostic given ventricular paced rhythm -trop neg x2: will trend -VSS -admitted pt to tele -cardiology consulted - pt concerned about stroke -like symptoms, carotid US ordered 12/20 pt had episode of NSVT (pt remained asymptomatic) - echo ordered Afib on Coumadin: -continue home coumadin dose and medication DMII: -hold metformin -ISS HTN/HLD/BPH: -continue home medications Chronic pain on spinal infusion pump: -continue home regimen Diet: cardiac and DMII DVT PPx: Coumadin Code Status:FULL CODE Emergency Contact: Nadya [phone], daughter-rajeev [phone] Admission and Anticipated Discharge Date Admission Date: December 19, 2021 Subjective Patient seen in follow-up of chest pain Currently patient is lying in bed, in no acute distress Denies any more chest pain, shortness of breath, palpitations Also denies any tingling, fevers, chills, nausea Seen by cardiology, carotid ultrasound ordered Pt's at the bedside, and updated Later unfortunately also had episode of V. tach, 10 beat, and therefore echocardiogram was also ordered Continue telemetry Review of Systems Review of Systems: All systems reviewed & are unremarkable except as noted in Subjective Physical Exam Physical Exam: General:.NAD, well developed, well nourished, average body habitus HEENT:.Normocephalic and atraumatic, Normal Conjunctiva, EOMI, Sclera is non- icteric Lungs:.No signs of respiratory distress, CTA, no wheezing or crackles Heart:.Normal S1, S2, no murmur Abdominal:.ND, Soft, NT MSK: b/l mild pitting edema of LE Psych:.AAOx3, normal affect Results & Data Results & Data ([facility]) Vital Signs (Past 12 Hours) Vital Signs Temp Pulse Resp BP BP Pulse Ox 12/20/21 08:22 36.6 C 56 L 20 150/75 H 98 12/20/21 03:51 36.4 C L 58 L 18 122/70 96 12/20/21 00:00 36.5 C 63 20 161/75 H 97 Laboratory Results 12/20/21 12/20/21 12/20/21 Range/Units 07:28 05:57 05:57 WBC (4.8-10.8) K/uL RBC (4.7-6.1) M/uL Hgb (14.0-18.0) g/dL Hct (42-52) % MCV (80-100) fL MCH (25-34) pg MCHC (32-36) g/dL RDW Std Deviation (36.4-46.3) fL RDW Coeff of Annie (11.5-14.5) % Plt Count (130-400) K/uL MPV (7.4-10.4) fL Immature Gran % (Auto) % Neut % (Auto) % Lymph % (Auto) % [place] % (Auto) % Eos % (Auto) % Baso % (Auto) % Neut # (Auto) (1.4-6.5) K/uL Lymph # (Auto) (1.2-3.4) K/uL [place] # (Auto) (0.11-0.59) K/uL Eos # (Auto) (0-0.5) K/uL Baso # (Auto) (0-0.2) K/uL Immature Gran # (Auto) (0.00-0.02) K/uL PT (9.0-12.0) Seconds INR (0.9-1.1) APTT (21.0-31.0) Seconds PTT Ratio Sodium (136-145) mmol/L Potassium (3.5-5.1) mmol/L Chloride (98-107) mmol/L Carbon Dioxide (21-32) mmol/L Anion Gap (3-11) BUN (6-23) mg/dl Creatinine (0.6-1.4) mg/dl Est Cr Clr Drug Dosing ml/min Est GFR ( Amer) ml/min Est GFR (Non-Af Amer) ml/min BUN/Creatinine Ratio (10-20) Glucose (70-99(Fasting)) mg/dl POC Glucose 106 H (70-99) mg/dl Estimat Average Glucose Hemoglobin A1c Calcium (8.5-10.1) mg/dl Magnesium (1.7-2.4) mg/dl Total Bilirubin (0.2-1.0) mg/dl AST (13-39) U/L ALT (7-52) U/L Alkaline Phosphatase (34-104) U/L Troponin I High Sens 14.5 (0-20) pg/ml Total Protein (6.0-8.3) gm/dl Albumin (3.4-5.0) gm/dl Globulin (2.5-4.0) gm/dl Albumin/Globulin Ratio (0.9-2) Lipase (11-82) U/L Vitamin B12 464 (180-914) pg/ml Folate > 22.30 (>5.38) ng/ml SARS-CoV-2, RNA, NAAT (NEGATIVE) 12/20/21 12/20/21 12/20/21 Range/Units 05:57 05:57 05:57 WBC 5.83 (4.8-10.8) K/uL RBC 5.38 (4.7-6.1) M/uL Hgb 15.3 (14.0-18.0) g/dL Hct 45.8 (42-52) % MCV 85.1 (80-100) fL MCH 28.4 (25-34) pg MCHC 33.4 (32-36) g/dL RDW Std Deviation 45.6 (36.4-46.3) fL RDW Coeff of Annie 14.7 H (11.5-14.5) % Plt Count 193 (130-400) K/uL MPV 10.4 (7.4-10.4) fL Immature Gran % (Auto) 0.2 % Neut % (Auto) 67.2 % Lymph % (Auto) 26.2 % [place] % (Auto) 4.3 % Eos % (Auto) 1.9 % Baso % (Auto) 0.2 % Neut # (Auto) 3.92 (1.4-6.5) K/uL Lymph # (Auto) 1.53 (1.2-3.4) K/uL [place] # (Auto) 0.25 (0.11-0.59) K/uL Eos # (Auto) 0.11 (0-0.5) K/uL Baso # (Auto) 0.01 (0-0.2) K/uL Immature Gran # (Auto) 0.01 (0.00-0.02) K/uL PT (9.0-12.0) Seconds INR (0.9-1.1) APTT (21.0-31.0) Seconds PTT Ratio Sodium 136 (136-145) mmol/L Potassium 4.1 (3.5-5.1) mmol/L Chloride 103 (98-107) mmol/L Carbon Dioxide 27 (21-32) mmol/L Anion Gap 6 (3-11) BUN 23 (6-23) mg/dl Creatinine 0.76 (0.6-1.4) mg/dl Est Cr Clr Drug Dosing 95.5 ml/min Est GFR ( Amer) 102.7 ml/min Est GFR (Non-Af Amer) 88.6 ml/min BUN/Creatinine Ratio 30.3 H (10-20) Glucose 104 H (70-99(Fasting)) mg/dl POC Glucose (70-99) mg/dl Estimat Average Glucose Pending Hemoglobin A1c Pending Calcium 8.3 L (8.5-10.1) mg/dl Magnesium 1.9 (1.7-2.4) mg/dl Total Bilirubin 0.6 D (0.2-1.0) mg/dl AST 18 (13-39) U/L ALT 24 (7-52) U/L Alkaline Phosphatase 69 (34-104) U/L Troponin I High Sens (0-20) pg/ml Total Protein 6.8 (6.0-8.3) gm/dl Albumin 3.9 (3.4-5.0) gm/dl Globulin 2.9 (2.5-4.0) gm/dl Albumin/Globulin Ratio 1.3 (0.9-2) Lipase (11-82) U/L Vitamin B12 (180-914) pg/ml Folate (>5.38) ng/ml SARS-CoV-2, RNA, NAAT (NEGATIVE) 12/20/21 12/20/21 12/20/21 Range/Units 05:57 03:52 00:49 WBC (4.8-10.8) K/uL RBC (4.7-6.1) M/uL Hgb (14.0-18.0) g/dL Hct (42-52) % MCV (80-100) fL MCH (25-34) pg MCHC (32-36) g/dL RDW Std Deviation (36.4-46.3) fL RDW Coeff of Annie (11.5-14.5) % Plt Count (130-400) K/uL MPV (7.4-10.4) fL Immature Gran % (Auto) % Neut % (Auto) % Lymph % (Auto) % [place] % (Auto) % Eos % (Auto) % Baso % (Auto) % Neut # (Auto) (1.4-6.5) K/uL Lymph # (Auto) (1.2-3.4) K/uL [place] # (Auto) (0.11-0.59) K/uL Eos # (Auto) (0-0.5) K/uL Baso # (Auto) (0-0.2) K/uL Immature Gran # (Auto) (0.00-0.02) K/uL PT 19.7 H (9.0-12.0) Seconds INR 1.9 H (0.9-1.1) APTT (21.0-31.0) Seconds PTT Ratio Sodium (136-145) mmol/L Potassium (3.5-5.1) mmol/L Chloride (98-107) mmol/L Carbon Dioxide (21-32) mmol/L Anion Gap (3-11) BUN (6-23) mg/dl Creatinine (0.6-1.4) mg/dl Est Cr Clr Drug Dosing ml/min Est GFR ( Amer) ml/min Est GFR (Non-Af Amer) ml/min BUN/Creatinine Ratio (10-20) Glucose (70-99(Fasting)) mg/dl POC Glucose 102 H (70-99) mg/dl Estimat Average Glucose Hemoglobin A1c Calcium (8.5-10.1) mg/dl Magnesium (1.7-2.4) mg/dl Total Bilirubin (0.2-1.0) mg/dl AST (13-39) U/L ALT (7-52) U/L Alkaline Phosphatase (34-104) U/L Troponin I High Sens 16.5 (0-20) pg/ml Total Protein (6.0-8.3) gm/dl Albumin (3.4-5.0) gm/dl Globulin (2.5-4.0) gm/dl Albumin/Globulin Ratio (0.9-2) Lipase (11-82) U/L Vitamin B12 (180-914) pg/ml Folate (>5.38) ng/ml SARS-CoV-2, RNA, NAAT (NEGATIVE) 12/19/21 12/19/21 12/19/21 Range/Units 22:22 21:17 20:57 WBC (4.8-10.8) K/uL RBC (4.7-6.1) M/uL Hgb (14.0-18.0) g/dL Hct (42-52) % MCV (80-100) fL MCH (25-34) pg MCHC (32-36) g/dL RDW Std Deviation (36.4-46.3) fL RDW Coeff of Annie (11.5-14.5) % Plt Count (130-400) K/uL MPV (7.4-10.4) fL Immature Gran % (Auto) % Neut % (Auto) % Lymph % (Auto) % [place] % (Auto) % Eos % (Auto) % Baso % (Auto) % Neut # (Auto) (1.4-6.5) K/uL Lymph # (Auto) (1.2-3.4) K/uL [place] # (Auto) (0.11-0.59) K/uL Eos # (Auto) (0-0.5) K/uL Baso # (Auto) (0-0.2) K/uL Immature Gran # (Auto) (0.00-0.02) K/uL PT (9.0-12.0) Seconds INR (0.9-1.1) APTT (21.0-31.0) Seconds PTT Ratio Sodium (136-145) mmol/L Potassium (3.5-5.1) mmol/L Chloride (98-107) mmol/L Carbon Dioxide (21-32) mmol/L Anion Gap (3-11) BUN (6-23) mg/dl Creatinine (0.6-1.4) mg/dl Est Cr Clr Drug Dosing ml/min Est GFR ( Amer) ml/min Est GFR (Non-Af Amer) ml/min BUN/Creatinine Ratio (10-20) Glucose (70-99(Fasting)) mg/dl POC Glucose 182 H 88 68 L* (70-99) mg/dl Estimat Average Glucose Hemoglobin A1c Calcium (8.5-10.1) mg/dl Magnesium (1.7-2.4) mg/dl Total Bilirubin (0.2-1.0) mg/dl AST (13-39) U/L ALT (7-52) U/L Alkaline Phosphatase (34-104) U/L Troponin I High Sens (0-20) pg/ml Total Protein (6.0-8.3) gm/dl Albumin (3.4-5.0) gm/dl Globulin (2.5-4.0) gm/dl Albumin/Globulin Ratio (0.9-2) Lipase (11-82) U/L Vitamin B12 (180-914) pg/ml Folate (>5.38) ng/ml SARS-CoV-2, RNA, NAAT (NEGATIVE) 12/19/21 12/19/21 12/19/21 Range/Units 20:55 18:11 16:45 WBC (4.8-10.8) K/uL RBC (4.7-6.1) M/uL Hgb (14.0-18.0) g/dL Hct (42-52) % MCV (80-100) fL MCH (25-34) pg MCHC (32-36) g/dL RDW Std Deviation (36.4-46.3) fL RDW Coeff of Annie (11.5-14.5) % Plt Count (130-400) K/uL MPV (7.4-10.4) fL Immature Gran % (Auto) % Neut % (Auto) % Lymph % (Auto) % [place] % (Auto) % Eos % (Auto) % Baso % (Auto) % Neut # (Auto) (1.4-6.5) K/uL Lymph # (Auto) (1.2-3.4) K/uL [place] # (Auto) (0.11-0.59) K/uL Eos # (Auto) (0-0.5) K/uL Baso # (Auto) (0-0.2) K/uL Immature Gran # (Auto) (0.00-0.02) K/uL PT (9.0-12.0) Seconds INR (0.9-1.1) APTT (21.0-31.0) Seconds PTT Ratio Sodium (136-145) mmol/L Potassium (3.5-5.1) mmol/L Chloride (98-107) mmol/L Carbon Dioxide (21-32) mmol/L Anion Gap (3-11) BUN (6-23) mg/dl Creatinine (0.6-1.4) mg/dl Est Cr Clr Drug Dosing ml/min Est GFR ( Amer) ml/min Est GFR (Non-Af Amer) ml/min BUN/Creatinine Ratio (10-20) Glucose (70-99(Fasting)) mg/dl POC Glucose 63 L* 186 H (70-99) mg/dl Estimat Average Glucose Hemoglobin A1c Calcium (8.5-10.1) mg/dl Magnesium (1.7-2.4) mg/dl Total Bilirubin (0.2-1.0) mg/dl AST (13-39) U/L ALT (7-52) U/L Alkaline Phosphatase (34-104) U/L Troponin I High Sens 16.8 (0-20) pg/ml Total Protein (6.0-8.3) gm/dl Albumin (3.4-5.0) gm/dl Globulin (2.5-4.0) gm/dl Albumin/Globulin Ratio (0.9-2) Lipase (11-82) U/L Vitamin B12 (180-914) pg/ml Folate (>5.38) ng/ml SARS-CoV-2, RNA, NAAT (NEGATIVE) 12/19/21 12/19/21 12/19/21 Range/Units 13:02 12:40 12:40 WBC 7.40 (4.8-10.8) K/uL RBC 5.43 (4.7-6.1) M/uL Hgb 15.7 (14.0-18.0) g/dL Hct 46.2 (42-52) % MCV 85.1 (80-100) fL MCH 28.9 (25-34) pg MCHC 34.0 (32-36) g/dL RDW Std Deviation 45.3 (36.4-46.3) fL RDW Coeff of Annie 14.7 H (11.5-14.5) % Plt Count 217 (130-400) K/uL MPV 11.2 H (7.4-10.4) fL Immature Gran % (Auto) 0.3 % Neut % (Auto) 70.5 % Lymph % (Auto) 21.9 % [place] % (Auto) 6.4 % Eos % (Auto) 0.8 % Baso % (Auto) 0.1 % Neut # (Auto) 5.22 (1.4-6.5) K/uL Lymph # (Auto) 1.62 (1.2-3.4) K/uL [place] # (Auto) 0.47 (0.11-0.59) K/uL Eos # (Auto) 0.06 (0-0.5) K/uL Baso # (Auto) 0.01 (0-0.2) K/uL Immature Gran # (Auto) 0.02 (0.00-0.02) K/uL PT 18.8 H (9.0-12.0) Seconds INR 1.8 H (0.9-1.1) APTT 34.5 H (21.0-31.0) Seconds PTT Ratio 1.3 Sodium (136-145) mmol/L Potassium (3.5-5.1) mmol/L Chloride (98-107) mmol/L Carbon Dioxide (21-32) mmol/L Anion Gap (3-11) BUN (6-23) mg/dl Creatinine (0.6-1.4) mg/dl Est Cr Clr Drug Dosing ml/min Est GFR ( Amer) ml/min Est GFR (Non-Af Amer) ml/min BUN/Creatinine Ratio (10-20) Glucose (70-99(Fasting)) mg/dl POC Glucose (70-99) mg/dl Estimat Average Glucose Hemoglobin A1c Calcium (8.5-10.1) mg/dl Magnesium (1.7-2.4) mg/dl Total Bilirubin (0.2-1.0) mg/dl AST (13-39) U/L ALT (7-52) U/L Alkaline Phosphatase (34-104) U/L Troponin I High Sens (0-20) pg/ml Total Protein (6.0-8.3) gm/dl Albumin (3.4-5.0) gm/dl Globulin (2.5-4.0) gm/dl Albumin/Globulin Ratio (0.9-2) Lipase (11-82) U/L Vitamin B12 (180-914) pg/ml Folate (>5.38) ng/ml SARS-CoV-2, RNA, NAAT NEGATIVE (NEGATIVE) 12/19/21 Range/Units 12:40 WBC (4.8-10.8) K/uL RBC (4.7-6.1) M/uL Hgb (14.0-18.0) g/dL Hct (42-52) % MCV (80-100) fL MCH (25-34) pg MCHC (32-36) g/dL RDW Std Deviation (36.4-46.3) fL RDW Coeff of Annie (11.5-14.5) % Plt Count (130-400) K/uL MPV (7.4-10.4) fL Immature Gran % (Auto) % Neut % (Auto) % Lymph % (Auto) % [place] % (Auto) % Eos % (Auto) % Baso % (Auto) % Neut # (Auto) (1.4-6.5) K/uL Lymph # (Auto) (1.2-3.4) K/uL [place] # (Auto) (0.11-0.59) K/uL Eos # (Auto) (0-0.5) K/uL Baso # (Auto) (0-0.2) K/uL Immature Gran # (Auto) (0.00-0.02) K/uL PT (9.0-12.0) Seconds INR (0.9-1.1) APTT (21.0-31.0) Seconds PTT Ratio Sodium 134 L (136-145) mmol/L Potassium 4.3 (3.5-5.1) mmol/L Chloride 101 (98-107) mmol/L Carbon Dioxide 23 (21-32) mmol/L Anion Gap 10 (3-11) BUN 24 H (6-23) mg/dl Creatinine 0.91 (0.6-1.4) mg/dl Est Cr Clr Drug Dosing 79.6 ml/min Est GFR ( Amer) 94.5 ml/min Est GFR (Non-Af Amer) 81.6 ml/min BUN/Creatinine Ratio 26.4 H (10-20) Glucose 155 H (70-99(Fasting)) mg/dl POC Glucose (70-99) mg/dl Estimat Average Glucose Hemoglobin A1c Calcium 8.5 (8.5-10.1) mg/dl Magnesium 1.8 (1.7-2.4) mg/dl Total Bilirubin 1.1 H (0.2-1.0) mg/dl AST 20 (13-39) U/L ALT 26 (7-52) U/L Alkaline Phosphatase 73 (34-104) U/L Troponin I High Sens 15.9 (0-20) pg/ml Total Protein 7.0 (6.0-8.3) gm/dl Albumin 3.9 (3.4-5.0) gm/dl Globulin 3.1 (2.5-4.0) gm/dl Albumin/Globulin Ratio 1.3 (0.9-2) Lipase 41 (11-82) U/L Vitamin B12 (180-914) pg/ml Folate (>5.38) ng/ml SARS-CoV-2, RNA, NAAT (NEGATIVE) Medications Administered Current Inpatient Medications Amlodipine Besylate (Amlodipine Besylate 5 Mg Tab) 5 mg PO QAM ASAEL Stop: 01/19/22 08:59 Last Admin: 12/20/21 08:28 Dose: 5 mg Documented by: Buspirone HCl (Buspirone 5 Mg Tab) 5 mg PO HS ASAEL Stop: 01/18/22 20:59 Last Admin: 12/19/21 20:31 Dose: 5 mg Documented by: Dextrose (Dextrose 50% 50 Ml Syringe) 25 - 50 ml IV UD PRN; Protocol PRN Reason: Hypoglycemia Protocol Stop: 01/18/22 16:56 Furosemide (Furosemide 40 Mg Tab) 40 mg PO QAM ASAEL Stop: 01/19/22 08:59 Last Admin: 12/20/21 08:27 Dose: 40 mg Documented by: Glucagon (Glucagon For Inj 1 Mg Vial) 1 mg SQ UD PRN; Protocol PRN Reason: Hypoglycemia Protocol Stop: 01/18/22 16:56 Glucose (Glucose 40% Gel 15 Gm Tube) 15 - 30 gm PO UD PRN; Protocol PRN Reason: Hypoglycemia Protocol Stop: 01/18/22 16:56 Glucose (Glucose 10 Tabs/Tube) 4 - 8 tabs PO UD PRN; Protocol PRN Reason: Hypoglycemia Protocol Stop: 01/18/22 16:56 Hydromorphone HCl (Hydromorphone Pain Pump) 1 pump IT CONT [facility] Stop: 01/18/22 16:59 Last Admin: 12/19/21 17:07 Dose: Not Given Documented by: Insulin Aspart (Insulin Aspart Per Unit) 0 units SC ACHS [facility] Stop: 01/19/22 07:29 Last Admin: 12/20/21 08:29 Dose: 3 units Documented by: Irbesartan (Irbesartan 150 Mg Tab) [facility] Stop: 01/19/22 08:59 Last Admin: 12/20/21 08:27 Dose: 300 mg Documented by: Isosorbide Mononitrate (Isosorbide [place] Extended Rel 30 Mg Tabcr) [facility] Stop: 01/19/22 08:59 Last Admin: 12/20/21 08:28 Dose: 30 mg Documented by: Metoprolol Succinate (Metoprolol Succ 25mg Ext Rel Tab) [facility] Stop: 01/19/22 08:59 Last Admin: 12/20/21 08:28 Dose: 12.5 mg Documented by: Miscellaneous (Carbohydrates For Hypoglycemia ) 15 - 30 gm PO UD PRN PRN Reason: Hypoglycemia Protocol Stop: 01/18/22 16:56 Last Admin: 12/19/21 20:59 Dose: 15 gm Documented by: Multivitamins (Multivitamin Tab) [facility] Stop: 01/19/22 08:59 Last Admin: 12/20/21 08:28 Dose: 1 tab Documented by: Nitroglycerin (Nitroglycerin Sl 0.4 Mg/Tab Tab) 0.4 mg SL UD PRN PRN Reason: Chest Pain Stop: 01/18/22 16:56 Tamsulosin HCl (Tamsulosin Hcl 0.4 Mg Cap) 0.4 mg PO BID [facility] Stop: 01/18/22 20:59 Last Admin: 12/20/21 08:28 Dose: 0.4 mg Documented by: Warfarin Sodium (Warfarin Sod 5 Mg Tab) 5 mg PO HS [facility] Stop: 01/18/22 20:59 Last Admin: 12/19/21 20:29 Dose: 5 mg Documented by: Warfarin Sodium (Warfarin Sod 2 Mg Tab) 2 mg PO HS ASAEL Stop: 01/18/22 20:59 Last Admin: 12/19/21 20:30 Dose: 2 mg Documented by:
--- NOTE | 2021-12-20 12:43 | Cardiology Consultation ---
Date of Consultation December 20, 2021 Assessment & Plan (1) Precordial chest pain: (2) CAD (coronary atherosclerotic disease): (3) Chronic atrial fibrillation: (4) Chronic pain: 76-year-old male with known coronary disease who presented with symptoms of initial body tingling followed by chest pain and shortness of breath treated with sublingual nitroglycerin and morphine with resolve. Cardiac enzymes to date are negative for myocardial injury or ischemia. EKG nondiagnostic given ventricular paced rhythm. Patient had recent tolerance of exercise without difficulty Discussed findings in detail with patient. His initial concern regarding possible stroke risk Will check carotid duplex Discussed additional options of evaluation including stress testing and coronary angiography. As in past patient intolerant of positioning for further assessment and given no signs of myocardial ischemia we will treat conservatively. Patient agrees we will increase isosorbide mononitrate to 60 mg p.o. daily and continue all current therapies otherwise. Close clinical follow- up cardiology 2 weeks post hospital discharge History of Present Illness Reason for Consultation: Acute chest pain Requesting Physician: Dr. Perrin Attending Physician: Arvin Perrin MD History of Present Illness Patient is a 76-year-old male with complex history which includes per discussion with patient and review of outpatient records 1. Atherosclerotic coronary disease status post coronary bypass grafting x4, June 2000 --rodas graft to LAD, saphenous vein graft to the posterior descending artery, sequential left radial artery graft to the ramus intermedius and obtuse marginal 2. Chronic angina pectoris as well as noncardiac chest pain 3. Treatment with thrombolytics therapy for chest pain March 2017 without evidence of myocardial infarction, subsequent cardiac catheterization revealing patent grafts and severe [place] vessel coronary disease 4. Chest pain January 2019 with repeat cardiac catheterization once again demonstrating patent grafts and proximal occlusion all [place] vessels unchanged from prior studies 5. Past paroxysmal now chronic atrial fibrillation 6. 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 Device [employer] Sensia SES R 0 1 7. Obstructive sleep apnea , untreated with moderate pulmonary hypertension 8. Hypertension 9. Hyperlipidemia 10. Chronic back pain with indwelling spinal infusion pump 11. Type 2 diabetes mellitus 12. Prior seizure disorder , complex partial 13. Prior gastric bypass surgery 14. Iron deficiency anemia. Patient presents this admission noting yesterday developing a tingling sensation while walking out to his garage. Tingling ran from head to toe and patient concern regarding possible stroke symptoms. Complaints then subsequently worsened the symptoms of chest pressure mild diaphoresis and shortness of breath. Patient used 2 sublingual nitroglycerin at home then received additional morphine and nitroglycerin in emergency room treatment. Symptoms resolved without further return other than vague tingling at times. Cardiac enzymes negative. No chest pains, shortness of breath. Chronic back pain remains present patient very uncomfortable on current hospital bed. No fevers chills or unexplained infections. No bleeding difficulties. Patient compliant with home medications. 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 No recent use of nitroglycerin other than current event Allergies Allergy/AdvReac Type Severity Reaction Status Date / Time bee venom protein (honey bee) Allergy Severe ANAPHYLAXIS Verified 09/19/20 22:36 gentamicin Allergy Intermediate HIVES/SHORTNESS Verified 09/19/20 22:45 OF BREATH Penicillins Allergy Intermediate HIVES/SHORTNESS Verified 09/19/20 22:36 OF BREATH Sulfa (Sulfonamide Allergy Intermediate HIVES/SHORTNESS Verified 09/19/20 22:36 Antibiotics) OF BREATH Home Medications Medication Instructions Recorded Confirmed Type amlodipine 5 mg tablet 5 mg PO QAM 01/28/19 12/19/21 History buspirone 5 mg tablet 5 mg PO HS 01/28/19 12/19/21 History furosemide 40 mg tablet 40 mg PO QAM 01/28/19 12/19/21 History irbesartan 300 mg tablet 300 mg PO QAM 01/28/19 12/19/21 History metoprolol succinate 25 mg 12.5 mg PO QAM 01/28/19 12/19/21 History tablet,extended release 24 hr tamsulosin 0.4 mg capsule 0.4 mg PO BID 01/28/19 12/19/21 History Intrathecal Pain Pump 0 mg CONTINUOUS INTRATHECAL 03/14/19 12/19/21 History INFUSION CONT isosorbide mononitrate 30 mg 30 mg PO QAM 04/02/19 12/19/21 History tablet,extended release 24 hr warfarin 5 mg tablet 7 mg PO HS 04/02/19 12/19/21 History multivitamin 1 tab PO BID 09/14/20 12/19/21 History metformin 500 mg tablet 500 mg PO BID 12/19/21 12/19/21 History Patient History Medical History (Updated 12/19/21 @ 21:00 by Fernando Francis MD) Atrial fibrillation ? DATE DX, CARDIOVERSION X 1 CAD (coronary artery disease) Chronic pain Diabetes mellitus type 2, controlled "diet-controlled after gastric bypass" History of angina MOST RECENT 60 DAYS AGO...CATH History of kidney stones X1 RICHY (obstructive sleep apnea) TOLD HAD SLEEP APNEA BEFORE GASTRIC BYPASS SURGERY, DENIES CURRENT PROBLEMS WITH, NO CURRENT MACHINE Osteoarthritis Pacemaker LAST CHECK 1-2 WEEKS AGO Seizure HX OF A KID, NONE SINCE CHILDHOOD Surgical History (Updated 10/05/20 @ 00:08 by Background Dacristobal) History of appendectomy History of back surgery X8 [employer]ARD[employer] IN History of cardiac cath X3 TOTAL FOR ANGINA ([facility]) - MOST RECENT 60 DAYS AGO - NO STENTS History of cholecystectomy History of colonoscopy History of gastric bypass History of quadruple bypass 1999 History of tonsillectomy and adenoidectomy History of urologic surgery REMOVAL OF KIDNEY STONE S/P insertion of intrathecal pump Family History Mother Diabetes Grandmother Diabetes Other Cancer Family history of colon cancer in mother Heart disease Hypertension Kidney disease Social History Smoking Status: Former smoker Tobacco Type: Cigarettes Hx Alcohol Use: No Hx Substance Use: Yes Substance Use Type Other:: Pain Pump Preferred Language: Wallisian Communication Ability: Effective Parking Manager Required: No Beliefs That Will Affect Care: None marital status: Current Living Situation: Spouse Other Information That Helps Us Care for You: No Feels Safe at Home: Yes Safety Concerns: Feels Safe At This Time Assistive Devices: Glasses and Walker Review of Systems Review of Systems: All systems reviewed & are unremarkable except as noted in HPI & below Physical Exam Constitutional: + obese; no acute distress Eyes: PERRL, conjunctivae normal, anicteric sclerae ENMT: external ear and nose normal, oropharynx normal Neck: trachea midline, no thyromegaly Respiratory: normal respiratory effort, lungs clear to auscultation Cardiovascular: Rate/Rhythm: regular rate Heart Sounds: no murmur Vessels: no JVD Extremities: no edema Gastrointestinal (Abdomen): normal bowel sounds, soft, nontender, no hepatosplenomegaly Musculoskeletal: no cyanosis or clubbing, extremities motor strength 5/5 Results & Data ([facility]) Vital Signs (Past 12 Hours) Vital Signs Temp Pulse Pulse Resp BP BP Pulse Ox 12/20/21 11:00 36.3 C L 56 L 14 111/62 96 12/20/21 08:22 36.6 C 56 L 20 150/75 H 98 12/20/21 07:00 55 L 12/20/21 03:51 36.4 C L 58 L 18 122/70 96 Laboratory Results Laboratory Results - last 24 hr 12/19/21 12/19/21 12/19/21 12:40 12:40 12:40 WBC 7.40 RBC 5.43 Hgb 15.7 Hct 46.2 MCV 85.1 MCH 28.9 MCHC 34.0 RDW Std Deviation 45.3 RDW Coeff of Annie 14.7 H Plt Count 217 MPV 11.2 H Immature Gran % (Auto) 0.3 Neut % (Auto) 70.5 Lymph % (Auto) 21.9 [place] % (Auto) 6.4 Eos % (Auto) 0.8 Baso % (Auto) 0.1 Neut # (Auto) 5.22 Lymph # (Auto) 1.62 [place] # (Auto) 0.47 Eos # (Auto) 0.06 Baso # (Auto) 0.01 Immature Gran # (Auto) 0.02 PT 18.8 H INR 1.8 H APTT 34.5 H PTT Ratio 1.3 Sodium 134 L Potassium 4.3 Chloride 101 Carbon Dioxide 23 Anion Gap 10 BUN 24 H Creatinine 0.91 Est Cr Clr Drug Dosing 79.6 Est GFR ( Amer) 94.5 Est GFR (Non-Af Amer) 81.6 BUN/Creatinine Ratio 26.4 H Glucose 155 H POC Glucose Estimat Average Glucose Hemoglobin A1c Calcium 8.5 Magnesium 1.8 Total Bilirubin 1.1 H AST 20 ALT 26 Alkaline Phosphatase 73 Troponin I High Sens 15.9 Total Protein 7.0 Albumin 3.9 Globulin 3.1 Albumin/Globulin Ratio 1.3 Lipase 41 Vitamin B12 Folate SARS-CoV-2, RNA, NAAT 12/19/21 12/19/21 12/19/21 13:02 16:45 18:11 WBC RBC Hgb Hct MCV MCH MCHC RDW Std Deviation RDW Coeff of Annie Plt Count MPV Immature Gran % (Auto) Neut % (Auto) Lymph % (Auto) [place] % (Auto) Eos % (Auto) Baso % (Auto) Neut # (Auto) Lymph # (Auto) [place] # (Auto) Eos # (Auto) Baso # (Auto) Immature Gran # (Auto) PT INR APTT PTT Ratio Sodium Potassium Chloride Carbon Dioxide Anion Gap BUN Creatinine Est Cr Clr Drug Dosing Est GFR ( Amer) Est GFR (Non-Af Amer) BUN/Creatinine Ratio Glucose POC Glucose 186 H Estimat Average Glucose Hemoglobin A1c Calcium Magnesium Total Bilirubin AST ALT Alkaline Phosphatase Troponin I High Sens 16.8 Total Protein Albumin Globulin Albumin/Globulin Ratio Lipase Vitamin B12 Folate SARS-CoV-2, RNA, NAAT NEGATIVE 12/19/21 12/19/21 12/19/21 20:55 20:57 21:17 WBC RBC Hgb Hct MCV MCH MCHC RDW Std Deviation RDW Coeff of Annie Plt Count MPV Immature Gran % (Auto) Neut % (Auto) Lymph % (Auto) [place] % (Auto) Eos % (Auto) Baso % (Auto) Neut # (Auto) Lymph # (Auto) [place] # (Auto) Eos # (Auto) Baso # (Auto) Immature Gran # (Auto) PT INR APTT PTT Ratio Sodium Potassium Chloride Carbon Dioxide Anion Gap BUN Creatinine Est Cr Clr Drug Dosing Est GFR ( Amer) Est GFR (Non-Af Amer) BUN/Creatinine Ratio Glucose POC Glucose 63 L* 68 L* 88 Estimat Average Glucose Hemoglobin A1c Calcium Magnesium Total Bilirubin AST ALT Alkaline Phosphatase Troponin I High Sens Total Protein Albumin Globulin Albumin/Globulin Ratio Lipase Vitamin B12 Folate SARS-CoV-2, RNA, NAAT 12/19/21 12/20/21 12/20/21 22:22 00:49 03:52 WBC RBC Hgb Hct MCV MCH MCHC RDW Std Deviation RDW Coeff of Annie Plt Count MPV Immature Gran % (Auto) Neut % (Auto) Lymph % (Auto) [place] % (Auto) Eos % (Auto) Baso % (Auto) Neut # (Auto) Lymph # (Auto) [place] # (Auto) Eos # (Auto) Baso # (Auto) Immature Gran # (Auto) PT INR APTT PTT Ratio Sodium Potassium Chloride Carbon Dioxide Anion Gap BUN Creatinine Est Cr Clr Drug Dosing Est GFR ( Amer) Est GFR (Non-Af Amer) BUN/Creatinine Ratio Glucose POC Glucose 182 H 102 H Estimat Average Glucose Hemoglobin A1c Calcium Magnesium Total Bilirubin AST ALT Alkaline Phosphatase Troponin I High Sens 16.5 Total Protein Albumin Globulin Albumin/Globulin Ratio Lipase Vitamin B12 Folate SARS-CoV-2, RNA, NAAT 12/20/21 12/20/21 12/20/21 05:57 05:57 05:57 WBC 5.83 RBC 5.38 Hgb 15.3 Hct 45.8 MCV 85.1 MCH 28.4 MCHC 33.4 RDW Std Deviation 45.6 RDW Coeff of Annie 14.7 H Plt Count 193 MPV 10.4 Immature Gran % (Auto) 0.2 Neut % (Auto) 67.2 Lymph % (Auto) 26.2 [place] % (Auto) 4.3 Eos % (Auto) 1.9 Baso % (Auto) 0.2 Neut # (Auto) 3.92 Lymph # (Auto) 1.53 [place] # (Auto) 0.25 Eos # (Auto) 0.11 Baso # (Auto) 0.01 Immature Gran # (Auto) 0.01 PT 19.7 H INR 1.9 H APTT PTT Ratio Sodium 136 Potassium 4.1 Chloride 103 Carbon Dioxide 27 Anion Gap 6 BUN 23 Creatinine 0.76 Est Cr Clr Drug Dosing 95.5 Est GFR ( Amer) 102.7 Est GFR (Non-Af Amer) 88.6 BUN/Creatinine Ratio 30.3 H Glucose 104 H POC Glucose Estimat Average Glucose Hemoglobin A1c Calcium 8.3 L Magnesium 1.9 Total Bilirubin 0.6 D AST 18 ALT 24 Alkaline Phosphatase 69 Troponin I High Sens Total Protein 6.8 Albumin 3.9 Globulin 2.9 Albumin/Globulin Ratio 1.3 Lipase Vitamin B12 Folate SARS-CoV-2, RNA, NAAT 12/20/21 12/20/21 12/20/21 05:57 05:57 05:57 WBC RBC Hgb Hct MCV MCH MCHC RDW Std Deviation RDW Coeff of Annie Plt Count MPV Immature Gran % (Auto) Neut % (Auto) Lymph % (Auto) [place] % (Auto) Eos % (Auto) Baso % (Auto) Neut # (Auto) Lymph # (Auto) [place] # (Auto) Eos # (Auto) Baso # (Auto) Immature Gran # (Auto) PT INR APTT PTT Ratio Sodium Potassium Chloride Carbon Dioxide Anion Gap BUN Creatinine Est Cr Clr Drug Dosing Est GFR ( Amer) Est GFR (Non-Af Amer) BUN/Creatinine Ratio Glucose POC Glucose Estimat Average Glucose Pending Hemoglobin A1c Pending Calcium Magnesium Total Bilirubin AST ALT Alkaline Phosphatase Troponin I High Sens 14.5 Total Protein Albumin Globulin Albumin/Globulin Ratio Lipase Vitamin B12 464 Folate > 22.30 SARS-CoV-2, RNA, NAAT 12/20/21 12/20/21 07:28 11:50 WBC RBC Hgb Hct MCV MCH MCHC RDW Std Deviation RDW Coeff of Annie Plt Count MPV Immature Gran % (Auto) Neut % (Auto) Lymph % (Auto) [place] % (Auto) Eos % (Auto) Baso % (Auto) Neut # (Auto) Lymph # (Auto) [place] # (Auto) Eos # (Auto) Baso # (Auto) Immature Gran # (Auto) PT INR APTT PTT Ratio Sodium Potassium Chloride Carbon Dioxide Anion Gap BUN Creatinine Est Cr Clr Drug Dosing Est GFR ( Amer) Est GFR (Non-Af Amer) BUN/Creatinine Ratio Glucose POC Glucose 106 H 114 H Estimat Average Glucose Hemoglobin A1c Calcium Magnesium Total Bilirubin AST ALT Alkaline Phosphatase Troponin I High Sens Total Protein Albumin Globulin Albumin/Globulin Ratio Lipase Vitamin B12 Folate SARS-CoV-2, RNA, NAAT ECG Findings: + paced rhythm Additional Comments: Ventricular paced rhythm at 57 beats per (1) CAD (coronary atherosclerotic disease) Associated angina: unspecified whether angina present Coronary Disease- Associated Artery/Lesion type: unspecified vessel or lesion type [place] vs. transplanted heart: [place] heart Qualified Code(s): I25.10 - Atherosclerotic heart disease of [place] coronary artery without angina pectoris
--- NOTE | 2021-12-20 14:00 | Communication Note ---
Date of Service: December 20, 2021 Patient observed to have a 10 beat run of wide-complex tachycardia rate 130 bpm, asymptomatic. We will order echocardiogram recommend maintaining telemetry additional 24 hours
[2021-12-20] MEDS: HYDROmorphone PAIN PUMP IT SCH (17:57)
--- NOTE | 2021-12-20 19:50 | Electrocardiogram Report ---
Test Reason : Blood Pressure : / mmHG Vent. Rate : 080 BPM Atrial Rate : 082 BPM P-R Int : 000 ms QRS Dur : 200 ms QT Int : 480 ms P-R-T Axes : 000 -74 104 degrees QTc Int : 553 ms Poor data quality, interpretation may be adversely affected Ventricular-paced rhythm Abnormal ECG When compared with ECG of 19-SEP-2020 20:27, Vent. rate has increased BY 23 BPM Confirmed by Farhat Longoria ([id number]) on 12/20/2021 7:50:25 PM Referred By: Confirmed By:Farhat Longoria
[2021-12-20] MEDS: busPIRone 5 MG TAB PO SCH (20:21)
[2021-12-20] MEDS: WARFARIN SOD 5 MG TAB PO SCH (20:21)
[2021-12-20] MEDS: WARFARIN SOD 2 MG TAB PO SCH (20:21)
--- NOTE | 2021-12-20 21:13 | Electrocardiogram Report ---
Test Reason : Blood Pressure : / mmHG Vent. Rate : 055 BPM Atrial Rate : 054 BPM P-R Int : 000 ms QRS Dur : 210 ms QT Int : 558 ms P-R-T Axes : 000 -71 116 degrees QTc Int : 533 ms Ventricular-paced rhythm Abnormal ECG When compared with ECG of 19-DEC-2021 12:37, (unconfirmed) Vent. rate has decreased BY 25 BPM Confirmed by Farhat Longoria ([id number]) on 12/20/2021 9:12:43 PM Referred By: REFERRED SELF Confirmed By:Farhat Longoria
[2021-12-21 06:53] LABS: INR 2.4 (0.9-1.1); Prothrombin Time 24.3 Seconds (9.0-12.0)
[2021-12-21 07:48] LABS: Estimated Average Glucose 177 mg/dl; Hemoglobin A1C 7.8 % (4.5-5.6)
--- NOTE | 2021-12-21 08:34 | Ultrasound Report ---
CAROTID ARTERY ULTRASOUND CLINICAL HISTORY: Bruit, symptoms COMPARISON STUDY: None. TECHNIQUE: Real-time, grayscale, and color Doppler sonography of the carotid and vertebral arteries w as performed. Images were viewed in the transverse and longitudinal planes. FINDINGS: There is moderate atherosclerotic plaque. Velocity measurements are listed below. COMMON CAROTID PEAK SYSTOLIC VELOCITY (CM/S): RIGHT 69 LEFT 71 ICA PEAK SYSTOLIC VELOCITY (CM/S): RIGHT 53 LEFT 60 Systolic ratios between the internal to common carotid arteries were normal. Antegrade flow is seen in the vertebral arteries. The external carotid arteries are patent. IMPRESSION: No evidence for a hemodynamically significant stenosis. Moderate atherosclerotic plaque. ACT 112: Negative or not required by law. Electronically signed by: Aldo Story M.D. 12/21/2021 8:33 AM
[2021-12-21] MEDS ORDERED: ISOSORBIDE MONO EXTENDED REL 60 MG TABCR PO SCH (09:00)
[2021-12-21] MEDS: FUROSEMIDE 40 MG TAB PO SCH (09:52)
[2021-12-21] MEDS: TAMSULOSIN HCL 0.4 MG CAP PO SCH (09:53)
[2021-12-21] MEDS: amLODIPine BESYLATE 5 MG TAB PO SCH (09:53)
[2021-12-21] MEDS: METOPROLOL SUCC 25MG EXT REL TAB PO SCH (09:53)
[2021-12-21] MEDS: IRBESARTAN 150 MG TAB PO SCH (09:54)
[2021-12-21] MEDS: MULTIVITAMIN TAB PO SCH (09:54)
[2021-12-21] MEDS: INSULIN ASPART PER UNIT SC SCH ×3 (10:03→17:17)
--- NOTE | 2021-12-21 11:42 | Cardiology Progress Note ---
Date of Service December 21, 2021 Assessment & Plan (1) Precordial chest pain: (2) CAD (coronary atherosclerotic disease): (3) Chronic atrial fibrillation: (4) Chronic pain: Plan: 76-year-old male with known coronary disease who presented with symptoms of body tingling followed by chest pain and shortness of breath treated with sublingual nitroglycerin and morphine with resolve. EKG nondiagnostic given ventricular paced rhythm. High sensitivity troponin negative x 4. Resting echocardiography pending. Patient, per prior device interrogation in August 2020, was predominately RV paced. Patient had recent tolerance of exercise without difficulty. Discussed findings in detail with patient. His initial concern regarding possible stroke risk. Carotid duplex revealed moderate plaque but no hemodynamically significant stenosis. Will continue conservative treatment. Imdur increased to 60 mg daily in the morning. Toprol XL increased from 12.5 mg/day to 25 mg/day. Outpatient cardiology follow-up is being arranged (office aware, will contact patient). Admission and Anticipated Discharge Date Admission Date: December 19, 2021 Supervising Physician Co-Signing Physician Notes I have seen and examined the patient. I reviewed the medical record and discussed the case with Mr. Zaman. I agree with the plan as outlined above. We will arrange for follow-up. Subjective Patient seen and examined. Chart, medications, and telemetry reviewed. No further episodes of asymptomatic NS-VT via telemetry review. Rhythm paced in the 50's and 60's with an occasional PVC. Feels well. No further tingling or pain. Anxious for discharge. Carotid duplex on 12/20/2021 revealed moderate atherosclerotic plaque. No evidence for hemodynamically significant stenosis. Echocardiogram pending. Review of Systems Review of Systems: Diabetic now. Untreated sleep apnea. Last seen by outpatient cardiology in August 2020; missing scheduled follow-ups. ? Pending EGD and colonoscopy. Not interested in a DOAC/NOAC. Complete Review of Systems is as stated above, negative, or noncontributory. Physical Exam Physical Exam: General: A&Ox3. NAD. HENT: Normocephalic. Atraumatic. Eyes: PER. Conjunctiva pink, sclera clear. Neck: No carotid bruits. No JVD. Heart: Regular at 60 bpm. No murmur. Lungs: Clear to auscultation. Abdomen: +BS. Soft. Nontender. No masses or organomegaly. Extremities: No clubbing, cyanosis, or edema. Limited neurological examination is without focal deficits. Results & Data ([facility]) Vital Signs (Past 12 Hours) Vital Signs Temp Pulse Resp BP Pulse Ox 12/21/21 08:19 36.4 C L 55 L 19 121/72 95 12/21/21 04:51 36.5 C 54 L 16 102/62 95 Laboratory Results Laboratory Results - last 24 hr 12/20/21 12/20/21 12/20/21 05:57 11:50 17:08 PT INR POC Glucose 114 H 110 H Estimat Average Glucose 177 Hemoglobin A1c 7.8 H 12/20/21 12/21/21 12/21/21 20:32 05:26 07:23 PT 24.3 H INR 2.4 H POC Glucose 131 H 115 H Estimat Average Glucose Hemoglobin A1c (1) CAD (coronary atherosclerotic disease) Associated angina: unspecified whether angina present Coronary Disease- Associated Artery/Lesion type: unspecified vessel or lesion type [place] vs. transplanted heart: [place] heart Qualified Code(s): I25.10 - Atherosclerotic heart disease of [place] coronary artery without angina pectoris
--- NOTE | 2021-12-21 14:24 | Hospitalist Progress Note ---
Date of Service December 21, 2021 Assessment & Plan (1) Precordial chest pain: (2) Chronic coronary artery disease: (3) S/P CABG x 4: (4) Chronic atrial fibrillation: (5) Chronic pain: (6) DMII (diabetes mellitus, type 2): Plan: Substernal Chest pain and L jaw pain with hx of CAD s/p CABG: - EKG nondiagnostic given ventricular paced rhythm -trop neg x2: will trend -VSS -admitted pt to tele -cardiology consulted - pt concerned about stroke -like symptoms, carotid US ordered - No evidence for a hemodynamically significant stenosis. Moderate atherosclerotic plaque. 12/20 pt had episode of NSVT (pt remained asymptomatic) - echo ordered Discussed echo results with cardiology, essentially unchanged from previous LV normal in size. Apical wall motion abnormality may reflect pacemaker activation. Distal anterior and apical wall motion abnormality unchanged from previous studies. EF 40 to 45%. RV systolic function is normal. LA is severely dilated. RA is severely dilated. Aortic valve sclerosis mild, without significant aortic valvular stenosis. There is mild mitral regurg. There is mild tricuspid regurg. Per cardiology -increase Imdur to 60 mg daily in the morning. Increase Toprol- XL to 25 mg daily. Outpatient cardiology follow-up will be arranged. Afib on Coumadin: -continue home coumadin dose and medication DMII: -hold metformin -ISS HTN/HLD/BPH: -continue home medications Chronic pain on spinal infusion pump: -continue home regimen Diet: cardiac and DMII DVT PPx: Coumadin Code Status:FULL CODE Emergency Contact: Nadya [phone], daughter-rajeev [phone] Admission and Anticipated Discharge Date Admission Date: December 19, 2021 Subjective Patient seen in follow-up of chest pain Currently patient is lying in bed, in no acute distress Denies any more chest pain, shortness of breath, palpitations Also denies any tingling, fevers, chills, nausea Pt's at the bedside, and updated Review of Systems Review of Systems: All systems reviewed & are unremarkable except as noted in Subjective Physical Exam Physical Exam: General: obese M in NAD HEENT:.Normocephalic and atraumatic, Normal Conjunctiva, EOMI, Sclera is non- icteric Lungs:.No signs of respiratory distress, CTA, no wheezing or crackles Heart:.Normal S1, S2, no murmur Abdominal:.ND, Soft, NT MSK: b/l mild pitting edema of LE Psych:.AAOx3, normal affect Results & Data Results & Data ([facility]) Vital Signs (Past 12 Hours) Vital Signs Temp Pulse Resp BP Pulse Ox 12/21/21 12:02 36.6 C 60 19 113/69 98 12/21/21 08:19 36.4 C L 55 L 19 121/72 95 12/21/21 04:51 36.5 C 54 L 16 102/62 95 Laboratory Results 12/21/21 12/21/21 12/21/21 Range/Units 11:54 07:23 05:26 PT 24.3 H (9.0-12.0) Seconds INR 2.4 H (0.9-1.1) POC Glucose 94 115 H (70-99) mg/dl Estimat Average Glucose mg/dl Hemoglobin A1c (4.5-5.6) % 12/20/21 12/20/21 12/20/21 Range/Units 20:32 17:08 05:57 PT (9.0-12.0) Seconds INR (0.9-1.1) POC Glucose 131 H 110 H (70-99) mg/dl Estimat Average Glucose 177 mg/dl Hemoglobin A1c 7.8 H (4.5-5.6) % Medications Administered Current Inpatient Medications Amlodipine Besylate (Amlodipine Besylate 5 Mg Tab) [facility] [place]: 01/19/22 08:59 Last Admin: 12/21/21 09:53 Dose: 5 mg Documented by: Buspirone HCl (Buspirone 5 Mg Tab) 5 mg PO [facility] Stop: 01/18/22 20:59 Last Admin: 12/20/21 20:21 Dose: 5 mg Documented by: Dextrose (Dextrose 50% 50 Ml Syringe) 25 - 50 ml IV UD PRN; Protocol PRN Reason: Hypoglycemia Protocol Stop: 01/18/22 16:56 Furosemide (Furosemide 40 Mg Tab) 40 mg PO QAM [facility] Stop: 01/19/22 08:59 Last Admin: 12/21/21 09:52 Dose: 40 mg Documented by: Glucagon (Glucagon For Inj 1 Mg Vial) 1 mg SQ UD PRN; Protocol PRN Reason: Hypoglycemia Protocol Stop: 01/18/22 16:56 Glucose (Glucose 40% Gel 15 Gm Tube) 15 - 30 gm PO UD PRN; Protocol PRN Reason: Hypoglycemia Protocol Stop: 01/18/22 16:56 Glucose (Glucose 10 Tabs/Tube) 4 - 8 tabs PO UD PRN; Protocol PRN Reason: Hypoglycemia Protocol Stop: 01/18/22 16:56 Hydromorphone HCl (Hydromorphone Pain Pump) 1 pump IT CONT [facility] Stop: 01/18/22 16:59 Last Admin: 12/20/21 17:57 Dose: 1 pump Documented by: Insulin Aspart (Insulin Aspart Per Unit) 0 units SC ACHS [facility] Stop: 01/19/22 07:29 Last Admin: 12/21/21 13:02 Dose: 2 units Documented by: Irbesartan (Irbesartan 150 Mg Tab) 300 [facility] [place]: 01/19/22 08:59 Last Admin: 12/21/21 09:54 Dose: 300 mg Documented by: Isosorbide Mononitrate (Isosorbide [place] Extended Rel 60 Mg Tabcr) 60 mg [facility] [place]: 01/20/22 08:59 Last Admin: 12/21/21 09:54 Dose: 60 mg Documented by: Metoprolol Succinate (Metoprolol Succ 25mg Ext Rel Tab) 25 mg [facility] [place]: 01/21/22 08:59 Miscellaneous (Carbohydrates For Hypoglycemia ) 15 - 30 gm PO UD PRN PRN Reason: Hypoglycemia Protocol Stop: 01/18/22 16:56 Last Admin: 12/19/21 20:59 Dose: 15 gm Documented by: Multivitamins (Multivitamin Tab) 1 tab [facility] [place]: 01/19/22 08:59 Last Admin: 12/21/21 09:54 Dose: 1 tab Documented by: Nitroglycerin (Nitroglycerin Sl 0.4 Mg/Tab Tab) 0.4 mg SL UD PRN PRN Reason: Chest Pain Stop: 01/18/22 16:56 Tamsulosin HCl (Tamsulosin Hcl 0.4 Mg Cap) 0.4 mg PO BID [facility] Stop: 01/18/22 20:59 Last Admin: 12/21/21 09:53 Dose: 0.4 mg Documented by: Warfarin Sodium (Warfarin Sod 5 Mg Tab) 5 mg PO HS [facility] Stop: 01/18/22 20:59 Last Admin: 12/20/21 20:21 Dose: 5 mg Documented by: Warfarin Sodium (Warfarin Sod 2 Mg Tab) 2 mg PO HS [facility] Stop: 01/18/22 20:59 Last Admin: 12/20/21 20:21 Dose: 2 mg Documented by:
--- NOTE | 2021-12-21 16:03 | Discharge Summary ---
Date of Service December 21, 2021 Admission HPI Per Admitting Provider Pt is a 76 y/o M with hx of CAD s/p CABG, DMII, Gastric bypass surgery, chronic lower back pain on spinal infusion pump, Chronic chest pain, tachy-richard syndrome s/p dual chamber pacemaker, Afib on Coumadin, HTN, HLD, BPH came into ER from home after pt experience diffuse tingling sensation then substernal chest pain and L jaw pain. In the ER pt received nitroglycerin and morphine and symptoms improved. At bedside: per pt tingling resolved but still having very mild 1/10 substernal CP and L jaw pain. Denied any SOB, abd pain, N/V Admission Exam Per Admitting Provider General:.NAD, well developed, well nourished, average body habitus HEENT:.Normocephalic and atraumatic, Normal Conjunctiva, EOMI, Sclera is non- icteric Lungs:.No signs of respiratory distress, CTA, no wheezing or crackles Heart:.Normal S1, S2, no murmur Abdominal:.ND, Soft, NT MSK:b/l mild pitting edema of LE Psych:.AAOx3, normal affect Principal Diagnosis Chest pain in the setting of known CAD Discharge Exam General: obese M in NAD HEENT:.Normocephalic and atraumatic, Normal Conjunctiva, EOMI, Sclera is non- icteric Lungs:.No signs of respiratory distress, CTA, no wheezing or crackles Heart:.Normal S1, S2, no murmur Abdominal:.ND, Soft, NT MSK: b/l mild pitting edema of LE Psych:.AAOx3, normal affect Discharge Data Allergies Allergy/AdvReac Type Severity Reaction Status Date / Time bee venom protein (honey bee) Allergy Severe ANAPHYLAXIS Verified 09/19/20 22:36 gentamicin Allergy Intermediate HIVES/SHORTNESS Verified 09/19/20 22:45 OF BREATH Penicillins Allergy Intermediate HIVES/SHORTNESS Verified 09/19/20 22:36 OF BREATH Sulfa (Sulfonamide Allergy Intermediate HIVES/SHORTNESS Verified 09/19/20 22:36 Antibiotics) OF BREATH Consultations 12/19/21 13:46 ED Decision to Admit Stat 12/19/21 16:57 Consult Cardiology Routine Ordered Studies 12/20/21 12:54 US carotid doppler BI Routine IMPRESSION: No evidence for a hemodynamically significant stenosis. Moderate atherosclerotic plaque. Hospital Course (1) Precordial chest pain: (2) Chronic coronary artery disease: (3) S/P CABG x 4: (4) Chronic atrial fibrillation: (5) Chronic pain: (6) DMII (diabetes mellitus, type 2): Substernal Chest pain and L jaw pain with hx of CAD s/p CABG: - EKG nondiagnostic given ventricular paced rhythm -trop neg x2: will trend -VSS -admitted pt to tele -cardiology consulted - pt concerned about stroke -like symptoms, carotid US ordered - No evidence for a hemodynamically significant stenosis. Moderate atherosclerotic plaque. 12/20 pt had episode of NSVT (pt remained asymptomatic) - echo ordered Discussed echo results with cardiology, essentially unchanged from previous LV normal in size. Apical wall motion abnormality may reflect pacemaker activation. Distal anterior and apical wall motion abnormality unchanged from previous studies. EF 40 to 45%. RV systolic function is normal. LA is severely dilated. RA is severely dilated. Aortic valve sclerosis mild, without significant aortic valvular stenosis. There is mild mitral regurg. There is mild tricuspid regurg. Per cardiology -increase Imdur to 60 mg daily in the morning. Increase Toprol- XL to 25 mg daily. Outpatient cardiology follow-up will be arranged. Afib on Coumadin: -continue home coumadin dose and medication DMII: -hold metformin -ISS HTN/HLD/BPH: -continue home medications Chronic pain on spinal infusion pump: -continue home regimen Total Time Total Time Spent Total Time Spent (In Minutes): 40 Discharge Plan Discharge Items Patient Disposition: Home - Self-Care Reason For Visit: CHEST PAIN Discharge Diagnosis: Chest pain in the setting of known CAD Condition on Discharge: Fair Activity: Per Instructions section Non-emergency contact: Primary Care Provider and [employer] Supervisor Call non-emergency contact if: you have any medication questions and your symptoms worsen Follow-up/Referrals: Adonay Hines D.O. [Primary Care Provider] - 12/24/21 8:00 am Diet: Carb Consistent or DM2 and Heart Healthy Addtl Attending Provider Instructions: Follow-up with your primary care doctor, the appointment was scheduled for you for December 24. You will also need to follow-up with cardiology, you will be contacted about the appointment. Your Imdur dose was increased to 60 mg daily. Toprol-XL was increased to 25 mg daily. Pending Studies at Discharge: No Stand-Alone Forms: My [facility] ePAR, Smoking Cessation Medications and DC Order Prescriptions: New isosorbide mononitrate 60 mg Tablet Extended Release 24 Hr 60 mg PO QAM Qty: 30 RF: 0 metoprolol succinate 25 mg Tablet Extended Release 24 Hr 25 mg PO QAM Qty: 30 RF: 0 Continued furosemide 40 mg tablet 40 mg PO QAM RF: 0 buspirone 5 mg tablet 5 mg PO HS RF: 0 amlodipine 5 mg tablet 5 mg PO QAM RF: 0 tamsulosin 0.4 mg capsule 0.4 mg PO BID RF: 0 irbesartan 300 mg tablet 300 mg PO QAM RF: 0 Intrathecal Pain Pump 0 mg continuous intrathecal infusion CONT RF: 0 warfarin 5 mg Tablet 7 mg PO HS RF: 0 multivitamin Tablet 1 tab PO BID RF: 0 metformin 500 mg tablet 500 mg PO BID RF: 0 Discontinued metoprolol succinate 25 mg tablet extended release 24 hr 12.5 mg PO QAM RF: 0 isosorbide mononitrate 30 mg tablet extended release 24 hr 30 mg PO QAM RF: 0 Discharge Orders: Discharge Order (Routine); Ordered 12/21/21 Ordered By: Arvin Velasquez/Other Patient Handouts: Managing Type 2 Diabetes Admission Data Admit Date/Time: 12/19/21 13:52 Attending Provider: Arvin Perrin Admit Provider: Fernando Francis Primary Care Provider: Adonay Hines Other Providers: Fernando Francis ; Shoaib Foote
[2021-12-21] MEDS: HYDROmorphone PAIN PUMP IT SCH (17:17)
[2021-12-22] MEDS ORDERED: METOPROLOL SUCC 25MG EXT REL TAB PO SCH (09:00)
== END 2021-12-21 17:29 | disposition home or self-care (01) ==
LOC: ED 12:33 → SUATTDRO 13:52 → EDINP 13:52 → INTOOBSV 13:52 → 2N 16:11

== ENCOUNTER 2024-03-08 08:53 | Observation (INO) ==
[2024-03-08 09:43] LABS: Basophils # (auto) 0.03 K/uL (0.00-0.20); Basophils % (auto) 0.5 %; Eosinophils # (auto) 0.06 K/uL (0.00-0.50); Hematocrit (blood only) 43.7 % (42.0-52.0); Hemoglobin 14.6 g/dl (14.0-18.0); Immature Granulocytes # (auto) 0.01 K/uL (0.01-0.20); Immature Granulocytes % (auto) 0.2 %; Lymphocytes # (auto) 1.43 K/uL (1.20-3.40); Lymphocytes % (auto) 23.3 %; Mean Corpuscular Hemoglobin 29.4 pg (25.0-34.0); Mean Corpuscular Hgb Conc 33.4 g/dL (32.0-36.0); Mean Corpuscular Volume 88.1 fL (80.0-100.0); Mean Platelet Volume 10.1 fL (9.4-12.4); Monocytes # (auto) 0.38 K/uL (0.11-0.59); Monocytes % (auto) 6.2 %; Neutrophils # (auto) 4.23 K/uL (1.40-6.50); Neutrophils % (auto) 68.8 %; Platelet Count 209 K/uL (130-400); RDW Coefficient of Variation 13.5 % (11.5-14.5); RDW Standard Deviation 43.6 fL (36.4-46.3); Red Blood Count 4.96 M/uL (4.70-6.10); White Blood Count 6.14 K/ul (4.8-10.8)
--- NOTE | 2024-03-08 09:49 | Emergency Department Note ---
Impression & Plan SOB (shortness of breath), Elevated troponin I level ED Provider Note NAME: KUSUM DUNCAN AGE: 78 SEX: M : 1945 ARRIVES VIA: Walk-In INFORMANT: Patient, ED PROVIDER(S): Brigido Escamilla DO CHIEF COMPLAINT: Weakness HPI: The patient is a 78-year-old male who presented to the emergency department for an evaluation of generalized weakness. The patient states last evening when he was in bed he was feeling short of breath as well as weak. He started noticing he was very hot and sweaty. This occurred while he was in bed. He thinks this occurred over the course of about 30 minutes. The patient states today when he awoke he still feels generalized weakness. He denies having any headache or unilateral weakness. He denies having any vomiting or chest pain. ROS: See above HPI for pertinent positives & negatives. A total of 10 systems reviewed and were otherwise negative. PAST MEDICAL HISTORY: See Below PAST SURGICAL HISTORY: See Below FAMILY HISTORY: See Below SOCIAL HISTORY: See Below HOME MEDICATIONS: See Below ALLERGIES: See Below VITALS: See Below PHYSICAL EXAMINATION: GENERAL: Patient is awake alert in no acute distress patient is resting comfortably and showing no signs of anxiety EYES: The conjunctivae are clear. The pupils are round and reactive. EARS, NOSE, MOUTH AND THROAT: The nose is without any evidence of any deformity. NECK: The neck is nontender and supple. RESPIRATORY: Normal respiratory effort is noted there is no evidence of wheezing rhonchi or rales CARDIOVASCULAR: Regular rate and rhythm noted there no murmurs rubs or gallops normal S1 normal S2. GASTROINTESTINAL: The abdomen is soft. Abdomen is nontender. MUSCULOSKELETAL/EXTREMITIES: There is no evidence of gross deformity full range of motion is noted in the hips and shoulders. SKIN: There is no obvious evidence of any rash. Trace edema was noted bilaterally. NEUROLOGIC: Patient is awake alert and oriented x3. There is no facial droop. Strength is symmetric. Speech was clear. MEDICAL DECISION MAKING: The patient is a 78-year-old male who presented to the emergency department for an evaluation of difficulty breathing and an episode of diaphoresis. This occurred last evening. The patient was feeling much better today but came to the emergency department for concerns of a cardiac event. I discussed the patient's laboratory and radiographic studies with him. I discussed the limitations of the emergency department workup for chest pain with him. Ultimately he was found to have an elevated troponin however it was not increasing on subsequent reevaluation. Given his comorbidities I discussed his condition with the on-call [facility] [address] hospitalist. They have agreed to evaluate the patient in the emergency department for further management and disposition. Triage Nursing notes reviewed. Prior medical records reviewed Vital Signs: reviewed and remarkable for no significant abnormalities Differential diagnosis: Infection, dehydration, metabolic abnormality, hypo/hyperglycemia, electrolyte disturbance, anemia, hypoxia, cardiac sources, intracerebral event, toxicologic, neurologic, as well as other pathologies. ER treatment provided: See below Diagnostics interpreted by me: ECG: EKG was obtained in the emergency department. My interpretation is ventricular paced rhythm at 59 bpm. There were no eagle beats noted. A left bundle branch block pattern was favored. This was compared to a tracing from January 14, 2024. No changes were noted. Cardiac Monitoring: An order was placed for continuous cardiac monitoring. The monitor shows a rate of 55 bpm with paced rhythm. Laboratory studies: As stated above and show below. Imaging studies: See below. Radiographic imaging was reviewed by myself Consultation(s): I discussed this case with Kelley who is on-call for the [facility] group. 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) Dyspnea Orthopnea (Acute) S/P CABG x 4 (Chronic) S/P cholecystectomy (Chronic) Chest pain Left hamstring injury ACS (acute coronary syndrome) (Acute) Chest pain, precordial (Acute) Elevated troponin (Acute) Chronic pain Admitted to intensive care unit Gastric bypass status for obesity Medical History (Updated 03/08/24 @ 15:02 by Shoaib Foote MD) History of angina MOST RECENT 60 DAYS AGO...CATH History of kidney stones X1 Osteoarthritis Diabetes mellitus type 2, controlled "diet-controlled after gastric bypass" Chronic pain Pacemaker Seizure HX OF A KID, NONE SINCE CHILDHOOD RICHY (obstructive sleep apnea) TOLD HAD SLEEP APNEA BEFORE GASTRIC BYPASS SURGERY, DENIES CURRENT PROBLEMS WITH, NO CURRENT MACHINE Atrial fibrillation 1 CAD (coronary artery disease) Surgical History (Updated 03/08/24 @ 15:00 by Shoaib Foote MD) History of cholecystectomy History of quadruple bypass 1999 History of cardiac cath X3 TOTAL FOR ANGINA ([facility]) - MOST RECENT January 2019, patent grafts severe eagle vessel disease History of urologic surgery REMOVAL OF KIDNEY STONE History of colonoscopy History of back surgery X8 HARDWARE IN History of gastric bypass History of tonsillectomy and adenoidectomy History of appendectomy S/P insertion of intrathecal pump Family History Mother Diabetes Grandmother Diabetes Other Cancer Family history of colon cancer in mother Heart disease Hypertension Kidney disease Social History Smoking Status: Never smoker Tobacco Type: Cigarettes Do You Dip or Chew Tobacco: Yes (1 CAN PER DAY/ADVISED NPO); Hx Alcohol Use: No Hx Substance Use: No Preferred Language: Prydein[place] Communication Ability: Effective Wheat Farmer Required: No Beliefs That Will Affect Care: None marital status: Current Living Situation: Spouse Other Information That Helps Us Care for You: No Feels Safe at Home: Yes Safety Concerns: Feels Safe At This Time Assistive Devices: Walker Allergies Allergies Allergy/AdvReac Type Severity Reaction Status Date / Time bee venom protein (honey bee) Allergy Severe ANAPHYLAXIS Verified 09/19/20 22:36 gentamicin Allergy Intermediate HIVES/SHORTNESS Verified 09/19/20 22:45 OF BREATH Penicillins Allergy Intermediate HIVES/SHORTNESS Verified 01/14/24 14:52 OF BREATH Sulfa (Sulfonamide Allergy Intermediate HIVES/SHORTNESS Verified 09/19/20 22:36 Antibiotics) OF BREATH Home Meds Home Medications Medication Instructions Recorded Confirmed amlodipine 5 mg tablet 5 mg PO QAM 01/28/19 03/08/24 buspirone 5 mg tablet 5 mg PO HS 01/28/19 03/08/24 furosemide 40 mg tablet 40 mg PO QAM 01/28/19 03/08/24 irbesartan 300 mg tablet 300 mg PO QAM 01/28/19 03/08/24 tamsulosin 0.4 mg capsule 0.4 mg PO BID 01/28/19 03/08/24 Intrathecal Pain Pump 0 mg continuous intrathecal 03/14/19 03/08/24 infusion CONT warfarin 5 mg tablet 5.5 mg PO HS 04/02/19 03/08/24 multivitamin 1 tab PO BID 09/14/20 03/08/24 metformin 500 mg tablet 500 mg PO BID 12/19/21 03/08/24 warfarin 1 mg tablet 1 mg PO HS 03/08/24 03/08/24 Previous Rx's Medication Instructions Recorded isosorbide mononitrate 60 mg 60 mg PO QAM #30 tabs 12/21/21 tablet,extended release 24 hr metoprolol succinate 25 mg 25 mg PO QAM #30 tabs 12/21/21 tablet,extended release 24 hr Results & Data (ED) Vital Signs Vital Signs - 24 hr 03/08/24 08:58 03/08/24 09:13 03/08/24 09:18 Temperature 36.6 C Temperature Source Oral Pulse Rate 58 L 61 57 L Pulse Rate from SpO2 Sensor Respiratory Rate 20 19 Respiratory Effort / Characteristics Non-Labored Spontaneous Respiratory Depth Normal Blood Pressure 157/84 H 157/83 H Blood Pressure Mean 108 107 Pulse Oximetry 96 Oxygen Delivery Method Room Air Sepsis Recent Fever Within 48 Hours No Sepsis New/Unexplained Change in Mental Status N/A Sepsis Action Taken by Nursing No Action Required 03/08/24 09:28 03/08/24 09:33 03/08/24 10:30 Temperature Temperature Source Pulse Rate 55 L 55 L Pulse Rate from SpO2 Sensor 55 L 55 L Respiratory Rate 18 17 Respiratory Effort / Characteristics Respiratory Depth Blood Pressure 155/70 H 176/92 H Blood Pressure Mean 98 120 Pulse Oximetry 98 98 97 Oxygen Delivery Method Room Air Room Air Sepsis Recent Fever Within 48 Hours Sepsis New/Unexplained Change in Mental Status Sepsis Action Taken by Nursing 03/08/24 12:00 03/08/24 12:15 03/08/24 12:42 Temperature Temperature Source Pulse Rate 55 L 55 L 55 L Pulse Rate from SpO2 Sensor 55 L 55 L 55 L Respiratory Rate 19 19 16 Respiratory Effort / Characteristics Respiratory Depth Blood Pressure 139/70 139/70 148/82 H Blood Pressure Mean 93 93 104 Pulse Oximetry 98 96 96 Oxygen Delivery Method Room Air Room Air Sepsis Recent Fever Within 48 Hours Sepsis New/Unexplained Change in Mental Status Sepsis Action Taken by [facility] Medications Current Medication List: was personally reviewed by me Laboratory Data Attestation: I reviewed the patient's lab results. 03/08/24 09:15 03/08/24 09:15 Lab Results 03/08/24 03/08/24 03/08/24 Range/Units 09:15 09:15 09:15 WBC 6.14 (4.8-10.8) K/ul RBC 4.96 (4.70-6.10) M/uL Hgb 14.6 (14.0-18.0) g/dl Hct 43.7 (42.0-52.0) % MCV 88.1 (80.0-100.0) fL MCH 29.4 (25.0-34.0) pg MCHC 33.4 (32.0-36.0) g/dL RDW Std Deviation 43.6 (36.4-46.3) fL RDW Coeff of Annie 13.5 (11.5-14.5) % Plt Count 209 (130-400) K/uL MPV 10.1 (9.4-12.4) fL Immature Gran % (Auto) 0.2 % Neut % (Auto) 68.8 % Lymph % (Auto) 23.3 % [place] % (Auto) 6.2 % Eos % (Auto) 1.0 % Baso % (Auto) 0.5 % Neut # (Auto) 4.23 (1.40-6.50) K/uL Lymph # (Auto) 1.43 (1.20-3.40) K/uL [place] # (Auto) 0.38 (0.11-0.59) K/uL Eos # (Auto) 0.06 (0.00-0.50) K/uL Baso # (Auto) 0.03 (0.00-0.20) K/uL Immature Gran # (Auto) 0.01 (0.01-0.20) K/uL PT 19.6 H (9.0-12.0) Seconds INR 1.9 H (0.9-1.1) APTT 35 H (21-31) Seconds PTT Ratio 1.3 Sodium 138 (136-145) mmol/L Potassium 4.1 (3.5-5.1) mmol/L Chloride 106 (98-107) mmol/L Carbon Dioxide 25 (21-32) mmol/L Anion Gap 7 (3-11) BUN 15 (6-23) mg/dl Creatinine 0.61 (0.6-1.4) mg/dl Est Cr Clr Drug Dosing Not Reportable Est GFR ( Amer) 110.9 ml/min Est GFR (Non-Af Amer) 95.7 ml/min BUN/Creatinine Ratio 24.6 H (10-20) Glucose 100 H (70-99(Fasting)) mg/dl Calcium 8.6 (8.6-10.3) mg/dl Total Bilirubin 0.8 (0.2-1.0) mg/dl AST 18 (13-39) U/L ALT 16 (7-52) U/L Alkaline Phosphatase 73 (34-104) U/L Troponin I High Sens 23.4 H (0-20) pg/ml Total Protein 7.0 (6.0-8.3) gm/dl Albumin 4.0 (3.4-5.0) gm/dl Globulin 3.0 (2.5-4.0) gm/dl Albumin/Globulin Ratio 1.3 (0.9-2) Lipase 22 (11-82) U/L Procalcitonin < 0.02 (0-0.5) ng/ml Adenovirus (PCR) Not Detected (NotDetected) B. pertussis DNA (PCR) Not Detected (NotDetected) B.parapertussis DNA PCR Not Detected (NotDetected) C. pneumoniae DNA (PCR) Not Detected (NotDetected) Coronavirus OC43 (PCR) Not Detected (NotDetected) Coronavirus HKU1 (PCR) Not Detected (NotDetected) Coronavirus 229E (PCR) Not Detected (NotDetected) SARS-CoV-2 (PCR) NEGATIVE Not Detected (Negative) Coronavirus NL63 (PCR) Not Detected (NotDetected) Human Metapneumovir PCR Not Detected (NotDetected) Influenza Type A (PCR) Negative Not Detected (Neg) Influenza Type B (PCR) Negative (Neg) M. pneumoniae (PCR) (NotDetected) Parainfluenza 1 (PCR) (NotDetected) Parainfluenza 2 (PCR) (NotDetected) Parainfluenza 3 (PCR) (NotDetected) Parainfluenza 4 (PCR) (NotDetected) RSV (RT-PCR) (Neg) RSV (PCR) (NotDetected) Entero/Rhino (PCR) (NotDetected) 03/08/24 03/08/24 Range/Units 09:15 11:26 WBC (4.8-10.8) K/ul RBC (4.70-6.10) M/uL Hgb (14.0-18.0) g/dl Hct (42.0-52.0) % MCV (80.0-100.0) fL MCH (25.0-34.0) pg MCHC (32.0-36.0) g/dL RDW Std Deviation (36.4-46.3) fL RDW Coeff of Annie (11.5-14.5) % Plt Count (130-400) K/uL MPV (9.4-12.4) fL Immature Gran % (Auto) % Neut % (Auto) % Lymph % (Auto) % [place] % (Auto) % Eos % (Auto) % Baso % (Auto) % Neut # (Auto) (1.40-6.50) K/uL Lymph # (Auto) (1.20-3.40) K/uL [place] # (Auto) (0.11-0.59) K/uL Eos # (Auto) (0.00-0.50) K/uL Baso # (Auto) (0.00-0.20) K/uL Immature Gran # (Auto) (0.01-0.20) K/uL PT (9.0-12.0) Seconds INR (0.9-1.1) APTT (21-31) Seconds PTT Ratio Sodium (136-145) mmol/L Potassium (3.5-5.1) mmol/L Chloride (98-107) mmol/L Carbon Dioxide (21-32) mmol/L Anion Gap (3-11) BUN (6-23) mg/dl Creatinine (0.6-1.4) mg/dl Est Cr Clr Drug Dosing Est GFR ( Amer) ml/min Est GFR (Non-Af Amer) ml/min BUN/Creatinine Ratio (10-20) Glucose (70-99(Fasting)) mg/dl Calcium (8.6-10.3) mg/dl Total Bilirubin (0.2-1.0) mg/dl AST (13-39) U/L ALT (7-52) U/L Alkaline Phosphatase (34-104) U/L Troponin I High Sens 23.8 H (0-20) pg/ml Total Protein (6.0-8.3) gm/dl Albumin (3.4-5.0) gm/dl Globulin (2.5-4.0) gm/dl Albumin/Globulin Ratio (0.9-2) Lipase (11-82) U/L Procalcitonin (0-0.5) ng/ml Adenovirus (PCR) (NotDetected) B. pertussis DNA (PCR) (NotDetected) B.parapertussis DNA PCR (NotDetected) C. pneumoniae DNA (PCR) (NotDetected) Coronavirus OC43 (PCR) (NotDetected) Coronavirus HKU1 (PCR) (NotDetected) Coronavirus 229E (PCR) (NotDetected) SARS-CoV-2 (PCR) (Negative) Coronavirus NL63 (PCR) (NotDetected) Human Metapneumovir PCR (NotDetected) Influenza Type A (PCR) (Neg) Influenza Type B (PCR) Not Detected (Neg) M. pneumoniae (PCR) Not Detected (NotDetected) Parainfluenza 1 (PCR) Not Detected (NotDetected) Parainfluenza 2 (PCR) Not Detected (NotDetected) Parainfluenza 3 (PCR) Not Detected (NotDetected) Parainfluenza 4 (PCR) Not Detected (NotDetected) RSV (RT-PCR) Negative (Neg) RSV (PCR) Not Detected (NotDetected) Entero/Rhino (PCR) Not Detected (NotDetected) Administered Medications Albuterol (Albut/Ipratrop 3mg/0.5mg Neb 3 Ml Vial) 3 ml NEB Q4R ASAEL; Protocol Stop: 04/07/24 14:59 Last Admin: 03/08/24 15:27 Dose: 3 ml Documented By: CRG Hydromorphone HCl (Hydromorphone Pain Pump) 1 pump IT CONT ASAEL Stop: 04/07/24 14:44 Last Admin: 03/08/24 15:18 Dose: 1 pump Documented By: ANJELICA Insulin Aspart (Insulin Aspart Per Unit Charge) 0 units SC ACHS ASAEL Stop: 03/08/24 21:01 Last Admin: 03/08/24 15:42 Dose: 4 units Documented By: ANJELICA Co-signed By: [id number] Imaging Data Attestation: I personally reviewed and interpreted this imaging study as follows: My Impression: 1 view chest x-ray was obtained in the emergency department. My interpretation is no free air or definite infiltrate, final report below. Radiologist's Impression: Chest X-Ray 03/08/24 09:28 XR chest 1V portable CLINICAL HISTORY: Chest pain, nonspecific COMPARISON STUDY: Chest radiograph and chest CT January 14, 2024. FINDINGS: A dual-lead left subclavian pacer is in place. There are median sternotomy wires and mediastinal surgical clips. Cardiomegaly is unchanged. There is no pneumothorax or pleural effusion. Right upper lobe airspace opacity on prior chest CT is improved. No new sites of consolidation are present. There is no evidence for pulmonary edema. IMPRESSION: 1. No acute cardiopulmonary findings. 2. Near complete resolution of the right upper lobe airspace opacity shown on prior CT. This favors resolving pneumonia. Continued radiographic follow up to ensure complete resolution is recommended. ACT 112: Negative or not required by law. Electronically signed by: Aldo Story M.D. 03/08/2024 10:14 AM Discharge Plan Visit Data Chief Complaint: Hypertension Stated Complaint: SWEATING, HIGH BP ED Provider: Brigido Escamilla Discharge Problem: SOB (shortness of breath), Elevated troponin I level Patient Disposition: Admitted As Inpatient Discharge Instructions Interventions: ED Discharge Assessment Last Done: 03/08/24 14:01
[2024-03-08 10:06] LABS: Anion Gap 7 (3-11); Bilirubin,Total 0.8 mg/dl (0.2-1.0); Calcium 8.6 mg/dl (8.6-10.3); Carbon Dioxide 25 mmol/L (21-32); Chloride 106 mmol/L (98-107); Potassium 4.1 mmol/L (3.5-5.1); Sodium 138 mmol/L (136-145)
[2024-03-08 10:09] LABS: Troponin I High Sensitivity 23.4 pg/ml (0-20)
[2024-03-08 10:12] LABS: Alanine Aminotransferase 16 U/L (7-52); Albumin Globulin Ratio 1.3 (0.9-2); Alkaline Phosphatase 73 U/L (34-104); Aspartate Aminotransferase 18 U/L (13-39); BUN Creatinine Ratio 24.6 (10-20); Blood Urea Nitrogen 15 mg/dl (6-23); Est GFR (African American) 110.9 ml/min; Est GFR (Non-African American) 95.7 ml/min; Glucose 100 mg/dl (70-99(Fasting)); Lipase 22 U/L (11-82)
[2024-03-08 10:15] LABS: INR 1.9 (0.9-1.1); Partial Thromboplastin Ratio 1.3; Partial Thromboplastin Time 35 Seconds (21-31); Prothrombin Time 19.6 Seconds (9.0-12.0)
--- NOTE | 2024-03-08 10:16 | XRay Report ---
XR chest 1V portable CLINICAL HISTORY: Chest pain, nonspecific COMPARISON STUDY: Chest radiograph and chest CT January 14, 2024. FINDINGS: A dual-lead left subclavian pacer is in place. There are median sternotomy wires and medias tinal surgical clips. Cardiomegaly is unchanged. There is no pneumothorax or pleural effusion. Right upper lobe airspace opacity on prior chest CT is improved. No new sites of consolidation are present. There is no evidence for pulmonary edema. IMPRESSION: 1. No acute cardiopulmonary findings. 2. Near complete resolution of the right upper lobe airspace opacity shown on prior CT. This favors r esolving pneumonia. Continued radiographic follow up to ensure complete resolution is recommended. ACT 112: Negative or not required by law. Electronically signed by: Aldo Story M.D. 03/08/2024 10:14 AM
[2024-03-08 10:24] LABS: Influenza A virus by PCR Negative (Neg); Influenza B virus by PCR Negative (Neg); RSV by PCR Negative (Neg); SARS CoV2 RNA(COVID-19) Ceph NEGATIVE (Negative)
--- NOTE | 2024-03-08 12:50 | History & Physical Report ---
Date of Service March 08, 2024 Assessment & Plan (1) Elevated troponin I level: (2) SOB (shortness of breath): (3) CAD (coronary atherosclerotic disease): (4) Chronic atrial fibrillation: (5) Tachy-richard syndrome: (6) Pacemaker: (7) S/P CABG x 4: (8) Diabetes mellitus type 2, controlled: Plan: CAD s/p coronary bypass grafting x 4 in June 2000 Chronic angina pectoris Chronic A-fib on Coumadin Tachybradycardia syndrome status post dual-chamber pacemaker insertion in 2008 ( was interrogated in the ER upon admission today which is functioning appropriately) HTN HLD - Admit to tele for observation for r/o - Trend cardiac biomarkers, initial set was 23.4-->23.8, recheck Q6H - EKG reviewed as above - Check limited 2 D echo Patient had echo completed on 01/27/2024 showing EF of 40 to 44%, LV wall thickness mildly increased (concentric) septal motion is abnormal consistent with right ventricular pacemaker. The apical anterior wall and apical lateral jackson are hypokinetic. Left atrium is severely enlarged. Mild aortic valve scl erosis is present. Mild tricuspid regurg is present. Estimated pulmonary artery systolic pressure is 40 mmHg by percentage of RV pacing (97.9%), dwindling pacemaker generator longevity noted 5 months remaining longevity via the 01/10/2024 interrogation - Possible needs for device upgrade, recommend evaluation by Dr. Bermeo prior to future generator change - possibly the cause of symptoms, Will make NPO at midnight in case needs for procedure - Consult cardiology, previously has seen Dr. Sadler/Anthony Zaman PA-C - discussed with Dr. Foote - unlikely plans for pacemaker change during this a dmission. Reviewed pacemaker interrogation from today and it is functioning. There is also a 6 month battery backup once the longevity gets to zero per cardiology. - PT/OT consulted - Cont metoprolol 25 mg QAm, isosorbide mononitrate 60 mg QAM, lasix 40 mg qam (did not take today purposefully due to urination during transport here to hospital), asa 81 ng, amlodipine 5 mg QAM RICHY -Chronic chronic back pain - Chronic, stable - Dilaudid intrathecal pain pump in place DM type II - Diet controlled status post gastric bypass surgery - Check A1C with am labs - ISS with accuchecks achs, HOLD metformin, need to clarify if he is on glargine daily Complex partial seizure disorder -History of such as a child, no other suspected seizures since that timeframe History of gastric bypass surgery Iron deficiency anemia -Continue supplements -Chronic, stable DVT ppx: teds, scds Lines: PIV x 1 FEN/GI: HH/DM CODE: Full code Dispo: From home, likely to remain in the hospital x 1 day A total of 80 minutes were spent with greater than 50% of that time face to face with the patient, personally reviewing all current laboratories, imaging studies, past medication reconciliation, outpatient chart review, and discussion with specialists to collaborate care for the patient with attending. Please see attending documentation for corrections and/or additions. History of Present Illness Chief Complaint: Shortness of breath, unresponsive episode Primary Care Provider: Adonay Hines This is a 78-year-old male with PMHx of CAD s/p coronary bypass grafting x 4 in June 2000, chronic angina pectoris, chronic A-fib on Coumadin, tachybradycardia syndrome status post dual-chamber pacemaker insertion in 2008 (he was interrogated in the ER upon admission today which is functioning appropriately), RICHY, HTN, HLD, chronic back pain, DM type II, complex partial seizure disorder, history of gastric bypass surgery, iron deficiency anemia who presents to the ER today with generalized complaints of weakness. He noticed last evening that he felt increasing weakness, felt short of breath, was sweating and had difficulty sleeping overnight which is not his normal. He denies having any specific chest pain nor palpitations or flutter, and then presented this morning because he has continued to not feel well. is present with him at bedside. Initial troponin was trended at 23.4. Repeat was 23.8. All other laboratories are within normal limits. Initial respiratory panel with flu and RSV and COVID is negative. CXR of the chest shows near complete resolution of the right upper lobe airspace opacity shown on prior CT from 01/14/2024, favors resolving pneumonia. Allergies Allergy/AdvReac Type Severity Reaction Status Date / Time bee venom protein (honey bee) Allergy Severe ANAPHYLAXIS Verified 09/19/20 22:36 gentamicin Allergy Intermediate HIVES/SHORTNESS Verified 09/19/20 22:45 OF BREATH Penicillins Allergy Intermediate HIVES/SHORTNESS Verified 01/14/24 14:52 OF BREATH Sulfa (Sulfonamide Allergy Intermediate HIVES/SHORTNESS Verified 09/19/20 22:36 Antibiotics) OF BREATH Home Medications Medication Instructions Recorded Confirmed Type amlodipine 5 mg tablet 5 mg PO QAM 01/28/19 03/08/24 History buspirone 5 mg tablet 5 mg PO HS 01/28/19 03/08/24 History furosemide 40 mg tablet 40 mg PO QAM 01/28/19 03/08/24 History irbesartan 300 mg tablet 300 mg PO QAM 01/28/19 03/08/24 History tamsulosin 0.4 mg capsule 0.4 mg PO BID 01/28/19 03/08/24 History Intrathecal Pain Pump 0 mg continuous intrathecal 03/14/19 03/08/24 History infusion CONT warfarin 5 mg tablet 5.5 mg PO HS 04/02/19 03/08/24 History multivitamin 1 tab PO BID 09/14/20 03/08/24 History metformin 500 mg tablet 500 mg PO BID 12/19/21 03/08/24 History isosorbide mononitrate 60 mg 60 mg PO QAM #30 tabs 12/21/21 03/08/24 Rx tablet,extended release 24 hr metoprolol succinate 25 mg 25 mg PO QAM #30 tabs 12/21/21 03/08/24 Rx tablet,extended release 24 hr warfarin 1 mg tablet 1 mg PO HS 03/08/24 03/08/24 History 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) Dyspnea Orthopnea (Acute) S/P CABG x 4 (Chronic) S/P cholecystectomy (Chronic) Chest pain Left hamstring injury ACS (acute coronary syndrome) (Acute) Chest pain, precordial (Acute) Elevated troponin (Acute) Chronic pain Admitted to intensive care unit Gastric bypass status for obesity Medical History (Updated 03/08/24 @ 15:02 by Shoaib Foote MD) History of angina MOST RECENT 60 DAYS AGO...CATH History of kidney stones X1 Osteoarthritis Diabetes mellitus type 2, controlled "diet-controlled after gastric bypass" Chronic pain Pacemaker Seizure HX OF A KID, NONE SINCE CHILDHOOD RICHY (obstructive sleep apnea) TOLD HAD SLEEP APNEA BEFORE GASTRIC BYPASS SURGERY, DENIES CURRENT PROBLEMS WITH, NO CURRENT MACHINE Atrial fibrillation 1 CAD (coronary artery disease) Surgical History (Updated 03/08/24 @ 15:00 by Shoaib Foote MD) History of cholecystectomy History of quadruple bypass 1999 History of cardiac cath X3 TOTAL FOR ANGINA ([facility]) - MOST RECENT January 2019, patent grafts severe [place] vessel disease History of urologic surgery REMOVAL OF KIDNEY STONE History of colonoscopy History of back surgery X8 HARDWARE IN History of gastric bypass History of tonsillectomy and adenoidectomy History of appendectomy S/P insertion of intrathecal pump Family History Mother Diabetes Grandmother Diabetes Other Cancer Family history of colon cancer in mother Heart disease Hypertension Kidney disease Social History Smoking Status: Never smoker Tobacco Type: Cigarettes Do You Dip or Chew Tobacco: Yes (1 CAN PER DAY/ADVISED NPO); Hx Alcohol Use: No Hx Substance Use: No Preferred Language: Yoruba Communication Ability: Effective Dipper [employer] Drier Required: No Beliefs That Will Affect Care: None marital status: Current Living Situation: Spouse Other Information That Helps Us Care for You: No Feels Safe at Home: Yes Safety Concerns: Feels Safe At This Time Assistive Devices: Walker Review of Systems Review of Systems: Constitutional: No fever, + sweats and chills Eyes: No diplopia, no worsening or blurred vision ENT: normal hearing, no trouble swallowing Respiratory: + occasional cough, no sputum, + new dyspnea on exertion Cardiovascular: No chest pain, tightness or palpitations Abdomen: No pain, nausea, vomiting, diarrhea or constipation Musculoskeletal: No joint pain, calf pain, swelling Neurologic: No weakness, numbness/tingling, or balance problems Psychiatric: No anxiety or depression Skin: No rash or itch Physical Exam Physical Exam: Please refer to attending addendum for PE. Results & Data Results & Data Vital Signs (Past 12 Hours) Vital Signs Temp Pulse Resp BP Pulse Ox O2 Del Method 03/08/24 12:15 55 L 19 139/70 96 Room Air 03/08/24 12:00 55 L 19 139/70 98 Room Air 03/08/24 10:30 55 L 17 176/92 H 97 03/08/24 09:33 55 L 18 155/70 H 98 Room Air 03/08/24 09:28 98 Room Air 03/08/24 09:18 57 L 19 157/83 H 03/08/24 09:13 61 03/08/24 08:58 36.6 C 58 L 20 157/84 H 96 Room Air Laboratory Results 03/08/24 03/08/24 11:26 09:15 WBC 6.14 RBC 4.96 Hgb 14.6 Hct 43.7 MCV 88.1 MCH 29.4 MCHC 33.4 RDW Std Deviation 43.6 RDW Coeff of Annie 13.5 Plt Count 209 MPV 10.1 Immature Gran % (Auto) 0.2 Neut % (Auto) 68.8 Lymph % (Auto) 23.3 [place] % (Auto) 6.2 Eos % (Auto) 1.0 Baso % (Auto) 0.5 Neut # (Auto) 4.23 Lymph # (Auto) 1.43 [place] # (Auto) 0.38 Eos # (Auto) 0.06 Baso # (Auto) 0.03 Immature Gran # (Auto) 0.01 PT 19.6 H INR 1.9 H APTT 35 H PTT Ratio 1.3 Sodium 138 Potassium 4.1 Chloride 106 Carbon Dioxide 25 Anion Gap 7 BUN 15 Creatinine 0.61 Est Cr Clr Drug Dosing Not Reportable Est GFR ( Amer) 110.9 Est GFR (Non-Af Amer) 95.7 BUN/Creatinine Ratio 24.6 H Glucose 100 H Calcium 8.6 Total Bilirubin 0.8 AST 18 ALT 16 Alkaline Phosphatase 73 Troponin I High Sens 23.8 H 23.4 H Total Protein 7.0 Albumin 4.0 Globulin 3.0 Albumin/Globulin Ratio 1.3 Lipase 22 SARS-CoV-2 (PCR) NEGATIVE Influenza Type A (PCR) Negative Influenza Type B (PCR) Negative RSV (RT-PCR) Negative Diagnostic Findings Chest X-Ray 03/08/24 09:28 XR chest 1V portable CLINICAL HISTORY: Chest pain, nonspecific COMPARISON STUDY: Chest radiograph and chest CT January 14, 2024. FINDINGS: A dual-lead left subclavian pacer is in place. There are median st ernotomy wires and mediastinal surgical clips. Cardiomegaly is unchanged. There is no pneumothorax or pleural effusion. Right upper lobe airspace opacity on prior chest CT is improved. No new sites of consolidation are present. There is no evidence for pulmonary edema. IMPRESSION: 1. No acute cardiopulmonary findings. 2. Near complete resolution of the right upper lobe airspace opacity shown on prior CT. This favors resolving pneumonia. Continued radiographic follow up to ensure complete resolution is recommended. ACT 112: Negative or not required by law. Electronically signed by: Aldo Story M.D. 03/08/2024 10:14 AM ECG Additional Comments: Reviewed personally showing ventricular paced rhythm, prolonged QTc of 508 Code Status & VTE Plan VTE Prophylaxis Plan VTE Prophylaxis will be ordered: Yes Supervising Physician Co-Signing Physician Notes Patient is a 78-year-old male with history of CAD S/P CABG, tachybradycardia syndrome S/P pacer, diabetes mellitus, hypertension, hyperlipidemia, BPH and other medical problems presents with history of significant diaphoresis associated with shortness of breath, generalized weakness and nausea with started yesterday night. Please review HPI for complete details of presentation. Pacemaker interrogation done in ED showed no issues. I personally reviewed blood work, imaging studies. EKG is ventricular paced. Troponin mildly elevated 23.4, 23.8. Chest x-ray showed no acute process, noted near complete resolution of right upper lobe opacity shown on prior CT. Physical Exam: Vitals signs as noted above General Appearance:Obese, no apparent distress Head: normocephalic, Atraumatic Eyes: normal inspection, EOMI Neck: supple, Trachea midline Respiratory/Chest: Decreased breath sounds, CTA, No accessory muscle use Cardiovascular: S1, S2, No murmur,+ pacer Abdomen/GI:Soft, Non tender, Bowel sounds present Extremities/Musculoskeletal:normal inspection, trace pedal edema Neurologic/Psych:AAOX3, grossly no focal neurological deficits Skin: normal color, warm Diaphoresis, dyspnea on minimal exertion Suspected pacemaker malfunction--less likely given normal pacer interrogation H/O CAD S/P CABG Subtherapeutic INR Mild troponin elevation likely demand ischemia Check resting echo, TSH Appreciate cardiology input Isosorbide mononitrate increased to 120 mg daily for better control of blood pressure/antianginal Continue metoprolol, amlodipine, Avapro Added spironolactone to Lasix per cardiology Also on aspirin Continue Coumadin, monitor INR I personally interviewed and examined at bedside. Patient's care is coordinated with Lena Magdaleno PA-C. I have reviewed the advanced practitioner's documentation, and I agree with plan of care. Please refer to the documentation above for details of patient's presentation and for discussion of other issues. I spent a total [id number] coordinating, documenting, and providing care for this patient excluding time spent in the performance of separately billed services. (3) CAD (coronary atherosclerotic disease) Associated angina: unspecified whether angina present Coronary Disease- Associated Artery/Lesion type: unspecified vessel or lesion type [place] vs. transplanted heart: [place] heart Qualified Code(s): I25.10 - Atherosclerotic heart disease of [place] coronary artery without angina pectoris
--- NOTE | 2024-03-08 13:46 | Cardiology Consultation ---
Date of Consultation March 08, 2024 Assessment & Plan (1) Diaphoresis: (2) Elevated troponin I level: (3) CAD (coronary atherosclerotic disease): (4) Chronic atrial fibrillation: (5) Presence of intrathecal pump: Plan 78-year-old male with complex underlying ischemic heart disease with remote coronary bypass grafting. Subsequent follow-up cardiac catheterizations demonstrated complete occlusive disease of [place] vessel, patent graft Patient experienced episode of acute diaphoresis last evening lasting less than 30 minutes. Marked fatigue with ambulation at that time but slept through the night felt fatigued this morning. Initial findings on ER presentation due to elevated blood pressure and recent event notable only for minimal elevation in troponin though without evolution. Echocardiogram on preliminary review today similar to prior study of 2021 with localized apical wall motion abnormality EF 45 to 50% Pacemaker functioning appropriately Warfarin currently on hold but will likely resume tomorrow. Follow troponins to exclude underlying worsening ischemic heart disease though patient poor candidate for cardiac catheterization. Prior studies extremely poorly tolerated due to chronic and severe back pain No indications for pacemaker exchange at this time Goal medical optimization Will increase isosorbide mononitrate to 120 mg/day for further hypertension and antianginal effect. Continue metoprolol, amlodipine and Avapro. Add spironolactone 12.5 mg daily to furosemide Continue aspirin History of Present Illness Reason for Consultation: Episode of diaphoresis Requesting Physician: Dr. Sepulveda Attending Physician: Dr. Sepulveda History of Present Illness Patient is a complex 78-year-old male with underlying issues include per outpatient record 1. Atherosclerotic coronary disease with chronic class II-III angina. Status post coronary bypass grafting x4, June 2000 --rodas graft to LAD, saphenous vein graft to the posterior descending artery, sequential left radial artery graft to the ramus intermedius and obtuse marginal 2. Chronic noncardiac chest pain 3. Treatment with thrombolytics therapy for chest pain March 2017 without evidence of myocardial infarction, subsequent cardiac catheterization revealing patent grafts and severe [place] vessel coronary disease 4. Chest pain January 2019 with repeat cardiac catheterization once again demonstrating patent grafts and proximal occlusion all [place] vessels unchanged from prior studies. 5. Hospitalization at [facility] [place] in November 2021 with symptoms of body tingling followed by chest pain and shortness of breath treated with sublingual nitroglycerin and morphine with resolve. EKG nondiagnostic given ventricular paced rhythm. High sensitivity troponin negative x 4. 6. Past paroxysmal now chronic atrial fibrillation on chronic anticoagulation with warfarin 3. 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 Device [employer] Sensia SES R 0 1 4. Obstructive sleep apnea , untreated, with moderate pulmonary hypertension 5. Hypertension 6. Hyperlipidemia with poor statin tolerance 7. Chronic back pain with indwelling spinal infusion pump 8. Type 2 diabetes mellitus 9. Prior seizure disorder , complex partial 10. Prior gastric bypass surgery 11. Iron deficiency anemia. Patient presents noting an episode last evening lying in bed becoming acutely diaphoretic. Symptoms lasted several minutes but were not associated with chest pain or acute dyspnea. Was able to ambulate to the kitchen but noted on return to bed marked fatigue. Still felt fatigued this morning and sought ER evaluation. notes blood pressure elevated at home, normal oximetry and heart rate Currently no chest pains, shortness of breath, dizziness. No fevers or chills no productive cough was treated for pneumonia in December 2023 with oral regimen. Chronic back pain remains present mostly controlled with intrathecal infusion pump. Most recent change in dosing 2 to 3 months past Notes no nausea vomiting or constipation. Pacemaker site without irritation. Pacemaker interrogation demonstrates no arrhythmias with normal device function estimated battery life 5 to 6 months Allergies Allergy/AdvReac Type Severity Reaction Status Date / Time bee venom protein (honey bee) Allergy Severe ANAPHYLAXIS Verified 09/19/20 22:36 gentamicin Allergy Intermediate HIVES/SHORTNESS Verified 09/19/20 22:45 OF BREATH Penicillins Allergy Intermediate HIVES/SHORTNESS Verified 01/14/24 14:52 OF BREATH Sulfa (Sulfonamide Allergy Intermediate HIVES/SHORTNESS Verified 09/19/20 22:36 Antibiotics) OF BREATH Home Medications Medication Instructions Recorded Confirmed Type amlodipine 5 mg tablet 5 mg PO QAM 01/28/19 03/08/24 History buspirone 5 mg tablet 5 mg PO HS 01/28/19 03/08/24 History furosemide 40 mg tablet 40 mg PO QAM 01/28/19 03/08/24 History irbesartan 300 mg tablet 300 mg PO QAM 01/28/19 03/08/24 History tamsulosin 0.4 mg capsule 0.4 mg PO BID 01/28/19 03/08/24 History Intrathecal Pain Pump 0 mg continuous intrathecal 03/14/19 03/08/24 History infusion CONT warfarin 5 mg tablet 5.5 mg PO HS 04/02/19 03/08/24 History multivitamin 1 tab PO BID 09/14/20 03/08/24 History metformin 500 mg tablet 500 mg PO BID 12/19/21 03/08/24 History isosorbide mononitrate 60 mg 60 mg PO QAM #30 tabs 12/21/21 03/08/24 Rx tablet,extended release 24 hr metoprolol succinate 25 mg 25 mg PO QAM #30 tabs 12/21/21 03/08/24 Rx tablet,extended release 24 hr warfarin 1 mg tablet 1 mg PO HS 03/08/24 03/08/24 History Patient History Medical History (Updated 03/08/24 @ 15:02 by Shoaib Foote MD) History of angina MOST RECENT 60 DAYS AGO...CATH History of kidney stones X1 Osteoarthritis Diabetes mellitus type 2, controlled "diet-controlled after gastric bypass" Chronic pain Pacemaker Seizure HX OF A KID, NONE SINCE CHILDHOOD RICHY (obstructive sleep apnea) TOLD HAD SLEEP APNEA BEFORE GASTRIC BYPASS SURGERY, DENIES CURRENT PROBLEMS W ITH, NO CURRENT MACHINE Atrial fibrillation 1 CAD (coronary artery disease) Surgical History (Updated 03/08/24 @ 15:00 by Shoaib Foote MD) History of cholecystectomy History of quadruple bypass 1999 History of cardiac cath X3 TOTAL FOR ANGINA ([facility] [place]) - MOST RECENT January 2019, patent grafts severe [place] vessel disease History of urologic surgery REMOVAL OF KIDNEY STONE History of colonoscopy History of back surgery X8 HARDWARE IN History of gastric bypass History of tonsillectomy and adenoidectomy History of appendectomy S/P insertion of intrathecal pump Family History Mother Diabetes Grandmother Diabetes Other Cancer Family history of colon cancer in mother Heart disease Hypertension Kidney disease Social History Smoking Status: Never smoker Tobacco Type: Cigarettes Do You Dip or Chew Tobacco: Yes (1 CAN PER DAY/ADVISED NPO); Hx Alcohol Use: No Hx Substance Use: No Preferred Language: Amharic Communication Ability: Effective Antique Furniture 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 Required: No Beliefs That Will Affect Care: None marital status: Current Living Situation: Spouse Other Information That Helps Us Care for You: No Feels Safe at Home: Yes Safety Concerns: Feels Safe At This Time Assistive Devices: Walker Review of Systems Review of Systems: All systems reviewed & are unremarkable except as noted in HPI & below Physical Exam Constitutional: + obese; no acute distress Eyes: PERRL, conjunctivae normal, anicteric sclerae ENMT: external ear and nose normal, oropharynx normal Neck: trachea midline, no thyromegaly Respiratory: Auscultation: + diminished lung sounds Cardiovascular: Rate/Rhythm: regular rhythm (Ventricular paced) Chest (Breasts): Chest: + pacemaker (Site without irritation) Gastrointestinal (Abdomen): normal bowel sounds, soft, nontender, no hepatosplenomegaly Musculoskeletal: no cyanosis or clubbing, extremities motor strength 5/5 Results & Data Vital Signs (Past 12 Hours) Vital Signs Temp Pulse Resp BP Pulse Ox O2 Del Method 03/08/24 13:16 63 03/08/24 12:15 55 L 19 139/70 96 Room Air 03/08/24 12:00 55 L 19 139/70 98 Room Air 03/08/24 10:30 55 L 17 176/92 H 97 03/08/24 09:33 55 L 18 155/70 H 98 Room Air 03/08/24 09:28 98 Room Air 03/08/24 09:18 57 L 19 157/83 H 03/08/24 09:13 61 03/08/24 08:58 36.6 C 58 L 20 157/84 H 96 Room Air Diagnostic Findings The qualitative LV ejection fraction is 40-44% (mildly reduced). The LV wall thickness is mildly increased (concentric). The septal motion is abnormal consistent with right ventricular pacemaker. The apical anterior wall, and apical lateral jackson are hypokinetic. The left atrium is severely enlarged (>48 ml/m^2,). Mild aortic valve sclerosis is present. Mild tricuspid regurgitation is present. The estimated pulmonary artery systolic pressure is 40mm Hg. Compared to last available study changes are noted as follows: Mild left ventricular systolic dysfunction and apical wall motion abnormality now present (3) CAD (coronary atherosclerotic disease) Associated angina: unspecified whether angina present Coronary Disease- Associated Artery/Lesion type: unspecified vessel or lesion type [place] vs. transplanted heart: [place] heart Qualified Code(s): I25.10 - Atherosclerotic heart disease of [place] coronary artery without angina pectoris
[2024-03-08] MEDS ORDERED: ACETAMINOPHEN 325 MG TAB PO PRN (14:38)
[2024-03-08] MEDS ORDERED: GLUCAGON FOR INJ 1 MG VIAL SQ PRN (14:38)
[2024-03-08] MEDS ORDERED: GLUCOSE 40% GEL 15 GM TUBE PO PRN (14:38)
[2024-03-08] MEDS ORDERED: DEXTROSE 50% 50 ML SYRINGE IV PRN (14:38)
[2024-03-08] MEDS ORDERED: ONDANSETRON INJ 2 MG/ML 2 ML VIAL IV PRN (14:38)
[2024-03-08] MEDS ORDERED: CARBOHYDRATES FOR HYPOGLYCEMIA PO PRN (14:38)
[2024-03-08] MEDS ORDERED: GLUCOSE 10 TAB/TUBE PO PRN (14:38)
--- NOTE | 2024-03-08 14:47 | Electrocardiogram Report ---
Test Reason : Blood Pressure : */* mmHG Vent. Rate : 59 BPM Atrial Rate : 64 BPM P-R Int : * ms QRS Dur : 204 ms QT Int : 514 ms P-R-T Axes : * -66 118 degrees QTcB Int : 508 ms Ventricular-paced rhythm Abnormal ECG When compared with ECG of 14-Jan-2024 11:46, Vent. rate has decreased by 11 bpm Confirmed by Brigido Bennett ([id number]) on 03/08/2024 2:47:13 PM Referred By: Confirmed By: Brigido Bennett
[2024-03-08 15:05] LABS: Adenovirus PCR Not Detected (NotDetected); Bordetella parapertussis PCR Not Detected (NotDetected); Bordetella pertussis PCR Not Detected (NotDetected); Chlamydia pneumoniae PCR Not Detected (NotDetected); Coronavirus 229E PCR Not Detected (NotDetected); Coronavirus CoV-2 (COVID19)PCR Not Detected (NotDetected); Coronavirus HKU1 PCR Not Detected (NotDetected); Coronavirus NL63 PCR Not Detected (NotDetected); Coronavirus OC43PCR Not Detected (NotDetected); Human Metapneumovirus PCR Not Detected (NotDetected); Influenza A PCR Not Detected (NotDetected); Influenza B PCR Not Detected (NotDetected); Mycoplasma pneumoniae PCR Not Detected (NotDetected); Parainfluenza Virus 1 PCR Not Detected (NotDetected); Parainfluenza Virus 2 PCR Not Detected (NotDetected); Parainfluenza Virus 3 PCR Not Detected (NotDetected); Parainfluenza Virus 4 PCR Not Detected (NotDetected); Respiratory Syncytial VirusPCR Not Detected (NotDetected); Rhinovirus/Enterovirus PCR Not Detected (NotDetected)
[2024-03-08] MEDS: HYDROmorphone PAIN PUMP IT SCH (15:18)
[2024-03-08] MEDS: ALBUT/IPRATROP 3MG/0.5MG NEB 3 ML VIAL NEB SCH (15:27)
[2024-03-08] MEDS: INSULIN ASPART PER UNIT CHARGE SC SCH ×2 (15:42→21:04)
[2024-03-08] MEDS ORDERED: ALBUTEROL 0.083% NEBU SOLN 3 ML VIAL NEB PRN (16:42)
[2024-03-08] MEDS: SPIRONOLACTONE 12.5 MG TAB PO SCH (17:19)
[2024-03-08] MEDS: WARFARIN SOD 6 MG TAB PO SCH (17:19)
[2024-03-08] MEDS: busPIRone 5 MG TAB PO SCH (20:55)
[2024-03-08] MEDS: guaiFENesin 600 MG TABCR PO SCH (20:56)
[2024-03-08] MEDS: TAMSULOSIN HCL 0.4 MG CAP PO SCH (20:57)
[2024-03-08] MEDS: MULTIVITAMIN TAB PO SCH (20:57)
[2024-03-08] MEDS ORDERED: WARFARIN SOD 1 MG TAB PO SCH (21:00)
[2024-03-09 04:23] LABS: Hematocrit (blood only) 42.8 % (42.0-52.0); Hemoglobin 14.2 g/dl (14.0-18.0); Mean Corpuscular Hgb Conc 33.2 g/dL (32.0-36.0); Mean Corpuscular Volume 87.5 fL (80.0-100.0); Mean Platelet Volume 10.1 fL (9.4-12.4); Platelet Count 212 K/uL (130-400); RDW Coefficient of Variation 13.4 % (11.5-14.5); RDW Standard Deviation 43.1 fL (36.4-46.3); Red Blood Count 4.89 M/uL (4.70-6.10); White Blood Count 5.69 K/ul (4.8-10.8)
[2024-03-09 04:35] LABS: BUN Creatinine Ratio 20.3 (10-20); Calcium 8.8 mg/dl (8.6-10.3); Chol HDL Ratio 3.8 (0-5); Creatinine Clr Calc Pharmacy 92.8 ml/min; Est GFR (African American) 99.7 ml/min; Potassium 4.3 mmol/L (3.5-5.1)
[2024-03-09 04:57] LABS: INR 1.9 (0.9-1.1); Prothrombin Time 19.7 Seconds (9.0-12.0)
[2024-03-09] MEDS ORDERED: INSULIN ASPART PER UNIT CHARGE SC SCH (06:00)
[2024-03-09 07:34] LABS: Estimated Average Glucose 146 mg/dl; Hemoglobin A1C 6.7 % (4.5-5.6)
[2024-03-09 08:14] VITALS: TEMP 97.9
[2024-03-09] MEDS: ISOSORBIDE MONO EXTENDED REL 60 MG TABCR PO SCH (08:28)
[2024-03-09] MEDS: ASPIRIN 81 MG ECTAB PO SCH (08:29)
[2024-03-09] MEDS: FUROSEMIDE 40 MG TAB PO SCH (08:29)
[2024-03-09] MEDS: amLODIPine BESYLATE 5 MG TAB PO SCH (08:30)
[2024-03-09] MEDS: METOPROLOL SUCC 25MG EXT REL TAB PO SCH (08:42)
[2024-03-09] MEDS ORDERED: ISOSORBIDE MONO EXTENDED REL 60 MG TABCR PO SCH (09:00)
--- NOTE | 2024-03-09 10:57 | Discharge Summary ---
Date of Service March 09, 2024 Admission HPI Per Admitting Provider This is a 78-year-old male with PMHx of CAD s/p coronary bypass grafting x 4 in June 2000, chronic angina pectoris, chronic A-fib on Coumadin, tachybradycardia syndrome status post dual-chamber pacemaker insertion in 2008 (he was interrogated in the ER upon admission today which is functioning appropriately), RICHY, HTN, HLD, chronic back pain, DM type II, complex partial seizure disorder, history of gastric bypass surgery, iron deficiency anemia who presents to the ER today with generalized complaints of weakness. He noticed last evening that he felt increasing weakness, felt short of breath, was sweating and had difficulty sleeping overnight which is not his normal. He denies having any specific chest pain nor palpitations or flutter, and then presented this morning because he has continued to not feel well. is present with him at bedside. Initial troponin was trended at 23.4. Repeat was 23.8. All other laboratories are within normal limits. Initial respiratory panel with flu and RSV and COVID is negative. CXR of the chest shows near complete resolution of the right upper lobe airspace opacity shown on prior CT from 01/14/2024, favors resolving pneumonia. Admission Exam Per Admitting Provider Constitutional: No fever, + sweats and chills Eyes: No diplopia, no worsening or blurred vision ENT: normal hearing, no trouble swallowing Respiratory: + occasional cough, no sputum, + new dyspnea on exertion Cardiovascular: No chest pain, tightness or palpitations Abdomen: No pain, nausea, vomiting, diarrhea or constipation Musculoskeletal: No joint pain, calf pain, swelling Neurologic: No weakness, numbness/tingling, or balance problems Psychiatric: No anxiety or depression Skin: No rash or itch Principal Diagnosis Hypertension Elevated troponin History of CAD with bypass Discharge Exam Constitutional + well hydrated; no acute distress Eyes PERRL, conjunctivae normal, anicteric sclerae ENMT external ear and nose normal, oropharynx normal Respiratory On room air, not in resp distress, diminished breath sounds Cardiovascular Rate/Rhythm: regular rate and regular rhythm Gastrointestinal (Abdomen) normal bowel sounds, soft, nontender, no hepatosplenomegaly Musculoskeletal No pedal edema Neurologic PERRL, EOMI, accommodation nl, no face palsy, no dysarthria Psychiatric A+Ox3, euthymic affect Discharge Data Allergies Allergy/AdvReac Type Severity Reaction Status Date / Time bee venom protein (honey bee) Allergy Severe ANAPHYLAXIS Verified 09/19/20 22:36 gentamicin Allergy Intermediate HIVES/SHORTNESS Verified 09/19/20 22:45 OF BREATH Penicillins Allergy Intermediate HIVES/SHORTNESS Verified 01/14/24 14:52 OF BREATH Sulfa (Sulfonamide Allergy Intermediate HIVES/SHORTNESS Verified 09/19/20 22:36 Antibiotics) OF BREATH Consultations 03/08/24 12:42 ED Decision to Admit Stat 03/08/24 13:50 Consult Cardiology Routine Hospital Course (1) Elevated troponin I level: (2) SOB (shortness of breath): (3) CAD (coronary atherosclerotic disease): (4) Chronic atrial fibrillation: (5) Tachy-richard syndrome: (6) Pacemaker: (7) S/P CABG x 4: (8) Diabetes mellitus type 2, controlled: History of CAD s/p coronary bypass grafting x 4 in June 2000 Chronic angina pectoris Chronic A-fib on Coumadin Tachybradycardia syndrome status post dual-chamber pacemaker insertion in 2008 ( was interrogated in the ER upon admission today which is functioning appropriately) Hypertension HLD Had presented with diaphoresis and increased fatigue on day of presentation Reports feeling better today Troponin was mildly elevated 23.4-->23.8 TTE noted EF of 45-50%, mod conc LVH, localized hypokinesis of apical septum and inf wall with mild expansion, mod AV sclerosis, trace TR, RVSP 30-40mmHg Pacemaker interrogation did not show arrhythmia Cardiology evaluated and increased home imdur to 120mg daily and started spironolactone Discussed with Lay Out Carpenter Dr Foote who evaluated patient and recommends discharging on increased imdur and spironolactone Patient is to follow up with Cardiology PCP to arrange sleep study RICHY PCP to arrange sleep study chronic back pain Chronic, stable Dilaudid intrathecal pain pump in place DM type II Diet controlled status post gastric bypass surgery Hb A1C 6.7 Complex partial seizure disorder History of such as a child, no other suspected seizures since that timeframe History of gastric bypass surgery Iron deficiency anemia -Continue supplements -Chronic, stable Total Time Total Time Spent Total Time Spent (In Minutes): 35 Total Time Includes: Examination of the Patient, Discharge Planning, Medication Reconciliation and Communication With Other Providers Discharge Plan Discharge Items Patient Disposition: Home - Self-Care Reason For Visit: CHEST PAIN RULE OUT Discharge Diagnosis: Hypertension Elevated troponin History of CAD with bypass Activity: Resume your previous activity Non-emergency contact: Primary Care Provider and Lay Out Carpenter Call non-emergency contact if: you have any medication questions and your symptoms worsen Follow-up/Referrals: Anthony Zaman [Physician Range Feeder] - (Date & Time 05/04/2024 1:30 PM Provider Anthony Zaman, PAFarheenC Department Cardiology, [facility] ) Adonay Hines D.O. [Primary Care Provider] - 03/15/24 12:30 pm Diet: Carb Consistent or DM2, Heart Healthy and Low Sodium (2gm) Addtl Attending Provider Instructions: Mr Malhotra You came to the hospital complaining of increased weakness and sweating. You were evaluated and medications adjusted by Cardiology Your Imdur (isosorbide mononitrate) was increased to 120mg daily. You were started on Spironolactone 12.5mg daily. Please continue taking Aspirin 81mg daily. Please ensure follow up with your Primary Doctor who will also arrange evaluation for sleep apnea/sleep study. Continue to follow up with Cardiology. It was a pleasure taking care of you. Pending Studies at Discharge: No Stand-Alone Forms: My [facility] [place] [employer], Smoking Cessation Medications and DC Order Prescriptions: New aspirin 81 mg Tablet,Delayed Release (Dr/Ec) 81 mg PO QAM 30 Days Qty: 30 0RF spironolactone 25 mg Tablet 12.5 mg PO DAILY 30 Days Qty: 15 0RF Continued furosemide 40 mg tablet 40 mg PO QAM buspirone 5 mg tablet 5 mg PO HS amlodipine 5 mg tablet 5 mg PO QAM tamsulosin 0.4 mg capsule 0.4 mg PO BID irbesartan 300 mg tablet 300 mg PO QAM Intrathecal Pain Pump 0 mg continuous intrathecal infusion CONT Rx Instructions: INFUSE HYDROMORPHONE - UNKNOWN STRENGTH warfarin 5 mg Tablet 5.5 mg PO HS Rx Instructions: The patient takes 5.5 mg every other day multivitamin Tablet 1 tab PO BID metformin 500 mg tablet 500 mg PO BID metoprolol succinate 25 mg Tablet Extended Release 24 Hr 25 mg PO QAM Qty: 30 0RF warfarin 1 mg tablet 1 mg PO HS Rx Instructions: The patient takes 6 mg every other day - take 1 mg tab with 5 mg tab Changed isosorbide mononitrate 60 mg Tablet Extended Release 24 Hr 120 mg PO QAM Qty: 60 0RF Discharge Orders: Discharge Order (Routine); Ordered 03/09/24 Ordered By: Lavern Blanchard Admission Data Admit Date/Time: 03/08/24 12:47 Attending Provider: Lavern Blanchard I. Admit Provider: Suhas Sepulveda Primary Care Provider: Adonay Hines Other Providers: Suhas Sepulveda; Shoaib Foote Other Interventions: Discharge Summary Assessment (RN) Last Done: 03/09/24 10:19
[2024-03-09] MEDS: IRBESARTAN 150 MG TAB PO SCH (11:06)
[2024-03-09 11:21] VITALS: BP 107/61; PULSE 54; RESP 18; O2SAT 95
[2024-03-09] MEDS: LOSARTAN POTASSIUM 50 MG TAB PO SCH (11:35)
--- NOTE | 2024-03-09 13:44 | Cardiology Progress Note ---
Date of Service March 09, 2024 Assessment & Plan (1) Diaphoresis: (2) Elevated troponin I level: (3) CAD (coronary atherosclerotic disease): (4) Chronic atrial fibrillation: (5) Presence of intrathecal pump: Plan 78-year-old male with complex underlying ischemic heart disease with remote coronary bypass grafting. Subsequent follow-up cardiac catheterizations demonstrated complete occlusive disease of [place] vessel, patent graft Patient experienced episode of acute diaphoresis last evening lasting less than 30 minutes. Marked fatigue with ambulation at that time but slept through the night felt fatigued this morning. Initial findings on ER presentation due to elevated blood pressure and recent event notable only for minimal elevation in troponin though without evolution. Echocardiogram on preliminary review today similar to prior study of 2021 with localized apical wall motion abnormality EF 45 to 50% Pacemaker functioning appropriately Warfarin currently on hold but will likely resume tomorrow. Follow troponins to exclude underlying worsening ischemic heart disease though patient poor candidate for cardiac catheterization. Prior studies extremely poorly tolerated due to chronic and severe back pain No indications for pacemaker exchange at this time Goal medical optimization Will increase isosorbide mononitrate to 120 mg/day for further hypertension and antianginal effect. Continue metoprolol, amlodipine and Avapro. Add spironolactone 12.5 mg daily to furosemide Continue aspirin 03/09/2024 No further symptoms of diaphoresis. Cardiac enzymes do not suggest acute myocardial injury Medications adjusted to optimize and patient agreeable for sleep medicine follow-up Discussed in detail with patient and Office contacted to arrange appointments Admission and Anticipated Discharge Date Admission Date: March 08, 2024 Subjective Patient seen and examined, chart, medications, telemetry reviewed Feels well this morning good night other than increased urination overnight No chest pains, diaphoresis, shortness of breath Blood pressure is well-controlled on adjustment in medical therapy Review of Systems Review of Systems: All systems reviewed & are unremarkable except as noted in Subjective Physical Exam Constitutional: + obese; no acute distress Eyes: PERRL, conjunctivae normal, anicteric sclerae ENMT: external ear and nose normal, oropharynx normal Neck: trachea midline, no thyromegaly Respiratory: Auscultation: + diminished lung sounds Cardiovascular: Rate/Rhythm: regular rhythm (Ventricular paced) and + irregularly irregular Chest (Breasts): Chest: + pacemaker (Site without irritation) Gastrointestinal (Abdomen): normal bowel sounds, soft, nontender, no hepatosplenomegaly Musculoskeletal: no cyanosis or clubbing, extremities motor strength 5/5 Results & Data Vital Signs (Past 12 Hours) Vital Signs Temp Pulse Pulse Resp BP Pulse Ox O2 Del Method 03/09/24 11:20 36.6 C 54 L 18 107/61 95 Room Air 03/09/24 10:19 36.6 C 56 L 20 154/76 H 94 03/09/24 09:10 Room Air 03/09/24 08:13 36.6 C 56 L 20 154/76 H 94 Room Air 03/09/24 07:00 55 L 03/09/24 03:24 36.7 C 70 18 145/80 H 95 Room Air Laboratory Results Laboratory Results - last 24 hr 03/08/24 03/08/24 03/08/24 09:15 14:54 17:08 WBC RBC Hgb Hct MCV MCH MCHC RDW Std Deviation RDW Coeff of Annie Plt Count MPV PT INR Sodium Potassium Chloride Carbon Dioxide Anion Gap BUN Creatinine Est Cr Clr Drug Dosing Est GFR ( Amer) Est GFR (Non-Af Amer) BUN/Creatinine Ratio Glucose POC Glucose 170 H 196 H Estimat Average Glucose Hemoglobin A1c Calcium Troponin I High Sens Triglycerides Cholesterol LDL Cholesterol, Calc VLDL Cholesterol, Calc HDL Cholesterol Cholesterol/HDL Ratio Adenovirus (PCR) Not Detected B. pertussis DNA (PCR) Not Detected B.parapertussis DNA PCR Not Detected C. pneumoniae DNA (PCR) Not Detected Coronavirus OC43 (PCR) Not Detected Coronavirus HKU1 (PCR) Not Detected Coronavirus 229E (PCR) Not Detected SARS-CoV-2 (PCR) Not Detected Coronavirus NL63 (PCR) Not Detected Human Metapneumovir PCR Not Detected Influenza Type A (PCR) Not Detected Influenza Type B (PCR) Not Detected M. pneumoniae (PCR) Not Detected Parainfluenza 1 (PCR) Not Detected Parainfluenza 2 (PCR) Not Detected Parainfluenza 3 (PCR) Not Detected Parainfluenza 4 (PCR) Not Detected RSV (PCR) Not Detected Entero/Rhino (PCR) Not Detected 03/08/24 03/08/24 03/09/24 17:31 20:29 03:37 WBC 5.69 RBC 4.89 Hgb 14.2 Hct 42.8 MCV 87.5 MCH 29.0 MCHC 33.2 RDW Std Deviation 43.1 RDW Coeff of Annie 13.4 Plt Count 212 MPV 10.1 PT 19.7 H INR 1.9 H Sodium 140 Potassium 4.3 Chloride 106 Carbon Dioxide 27 Anion Gap 7 BUN 16 Creatinine 0.79 Est Cr Clr Drug Dosing 92.8 Est GFR ( Amer) 99.7 Est GFR (Non-Af Amer) 86.0 BUN/Creatinine Ratio 20.3 H Glucose 113 H POC Glucose 96 Estimat Average Glucose 146 Hemoglobin A1c 6.7 H Calcium 8.8 Troponin I High Sens 24.4 H Triglycerides 96 Cholesterol 133 LDL Cholesterol, Calc 79 VLDL Cholesterol, Calc 19 HDL Cholesterol 35 Cholesterol/HDL Ratio 3.8 Adenovirus (PCR) B. pertussis DNA (PCR) B.parapertussis DNA PCR C. pneumoniae DNA (PCR) Coronavirus OC43 (PCR) Coronavirus HKU1 (PCR) Coronavirus 229E (PCR) SARS-CoV-2 (PCR) Coronavirus NL63 (PCR) Human Metapneumovir PCR Influenza Type A (PCR) Influenza Type B (PCR) M. pneumoniae (PCR) Parainfluenza 1 (PCR) Parainfluenza 2 (PCR) Parainfluenza 3 (PCR) Parainfluenza 4 (PCR) RSV (PCR) Entero/Rhino (PCR) 03/09/24 08:01 WBC RBC Hgb Hct MCV MCH MCHC RDW Std Deviation RDW Coeff of Annie Plt Count MPV PT INR Sodium Potassium Chloride Carbon Dioxide Anion Gap BUN Creatinine Est Cr Clr Drug Dosing Est GFR ( Amer) Est GFR (Non-Af Amer) BUN/Creatinine Ratio Glucose POC Glucose 112 H Estimat Average Glucose Hemoglobin A1c Calcium Troponin I High Sens Triglycerides Cholesterol LDL Cholesterol, Calc VLDL Cholesterol, Calc HDL Cholesterol Cholesterol/HDL Ratio Adenovirus (PCR) B. pertussis DNA (PCR) B.parapertussis DNA PCR C. pneumoniae DNA (PCR) Coronavirus OC43 (PCR) Coronavirus HKU1 (PCR) Coronavirus 229E (PCR) SARS-CoV-2 (PCR) Coronavirus NL63 (PCR) Human Metapneumovir PCR Influenza Type A (PCR) Influenza Type B (PCR) M. pneumoniae (PCR) Parainfluenza 1 (PCR) Parainfluenza 2 (PCR) Parainfluenza 3 (PCR) Parainfluenza 4 (PCR) RSV (PCR) Entero/Rhino (PCR) (3) CAD (coronary atherosclerotic disease) Associated angina: unspecified whether angina present Coronary Disease- Associated Artery/Lesion type: unspecified vessel or lesion type [place] vs. transplanted heart: [place] heart Qualified Code(s): I25.10 - Atherosclerotic heart disease of [place] coronary artery without angina pectoris
== END 2024-03-09 12:05 | disposition home or self-care (01) ==
LOC: ED 08:53 → 2W 08:53 → SUATTDRO 12:47 → 2W 14:01

== ENCOUNTER 2025-06-04 20:16 | Observation (INO) ==
--- NOTE | 2025-06-04 21:03 | Emergency Department Note ---
Impression & Plan Muscle spasm of both lower legs ED Provider Note ED Provider Note NAME: KUSUM DUNCAN AGE:79 SEX: Male : 1945 ARRIVES VIA: Private vehicle INFORMANT: Patient ED PROVIDER(s): Maggy Aguirre DO CHIEF COMPLAINT: Muscle spasms in legs HPI: This is a 79-year-old male presents to the emergency department due to concern for muscle spasms in both legs that began this afternoon. Patient states he felt well earlier in the day and went about his normal routine. Patient does have significant history of prior back surgery citing 8 prior back surgeries as well as a current indwelling pain pump which she states has morphine. He states he has not had any issues with his pain pump recently. He last saw pain management in March. He states his last back surgery was more than 10 years ago and he no longer follows with orthospine. He denies any recent trauma or change in activities. He denies any accompanying paresthesias. No saddle anesthesia. No recent change in bowel or bladder function. He denies any current back pain. No hx of RLS. PAST MEDICAL HISTORY:See Below PAST SURGICAL HISTORY:See Below FAMILY HISTORY:See Below SOCIAL HISTORY:See Below HOME MEDICATIONS:See Below ALLERGIES:See Below VITALS:See Below PHYSICAL EXAMINATION: GENERAL: alert, well appearing, well nourished, no distress, non-toxic EYE EXAM: normal conjunctiva, PERRL and EOM's grossly intact OROPHARYNX: no exudate, no erythema, lips, buccal mucosa, and tongue normal and mucous membranes are moist NECK: supple, no nuchal rigidity, no adenopathy, non-tender LUNGS: Clear to auscultation. Normal chest wall mechanics, no w/r/r HEART: no murmurs, S1 normal and S2 normal ABDOMEN: abdomen soft, non-tender, normo-active bowel sounds, no masses, no rebound or guarding. SKIN: no rashes, petechiae, orbruising UPPER EXTREMITIES: upper extremities are grossly normal. FROM, nml pulses b/l. LOWER EXTREMITIES: No pitting edema. FROM, nml pulses b/l. Well-healed vertical midline incision over the right knee consistent with prior surgery. Well-healed scar noted to the medial aspect of the distal left lower extremity consistent with prior vein harvesting and patient's prior CABG. Normal sensation bilaterally. Patient is able to lift the legs, dorsi and plantarflex with equal strength, however has intermittent spasms of the leg. Unable to elicit patellar reflexes bilaterally. Equal sensation bilaterally. NEURO EXAM: Normal sensorium, cranial nerves II-XII grossly intact, normal speech, no facial droop,nogross weakness of arms, no gross weakness of legs. Gross sensation intact. No ataxia. Vital Signs: reviewed and remarkable Differential Diagnosis: RLS, sciatica, electrolyte abnormality, dehydration, occult trauma, cauda equina, epidural abscess, pain pump malfunction, as well as others were considered MEDICAL DECISION MAKING: This is a 79-year-old male presents emergency department due to acute onset of bilateral muscle spasms in his lower legs making ambulation difficult. Patient was afebrile and hemodynamically stable. Patient with extensive history of back surgeries besides indwelling pain pump. Labs drawn and sent, IV established, EKG performed at bedside and interpreted by me and he was monitored on telemetry. Patient sent for CT of the head and CT of the lumbar spine.. No acute pathology noted. He was trialed on a low-dose of oral Robaxin without any improvement. Due to concern for ambulatory dysfunction and fall risk in a patient who is anticoagulated with extensive cardiac history as well as other comorbid conditions, we discussed further inpatient evaluation and trial of other medications. Patient and family were in agreement with this plan. Case discussed with the hospitalist team. Patient may benefit from further MR imaging however would need time to facilitate further investigation of his pacemaker and pain pump to know if they are MR-compatible and/or if additional staff would need to be present in order to reprogram them following the MRI. I have a low suspicion for occult infection at this time. I do not suspect cauda equina. Consultation(s): 0035: Discussed with Dr. Romero, [place] hospitalist team, for additional evaluation and mgmt. ER Treatment Provided: See below Diagnostics Interpreted By Me: -ECG: Paced at 70, normal axis, QRS of 132, normal QTc, nonspecific ST/T wave changes -Cardiac Monitoring: An order was placed for continuous cardiac monitoring. The monitor shows a rate of 72 with rhythm. -Laboratory studies: As stated above and show below. -Imaging studies: CT head: no ich CT L spine: hardware noted, no fx Triage Nursing Note Reviewed Prior/Outside Records Reviewed Past Med/Surg History Problem List (Updated 06/04/25 @ 21:03 by Maggy Aguirre, DO) Muscle spasm of both lower legs (Acute) Ex-smoker Pulmonary nodule Allergic rhinitis with postnasal drip Upper airway cough syndrome Chronic cough Obesity Asthma-COPD overlap syndrome COPD (chronic obstructive pulmonary disease) Low testosterone Hypertension Anxiety Status post coronary artery bypass graft ASCVD (arteriosclerotic cardiovascular disease) Chest pain at rest Anticoagulated (Acute) SOB (shortness of breath) (Acute) Precordial chest pain (Acute) Cardiomyopathy Chronic heart failure with reduced ejection fraction (HFrEF, <= 40%) Complete heart block Diaphoresis Elevated troponin I level (Acute) SOB (shortness of breath) (Acute) DMII (diabetes mellitus, type 2) Chronic pain Afib CAD (coronary atherosclerotic disease) (Acute) Diaphoresis (Acute) SOB (shortness of breath) (Acute) Precordial chest pain (Acute) Degenerative joint disease of left knee Chronic atrial fibrillation Presence of intrathecal pump Status post total right knee replacement Chronic coronary artery disease Encounter for pre-operative examination Tricompartment osteoarthritis of right knee Gastric bypass status for obesity Admitted to intensive care unit Chronic pain Elevated troponin (Acute) Chest pain, precordial (Acute) ACS (acute coronary syndrome) (Acute) Left hamstring injury Chest pain S/P cholecystectomy (Chronic) S/P CABG x 4 (Chronic) Orthopnea (Acute) Dyspnea Tachy-richard syndrome (Chronic) Medical History History of angina MOST RECENT 60 DAYS AGO...CATH History of kidney stones X1 Osteoarthritis Diabetes mellitus type 2, controlled Chronic pain Pacemaker Seizure HX OF A KID, NONE SINCE CHILDHOOD RICHY (obstructive sleep apnea) TOLD HAD SLEEP APNEA BEFORE GASTRIC BYPASS SURGERY, DENIES CURRENT PROBLEMS WITH, NO CURRENT MACHINE Atrial fibrillation 1 CAD (coronary artery disease) Surgical History History of cholecystectomy History of quadruple bypass History of cardiac cath History of urologic surgery History of colonoscopy History of back surgery History of gastric bypass History of tonsillectomy and adenoidectomy History of appendectomy S/P insertion of intrathecal pump Family History Mother Diabetes Cancer Colorectal cancer Lung cancer Grandmother Diabetes Stroke Father Coronary heart disease Myocardial infarction Other Family history of colon cancer in mother Heart disease Hypertension Denies family history of Ovarian cancer Prostate cancer Kidney disease Breast cancer Social History (Updated 05/02/25 @ 12:04 by Tsering Hernandez RN) Smoking Status: Former smoker Tobacco Type: Cigarettes and Smokeless Tobacco (Dip or Chew) Age Started Using Tobacco: 17; Age Quit Using Tobacco: 30; packs per day: 2; Second Hand Exposure: No; Do You Dip or Chew Tobacco: Yes (1 CAN A DAY); Hx Alcohol Use: No Hx Substance Use: No Preferred Language: Georgian Communication Ability: Effective Visual Impairment: No Limitations Hearing Ability: Hard of Hearing Cow Rider Required: No Beliefs That Will Affect Care: None marital status: Current Living Situation: Spouse current occupational status: retired and disabled How many Children do You have: 3 Feels Safe at Home: Yes Childhood Exposure to Second-Hand Smoke: Yes Diet: regular caffeine: Yes during the past year weight has: remained stable Dental Care, Regularly: No Physical Activity Frequency: Other Seatbelt Use: always Sunscreen Use: No Do you think of yourself as: straight/heterosexual Assistive Devices: Cane, CPAP, Crutches, Denture - Upper, Glasses, Lift Chair, Scooter/Electric Scooter, Stair Lift and Walker Allergies Allergies Allergy/AdvReac Type Severity Reaction Status Date / Time Sulfa (Sulfonamide Allergy Severe Anaphylaxis Verified 05/02/25 10:24 Antibiotics) bee venom protein (honey bee) Allergy Intermediate ANAPHYLAXIS Verified 05/02/25 10:24 gentamicin Allergy Intermediate HIVES/SHORTNESS Verified 05/02/25 10:24 OF BREATH Penicillins Allergy Intermediate HIVES/SHORTNESS Verified 05/02/25 10:24 OF BREATH Home Meds Home Medications Medication Instructions Recorded Confirmed furosemide 40 mg tablet 40 mg PO QAM 01/28/19 06/05/25 Intrathecal Pain Pump 0 mg continuous intrathecal 03/14/19 06/05/25 infusion CONT warfarin 5 mg tablet 5 mg PO UD 04/02/19 06/05/25 multivitamin 1 tab PO QAM 09/14/20 06/05/25 amlodipine 5 mg tablet (Norvasc) 5 mg PO QAM 06/13/24 06/05/25 aspirin 81 mg tablet 81 mg PO QPM 06/13/24 06/05/25 cyanocobalamin (vitamin B-12) 1,000 mcg IM Q3M 06/13/24 06/05/25 1,000 mcg/mL injection solution irbesartan 300 mg tablet (Avapro) 300 mg PO QAM 06/13/24 06/05/25 nitroglycerin 0.4 mg sublingual 0.4 mg sublingual DIRECTED PRN 06/13/24 06/05/25 tablet (Nitrostat) Chest Pain famotidine 20 mg tablet 20 mg PO HS 03/18/25 06/05/25 fluticasone propionate 50 2 spray intranasal DAILY 03/18/25 06/05/25 mcg/actuation nasal spray,suspension isosorbide mononitrate 60 mg 60 mg PO BID 03/18/25 06/05/25 tablet,extended release 24 hr warfarin 1 mg tablet 1 mg PO WK 03/20/25 06/05/25 warfarin 2 mg tablet See Rx Instructions PO DAILY 03/20/25 06/05/25 budesonide-formoterol HFA 160 2 puff inhalation BID 05/02/25 06/05/25 mcg-4.5 mcg/actuation aerosol inhaler (Breyna) duloxetine 60 mg capsule,delayed 60 mg PO QAM 06/05/25 06/05/25 release insulin glargine 100 unit/mL (3 20 unit subcut HS 06/05/25 06/05/25 mL) subcutaneous pen (Lantus Solostar U-100 Insulin) Previous Rx's Medication Instructions Recorded metoprolol succinate 25 mg 25 mg PO QAM #30 tabs 12/21/21 tablet,extended release 24 hr testosterone cypionate 200 mg/mL 200 mg IM MONTHLY #1 mL 04/01/25 intramuscular syringe tamsulosin 0.4 mg capsule 0.4 mg PO BID #180 caps 04/17/25 albuterol sulfate 90 mcg/actuation 2 puff inhalation QID PRN 05/06/25 aerosol inhaler Shortness Of Breath Or Wheezing #8.5 grams Results & Data (ED) Vital Signs Vital Signs - 24 hr 06/04/25 20:21 06/04/25 20:34 06/04/25 21:38 Temperature 36.4 C L Temperature Source Temporal Artery Scan Pulse Rate 75 72 Pulse Rate [Apical] Pulse Rate from SpO2 Sensor Respiratory Rate 16 Respiratory Effort / Characteristics Respiratory Depth Blood Pressure 145/81 H 134/81 Blood Pressure [Right Arm] Blood Pressure Mean 102 102 Blood Pressure Mean [Right Arm] Blood Pressure Position Sitting Pulse Oximetry 96 Oxygen Delivery Method Room Air Sepsis Recent Fever Within 48 Hours No Sepsis New/Unexplained Change in Mental Status No Sepsis Action Taken by Nursing No Action Required 06/04/25 21:38 06/04/25 21:38 06/04/25 21:38 Temperature Temperature Source Pulse Rate Pulse Rate [Apical] Pulse Rate from SpO2 Sensor Respiratory Rate Respiratory Effort / Characteristics Respiratory Depth Blood Pressure 134/81 134/81 134/81 Blood Pressure [Right Arm] Blood Pressure Mean 102 102 102 Blood Pressure Mean [Right Arm] Blood Pressure Position Pulse Oximetry Oxygen Delivery Method Sepsis Recent Fever Within 48 Hours Sepsis New/Unexplained Change in Mental Status Sepsis Action Taken by Nursing 06/04/25 21:38 06/04/25 21:39 06/04/25 21:42 Temperature Temperature Source Pulse Rate 70 70 Pulse Rate [Apical] Pulse Rate from SpO2 Sensor 70 67 Respiratory Rate 20 20 Respiratory Effort / Characteristics Respiratory Depth Blood Pressure 134/81 Blood Pressure [Right Arm] Blood Pressure Mean 102 Blood Pressure Mean [Right Arm] Blood Pressure Position Pulse Oximetry 97 96 Oxygen Delivery Method Sepsis Recent Fever Within 48 Hours Sepsis New/Unexplained Change in Mental Status Sepsis Action Taken by Nursing 06/04/25 21:51 06/04/25 22:00 06/04/25 22:00 Temperature Temperature Source Pulse Rate 70 Pulse Rate [Apical] Pulse Rate from SpO2 Sensor Respiratory Rate 19 Respiratory Effort / Characteristics Respiratory Depth Blood Pressure 120/95 120/95 Blood Pressure [Right Arm] Blood Pressure Mean 99 99 Blood Pressure Mean [Right Arm] Blood Pressure Position Pulse Oximetry Oxygen Delivery Method Sepsis Recent Fever Within 48 Hours Sepsis New/Unexplained Change in Mental Status Sepsis Action Taken by Nursing 06/04/25 22:00 06/04/25 22:00 06/04/25 22:00 Temperature Temperature Source Pulse Rate Pulse Rate [Apical] Pulse Rate from SpO2 Sensor Respiratory Rate Respiratory Effort / Characteristics Respiratory Depth Blood Pressure 120/95 120/95 120/95 Blood Pressure [Right Arm] Blood Pressure Mean 99 99 99 Blood Pressure Mean [Right Arm] Blood Pressure Position Pulse Oximetry Oxygen Delivery Method Sepsis Recent Fever Within 48 Hours Sepsis New/Unexplained Change in Mental Status Sepsis Action Taken by Nursing 06/04/25 22:00 06/04/25 22:12 06/04/25 22:21 Temperature Temperature Source Pulse Rate 72 75 70 Pulse Rate [Apical] Pulse Rate from SpO2 Sensor Respiratory Rate 20 21 20 Respiratory Effort / Characteristics Respiratory Depth Blood Pressure Blood Pressure [Right Arm] Blood Pressure Mean Blood Pressure Mean [Right Arm] Blood Pressure Position Pulse Oximetry 81 L Oxygen Delivery Method Sepsis Recent Fever Within 48 Hours Sepsis New/Unexplained Change in Mental Status Sepsis Action Taken by Nursing 06/04/25 22:30 06/04/25 22:30 06/04/25 22:30 Temperature Temperature Source Pulse Rate 86 Pulse Rate [Apical] Pulse Rate from SpO2 Sensor Respiratory Rate 15 Respiratory Effort / Characteristics Respiratory Depth Blood Pressure 126/75 126/75 Blood Pressure [Right Arm] Blood Pressure Mean 99 99 Blood Pressure Mean [Right Arm] Blood Pressure Position Pulse Oximetry Oxygen Delivery Method Sepsis Recent Fever Within 48 Hours Sepsis New/Unexplained Change in Mental Status Sepsis Action Taken by Nursing 06/04/25 22:30 06/04/25 22:30 06/04/25 22:30 Temperature Temperature Source Pulse Rate Pulse Rate [Apical] Pulse Rate from SpO2 Sensor Respiratory Rate Respiratory Effort / Characteristics Respiratory Depth Blood Pressure 126/75 126/75 126/75 Blood Pressure [Right Arm] Blood Pressure Mean 99 99 99 Blood Pressure Mean [Right Arm] Blood Pressure Position Pulse Oximetry Oxygen Delivery Method Sepsis Recent Fever Within 48 Hours Sepsis New/Unexplained Change in Mental Status Sepsis Action Taken by Nursing 06/04/25 22:42 06/04/25 22:46 06/04/25 22:51 Temperature Temperature Source Pulse Rate 73 70 Pulse Rate [Apical] 70 Pulse Rate from SpO2 Sensor 71 70 Respiratory Rate 19 18 21 Respiratory Effort / Characteristics Non-Labored Spontaneous Respiratory Depth Normal Blood Pressure Blood Pressure [Right Arm] 126/75 Blood Pressure Mean Blood Pressure Mean [Right Arm] 92 Blood Pressure Position Pulse Oximetry 97 96 96 Oxygen Delivery Method Room Air Sepsis Recent Fever Within 48 Hours Sepsis New/Unexplained Change in Mental Status Sepsis Action Taken by Nursing 06/04/25 23:00 06/04/25 23:00 06/04/25 23:00 Temperature Temperature Source Pulse Rate 71 Pulse Rate [Apical] Pulse Rate from SpO2 Sensor 70 Respiratory Rate 21 Respiratory Effort / Characteristics Respiratory Depth Blood Pressure 117/69 117/69 Blood Pressure [Right Arm] Blood Pressure Mean 97 97 Blood Pressure Mean [Right Arm] Blood Pressure Position Pulse Oximetry 95 Oxygen Delivery Method Sepsis Recent Fever Within 48 Hours Sepsis New/Unexplained Change in Mental Status Sepsis Action Taken by Nursing 06/04/25 23:00 06/04/25 23:00 06/04/25 23:00 Temperature Temperature Source Pulse Rate Pulse Rate [Apical] Pulse Rate from SpO2 Sensor Respiratory Rate Respiratory Effort / Characteristics Respiratory Depth Blood Pressure 117/69 117/69 117/69 Blood Pressure [Right Arm] Blood Pressure Mean 97 97 97 Blood Pressure Mean [Right Arm] Blood Pressure Position Pulse Oximetry Oxygen Delivery Method Sepsis Recent Fever Within 48 Hours Sepsis New/Unexplained Change in Mental Status Sepsis Action Taken by Nursing 06/04/25 23:12 06/04/25 23:21 06/04/25 23:30 Temperature Temperature Source Pulse Rate 71 71 71 Pulse Rate [Apical] Pulse Rate from SpO2 Sensor 70 72 Respiratory Rate 21 21 21 Respiratory Effort / Characteristics Respiratory Depth Blood Pressure Blood Pressure [Right Arm] Blood Pressure Mean Blood Pressure Mean [Right Arm] Blood Pressure Position Pulse Oximetry 95 94 Oxygen Delivery Method Sepsis Recent Fever Within 48 Hours Sepsis New/Unexplained Change in Mental Status Sepsis Action Taken by Nursing 06/04/25 23:30 06/04/25 23:30 06/04/25 23:30 Temperature Temperature Source Pulse Rate Pulse Rate [Apical] Pulse Rate from SpO2 Sensor Respiratory Rate Respiratory Effort / Characteristics Respiratory Depth Blood Pressure 120/71 120/71 120/71 Blood Pressure [Right Arm] Blood Pressure Mean 83 83 83 Blood Pressure Mean [Right Arm] Blood Pressure Position Pulse Oximetry Oxygen Delivery Method Sepsis Recent Fever Within 48 Hours Sepsis New/Unexplained Change in Mental Status Sepsis Action Taken by Nursing 06/04/25 23:30 06/04/25 23:30 06/04/25 23:42 Temperature Temperature Source Pulse Rate 70 Pulse Rate [Apical] Pulse Rate from SpO2 Sensor 97 H Respiratory Rate 23 Respiratory Effort / Characteristics Respiratory Depth Blood Pressure 120/71 120/71 Blood Pressure [Right Arm] Blood Pressure Mean 83 83 Blood Pressure Mean [Right Arm] Blood Pressure Position Pulse Oximetry 81 L Oxygen Delivery Method Sepsis Recent Fever Within 48 Hours Sepsis New/Unexplained Change in Mental Status Sepsis Action Taken by Nursing 06/04/25 23:51 06/05/25 00:00 06/05/25 00:12 Temperature Temperature Source Pulse Rate 70 72 70 Pulse Rate [Apical] Pulse Rate from SpO2 Sensor 72 70 Respiratory Rate 21 23 22 Respiratory Effort / Characteristics Respiratory Depth Blood Pressure Blood Pressure [Right Arm] Blood Pressure Mean Blood Pressure Mean [Right Arm] Blood Pressure Position Pulse Oximetry 81 L 97 95 Oxygen Delivery Method Sepsis Recent Fever Within 48 Hours Sepsis New/Unexplained Change in Mental Status Sepsis Action Taken by Nursing 06/05/25 00:21 06/05/25 00:25 06/05/25 00:30 Temperature Temperature Source Pulse Rate 78 71 70 Pulse Rate [Apical] Pulse Rate from SpO2 Sensor Respiratory Rate 26 H 24 Respiratory Effort / Characteristics Respiratory Depth Blood Pressure Blood Pressure [Right Arm] Blood Pressure Mean Blood Pressure Mean [Right Arm] Blood Pressure Position Pulse Oximetry Oxygen Delivery Method Sepsis Recent Fever Within 48 Hours Sepsis New/Unexplained Change in Mental Status Sepsis Action Taken by Nursing 06/05/25 00:42 06/05/25 00:51 06/05/25 01:00 Temperature Temperature Source Pulse Rate 73 75 70 Pulse Rate [Apical] Pulse Rate from SpO2 Sensor Respiratory Rate 20 19 20 Respiratory Effort / Characteristics Respiratory Depth Blood Pressure Blood Pressure [Right Arm] Blood Pressure Mean Blood Pressure Mean [Right Arm] Blood Pressure Position Pulse Oximetry Oxygen Delivery Method Sepsis Recent Fever Within 48 Hours Sepsis New/Unexplained Change in Mental Status Sepsis Action Taken by Nursing Laboratory Data 06/04/25 Unknown 06/04/25 Unknown Lab Results 06/04/25 06/04/25 Range/Units 22:26 Unknown WBC 6.41 (4.8-10.8) K/ul RBC 4.90 (4.70-6.10) M/uL Hgb 14.4 (14.0-18.0) g/dL Hct 42.7 (42.0-52.0) % MCV 87.1 (80.0-100.0) fL MCH 29.4 (25.0-34.0) pg MCHC 33.7 (32.0-36.0) g/dL RDW Std Deviation 46.6 H (36.4-46.3) fL RDW Coeff of Annie 14.4 (11.5-14.5) % Plt Count 233 (130-400) K/uL MPV 10.4 (9.4-12.4) fL Immature Gran % (Auto) 0.3 % Neut % (Auto) 72.5 % Lymph % (Auto) 19.3 % Cocke % (Auto) 6.6 % Eos % (Auto) 0.8 % Baso % (Auto) 0.5 % Neut # (Auto) 4.65 (1.40-6.50) K/uL Lymph # (Auto) 1.24 (1.20-3.40) K/uL Cocke # (Auto) 0.42 (0.11-0.59) K/uL Eos # (Auto) 0.05 (0.00-0.50) K/uL Baso # (Auto) 0.03 (0.00-0.20) K/uL Immature Gran # (Auto) 0.02 (0.01-0.20) K/uL PT 24.6 H (9.0-12.0) Seconds INR 2.4 H (0.9-1.1) Sodium 138 (136-145) mmol/L Potassium 3.9 (3.5-5.1) mmol/L Chloride 104 (98-107) mmol/L Carbon Dioxide 27 (21-32) mmol/L Anion Gap 7 (3-11) BUN 13 (6-23) mg/dl Creatinine 0.78 (0.6-1.4) mg/dl Est Cr Clr Drug Dosing Not Reportable eGFR 90.71 BUN/Creatinine Ratio 16.7 (10-20) Glucose 162 H (70-99(Fasting)) mg/dl Calcium 8.4 L (8.6-10.3) mg/dl Magnesium 1.9 (1.7-2.4) mg/dl Total Bilirubin 0.7 (0.2-1.0) mg/dl AST 13 (13-39) U/L ALT 12 (7-52) U/L Alkaline Phosphatase 76 (34-104) U/L Total Protein 7.0 (6.0-8.3) gm/dl Albumin 3.5 (3.4-5.0) gm/dl Globulin 3.5 (2.5-4.0) gm/dl Albumin/Globulin Ratio 1.0 (0.9-2) Urine Color Yellow Urine Appearance Clear (Clear) Urine pH 5.0 (4.5-7.5) Ur Specific Badger 1.006 (1.000-1.030) Urine Protein Negative (Negative) Urine Glucose (UA) Negative (Negative) Urine Ketones Negative (Negative) Urine Blood Negative (Negative) Urine Nitrite Negative (Negative) Urine Bilirubin Negative (Negative) Urine Urobilinogen Negative (Negative) Ur Leukocyte Esterase Negative (Negative) Urine Comment Administered Medications Lactated Ringer's (Lr) 1,000 mls @ 80 mls/hr IV .[id number] STA Stop: 06/05/25 13:23 Last Admin: 06/05/25 01:30 Dose: 80 mls/hr Documented By: BRENT Magnesium Sulfate/Dextrose (Magnesium Sulfate / D5w) 1 gm in 100 mls @ 50 mls/hr IV Q2H ASAEL Stop: 06/05/25 04:44 Last Admin: 06/05/25 01:33 Dose: 50 mls/hr Documented By: BRENT Discontinued Medications Sodium Chloride (Nss) 1,000 mls @ 125 mls/hr IV .Q8H ASAEL Stop: 06/07/25 20:59 Last Admin: 06/04/25 21:21 Dose: 125 mls/hr Documented By: CONCHITA Lorazepam (Lorazepam 1 Mg/1 Ml Syr Ed Inj Use) 0.5 mg IV ONE STA Stop: 06/05/25 00:41 Last Admin: 06/05/25 01:28 Dose: 0.5 mg Documented By: BRENT Methocarbamol (Methocarbamol 500 Mg Tablet) 500 mg PO NOW STA Stop: 06/04/25 20:48 Last Admin: 06/04/25 21:21 Dose: 500 mg Documented By: CONCHITA Imaging Data Radiologist's Impression: Head CT 06/04/25 20:47 Exam(s): CT HEAD Without Contrast EXAM: CT Head Without Intravenous Contrast CLINICAL HISTORY: Reason for exam: leg spasms. TECHNIQUE: Axial computed tomography images of the head/brain without intravenous contrast. CTDI is 67.25 mGy and DLP is 1100.35 mGy-cm. Automated exposure control was utilized for the study. A dose lowering technique was utilized adhering to the principles of ALARA. COMPARISON: Prior head CT from March 28, 2017. FINDINGS: This study is limited secondary to motion artifact. Brain: Unremarkable. No hemorrhage. Moderate nonspecific white matter changes.. No edema. Ventricles: Unremarkable. No ventriculomegaly. Bones/joints: Unremarkable. No acute fracture. Soft tissues: Unremarkable. Sinuses: Unremarkable as visualized. No acute sinusitis. Mastoid air cells: Unremarkable as visualized. No mastoid effusion. IMPRESSION: No evidence of acute intracranial pathology. Electronically signed by: Araceli Armenta MD 06/04/25 23:[address] 06/04/25 20:47 Exam(s): CT L SPINE EXAM: CT Lumbar Spine Without Intravenous Contrast CLINICAL HISTORY: Reason for exam: leg spasms, hx surgery. TECHNIQUE: Axial computed tomography images of the lumbar spine without intravenous contrast. CTDI is 40 mGy and DLP is 1061.46 mGy-cm. Automated exposure control was utilized for the study. A dose lowering technique was utilized adhering to the principles of ALARA. COMPARISON: Prior CT scan of the lumbar spine from June 25, 2019. FINDINGS: Vertebrae: There is a mild generalized curved to the left and normal lumbar lordosis. Patient is status post posterior decompression of L4 on L5 with posterior fusion of L1-L5 with transpedicular screws and connecting rods in place. No acute fracture. Discs/spinal canal/neural foramina: No acute findings. Advanced disc degeneration at T12-L1 and L5-S1. Moderately severe bilateral 5 S1 neuroforaminal stenoses. There is a severe spinal canal stenosis at T12- L1. Soft tissues: Unremarkable. IMPRESSION: No evidence of acute lumbar spine pathology. There is a severe spinal canal stenosis at T12-L1. Recommend MRI of the lumbar spine for further evaluation. Moderately severe bilateral L5-S1 neuroforaminal stenoses. Electronically signed by: Araceli Armenta MD 06/04/25 23:13 PM Discharge Plan Visit Data Chief Complaint: Leg Weakness, Bilateral Stated Complaint: LEG SPASMS/ UNABLE TO WALK ED Provider: Maggy Aguirre Discharge Problem: Muscle spasm of both lower legs Patient Disposition: Being Evaluated by Hospitalist Condition: Fair Discharge Instructions Interventions: ED Discharge Assessment Last Done: 06/05/25 01:44
[2025-06-04] MEDS: METHOCARBAMOL 500 MG TABLET PO STA (21:21)
[2025-06-04] MEDS: SODIUM CHLORIDE 0.9% 1,000 ML IV SCH (21:21)
[2025-06-04 21:52] LABS: Hematocrit (blood only) 42.7 % (42.0-52.0); Hemoglobin 14.4 g/dL (14.0-18.0); Immature Granulocytes # (auto) 0.02 K/uL (0.01-0.20); Immature Granulocytes % (auto) 0.3 %; Mean Corpuscular Hemoglobin 29.4 pg (25.0-34.0); Mean Corpuscular Volume 87.1 fL (80.0-100.0); Platelet Count 233 K/uL (130-400); RDW Standard Deviation 46.6 fL (36.4-46.3); Red Blood Count 4.90 M/uL (4.70-6.10); White Blood Count 6.41 K/ul (4.8-10.8)
[2025-06-04 22:04] LABS: Alanine Aminotransferase 12 U/L (7-52); Albumin Globulin Ratio 1.0 (0.9-2); Albumin Level 3.5 gm/dl (3.4-5.0); Alkaline Phosphatase 76 U/L (34-104); Anion Gap 7 (3-11); Bilirubin,Total 0.7 mg/dl (0.2-1.0); Blood Urea Nitrogen 13 mg/dl (6-23); Calcium 8.4 mg/dl (8.6-10.3); Carbon Dioxide 27 mmol/L (21-32); Chloride 104 mmol/L (98-107); Globulin 3.5 gm/dl (2.5-4.0); Glucose 162 mg/dl (70-99(Fasting)); Magnesium 1.9 mg/dl (1.7-2.4); Potassium 3.9 mmol/L (3.5-5.1); Sodium 138 mmol/L (136-145); Total Protein 7.0 gm/dl (6.0-8.3)
[2025-06-04 22:26] LABS: INR 2.4 (0.9-1.1); Prothrombin Time 24.6 Seconds (9.0-12.0)
[2025-06-04 23:03] LABS: Appearance Urine Clear (Clear); Glucose Urine UA Negative (Negative)
--- NOTE | 2025-06-04 23:05 | CT Scan Report ---
Exam(s): CT HEAD Without Contrast EXAM: CT Head Without Intravenous Contrast CLINICAL HISTORY: Reason for exam: leg spasms. TECHNIQUE: Axial computed tomography images of the head/brain without intravenous contrast. CTDI is 67.25 mGy and DLP is 1100.35 mGy-cm. Automated exposure control was utilized for the study. A dose lowering technique was utilized adhering to the principles of ALARA. COMPARISON: Prior head CT from March 28, 2017. FINDINGS: This study is limited secondary to motion artifact. Brain: Unremarkable. No hemorrhage. Moderate nonspecific white matter changes.. No edema. Ventricles: Unremarkable. No ventriculomegaly. Bones/joints: Unremarkable. No acute fracture. Soft tissues: Unremarkable. Sinuses: Unremarkable as visualized. No acute sinusitis. Mastoid air cells: Unremarkable as visualized. No mastoid effusion. IMPRESSION: No evidence of acute intracranial pathology. Electronically signed by: Araceli Armenta MD 06/04/25 23:04 PM
--- NOTE | 2025-06-04 23:14 | CT Scan Report ---
Exam(s): CT L SPINE EXAM: CT Lumbar Spine Without Intravenous Contrast CLINICAL HISTORY: Reason for exam: leg spasms, hx surgery. TECHNIQUE: Axial computed tomography images of the lumbar spine without intravenous contrast. CTDI is 40 mGy and DLP is 1061.46 mGy-cm. Automated exposure control was utilized for the study. A dose lowering technique was utilized adhering to the principles of ALARA. COMPARISON: Prior CT scan of the lumbar spine from June 25, 2019. FINDINGS: Vertebrae: There is a mild generalized curved to the left and normal lumbar lordosis. Patient is status post posterior decompression of L4 on L5 with posterior fusion of L1-L5 with transpedicular screws and connecting rods in place. No acute fracture. Discs/spinal canal/neural foramina: No acute findings. Advanced disc degeneration at T12-L1 and L5-S1. Moderately severe bilateral 5 S1 neuroforaminal stenoses. There is a severe spinal canal stenosis at T12- L1. Soft tissues: Unremarkable. IMPRESSION: No evidence of acute lumbar spine pathology. There is a severe spinal canal stenosis at T12-L1. Recommend MRI of the lumbar spine for further evaluation. Moderately severe bilateral L5-S1 neuroforaminal stenoses. Electronically signed by: Araceli Armenta MD 06/04/25 23:13 PM
--- NOTE | 2025-06-05 01:12 | History & Physical Report ---
Date of Service June 05, 2025 Assessment & Plan (1) Muscle spasm of both lower legs: (2) Presence of intrathecal pump: (3) Pacemaker: Plan The patient is a 79-year-old male with a past medical history including pulmonary nodule, allergic rhinitis, asthma-COPD overlap syndrome, low testosterone, hypertension, anxiety, status post CABG x 4, ASCVD, long-term anticoagulation, cardiomyopathy, HFrEF, complete heart block, presence of pacer, atrial fibrillation, diabetes mellitus type 2, CAD, and tachybradycardia syndrome. He presents to the emergency department with complaint of the acute onset of left lower extremity severe spasms and a kicking motion. He reports symptoms initially developed as his toes curling backward, and when he straightened them out, his left leg began to spasm as if he was kicking, and then shortly thereafter the right developed intermittent spasms as well. He said no previous occurrence of the spasms. He does have a chronic hydromorphone pain pump, for which he is on his third pump that was changed last year at [facility] in [place]. Workup in the emergency department included an INR of 2.7, glucose of 162, potassium of 3.9, and magnesium of 1.9. Urinalysis was negative. CT scan of head was negative. CT scan of lumbar spine showed T12-L1 severe spinal stenosis, and moderately severe bilateral L5-S1 neuroforaminal stenosis. From the ED the patient received normal saline at 125 mL/h, and methocarbamol 500 mg p.o. His most recent admission was from 03/18- 03/19/2025 for chest pain evaluation close negative for acute findings, and had no new medications. Muscle spasms of both lower legs/presence of intrathecal Dilaudid pain pump- Unclear etiology. Patient was given methocarbamol 5 mg p.o. by the ED with no significant improvement Overnight will place him on lorazepam 0.5 mg IV every 6 hours as needed for his muscle relaxant effects May do well with a trial of baclofen. Will consult neurology and have their opinion. CT scan of lumbar spine shows a T12-L1 severe spinal stenosis, and moderately severe bilateral L5-S1 neuroforaminal stenosis. Unable to perform MRIs this evening due to presence of pacemaker and intrathecal pain pump. CAD/hypertension/HFrEF/presence of pacemaker for complete heart block/atrial fibrillation- INR therapeutic at 2.7, continue warfarin. Continue amlodipine, aspirin, irbesartan, isosorbide mononitrate. Hold furosemide for now. Asthma-COPD overlap syndrome-- Continue albuterol sulfate HFA, and other maintenance inhalers Diabetes mellitus- Reduce glargine from 20 to 12 units subcu at bedtime Placed on Accu-Cheks with NovoLog coverage per scale BPH with LUTS- Continue tamsulosin History of Present Illness Primary Care Provider: Brett Gutierrez DO The patient is a 79-year-old male with a past medical history including pulmonary nodule, allergic rhinitis, asthma-COPD overlap syndrome, low testosterone, hypertension, anxiety, status post CABG x 4, ASCVD, long-term anticoagulation, cardiomyopathy, HFrEF, complete heart block, presence of pacer atrial fibrillation, diabetes mellitus type 2, CAD, and tachybradycardia syndrome. He presents to the emergency department with complaint of the acute onset of left lower extremity severe spasms and a kicking motion. He reports symptoms initially developed as his toes curling backward, and when he straightened them out, his left leg began to spasm as if he was kicking, and then shortly thereafter the right developed intermittent spasms as well. He said no previous occurrence of the spasms. He does have a chronic hydromorphone pain pump, for which he is on his third pump that was changed last year at [facility] in [place]. Workup in the emergency department included an INR of 2.7, glucose of 162, potassium of 3.9, and magnesium of 1.9. Urinalysis was negative. CT scan of head was negative. CT scan of lumbar spine showed T12-L1 severe spinal stenosis, and moderately severe bilateral L5-S1 neuroforaminal stenosis. From the ED the patient received normal saline at 125 mL/h, and methocarbamol 500 mg p.o. His most recent admission was from 03/18- 03/19/2025 for chest pain evaluation close negative for acute findings, and had no new medications. Allergies Allergy/AdvReac Type Severity Reaction Status Date / Time Sulfa (Sulfonamide Allergy Severe Anaphylaxis Verified 05/02/25 10:24 Antibiotics) bee venom protein (honey bee) Allergy Intermediate ANAPHYLAXIS Verified 05/02/25 10:24 gentamicin Allergy Intermediate HIVES/SHORTNESS Verified 05/02/25 10:24 OF BREATH Penicillins Allergy Intermediate HIVES/SHORTNESS Verified 05/02/25 10:24 OF BREATH Home Medications Medication Instructions Recorded Confirmed Type furosemide 40 mg tablet 40 mg PO QAM 01/28/19 06/05/25 History Intrathecal Pain Pump 0 mg continuous intrathecal 03/14/19 06/05/25 History infusion CONT warfarin 5 mg tablet 5 mg PO UD 04/02/19 06/05/25 History multivitamin 1 tab PO QAM 09/14/20 06/05/25 History metoprolol succinate 25 mg 25 mg PO QAM #30 tabs 12/21/21 06/05/25 Rx tablet,extended release 24 hr amlodipine 5 mg tablet (Norvasc) 5 mg PO QAM 06/13/24 06/05/25 History aspirin 81 mg tablet 81 mg PO QPM 06/13/24 06/05/25 History cyanocobalamin (vitamin B-12) 1,000 mcg IM Q3M 06/13/24 06/05/25 History 1,000 mcg/mL injection solution irbesartan 300 mg tablet (Avapro) 300 mg PO QAM 06/13/24 06/05/25 History nitroglycerin 0.4 mg sublingual 0.4 mg sublingual DIRECTED PRN 06/13/24 06/05/25 History tablet (Nitrostat) Chest Pain famotidine 20 mg tablet 20 mg PO HS 03/18/25 06/05/25 History fluticasone propionate 50 2 spray intranasal DAILY 03/18/25 06/05/25 History mcg/actuation nasal spray,suspension isosorbide mononitrate 60 mg 60 mg PO BID 03/18/25 06/05/25 History tablet,extended release 24 hr warfarin 1 mg tablet 1 mg PO WK 03/20/25 06/05/25 History warfarin 2 mg tablet See Rx Instructions PO DAILY 03/20/25 06/05/25 History testosterone cypionate 200 mg/mL 200 mg IM MONTHLY #1 mL 04/01/25 06/05/25 Rx intramuscular syringe tamsulosin 0.4 mg capsule 0.4 mg PO BID #180 caps 04/17/25 06/05/25 Rx budesonide-formoterol HFA 160 2 puff inhalation BID 05/02/25 06/05/25 History mcg-4.5 mcg/actuation aerosol inhaler (Breyna) albuterol sulfate 90 mcg/actuation 2 puff inhalation QID PRN 05/06/25 06/05/25 Rx aerosol inhaler Shortness Of Breath Or Wheezing #8.5 grams duloxetine 60 mg capsule,delayed 60 mg PO QAM 06/05/25 06/05/25 History release insulin glargine 100 unit/mL (3 20 unit subcut HS 06/05/25 06/05/25 History mL) subcutaneous pen (Lantus Solostar U-100 Insulin) Past Med/Surg History Problem List (Updated 06/04/25 @ 21:03 by Maggy Aguirre, DO) Muscle spasm of both lower legs (Acute) Ex-smoker Pulmonary nodule Allergic rhinitis with postnasal drip Upper airway cough syndrome Chronic cough Obesity Asthma-COPD overlap syndrome COPD (chronic obstructive pulmonary disease) Low testosterone Hypertension Anxiety Status post coronary artery bypass graft ASCVD (arteriosclerotic cardiovascular disease) Chest pain at rest Anticoagulated (Acute) SOB (shortness of breath) (Acute) Precordial chest pain (Acute) Cardiomyopathy Chronic heart failure with reduced ejection fraction (HFrEF, <= 40%) Complete heart block Diaphoresis Elevated troponin I level (Acute) SOB (shortness of breath) (Acute) DMII (diabetes mellitus, type 2) Chronic pain Afib CAD (coronary atherosclerotic disease) (Acute) Diaphoresis (Acute) SOB (shortness of breath) (Acute) Precordial chest pain (Acute) Degenerative joint disease of left knee Chronic atrial fibrillation Presence of intrathecal pump Status post total right knee replacement Chronic coronary artery disease Encounter for pre-operative examination Tricompartment osteoarthritis of right knee Gastric bypass status for obesity Admitted to intensive care unit Chronic pain Elevated troponin (Acute) Chest pain, precordial (Acute) ACS (acute coronary syndrome) (Acute) Left hamstring injury Chest pain S/P cholecystectomy (Chronic) S/P CABG x 4 (Chronic) Orthopnea (Acute) Dyspnea Tachy-richard syndrome (Chronic) Medical History History of angina MOST RECENT 60 DAYS AGO...CATH History of kidney stones X1 Osteoarthritis Diabetes mellitus type 2, controlled Chronic pain Pacemaker Seizure HX OF A KID, NONE SINCE CHILDHOOD RICHY (obstructive sleep apnea) TOLD HAD SLEEP APNEA BEFORE GASTRIC BYPASS SURGERY, DENIES CURRENT PROBLEMS WITH, NO CURRENT MACHINE Atrial fibrillation 1 CAD (coronary artery disease) Surgical History History of cholecystectomy History of quadruple bypass History of cardiac cath History of urologic surgery History of colonoscopy History of back surgery History of gastric bypass History of tonsillectomy and adenoidectomy History of appendectomy S/P insertion of intrathecal pump Family History Mother Diabetes Cancer Colorectal cancer Lung cancer Grandmother Diabetes Stroke Father Coronary heart disease Myocardial infarction Other Family history of colon cancer in mother Heart disease Hypertension Denies family history of Ovarian cancer Prostate cancer Kidney disease Breast cancer Social History (Updated 05/02/25 @ 12:04 by Tsering Hernandez RN) Smoking Status: Former smoker Tobacco Type: Cigarettes and Smokeless Tobacco (Dip or Chew) Age Started Using Tobacco: 17; Age Quit Using Tobacco: 30; packs per day: 2; Second Hand Exposure: No; Do You Dip or Chew Tobacco: Yes (1 CAN A DAY); Hx Alcohol Use: No Hx Substance Use: No Preferred Language: Czech Communication Ability: Effective Visual Impairment: No Limitations Hearing Ability: Hard of Hearing Compliance Consultant Required: No Beliefs That Will Affect Care: None marital status: Current Living Situation: Spouse current occupational status: retired and disabled How many Children do You have: 3 Feels Safe at Home: Yes Childhood Exposure to Second-Hand Smoke: Yes Diet: regular caffeine: Yes during the past year weight has: remained stable Dental Care, Regularly: No Physical Activity Frequency: Other Seatbelt Use: always Sunscreen Use: No Do you think of yourself as: straight/heterosexual Assistive Devices: Cane, CPAP, Crutches, Denture - Upper, Glasses, Lift Chair, Scooter/Electric Scooter, Stair Lift and Walker Review of Systems Review of Systems: The patient denies chest pain, palpitations, shortness of breath, dyspnea on exertion, cough, lower extremity swelling, sore throat, fevers, chills, sweats, nausea, vomiting, diarrhea , constipation, abdominal pain, pelvic pain, blood in urine or stool, dysuria, urinary frequency or urgency, lightheadedness, dizziness, headache, memory loss, loss of consciousness, rash, abnormal bruising or bleeding, focal or generalized weakness, numbness or tingling in arms, or night sweats. The review of systems is otherwise negative other than for that already noted above, and at least 10 systems have been reviewed. Physical Exam Physical Exam: The patient is awake, alert and oriented 3, well developed and well nourished, normocephalic and atraumatic, lying in bed and in no acute distress. HEENT--PERRL, EOMI, mucous membranes and oropharynx mildly dry. Neck--supple. No JVD. No bruits. Thyroid normal, trachea midline, no adenopathy. Heart--normal S1 and S2. No murmurs, rubs or gallops. Lungs--clear bilaterally, no respiratory distress, no accessory muscle use. Abdomen--normal bowel sounds and soft. Nontender. Nondistended, no hernias or masses, no organomegaly. Extremities--no cyanosis or clubbing. No edema. There are good distal pulses b/l. Dermatologic--normal skin turgor, normal color, no abnormal lymph nodes, no rash. Neurologic--cranial nerves II through XII grossly intact. Patient is noted to have frequent lower extremity spasms, left worse than and more frequent and right. Rheumatologic--normal range of motion. Psychiatric--normal affect. Results & Data Results & Data Vital Signs (Past 12 Hours) Vital Signs Temp Pulse Pulse Resp BP BP Pulse Ox 06/05/25 00:25 71 06/04/25 22:46 70 18 126/75 96 06/04/25 20:34 72 06/04/25 20:21 36.4 C L 75 16 145/81 H 96 O2 Del Method 06/05/25 00:25 06/04/25 22:46 Room Air 06/04/25 20:34 06/04/25 20:21 Room Air Laboratory Results Laboratory Results WBC 6.41 K/ul (4.8-10.8) 06/04/25 Unknown RBC 4.90 M/uL (4.70-6.10) 06/04/25 Unknown Hgb 14.4 g/dL (14.0-18.0) 06/04/25 Unknown Hct 42.7 % (42.0-52.0) 06/04/25 Unknown MCV 87.1 fL (80.0-100.0) 06/04/25 Unknown MCH 29.4 pg (25.0-34.0) 06/04/25 Unknown MCHC 33.7 g/dL (32.0-36.0) 06/04/25 Unknown RDW Std Deviation 46.6 fL (36.4-46.3) H 06/04/25 Unknown RDW Coeff of Annie 14.4 % (11.5-14.5) 06/04/25 Unknown Plt Count 233 K/uL (130-400) 06/04/25 Unknown MPV 10.4 fL (9.4-12.4) 06/04/25 Unknown Immature Gran % (Auto) 0.3 % 06/04/25 Unknown Neut % (Auto) 72.5 % 06/04/25 Unknown Lymph % (Auto) 19.3 % 06/04/25 Unknown [place] % (Auto) 6.6 % 06/04/25 Unknown Eos % (Auto) 0.8 % 06/04/25 Unknown Baso % (Auto) 0.5 % 06/04/25 Unknown Neut # (Auto) 4.65 K/uL (1.40-6.50) 06/04/25 Unknown Lymph # (Auto) 1.24 K/uL (1.20-3.40) 06/04/25 Unknown [place] # (Auto) 0.42 K/uL (0.11-0.59) 06/04/25 Unknown Eos # (Auto) 0.05 K/uL (0.00-0.50) 06/04/25 Unknown Baso # (Auto) 0.03 K/uL (0.00-0.20) 06/04/25 Unknown Immature Gran # (Auto) 0.02 K/uL (0.01-0.20) 06/04/25 Unknown PT 24.6 Seconds (9.0-12.0) H 06/04/25 Unknown INR 2.4 (0.9-1.1) H 06/04/25 Unknown Sodium 138 mmol/L (136-145) 06/04/25 Unknown Potassium 3.9 mmol/L (3.5-5.1) 06/04/25 Unknown Chloride 104 mmol/L (98-107) 06/04/25 Unknown Carbon Dioxide 27 mmol/L (21-32) 06/04/25 Unknown Anion Gap 7 (3-11) 06/04/25 Unknown BUN 13 mg/dl (6-23) 06/04/25 Unknown Creatinine 0.78 mg/dl (0.6-1.4) 06/04/25 Unknown Est Cr Clr Drug Dosing Not Reportable 06/04/25 Unknown eGFR 90.71 06/04/25 Unknown BUN/Creatinine Ratio 16.7 (10-20) 06/04/25 Unknown Glucose 162 mg/dl (70-99(Fasting)) H 06/04/25 Unknown Calcium 8.4 mg/dl (8.6-10.3) L 06/04/25 Unknown Magnesium 1.9 mg/dl (1.7-2.4) 06/04/25 Unknown Total Bilirubin 0.7 mg/dl (0.2-1.0) 06/04/25 Unknown AST 13 U/L (13-39) 06/04/25 Unknown ALT 12 U/L (7-52) 06/04/25 Unknown Alkaline Phosphatase 76 U/L (34-104) 06/04/25 Unknown Total Protein 7.0 gm/dl (6.0-8.3) 06/04/25 Unknown Albumin 3.5 gm/dl (3.4-5.0) 06/04/25 Unknown Globulin 3.5 gm/dl (2.5-4.0) 06/04/25 Unknown Albumin/Globulin Ratio 1.0 (0.9-2) 06/04/25 Unknown Urine Color Yellow 06/04/25 22: Urine Appearance Clear (Clear) 06/04/25 22: Urine pH 5.0 (4.5-7.5) 06/04/25 22: Ur Specific [place] 1.006 (1.000-1.030) 06/04/25 22: Urine Protein Negative (Negative) 06/04/25 22: Urine Glucose (UA) Negative (Negative) 06/04/25 22: Urine Ketones Negative (Negative) 06/04/25 22: Urine Blood Negative (Negative) 06/04/25 22: Urine Nitrite Negative (Negative) 06/04/25 22: Urine Bilirubin Negative (Negative) 06/04/25 22: Urine Urobilinogen Negative (Negative) 06/04/25 22: Ur Leukocyte Esterase Negative (Negative) 06/04/25 22:26 Urine Comment 06/04/25 22:[address] 06/04/25 20:47 Exam(s): CT HEAD Without Contrast EXAM: CT Head Without Intravenous Contrast CLINICAL HISTORY: Reason for exam: leg spasms. TECHNIQUE: Axial computed tomography images of the head/brain without intravenous contrast. CTDI is 67.25 mGy and DLP is 1100.35 mGy-cm. Automated exposure control was utilized for the study. A dose lowering technique was utilized adhering to the principles of ALARA. COMPARISON: Prior head CT from March 28, 2017. FINDINGS: This study is limited secondary to motion artifact. Brain: Unremarkable. No hemorrhage. Moderate nonspecific white matter changes.. No edema. Ventricles: Unremarkable. No ventriculomegaly. Bones/joints: Unremarkable. No acute fracture. Soft tissues: Unremarkable. Sinuses: Unremarkable as visualized. No acute sinusitis. Mastoid air cells: Unremarkable as visualized. No mastoid effusion. IMPRESSION: No evidence of acute intracranial pathology. Electronically signed by: Araceli Armenta MD 06/04/25 23:[address] 06/04/25 20:47 Exam(s): CT L SPINE EXAM: CT Lumbar Spine Without Intravenous Contrast CLINICAL HISTORY: Reason for exam: leg spasms, hx surgery. TECHNIQUE: Axial computed tomography images of the lumbar spine without intravenous contrast. CTDI is 40 mGy and DLP is 1061.46 mGy-cm. Automated exposure control was utilized for the study. A dose lowering technique was utilized adhering to the principles of ALARA. COMPARISON: Prior CT scan of the lumbar spine from June 25, 2019. FINDINGS: Vertebrae: There is a mild generalized curved to the left and normal lumbar lordosis. Patient is status post posterior decompression of L4 on L5 with posterior fusion of L1-L5 with transpedicular screws and connecting rods in place. No acute fracture. Discs/spinal canal/neural foramina: No acute findings. Advanced disc degeneration at T12-L1 and L5-S1. Moderately severe bilateral 5 S1 neuroforaminal stenoses. There is a severe spinal canal stenosis at T12- L1. Soft tissues: Unremarkable. IMPRESSION: No evidence of acute lumbar spine pathology. There is a severe spinal canal stenosis at T12-L1. Recommend MRI of the lumbar spine for further evaluation. Moderately severe bilateral L5-S1 neuroforaminal stenoses. Electronically signed by: Araceli Armenta MD 06/04/25 23:13 PM Code Status & VTE Plan Code Status Full code VTE Prophylaxis Plan VTE Prophylaxis will be ordered: Yes PG Care Time/CCT Total # of Minutes Spent Total Time Spent with Patient: Total time spent is greater than 50% in coordination of care (as documented) at patient's floor/unit and/or counseling patient: Coding Level of Care Code 39671 INT INP/OBS CARE 3/75MIN Diagnoses Muscle spasm of both lower legs M62.838 Presence of intrathecal pump Z97.8 Pacemaker Z95.0
[2025-06-05] MEDS: LORazepam 1 MG/1 ML SYR ED Inj Use IV STA (01:28)
[2025-06-05] MEDS: LACTATED RINGER'S 1,000 ML IV STA (01:30)
[2025-06-05] MEDS: MAGNESIUM SULFATE / D5W 1 GM/100 ML BAG IV SCH (01:33)
[2025-06-05] MEDS ORDERED: GLUCOSE 10 TAB/TUBE PO PRN (01:44)
[2025-06-05] MEDS ORDERED: CARBOHYDRATES FOR HYPOGLYCEMIA PO PRN (01:44)
[2025-06-05] MEDS ORDERED: ACETAMINOPHEN 325 MG TAB PO PRN (01:44)
[2025-06-05] MEDS ORDERED: GLUCOSE 40% GEL 15 GM TUBE PO PRN (01:44)
[2025-06-05] MEDS ORDERED: ALBUTEROL HFA 8 GM INHALER INH PRN (01:44)
[2025-06-05] MEDS ORDERED: LORazepam Inj 0.5 MG in SYRINGE 0.25 ML IV PRN (01:44)
[2025-06-05] MEDS ORDERED: DEXTROSE 50% 50 ML SYRINGE IV PRN (01:44)
[2025-06-05] MEDS ORDERED: NITROGLYCERIN SL 0.4 MG/TAB TAB SL PRN (01:44)
[2025-06-05] MEDS ORDERED: GLUCAGON FOR INJ 1 MG VIAL SQ PRN (01:44)
[2025-06-05] MEDS ORDERED: HYDROmorphone PAIN PUMP IT SCH (02:00)
[2025-06-05] MEDS: CAPSAICIN CR 0.075% 60 GM TUBE EXT PRN (03:58)
[2025-06-05] MEDS: diphenhydrAMINE 50 MG/ML VIAL IV STA (04:29)
[2025-06-05 05:51] LABS: INR 2.3 (0.9-1.1); Prothrombin Time 23.5 Seconds (9.0-12.0)
[2025-06-05 07:35] LABS: Hemoglobin A1C 6.9 % (4.5-5.6)
[2025-06-05 08:41] VITALS: O2SAT 94
[2025-06-05] MEDS: FLUTICASONE PROPIONATE NA SPR 16 GM BTL NAE SCH (08:41)
[2025-06-05] MEDS: FLUTICASONE/VILANTEROL 100/25MCG 14 PUFFS/INHALER INH SCH (08:42)
[2025-06-05] MEDS: INSULIN ASPART PER UNIT CHARGE SC SCH (08:43)
[2025-06-05] MEDS: METOPROLOL SUCC 25MG EXT REL TAB PO SCH (08:43)
[2025-06-05] MEDS: MULTIVITAMIN TAB PO SCH (08:44)
[2025-06-05] MEDS: ISOSORBIDE MONO EXTENDED REL 60 MG TABCR PO SCH (08:44)
[2025-06-05] MEDS: TAMSULOSIN HCL 0.4 MG CAP PO SCH (08:44)
[2025-06-05] MEDS: LOSARTAN POTASSIUM 50 MG TAB PO SCH (08:44)
[2025-06-05 11:06] VITALS: BP 130/76; RESP 16; TEMP 97.7
--- NOTE | 2025-06-05 14:32 | Discharge Summary ---
Date of Service June 05, 2025 Admission HPI Per Admitting Provider The patient is a 79-year-old male with a past medical history including pulmonary nodule, allergic rhinitis, asthma-COPD overlap syndrome, low testosterone, hypertension, anxiety, status post CABG x 4, ASCVD, long-term anticoagulation, cardiomyopathy, HFrEF, complete heart block, presence of pacer atrial fibrillation, diabetes mellitus type 2, CAD, and tachybradycardia syndrome. He presents to the emergency department with complaint of the acute onset of left lower extremity severe spasms and a kicking motion. He reports symptoms initially developed as his toes curling backward, and when he straightened them out, his left leg began to spasm as if he was kicking, and then shortly thereafter the right developed intermittent spasms as well. He said no previous occurrence of the spasms. He does have a chronic hydromorphone pain pump, for which he is on his third pump that was changed last year at [facility] in [place]. Workup in the emergency department included an INR of 2.7, glucose of 162, potassium of 3.9, and magnesium of 1.9. Urinalysis was negative. CT scan of head was negative. CT scan of lumbar spine showed T12-L1 severe spinal stenosis, and moderately severe bilateral L5-S1 neuroforaminal stenosis. From the ED the patient received normal saline at 125 mL/h, and methocarbamol 500 mg p.o. His most recent admission was from 03/18- 03/19/2025 for chest pain evaluation close negative for acute findings, and had no new medications. Admission Exam Per Admitting Provider The patient is awake, alert and oriented 3, well developed and well nourished, normocephalic and atraumatic, lying in bed and in no acute distress. HEENT--PERRL, EOMI, mucous membranes and oropharynx mildly dry. Neck--supple. No JVD. No bruits. Thyroid normal, trachea midline, no adenopathy. Heart--normal S1 and S2. No murmurs, rubs or gallops. Lungs--clear bilaterally, no respiratory distress, no accessory muscle use. Abdomen--normal bowel sounds and soft. Nontender. Nondistended, no hernias or masses, no organomegaly. Extremities--no cyanosis or clubbing. No edema. There are good distal pulses b/l. Dermatologic--normal skin turgor, normal color, no abnormal lymph nodes, no rash. Neurologic--cranial nerves II through XII grossly intact. Patient is noted to have frequent lower extremity spasms, left worse than and more frequent and right. Rheumatologic--normal range of motion. Psychiatric--normal affect. Principal Diagnosis LE muscle spasms Discharge Exam Constitutional: no acute distress HEENT: NCAT, no conjunctival injection Resp: no increased work of breathing Skin: no rash appreciated Discharge Data Allergies Allergy/AdvReac Type Severity Reaction Status Date / Time Sulfa (Sulfonamide Allergy Severe Anaphylaxis Verified 05/02/25 10:24 Antibiotics) bee venom protein (honey bee) Allergy Intermediate ANAPHYLAXIS Verified 05/02/25 10:24 gentamicin Allergy Intermediate HIVES/SHORTNESS Verified 05/02/25 10:24 OF BREATH Penicillins Allergy Intermediate HIVES/SHORTNESS Verified 05/02/25 10:24 OF BREATH Consultations 06/05/25 00:13 ED Decision to Admit Stat Ordered Studies 06/04/25 20:47 CT head/brain wo con Stat CT lumbar spine wo con Stat Hospital Course (1) Muscle spasm of both lower legs: (2) Presence of intrathecal pump: (3) Pacemaker: Plan 79-year-old male with a past medical history including pulmonary nodule, allergic rhinitis, asthma-COPD overlap syndrome, low testosterone, hypertension, anxiety, status post CABG x 4, ASCVD, long-term anticoagulation, cardiomyopathy, HFrEF, complete heart block, presence of pacer, atrial fibrillation, diabetes mellitus type 2, CAD, and tachybradycardia syndrome presents with acute onset LLE>RLE spasms: #BLE spasms: CT scan of lumbar spine shows a T12-L1 severe spinal stenosis, and moderately severe bilateral L5-S1 neuroforaminal stenosis MRI was not done d/t presence of old pacer, which is not MRI compatible Sodium, potassium, calcium, magnesium all more or less WNL History and exam without any red flag sxs - sxs fully resolved not long after arrival Chronic pain at baseline, ambulatory status also back to baseline - through shared decision making, opted to discharge patient to home with Rx for methocarbamol to use PRN in the event of muscle spasms, also encouraged adequate hydration and electrolyte supplementation Unclear etiology for presenting sxs - if recurrent, could consider further neuro work up ie. EMG #CAD/hypertension/HFrEF/presence of pacemaker for complete heart block/atrial fibrillation- INR therapeutic, continue warfarin. Continue amlodipine, aspirin, irbesartan, isosorbide mononitrate, furosemide #Asthma-COPD overlap syndrome-- Continue maintenance inhalers #Diabetes mellitus- Resume home Lantus dosing #BPH with LUTS- Continue tamsulosin Total Time Total Time Spent Total Time Spent (In Minutes): see attending attestation Discharge Plan Discharge Items Patient Disposition: Home - Self-Care Reason For Visit: MUSCLE SPASM Discharge Diagnosis: LE spasms, ambulatory dysfunction Condition on Discharge: Fair Activity: Resume your previous activity Non-emergency contact: Primary Care Provider Call non-emergency contact if: you have any medication questions, your symptoms worsen and your pain is worsening Follow-up/Referrals: Brett Gutierrez DO [Primary Care Provider] - 06/13/25 11:00 am Diet: Carb Consistent or DM2 and Heart Healthy Addtl Attending Provider Instructions: You were admitted to the hospital because of the muscle spasms you were experiencing. There are many possible causes for this - however, your lab work did not demonstrate any features that would explain your symptoms. We hoped to get an MRI of your back, but we were unable to due to your old pacemaker. The CT scan did show narrowing of the spinal canal between L5 and S1. Your physical exam did not demonstrate any features of acute cord compression. Based on these findings, we are limited in what we can do to work this up further in the hospital setting. Given that your symptoms have fully resolved and you are back to your baseline in terms of mobility, we feel it is reasonable to discharge you with close follow up. Please follow up with your PCP and your pain specialist shortly after discharge. New medications: We are sending a small supply of a medication called Methocarbamol - this is a muscle relaxer and can help if/when you have muscle spasms. Please take 1 tab up to twice daily as needed for muscle spasticity. Please be cautious while taking this medication - it can be sedating so please do not drive or operate machinery while taking this medication. Pending Studies at Discharge: No Stand-Alone Forms: My [facility], Smoking Cessation Medications and DC Order Prescriptions: New methocarbamol 500 mg tablet 500 mg PO BID PRN (Reason: muscle spasms) 10 Days Qty: 20 0RF Continued testosterone cypionate 200 mg/mL syringe 200 mg IM MONTHLY Qty: 1 5RF tamsulosin 0.4 mg capsule 0.4 mg PO BID Qty: 180 3RF budesonide-formoterol [Breyna] 160-4.5 mcg/actuation HFA aerosol inhaler 2 puff inhalation BID albuterol sulfate 90 mcg/actuation HFA aerosol inhaler 2 puff INHALATION QID PRN (Reason: Shortness Of Breath Or Wheezing) Qty: 8.5 3RF warfarin 1 mg tablet 1 mg PO WK Protocol: Dose Management Condition: Tuesday Dose/Route: 5 mg Instruction: 1 x 5 mg tablet Condition: Tuesday Dose/Route: 5 mg Instruction: 1 x 5 mg tablet Condition: Tuesday Dose/Route: 6 mg Instruction: 1 x 1 mg tablet, 1 x 5 mg tablet Condition: Tuesday Dose/Route: 5 mg Instruction: 1 x 5 mg tablet Condition: Dose/Route: 5 mg Instruction: 1 x 5 mg tablet Condition: Tuesday Dose/Route: 5 mg Instruction: 1 x 5 mg tablet Condition: Tuesday Dose/Route: 5 mg Instruction: 1 x 5 mg tablet Protocol Text: Adjustment Start Date: 05/30/25 INR Value: 2.1 INR Date: 05/30/25 Recheck Date: 06/06/25 Rx Instructions: take in addition to 5mg with total dose 6mg on tuesday evenings warfarin 2 mg tablet See Rx Instructions PO DAILY Protocol: Dose Management Condition: Tuesday Dose/Route: 5 mg Instruction: 1 x 5 mg tablet Condition: Tuesday Dose/Route: 5 mg Instruction: 1 x 5 mg tablet Condition: Tuesday Dose/Route: 6 mg Instruction: 1 x 1 mg tablet, 1 x 5 mg tablet Condition: Tuesday Dose/Route: 5 mg Instruction: 1 x 5 mg tablet Condition: Dose/Route: 5 mg Instruction: 1 x 5 mg tablet Condition: Tuesday Dose/Route: 5 mg Instruction: 1 x 5 mg tablet Condition: Tuesday Dose/Route: 5 mg Instruction: 1 x 5 mg tablet Protocol Text: Adjustment Start Date: 05/30/25 INR Value: 2.1 INR Date: 05/30/25 Recheck Date: 06/06/25 Rx Instructions: as directed furosemide 40 mg tablet 40 mg PO QAM Intrathecal Pain Pump 0 mg continuous intrathecal infusion CONT Rx Instructions: INFUSE HYDROMORPHONE - UNKNOWN STRENGTH 0.2120mg/daily warfarin 5 mg Tablet 5 mg PO UD Protocol: Dose Management Condition: Tuesday Dose/Route: 5 mg Instruction: 1 x 5 mg tablet Condition: Tuesday Dose/Route: 5 mg Instruction: 1 x 5 mg tablet Condition: Tuesday Dose/Route: 6 mg Instruction: 1 x 1 mg tablet, 1 x 5 mg tablet Condition: Tuesday Dose/Route: 5 mg Instruction: 1 x 5 mg tablet Condition: Dose/Route: 5 mg Instruction: 1 x 5 mg tablet Condition: Tuesday Dose/Route: 5 mg Instruction: 1 x 5 mg tablet Condition: Tuesday Dose/Route: 5 mg Instruction: 1 x 5 mg tablet Protocol Text: Adjustment Start Date: 05/30/25 INR Value: 2.1 INR Date: 05/30/25 Recheck Date: 06/06/25 Rx Instructions: currently taking 6 mg only on tuesday evenings, then 5 mg all other evenings multivitamin Tablet 1 tab PO QAM metoprolol succinate 25 mg Tablet Extended Release 24 Hr 25 mg PO QAM Qty: 30 0RF famotidine 20 mg tablet 20 mg PO HS fluticasone propionate 50 mcg/actuation spray,suspension 2 spray INTRANASAL DAILY isosorbide mononitrate 60 mg tablet extended release 24 hr 60 mg PO BID duloxetine 60 mg capsule,delayed release(DR/EC) 60 mg PO QAM insulin glargine [Lantus Solostar U-100 Insulin] 100 unit/mL (3 mL) insulin pen 20 unit SUBCUT HS amlodipine [Norvasc] 5 mg Tablet 5 mg PO QAM cyanocobalamin (vitamin B-12) 1,000 mcg/mL Solution 1,000 mcg IM Q3M Rx Instructions: every 3 months nitroglycerin [Nitrostat] 0.4 mg Tablet, Sublingual 0.4 mg sublingual DIRECTED PRN (Reason: Chest Pain) aspirin 81 mg Tablet 81 mg PO QPM irbesartan [Avapro] 300 mg Tablet 300 mg PO QAM Discharge Orders: Discharge Order (Routine); Ordered 06/05/25 Ordered By: Patrick Velasquez/Other Patient Handouts: Managing Type 2 Diabetes Admission Data Admit Date/Time: 06/05/25 01:11 Attending Provider: Enedina Vail Admit Provider: Deandre Romero Primary Care Provider: Brett Gutierrez Other Providers: Deandre Romero Other Interventions: Discharge Summary Assessment (RN) Last Done: 06/05/25 14:30 Supervising Physician Co-Signing Physician Notes I personally examined the patient and verified finn points of history and exam, discussed case, and agree with decision making and plan documented by Dr. Harrington. Patient is a 79-year-old male with past medical history pertinent for ischemic heart disease status post CABG, atrial fibrillation on warfarin complete heart block status post pacemaker placement HFrEF, type 2 diabetes, COPD ,BPH, multiple back surgeries, and chronic pain with hydromorphone pump presenting with lower extremity spasms and twitching, on observation for the same. Unclear etiology of bilateral lower extremity muscle spasms and dystonia. No severe derangements of electrolytes, CT lumbar spine showed T12-L1 severe spinal stenosis, moderately severe bilateral L5-S1 neuroforaminal stenosis. MRI was not performed due to residual previous pacemaker not compatible with imaging. Patient had no red flags on exam such as weakness or saddle anesthesia or loss of bowel or bladder. He received methocarbamol and lorazepam in the ED. Overnight, patient had cessation of muscle spasms. On day of discharge, he was able to ambulate with his walker as usual and was feeling steady on his feet. Patient and elected to go home and schedule appointment at [facility] for further workup outpatient. Methocarbamol prescribed on discharge. Encouraged adequate hydration. Patient will follow-up with PCP in 1 week. Total attending time 45 minutes Resident Activity Tracking Resident Involvement: Resident Care Provided Care Provided: Adult Hospital Medicine
[2025-06-05 14:36] VITALS: PULSE 74
[2025-06-05] MEDS ORDERED: WARFARIN SOD 5 MG TAB PO SCH (16:00)
[2025-06-05] MEDS ORDERED: FAMOTIDINE 20 MG TAB PO SCH (21:00)
[2025-06-05] MEDS ORDERED: LANTUS PER UNIT CHARGE SC SCH (21:00)
[2025-06-05] MEDS ORDERED: ASPIRIN 81 MG ECTAB PO SCH (21:00)
--- NOTE | 2025-06-07 16:21 | Electrocardiogram Report ---
Test Reason : Blood Pressure : */* mmHG Vent. Rate : 70 BPM Atrial Rate : * BPM P-R Int : * ms QRS Dur : 132 ms QT Int : 436 ms P-R-T Axes : * -20 -68 degrees QTcB Int : 470 ms Sinus rhythm with occasional atrial-paced complexes with Atrial sensing, ventricular pacing Abnormal ECG When compared with ECG of 19-Mar-2025 12:04, No significant change was found Confirmed by Farhat Longoria ([id number]) on 06/07/2025 4:21:10 PM Referred By: REFERRED SELF Confirmed By: Farhat Longoria
[2025-06-11] MEDS ORDERED: WARFARIN SOD 6 MG TAB PO SCH (16:00)
== END 2025-06-05 15:21 | disposition home or self-care (01) ==
LOC: ED 20:16 → EDINP 20:16 → SUATTDRO 06-05 01:11 → 2N 06-05 01:44